=== PATIENT | male | born 1960 | race Asian ===

== ENCOUNTER 2024-08-23 10:53 | Outpatient (AMB) | payer OTHER, SELFPAY ==
--- NOTE | 2024-08-23 10:59 | A.OFFPC_ITS ---
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 Intake Note: establish care pt also needs a eye dr referral and another freestyle meter Allergies No Known Allergies Allergy (Verified 08/23/24 16:30) Medication List - Last Reconciled 08/23/24 by Jasmyn Chua CNP amoxicillin 500 mg PO TID blood-glucose meter (FreeStyle Lite Meter kit) As directed blood-glucose meter (FreeStyle System Kit) As directed diclofenac sodium 1% (Aleve (diclofenac)) 2 grams topical QID gabapentin 300 mg PO BEDTIME lancets (FreeStyle Lancets) As directed metformin 1,000 mg PO DAILY naproxen (EC-Naproxen) 500 mg PO BID tamsulosin 0.4 mg PO DAILY Tobacco use date assessed: 08/23/24 Fall risk assessment: 1 Fall in past year Last assessed Fall Risk: 08/23/24 Dental Screening Dental Screen Date: 08/23/24 Did you have a dental visit in the last 12 months?: Yes Did you have a dental problem in the last 6 months where you did not have access to dental care?: Yes Was dental information given to patient?: Patient has dentist HPI HPI Comments History of Present Illness Details The patient is a 64-year-old male presenting with his pjyeuefz-rv-lyu to establish care. His former PCP, Dr. Davis Roth, practice permanently closed about a month ago. He presents with dizziness and memory loss. The dizziness is described as occurring primarily in the mornings and evenings, causing fear of falling. This symptom has persisted for several months. The patient reports usage of meclizine to moderate effect. He also experiences memory issues, appearing forgetful, which he associates with his dizziness and fears. Regarding his chronic conditions, the patient has a history of diabetes mellitus type 2, managed with metformin, with A1c recently checked in March. Hypertension is noted but well-controlled, with blood pressure readings at 120/60 today. Hyperlipidemia which is not managed with medication. The patient has benign prostatic hyperplasia, causing nocturia 2-3 times nightly, managed with tamsulosin. He underwent a right knee replacement two years ago and continues to experience bilaterally arthritic changes, with persistent pain warranting the use of diclofenac cream and Naproxen. Additionally, he reports low back pain without prior imaging studies, which began post knee replacement. Constipation and GI issues are ongoing, prompting prior GI referrals for colonoscopy, which was deferred due to a move. Recent knee pains, and diffuse wrist pain, described as more prevalent in the left wrist, have been present for one year, with worsened activities like writing and lifting. The patient also reports a history of anxiety and mild depression accompanied by sleep disruptions, exacerbated by socioeconomic concerns. Social History - Recently moved to [place] from [facility], three months ago. - Lives with spouse and pnsiqtue-ke-dao in a joint family. - Fears falling due to dizziness, requir ing accompaniment. - He generally maintains a healthy diet. - Exercises occasionally, albeit limited by fear of falling and dizziness. Results - Labs: Hemoglobin A1c at 6.0%, blood pr essure 120/60. - Procedures: Past knee X-rays confirmin g arthritis. Health Maintenance - He has never had a colonoscopy. - He has never been vaccinated for pneum onia. Encouraged to get the vaccines from his local pharmacy. - He is up-to-date on the shingles vacci ne - His last tetanus vaccine was 2-3 years ago - His last extended physical exam with diane benavidez former PCP was in March 2024 -His former PCP referred him to a neurol ogist for dizziness and headaches, care rep for constipation, and ophthalmology for eye exam, but he relocated to [facility] before establishing care with them. He was also followed by urology for BPH, nocturia, and frequent urination before he moved. Family History - Father: Asthma, diabetes, hypertension . REPLACED BY [facility] Medical History (Updated 08/23/24 @ 14:00 by Jasmyn Chua CNP) Memory loss Generalized headaches Dizziness Frequency of urination Enlarged prostate Pain in lower back High cholesterol Surgical History (Updated 08/23/24 @ 11:09 by EDITH Hollins) Knee joint replacement status Family History (Updated 08/23/24 @ 12:59 by EDITH Hollins) Father Asthma High blood pressure Diabetes Social History Housing: House Patient Tobacco Use Status: Never used Tobacco e-Cigarette/Vaping Use: Never Used service: No Current occupational status: retired Current occupational exposures/hazards: No Cognitive needs: No Hearing needs: No Vision needs: Yes Questionnaire PHQ-9 Over the last 2 weeks, how often have you been bothered by any of the following problems? 1. Little interest or pleasure in doing things: not at all 2. Feeling down, depressed, or hopeless: several days 3. Trouble falling or staying asleep, or sleeping too much: more than half the days 4. Feeling tired or having little energy: several days 5. Poor appetite or overeating: not at all 6. Feeling bad about yourself - or that you are a failure or have let yourself or your family down: not at all 7. Trouble concentrating on things, such as reading the newspaper or watching television: more than half the days 8. Moving or speaking so slowly that other people could have noticed. Or the opposite - being so fidgety or restless that you have been moving around a lot more than usual: several days 9. Thoughts that you would be better off or of hurting yourself in some way: not at all Total score: 7 Depression Screening Interpretation: Positive Depression Screening Done: Yes 52175 - PHQ-9 Billing: Yes Source: Developed by Drs. Pedro Negrete, Kristen Ragland, Modesto Higgins and colleagues, with an educational angel from [employer]. Thrive Questionnaire Date Thrive assessed: 08/23/24 I am a: Patient What is your living situation today?: I have a steady place to live Within the past 12 months, did the food you bought not last and you didn't have the money to get more?: I choose not to answer this question Within the past 12 months, did you worry whether your food would run out before you got money to buy more?: Sometimes True Do you have trouble paying for medicines?: I choose not to answer this question Do you have trouble getting transportation to medical appointments?: Yes Do you have trouble paying your heating and electricity bill?: I choose not to answer this question Do you have trouble taking care of your child, family member or friend?: I choose not to answer this question Do you have trouble with day-to-day activities such as bathing, preparing meals, shopping, managing finances, etc.?: I choose not to answer this question Are you currently unemployed and looking for a job?: I choose not to answer this question Are you interested in more education?: No Please select the resources that you would like help with: Transportation, Util ities and Daily support Currently or been in a relationship where the following occur: I choose not to answer THRIVE Score: 2 AUDIT C Alcohol Use Questionnaire (AUDIT-C) 1. How often do you have a drink containing alcohol?: Never 2. How many drinks containing alcohol do you have on a typical day when you are drinking?: 1 or 2 3. How often do you have six or more drinks on one occasion?: Never Total Score: 0 JAIRO-7 AMB Questionnaire JAIRO-7 Date JAIRO - 7 assessed: 08/23/24 Feeling nervous, anxious, or on edge: 1 = Several days Not being able to stop or control worryin = Not at all Worrying too much about different things: 0 = Not at all Trouble relaxin = Several days Being so restless that it is hard to sit still: 0 = Not at all Becoming easily annoyed or irritable: 1 = Several days Feeling afraid as if something awful might happen: 1 = Several days Total JAIRO-7 score (0-4 normal; 5-9 mild; 10-14 moderate; 15-21 severe): 4 Source: Developed by Drs. Pedro Negrete, Kristen Ragland, Modesto Higgins and colleagues, with an educational angel from [employer]. JAIRO-7 Assessment Billing JAIRO-7 Assessment Tool: JAIRO-7 Assessment 28080 Review of Systems Const Details: Const Denies chills, Denies fatigue, Denies fever(s), Reports headache(s) and Denies weakness ENT Reports dizziness and Reports headache(s) Card Denies chest pain, Denies lightheadedness, Denies dyspnea and Denies other (Palpitations) Resp Denies cough, Denies dyspnea, Denies wheezing and Denies other (shortness of breath) GI Reports constipation, Denies abdominal pain, Denies melena, Denies hematochezia, Denies change in bowel habits, Denies dyspepsia and Denies nausea Reports nocturia and frequent urination, Denies hematuria and Denies dysuria Musc Reports as per HPI Skin/Breast Denies rash, Denies unusual bruising and Denies wounds Neuro Denies abnormal gait, Reports dizziness, Reports headache(s), Reports memory loss, Denies numbness, Denies Sensory deficit (Neuro), Denies tingling and Denies weakness Psych Reports anxiety, Reports depression, Reports memory loss, Reports sleep disturbances Endo Denies cold intolerance, Denies fatigue, Denies heat intolerance, Denies polydipsia and Denies polyuria Aller/Immun Denies wheezing Physical exam (Primary Care) Vital Signs: Last Vital Signs Temp 97.9 F 08/23/24 11:13 Pulse 62 08/23/24 11:13 Resp 14 08/23/24 11:13 BP 120/60 08/23/24 11:13 Pulse Ox 99 08/23/24 11:13 Oxygen Delivery Method Room Air 08/23/24 11:13 BMI result Body Mass Index 22.9 Tobacco/Smoking Status: Tobacco use Status Tobacco use date assessed 08/23/24 08/23/24 11:17 Patient Tobacco Use Status Never used Tobacco 08/23/24 11:17 e-Cigarette/Vaping Use Never Used 08/23/24 11:17 PHQ-9: PHQ-9 Score PHQ-9: Total score 7 08/23/24 12:50 Depression Screening Interpretation: Positive Thrive Assessment: Date of Thrive Assessment Date Thrive assessed 08/23/24 08/23/24 11:17 Currently or been in a relationship where the following occur: I choose not to answer Const Other: General: no acute distress and well developed Nutritional Appearance: well nourished Orientation/consciousness: patient oriented x3 HENMT Head: Yes normocephalic and Yes atraumatic Eyes General: appearance normal, both eyes and all related structures Pupils: Equal, round and reactive pupils present EOM: EOMs intact bilaterally Resp Effort & Inspection: normal respiratory effort Auscultation: clear to auscultation bilaterally Cardio Rate: regular rate Rhythm: regular rhythm Heart sounds: S1 normal heart sound present, S2 normal heart sound present, no gallops, no murmurs and no rubs GI Palpation (GI): No Abdominal aortic bruit present, Soft to palpation, nontender, No hepatosplenomegaly present and No Rebound tenderness present Auscultation: normal bowel sounds General: Yes no CVA tenderness Back/Spine/Pelvis Back: no CVA tenderness Cervical Spine: cervical ROM normal and No Cervical spine tenderness Thoracic/Lumbar Spine: thoraco-lumbar ROM normal, No pain with thoraco-lumbar ROM, No thoracic spinal tenderness and possitive lumbar spinal tenderness Extrem General: Yes normal to inspection, No edema and No calf tenderness Skin General: warm and dry. Normal skin color. Normal skin turgor Lesions: no lesions Rashes: no rashes Trauma: no lacerations or abrasions Wounds: no wounds Nails: normal Neuro General: patient oriented x3, gait normal and no focal neuro deficit Cranial nerves: Yes Equal, round and reactive pupils present Cognition (Neuro): normal cognition Gait exam (Neuro): Normal gait present Sensory Exam: No Sensory deficit (Neuro) Psych Appearance: grossly normal Affect: normal affect Attitude: cooperative Thought process: Normal thought process present Results AMB Hemoglobin A1c AMB Hemoglobin A1c 6.0 % Last Edit by EDITH Hollins on 08/23/24 12:48 AMB Hemoglobin A1c AMB Hemoglobin A1c 6.0 % Last Edit by EDITH Hollins on 08/23/24 12:49 Results Reviewed Results Reviewed: Laboratory Last Values Hgb A1c (Clinic) 6.0 % (4.0-6.0) 08/23/24 12:47 Coding Level of Care Code New Pt Level 4 (92240) New Pt Prev Care >65yr (94676) Diagnoses Type 2 diabetes mellitus E11.9 Essential hypertension I10 Laboratory tests ordered as part of a complete physical exam (CPE) Z00.00 High cholesterol E78.00 Enlarged prostate N40.0 Nocturia R35.1 Frequency of urination R35.0 Dizziness R42 Generalized headaches R51.9 Memory loss R41.3 Arthritis of both knees M17.0 Chronic low back pain M54.50; G89.29 Bilateral wrist pain M25.531; M25.532 Constipation K59.00 Colon cancer screening Z12.11 Anxiety and depression F41.9; F32.A Sleep disturbance G47.9 Additional Codes JAIRO-7 Assessment Billing - JAIRO-7 Assessment Tool: JAIRO-7 Assessment 42684 ([id number]) PHQ-9 - 03159 - PHQ-9 Billing: Yes ([id number]) Assessment & Plan Assessment & Plan (1) Type 2 diabetes mellitus: Code(s): E11.9 - Type 2 diabetes mellitus without complications Category: Medical Plan: Maintain current metformin regimen; close monitoring through routine blood glucose checks and A1c. 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 (3) Laboratory tests ordered as part of a complete physical exam (CPE): Code(s): Z00.00 - Encounter for general adult medical examination without abnormal findings Category: Medical Plan: Fasting labs ordered as part of a complete physical exam. Advised to fast for at least 10 hours before getting labs drawn. May drink water Verbalized understanding and agreed with treatment plan. (4) High cholesterol: Code(s): E78.00 - Pure hypercholesterolemia, unspecified Category: Medical Plan: Ensure lipid profile is stable at follow-up. (5) Enlarged prostate: Code(s): N40.0 - Benign prostatic hyperplasia without lower urinary tract symptoms Category: Medical Plan: Continue tamsulosin. Evaluate urinary symptoms as part of a urologist referral. (6) Nocturia: Code(s): R35.1 - Nocturia Category: Medical Plan: Plan as above (7) Frequency of urination: Code(s): R35.0 - Frequency of micturition Category: Medical Plan: Plan as above (8) Dizziness: Code(s): R42 - Dizziness and giddiness Category: Medical Plan: Neurology referral to investigate persistent headache, dizziness and memory complaints. Continued use of meclizine as symptomatically needed. (9) Generalized headaches: Code(s): R51.9 - Headache, unspecified Category: Medical Plan: Plan as above (10) Memory loss: Code(s): R41.3 - Other amnesia Category: Medical Plan: Plan as above (11) Arthritis of both knees: Code(s): M17.0 - Bilateral primary osteoarthritis of knee Category: Medical (12) Chronic low back pain: Code(s): M54.50 - Low back pain, unspecified; G89.29 - Other chronic pain Category: Medical Plan: Continue Naproxen and diclofenac cream application (13) Bilateral wrist pain: Code(s): M25.531 - Pain in right wrist; M25.532 - Pain in left wrist Category: Medical Plan: Continue Naproxen and diclofenac cream application; X-ray for bilateral wrist pain (14) Constipation: Code(s): K59.00 - Constipation, unspecified Category: Medical Plan: Referral for a colonoscopy via gastroenterology to rule out obstructive causes. (15) Colon cancer screening: Code(s): Z12.11 - Encounter for screening for malignant neoplasm of colon Category: Medical Plan: Referral for a colonoscopy via gastroenterology. (16) Anxiety and depression: Code(s): F41.9 - Anxiety disorder, unspecified; F32.A - Depression, unspecified Category: Medical Plan: Consider behavioral interventions for anxiety and depression; continue monitoring and adjustment as needed. (17) Sleep disturbance: Code(s): G47.9 - Sleep disorder, unspecified Category: Medical Plan: Plan as above Plan During the consultation, I addressed each of the patient's chronic conditions. I outlined the importance of coordinating care with specialists in neurology, gastroenterology, and urology to explore underlying causes for his dizziness, memory loss, constipation, BPH, nocturia, and urinary frequency. I stressed the role of lifestyle factors in managing his dizziness, emphasizing safety at home with supportive walking devices. We discussed the benefit of physical exercise tailored to his capabilities and the impact of mental health on his physical symptoms. I proposed a follow-up in two to three weeks by phone to review lab results, with further in-person evaluation based on those findings, ensuring clarity and proactive management across each condition. Orders: Orders XR wrist RT 2V Today M25.531 - Pain in right wrist, M25.532 - Pain in left wrist XR lumbar spine 2-3V Today G89.29 - Other chronic pain, M54.50 - Low back pain, unspecified AMB Hemoglobin A1c Today E11.9 - Type 2 diabetes mellitus without complications Complete Blood Count Auto Diff Today Z00.00 - Encounter for general adult medical examination without abnormal findings Comprehensive [place]. Panel Fast Today Z00.00 - Encounter for general adult medical examination without abnormal findings Lipid Panel Today Z00.00 - Encounter for general adult medical examination without abnormal findings TSH reflex Free T4 Today Z00.00 - Encounter for general adult medical examination without abnormal findings Microalbumin, Random (w Creat) Today Z00.00 - Encounter for general adult medical examination without abnormal findings UA CC w/rflx Micro + Cult Today Z00.00 - Encounter for general adult medical examination without abnormal findings PSA, Ultra Sensitive Today Z00.00 - Encounter for general adult medical examination without abnormal findings AMB Hemoglobin A1c Today Z13.9 - Encounter for screening, unspecified XR wrist LT 2V Today M25.531 - Pain in right wrist, M25.532 - Pain in left wrist Referrals Urology Referral N40.0 - Benign prostatic hyperplasia without lower urinary tract symptoms, R35.0 - Frequency of micturition, R35.1 - Nocturia Ophthalmology Referral E11.9 - Type 2 diabetes mellitus without complications Gastroenterology Referral K59.00 - Constipation, unspecified, Z12.11 - Encounter for screening for malignant neoplasm of colon Neurology Referral R41.3 - Other amnesia, R42 - Dizziness and giddiness, R51.9 - Headache, unspecified Medications: New blood-glucose meter (FreeStyle System Kit) As directed 1 ea 0RF E11.9 - Type 2 diabetes mellitus without complications Patient Instructions: - Continue medications as prescribed. - Use meclizine for dizziness as needed. - Schedule and attend neurology and gastroenterology appointments for dizziness and constipation assessment, and plan for necessary colonoscopy. - Follow urology for any changes in prostatic symptoms. - Engage in regular, light exercise to the extent tolerated, ensuring safety and support during activities. - Monitor and record blood pressure and blood glucose to manage hypertension and diabetes. - Schedule a telehealth visit for lab review in two to three weeks to discuss ongoing management. - Ensure a safe home environment to minimize fall risks. - Seek urgent medical attention if symptoms significantly worsen or new acute symptoms develop.
[2024-08-23 11:13] VITALS: BP 120/60; PULSE 62; RESP 14; TEMP 36.6; O2SAT 99; BMI 22.9
== END 2024-08-23 12:44 | disposition home or self-care (01) ==
PROVIDERS: Visit Provider Nurse Practitioner Family
DX: Z00.00 Encounter for general adult medical examination without abnormal findings (principal); E11.9 Type 2 diabetes mellitus without complications; I10 Essential (primary) hypertension; E78.00 Pure hypercholesterolemia, unspecified; N40.0 Benign prostatic hyperplasia without lower urinary tract symptoms; R35.1 Nocturia; M25.531 Pain in right wrist; M54.50 Low back pain, unspecified; R35.0 Frequency of micturition; M17.0 Bilateral primary osteoarthritis of knee; R42 Dizziness and giddiness; R51.9 Headache, unspecified

== ENCOUNTER → 2024-08-23 10:53 | Outpatient (BNVA) | payer OTHER, SELFPAY | PROVIDERS: Visit Provider Nurse Practitioner Family | DX: E11.9 Type 2 diabetes mellitus without complications (principal); I10 Essential (primary) hypertension; E78.00 Pure hypercholesterolemia, unspecified; N40.1 Benign prostatic hyperplasia with lower urinary tract symptoms; R35.1 Nocturia; R35.0 Frequency of micturition; R42 Dizziness and giddiness; R51.9 Headache, unspecified; R41.3 Other amnesia; M17.0 Bilateral primary osteoarthritis of knee; G89.29 Other chronic pain; M54.50 Low back pain, unspecified; M25.531 Pain in right wrist; M25.532 Pain in left wrist; K59.00 Constipation, unspecified; F41.9 Anxiety disorder, unspecified; F32.A Depression, unspecified; G47.9 Sleep disorder, unspecified; Z79.84 Long term (current) use of oral hypoglycemic drugs; Z79.899 Other long term (current) drug therapy | CPT/HCPCS: 83036; 96127 ==

== ENCOUNTER 2024-08-24 09:09 | Outpatient (REF) | payer OTHER, SELFPAY ==
[2024-08-24 10:57] LABS: Appearance Urine Clear; Color Urine Yellow; Glucose Urine UA Negative (Negative); Leukocyte Esterase Urine Negative (Negative); Nitrite Urine Negative (Negative); Specific Gravity - Urine <= 1.005 (1.005-1.025); Urine Blood Negative (Negative); Urine Ketones Negative (Negative); Urine Protein Negative (Neg-Trace)
[2024-08-24 11:19] LABS: MANUAL DIFF FLAG NO
[2024-08-24 11:22] LABS: Basophils Percent Auto 0.7 % (0-2); Eosinophils Absolute Auto 0.1 X10*3/uL (0.0-0.4); Eosinophils Percent Auto 1.7 % (0-4); Hematocrit 34.6 % (42.0-52.0); Hemoglobin 11.5 g/dl (14.0-18.0); Imm Gran Abs Auto 0.01 X10*3/uL (0.00-0.03); Imm Gran Pct Auto 0.2 % (0.0-0.4); Lymphocytes Absolute Auto 1.7 X10*3/uL (1.2-4.9); Lymphocytes Percent Auto 37.5 % (20-40); Mean Corpuscular HGB Conc 33.2 g/dl (31.0-36.0); Mean Corpuscular Hemoglobin 28.4 pg (27.0-33.0); Mean Corpuscular Volume 85.4 fL (80.0-98.0); Mean Platelet Volume 9.9 fL (9.4-12.4); Monocytes Absolute Auto 0.4 X10*3/uL (0.1-1.2); Monocytes Percent Auto 8.7 % (2-11); Neutrophils Absolute Auto 2.4 x10*3/uL (2.0-8.3); Neutrophils Percent Auto 51.2 % (45-73); Platelet Count 299 X10*3/uL (160-400); Red Blood Count 4.05 X10*6/uL (4.60-5.80); Red Cell Distribution Width 13.2 % (11.0-16.0); White Blood Count 4.6 X10*3/uL (4.8-10.8)
[2024-08-24 11:42] LABS: Alanine Aminotransferase 6 U/L (0-40); Albumin Level 4.1 g/dL (3.5-5.0); Anion Gap 10 (12-20); Aspartate Amino Transferase 25 U/L (5-37); Bilirubin Total 0.4 mg/dL (0.0-1.0); Blood Urea Nitrogen 11 mg/dL (9-16); Calcium 9.1 mg/dL (8.4-10.2); Carbon Dioxide 27 mmol/L (22-29); Chloride 103 mmol/L (96-108); Cholesterol 108 mg/dL (<200); Estimated Glomerular Filt Rate > 60; Glucose Fasting 104 mg/dL (60-99); HDL Cholesterol 44 mg/dL (>40); LDL Cholesterol Calculated 57 mg/dL (<100); Potassium 4.4 mmol/L (3.3-5.1); Sodium 136 mmol/L (135-145); Total Protein 6.9 g/dL (6.5-8.0); Triglycerides 39 mg/dL (<150)
[2024-08-24 11:44] LABS: Alkaline Phosphatase 52 U/L (39-117)
[2024-08-24 12:22] LABS: Creatinine Urine 14.83 mg/dL; Microalbumin Urine < 5.0 mg/L
[2024-08-29 19:58] LABS: PSA, Ultra Sensitive 7.29 ng/mL
== END 2024-08-24 09:10 | disposition home or self-care (01) ==
LOC: HO.WFDLDS 09:09
PROVIDERS: Visit Provider Nurse Practitioner Family
DX: Z00.00 Encounter for general adult medical examination without abnormal findings (principal); Z12.5 Encounter for screening for malignant neoplasm of prostate
CPT/HCPCS: 36415; 80053; 80061; 81003; 82043; 82570; 84153; 84443; 85025

== ENCOUNTER 2024-09-13 12:03 | Outpatient (AMB) | payer OTHER, SELFPAY ==
--- NOTE | 2024-09-13 11:29 | MHC.PC.OV ---
Intake Visit Reasons: FU Labs Piece Goods Clerk Required: No Allergies No Known Allergies Allergy (Verified 09/13/24 11:30) Tobacco use date assessed: 08/23/24 Fall risk assessment: 2 + Falls in past year Last assessed Fall Risk: 09/13/24 Dental Screening Dental Screen Date: 09/13/24 Did you have a dental visit in the last 12 months?: Yes Did you have a dental problem in the last 6 months where you did not have access to dental care?: No Was dental information given to patient?: Patient has dentist HPI HPI Comments History of Present Illness Details 64-year-old male presents for telehealth visit for review of recent lab results. He admits to taking his medications as prescribed without adverse reactions. He reports continued frequent urination. He stopped taking tamsulosin 10-15 days ago, thinking the medication may be contributing to his frequent urination. However, his symptoms have not stopped. He is willing to resume the medication. He has an appointment with [facility] [place] next month. He requests refills for tamsulosin and meclizine. He notes that he is also on atorvastatin 10 mg every night, lisinopril 10 mg twice daily, and metformin 1000 mg twice daily. [facility] Medical History (Updated 09/13/24 @ 12:15 by Jasmyn Chua CNP) Memory loss Generalized headaches Dizziness Frequency of urination Enlarged prostate Pain in lower back High cholesterol Surgical History (Updated 08/23/24 @ 11:09 by EDITH Hollins) Knee joint replacement status Family History (Updated 08/23/24 @ 12:59 by EDITH Hollins) Father Asthma High blood pressure Diabetes Social History Housing: House Patient Tobacco Use Status: Never used Tobacco e-Cigarette/Vaping Use: Never Used service: No Current occupational status: retired Current occupational exposures/hazards: No Cognitive needs: No Hearing needs: No Vision needs: Yes Questionnaire Thrive Questionnaire Date Thrive assessed: 08/16/24 I am a: Patient What is your living situation today?: I have a steady place to live Within the past 12 months, did the food you bought not last and you didn't have the money to get more?: I choose not to answer this question Within the past 12 months, did you worry whether your food would run out before you got money to buy more?: Sometimes True Do you have trouble paying for medicines?: I choose not to answer this question Do you have trouble getting transportation to medical appointments?: Yes Do you have trouble paying your heating and electricity bill?: I choose not to answer this question Do you have trouble taking care of your child, family member or friend?: I choose not to answer this question Do you have trouble with day-to-day activities such as bathing, preparing meals, shopping, managing finances, etc.?: I choose not to answer this question Are you currently unemployed and looking for a job?: I choose not to answer this question Are you interested in more education?: No Currently or been in a relationship where the following occur: I choose not to answer THRIVE Score: 2 JAIRO-7 AMB Questionnaire JAIRO-7 Date JAIRO - 7 assessed: 08/23/24 Source: Developed by Drs. Pedro Negrete, Kristen Ragland, Modesto Higgins and colleagues, with an educational angel from [employer]. Review of Systems Const Details: Const Denies chills, Denies fatigue, Denies fever(s), Denies headache(s) and Denies weakness ENT Denies dizziness and Denies headache(s) Card Denies chest pain, Denies lightheadedness, Denies dyspnea and Denies other (Palpitations) Resp Denies cough, Denies dyspnea, Denies wheezing and Denies other ( shortness of breath) GI Denies abdominal pain, Denies melena, Denies hematochezia, Denies change in bowel habits, Denies dyspepsia and Denies nausea Reports as per HPI Musc Denies abnormal gait, Denies myalgias, Denies arthralgias, Denies numbness and Denies tingling Skin/Breast Denies rash, Denies unusual bruising and Denies wounds Neuro Denies abnormal gait, Denies dizziness, Denies headache(s), Denies memory loss, Denies numbness, Denies Sensory deficit (Neuro), Denies tingling and Denies weakness Psych Denies anxiety, Denies depression, Denies memory loss Endo Denies cold intolerance, Denies fatigue, Denies heat intolerance, Denies polydipsia and Denies polyuria Aller/Immun Denies wheezing Physical exam (Primary Care) Tobacco/Smoking Status: Tobacco use Status Tobacco use date assessed 08/23/24 09/13/24 11:33 Patient Tobacco Use Status Never used Tobacco 09/13/24 11:33 e-Cigarette/Vaping Use Never Used 09/13/24 11:33 Thrive Assessment: Date of Thrive Assessment Date Thrive assessed 08/16/24 09/13/24 11:33 Currently or been in a relationship where the following occur: I choose not to answer Const Other: Telehealth visit. No physical exam Telehealth Telehealth Telehealth Platform: Telephone Location of provider rendering services: practice address Location of patient: address on file Patient Identification confirmed using: Name, : Yes Telehealth method: voice only Patient verbally consented to treatment: Yes Patient verbally consented to billing insurance company: Yes Patient informed of any privacy concerns related to visit: Yes Coding Level of Care Code Tele Est Pt Level 3 (02903) Diagnoses Mild anemia D64.9 Leukopenia D72.819 Type 2 diabetes mellitus E11.9 Elevated PSA R97.20 Time Spent (min) 15 Assessment & Plan Assessment & Plan (1) Mild anemia: Code(s): D64.9 - Anemia, unspecified Category: Medical Plan: Recent RBC and H&H are slightly low, 4.05 and 11.5/34.6 respectively. Likely due to anemia of chronic disease, including diabetes and hypertension. Will recheck CBC and check iron studies, vitamin B12, and folate levels. Will make changes as needed. Advised to get nonfasting blood work done before his next visit. Follow-up in 3 months for hypertension, diabetes, and labs review or sooner with symptoms or concerns. Verbalized understanding and agreed with the plan. (2) Leukopenia: Code(s): D72.819 - Decreased white blood cell count, unspecified Category: Medical Plan: Recent WBC is slightly low, 4.6; unequivocal. Will check vitamin B12 and folate levels and make changes as needed. (3) Type 2 diabetes mellitus: Code(s): E11.9 - Type 2 diabetes mellitus without complications Category: Medical Plan: Recent fasting glucose is elevated, 104. Recent H&H on 08/23/2024 was 6.0%, within goal of less than 7.0%. Continue current treatment regimen. ADA diet and routine exercise encouraged. Will recheck A1c in 3 months. Verbalized understanding and agreed with the treatment plan. (4) Elevated PSA: Code(s): R97.20 - Elevated prostate specific antigen [PSA] Category: Medical Plan: Recent PSA is slightly elevated, 7.29. He has history of enlarged prostate and frequent urination. He was recently referred to [facility] [place] and has an appointment next month. Orders: Orders Complete Blood Count no Diff 09/13/24 D64.9 - Anemia, unspecified, D72.819 - Decreased white blood cell count, unspecified IRON PROFILE 09/13/24 D64.9 - Anemia, unspecified Vitamin B12 and Folate 09/13/24 D64.9 - Anemia, unspecified, D72.819 - Decreased white blood cell count, unspecified Ferritin 09/13/24 D64.9 - Anemia, unspecified Medications: Changed From tamsulosin 0.4 mg PO DAILY To tamsulosin 0.4 mg PO DAILY 30 days 30 caps 1RF
== END 2024-09-13 12:27 | disposition home or self-care (01) ==
LOC: HO.HMCFM 12:03
PROVIDERS: PCP Nurse Practitioner Family; Visit Provider Nurse Practitioner Family
DX: D64.9 Anemia, unspecified (principal); D72.819 Decreased white blood cell count, unspecified; E11.9 Type 2 diabetes mellitus without complications; R97.20 Elevated prostate specific antigen [PSA]

== ENCOUNTER → 2024-09-13 12:03 | Outpatient (BNVA) | payer OTHER, SELFPAY | PROVIDERS: PCP Nurse Practitioner Family; Visit Provider Nurse Practitioner Family ==

== ENCOUNTER 2024-10-23 09:20 | Outpatient (AMB) | payer OTHER, SELFPAY ==
--- NOTE | 2024-10-23 09:51 | A.OFFVIS_ITS ---
Intake Visit Reasons: BPH/nocturia/Elevated PSA Intake Note: New Patient presents for initial visit for BPH, nocturia, and elevated psa Urology Medications: tamsulosin (stopped 3 days ago) Blood Thinner: none PVR: 15ml's Manager Staffing Required: No Accompanied by: Self / Same As Patient Allergies No Known Allergies Allergy (Verified 10/23/24 11:00) Medication List - Last Reviewed 10/23/24 by Aminah Ahumada alfuzosin ER 10 mg PO BEDTIME 30 days atorvastatin 10 mg PO DAILY blood sugar diagnostic (Spare Backupuch Verio test strips) As directed blood-glucose meter (EVERFANSTouch Verio Flex Meter) As directed diclofenac sodium 1% (Aleve (diclofenac)) 2 grams topical QID gabapentin 300 mg PO BEDTIME lancets (EVERFANSTouch Delica Plus Lancet) As directed lisinopril 10 mg PO BID 90 days meclizine 12.5 mg PO TID metformin ER 1,000 mg PO BID naproxen (EC-Naproxen) 500 mg PO BID naproxen 500 mg PO BID HPI Comments Details: Miya is a very pleasant 64-year-old male patient of Dr. Chua. He has a past medical history of memory loss, headaches, dizziness, hypercholesteremia, and elevated PSA. In discussion with the patient today he reports having followed up with a urologist in [place], [place] where he recently lived however has moved to [place] and is looking to establish urology care. He brings with him today his MRI report that notes a 1.0 X 1.1 cm focus of prominent T2 and ADC hypointensity at right posterior medical peripheral zone at mid gland, suspicious (DE-RADS 4). He discusses he was due to follow-up regarding results of MRI and further treatment options however he then moved to [place]. He reports noting over the last 6-9 months he has been having episodes of urinary frequency, urinary urgency, and nocturia. He reports being given Flomax with good effect in treating his lower urinary tract symptoms however at times experiences dizziness. He otherwise denies incontinence, hematuria, dysuria, foul smelling urine, changes to urinary stream, flank pain, fever, and or chills. PSAs are as follows: 08/26 7.3. AUBREY offered however deferred. He denies any known family history of prostate cancer. We discussed at length potential causes of elevated PSA as well as further workup to include targeted prostate biopsy. We discussed risks and benefits of this intervention. In office urinalysis results reviewed with the patient today. He discusses his ongoing medical issues and follow-up with neurology today for recurrent headaches he has been experiencing. He otherwise offers no other issues or concerns at this time. [facility] Medical History Memory loss Generalized headaches Dizziness Frequency of urination Enlarged prostate Pain in lower back High cholesterol Surgical History Knee joint replacement status Family History Father Asthma High blood pressure Diabetes Social History Housing: House Patient Tobacco Use Status: Never used Tobacco e-Cigarette/Vaping Use: Never Used service: No Current occupational status: retired Current occupational exposures/hazards: No Cognitive needs: No Hearing needs: No Vision needs: Yes Review of Systems Const All systems reviewed & are unremarkable except as noted in HPI and below Physical Exam Const General: cooperative, comfortable, no acute distress, well developed, alert and awake Orientation/consciousness: patient oriented x3 HEENT Head: Yes normal to inspection, Yes normocephalic and Yes atraumatic Ears: hearing grossly normal bilaterally Neck Neck: Yes normal visual inspection and Yes trachea midline Chest Chest palpation & inspection: normal inspection of the chest Resp Effort & Inspection: normal respiratory effort and able to speak in complete sentences Cardio Rate: regular rate GI Inspection: Yes normal to inspection General: Yes no CVA tenderness Back/Spine/Pelvis Back: no CVA tenderness Skin General skin exam: no rashes or lesions noted Neuro General: patient oriented x3 Extrem General: Yes normal to inspection Psych Appearance: grossly normal and well kempt Mental Status: mental status grossly normal Speech and movement: Normal speech and movement present and Clear speech present Affect: normal affect Attitude: cooperative Thought process: Normal thought process present Thought content: Normal thought content present Insight: Fair insight present (Psych) Judgement: Fair judgement present (Psych) Office Procedures Post Void Residual Post Residual Void Post Void Residual (PVR): 15 [id number] Void Residual by ultrasound Results AMB Urinalysis, Automated UA Leukoctes 0 David/uL Last Edit by [employer] on 10/23/24 11:02 UA Nitrite Last Edit by [employer] on 10/23/24 11:02 UA Urobilinogen 0.2 mg/dL Last Edit by [employer] on 10/23/24 11:02 UA Protein 15 mg/dL Last Edit by [employer] on 10/23/24 11:02 UA pH 6.0 Last Edit by [employer] on 10/23/24 11:02 UA Blood 0 Luis E/uL Last Edit by [employer] on 10/23/24 11:02 UA Specific Schriever 1.020 Last Edit by [employer] on 10/23/24 11:02 UA Ketone Last Edit by [employer] on 10/23/24 11:02 UA Bilirubin 0 mg/dL Last Edit by [employer] on 10/23/24 11:02 UA Glucose 0 mg/dL Last Edit by [employer] on 10/23/24 11:02 Results Reviewed Results Reviewed: Laboratory Last Values Urine pH (Auto) 6.0 10/23/24 11:01 Specific Schriever (Auto) 1.020 10/23/24 11:01 Urine Protein (Auto) 15 mg/dL 10/23/24 11:01 Glucose (UA)(Auto) 0 mg/dL 10/23/24 11:01 Urine Blood (Auto) 0 Luis E/uL 10/23/24 11:01 Urine Bilirubin (Auto) 0 mg/dL 10/23/24 11:01 Urine Urobilinogen (Auto) 0.2 mg/dL 10/23/24 11:01 Leukocyte Esterase (Auto) 0 David/uL 10/23/24 11:01 Assessment & Plan Assessment & Plan (1) Elevated PSA: Code(s): R97.20 - Elevated prostate specific antigen [PSA] Category: Medical (2) Frequency of urination: Code(s): R35.0 - Frequency of micturition Category: Medical (3) Nocturia: Code(s): R35.1 - Nocturia Category: Medical Plan: Risks, benefits and alternatives to therapy were discussed. These include but are not limited to infection, bleeding, damage to local organs and tissues, need for further interventions. ? Anesthetic risks regarding cardiac arrhythmia, blood clots, and potential mortality were discussed. The patient understands the typical recovery time and the outpatient nature of the procedure. After consideration of these risks the patient gives full informed consent and they wish to move ahead with the procedure. Plan In office urinalysis results reviewed with the patient today; as noted above. MRI report reviewed with the patient today; as noted above. We discussed at length potential causes of elevated PSA as well as further treatment options to include targeted biopsy; we discussed risks and benefits of this intervention. All questions were answered. Stop Flomax. Start alfuzosin 10 mg at bedtime as discussed and prescribed. AUBREY offered however deferred. Will attempt to obtain MRI disc for targeted biopsy Will schedule for targeted biopsy Follow-up per doctor's orders; or sooner with any issues, concerns, and or questions. Orders: Orders AMB Urinalysis Automated Today Z13.9 - Encounter for screening, unspecified AMB Post Void Residual by ultrasound Today R35.1 - Nocturia Medications: New alfuzosin ER Take before bedtime 10 mg PO BEDTIME 30 tabs 3RF 30 days N32.0 - Bladder- neck obstruction, N40.1 - Benign prostatic hyperplasia with lower urinary tract symptoms, R33.9 - Retention of urine, unspecified, R35.1 - Nocturia, R39.12 - Poor urinary stream Discontinued tamsulosin Discontinued Reason: Doctor's Order 0.4 mg PO DAILY 30 days 30 caps 1RF Patient Instructions: The patient had an opportunity to ask questions regarding the treatment plan. All questions were answered. Physical exam, labs, and imaging were discussed and reviewed in detail. As well as risks, benefits, and discussion of treatment choices. No major barriers to understanding were identified. The patient expressed understanding and agreement with the above treatment plan. The patient was made aware they should contact our office by phone for worsening of their current condition, the appearance of new symptoms, or with any questions or concerns. Compliance is encouraged with any medications and follow up testing that is ordered. It is a privilege to be allowed the opportunity to participate in? your urological care.? Again, if you have any questions or concerns If you have any questions or concerns please do not hesitate to contact me. The office is [phone]. This note is constructed using voice recognition software. While every effort has been made to ensure accuracy global compensation analyst errors may have been included. Yours sincerely, SEAN Santamaria-PRO Coding Level of Care Code New Pt Level 4 (54416) Diagnoses Elevated PSA R97.20 Frequency of urination R35.0 Nocturia R35.1 CPT Codes Post Residual Void - PVR CPT Code: 74429-Payu Void Residual by ultrasound ([id number])
== END 2024-10-23 11:29 | disposition home or self-care (01) ==
PROVIDERS: PCP Nurse Practitioner Family; Visit Provider Nurse Practitioner Family
DX: R97.20 Elevated prostate specific antigen [PSA] (principal); R35.0 Frequency of micturition; R35.1 Nocturia; Z13.9 Encounter for screening, unspecified
CPT/HCPCS: 99204

== ENCOUNTER → 2024-10-23 09:20 | Outpatient (BNVA) | payer OTHER, SELFPAY | PROVIDERS: PCP Nurse Practitioner Family; Visit Provider Nurse Practitioner Family | DX: R97.20 Elevated prostate specific antigen [PSA] (principal); N40.1 Benign prostatic hyperplasia with lower urinary tract symptoms; R35.0 Frequency of micturition; R35.1 Nocturia | CPT/HCPCS: 51798; 81003 ==

== ENCOUNTER 2024-12-20 10:33 | Outpatient (REF) | payer OTHER, SELFPAY ==
[2024-12-20 14:38] LABS: Hematocrit 35.9 % (42.0-52.0); Mean Corpuscular HGB Conc 33.4 g/dl (31.0-36.0); Mean Corpuscular Hemoglobin 27.8 pg (27.0-33.0); Mean Corpuscular Volume 83.3 fL (80.0-98.0); Mean Platelet Volume 10.2 fL (9.4-12.4); Platelet Count 334 X10*3/uL (160-400); Red Blood Count 4.31 X10*6/uL (4.60-5.80); Red Cell Distribution Width 13.3 % (11.0-16.0)
[2024-12-20 14:44] LABS: Iron 63 mcg/dL (45-160); Percent Iron Saturation 21 % (15-50); Total Iron Binding Capacity 307 mcg/dL (228-428); Unsaturated Iron Binding 244 ug/dL
[2024-12-20 15:40] LABS: Ferritin 14 ng/mL (20-250)
[2024-12-20 15:50] LABS: Folate 9.9 ng/mL (> or = 4.0); Vitamin B12 364 pg/mL (200-900)
== END 2024-12-20 10:34 | disposition home or self-care (01) ==
LOC: HO.WFDLDS 10:33
PROVIDERS: Visit Provider Nurse Practitioner Family
DX: D72.819 Decreased white blood cell count, unspecified (principal); D64.9 Anemia, unspecified
CPT/HCPCS: 36415; 82607; 82728; 82746; 83540; 85027

== ENCOUNTER 2024-12-24 11:36 | Outpatient (AMB) | payer OTHER, SELFPAY ==
--- NOTE | 2024-12-24 11:40 | A.OFFPC_ITS ---
Vital Signs 12/24/24 11:47 Height 5 ft 10 in Weight 157 lb BMI 22.5 BP 124/64 Blood Pressure Location Rt brachial Position Sitting Respiration 16 Pulse 64 Pulse Source Pulse Oximeter Temp 97.8 F Temp Source Oral Pulse Oximetry (%) 100 Oxygen Delivery Method Room Air Intake Visit Reasons: 3 month fu htn,dm,lab review Intake Note: patient here for 3 month follow up on HTN,DM and lab review. 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 Required: No Accompanied by: Spouse Allergies No Known Allergies Allergy (Verified 12/24/24 11:45) Tobacco use date assessed: 12/24/24 Fall risk assessment: No Falls in past year Last assessed Fall Risk: 12/24/24 Dental Screening Dental Screen Date: 12/24/24 Did you have a dental visit in the last 12 months?: Yes Did you have a dental problem in the last 6 months where you did not have access to dental care?: No Was dental information given to patient?: Patient has dentist HPI HPI Comments History of Present Illness Details 64-year-old male presents for hypertensi on, diabetes, and recent labs review follow-up. He admits to taking his medications as prescribed without adverse reactions. He notes chronic constipation. He usually has bowel movements every 3-4 days with straining and occasional GI discomfort. No nausea, vomiting, diarrhea. No bloody stools. No acute symptoms at this time. [facility] Medical History Memory loss Generalized headaches Dizziness Frequency of urination Enlarged prostate Pain in lower back High cholesterol Surgical History Knee joint replacement status Family History Father Asthma High blood pressure Diabetes Social History Housing: House Patient Tobacco Use Status: Never used Tobacco e-Cigarette/Vaping Use: Never Used service: No Current occupational status: retired Current occupational exposures/hazards: No Cognitive needs: No Hearing needs: No Vision needs: Yes Questionnaire PHQ-9 Over the last 2 weeks, how often have you been bothered by any of the following problems? 1. Little interest or pleasure in doing things: nearly every day 2. Feeling down, depressed, or hopeless: several days 3. Trouble falling or staying asleep, or sleeping too much: several days 4. Feeling tired or having little energy: several days 5. Poor appetite or overeating: several days 6. Feeling bad about yourself - or that you are a failure or have let yourself or your family down: several days 7. Trouble concentrating on things, such as reading the newspaper or watching television: several days 8. Moving or speaking so slowly that other people could have noticed. Or the opposite - being so fidgety or restless that you have been moving around a lot more than usual: several days 9. Thoughts that you would be better off or of hurting yourself in some way: not at all Total score: 10 Depression Screening Interpretation: Positive Depression Screening Done: Yes Source: Developed by Drs. Pedro Negrete, Kristen Ragland, Modesto Higgins and colleagues, with an educational angel from [employer]. Thrive Questionnaire Date Thrive assessed: 08/16/24 I am a: Parent/Caregiver What is your living situation today?: I have a steady place to live Within the past 12 months, did the food you bought not last and you didn't have the money to get more?: Sometimes True Within the past 12 months, did you worry whether your food would run out before you got money to buy more?: Often true Do you have trouble paying for medicines?: No Do you have trouble getting transportation to medical appointments?: No Do you have trouble paying your heating and electricity bill?: No Do you have trouble taking care of your child, family member or friend?: No Do you have trouble with day-to-day activities such as bathing, preparing meals, shopping, managing finances, etc.?: Yes Are you currently unemployed and looking for a job?: No Are you interested in more education?: No Please select the resources that you would like help with: None Currently or been in a relationship where the following occur: I choose not to answer THRIVE Score: 2 AUDIT C Alcohol Use Questionnaire (AUDIT-C) 1. How often do you have a drink containing alcohol?: Never Total Score: 0 JAIRO-7 AMB Questionnaire JAIRO-7 Date JAIRO - 7 assessed: 08/23/24 Feeling nervous, anxious, or on edge: 0 = Not at all Not being able to stop or control worryin = Several days Worrying too much about different things: 1 = Several days Trouble relaxin = Several days Being so restless that it is hard to sit still: 1 = Several days Becoming easily annoyed or irritable: 2 = More than half the days Feeling afraid as if something awful might happen: 1 = Several days Total JAIRO-7 score (0-4 normal; 5-9 mild; 10-14 moderate; 15-21 severe): 7 Source: Developed by Drs. Pedro Negrete, Kristen Ragland, Modesto Higgins and colleagues, with an educational angel from [employer]. Review of Systems Const Details: Const Denies chills, Denies fatigue, Denies fever(s), Denies headache(s) and Denies weakness ENT Denies dizziness and Denies headache(s) Card Denies chest pain, Denies lightheadedness, Denies dyspnea and Denies other (Palpitations) Resp Denies cough, Denies dyspnea, Denies wheezing and Denies other ( shortness of breath) GI Reports as per HPI Denies hematuria and Denies dysuria Musc Denies abnormal gait, Denies myalgias, Denies arthralgias, Denies numbness and Denies tingling Skin/Breast Denies rash, Denies unusual bruising and Denies wounds Neuro Denies abnormal gait, Denies dizziness, Denies headache(s), Denies memory loss, Denies numbness, Denies Sensory deficit (Neuro), Denies tingling and Denies weakness Psych Denies anxiety, Denies depression, Denies memory loss Endo Denies cold intolerance, Denies fatigue, Denies heat intolerance, Denies polydipsia and Denies polyuria Aller/Immun Denies wheezing Physical exam (Primary Care) Tobacco/Smoking Status: Tobacco use Status Tobacco use date assessed 08/23/24 12/24/24 11:42 Patient Tobacco Use Status Never used Tobacco 12/24/24 11:42 e-Cigarette/Vaping Use Never Used 12/24/24 11:42 PHQ-9: PHQ-9 Score PHQ-9: Total score 10 12/24/24 11:42 Depression Screening Interpretation: Positive Thrive Assessment: Date of Thrive Assessment Date Thrive assessed 08/16/24 12/24/24 11:42 Currently or been in a relationship where the following occur: I choose not to answer Const Other: General: no acute distress and well developed Nutritional Appearance: well nourished Orientation/consciousness: patient oriented x3 [facility] Head: Yes normocephalic and Yes atraumatic Eyes General: appearance normal, both eyes and all related structures Pupils: Equal, round and reactive pupils present EOM: EOMs intact bilaterally Resp Effort & Inspection: normal respiratory effort Auscultation: clear to auscultation bilaterally Cardio Rate: regular rate Rhythm: regular rhythm Heart sounds: S1 normal heart sound present, S2 normal heart sound present, no gallops, no murmurs and no rubs GI Palpation (GI): No Abdominal aortic bruit present, Soft to palpation, nontender, No hepatosplenomegaly present and No Rebound tenderness present Auscultation: normal bowel sounds General: Yes no CVA tenderness Back/Spine/Pelvis Back: no CVA tenderness Cervical Spine: cervical ROM normal and No Cervical spine tenderness Thoracic/Lumbar Spine: thoraco-lumbar ROM normal, No pain with thoraco-lumbar ROM, No thoracic spinal tenderness and No lumbar spinal tenderness Extrem General: Yes normal to inspection, No edema and No calf tenderness Skin General: warm and dry. Normal skin color. Normal skin turgor Neuro General: patient oriented x3, gait normal and no focal neuro deficit Cranial nerves: Yes Equal, round and reactive pupils present Cognition (Neuro): normal cognition Gait exam (Neuro): Normal gait present Sensory Exam: No Sensory deficit (Neuro) Psych Appearance: grossly normal Affect: normal affect Attitude: cooperative Thought process: Normal thought process present Results AMB Hemoglobin A1c AMB Hemoglobin A1c 5.8 % Last Edit by Azucena Canas MA on 12/24/24 12:01 Coding Level of Care Code Est Pt Level 4 (74600) Diagnoses Essential hypertension I10 Type 2 diabetes mellitus E11.9 Mild anemia D64.9 Leukopenia D72.819 Constipation K59.00 Assessment & Plan Assessment & Plan (1) Essential hypertension: Code(s): I10 - Essential (primary) hypertension Category: Medical Plan: Blood pressure today is 124/64, within goal of less than 130/80. Continue current treatment regimen. Follow-up in 3 months or sooner with symptoms or concerns. Verbalized understanding and agreed with treatment plan. (2) Type 2 diabetes mellitus: Code(s): E11.9 - Type 2 diabetes mellitus without complications Category: Medical Plan: A1c today is 5.8%, within goal of less than 7.0%. Previous A1c was 6.0%. Continue current treatment regimen. Follow-up in 3 months or sooner with symptoms or concerns. Verbalized understanding and agreed with treatment plan. (3) Mild anemia: Code(s): D64.9 - Anemia, unspecified Category: Medical Plan: Recent RBC and H&H levels are slightly elevated, 4.31 and 12.0/35.9 respectively. MCV is normal. Recent iron profile, vitamin B12, and folate level are normal. Ferritin level is slightly low, 14. Low ferritin level is likely due to early iron-deficiency, chronic blood loss, increase iron demand, or illness/stress. Anemia of chronic disease including hypertension, diabetes, and arthritis is also possible. He has never had a colonoscopy. However, he has an appointment with [facility] [place] [place] in January. Will recheck ferritin levels and make changes as needed. (4) Leukopenia: Code(s): D72.819 - Decreased white blood cell count, unspecified Category: Medical Plan: Recent WBC is normal. (5) Constipation: Code(s): K59.00 - Constipation, unspecified Category: Medical Plan: He has been experiencing chronic constipation. He usually has bowel movements every 3-4 days with straining and occasional GI discomfort. No nausea, vomiting, diarrhea. No bloody stools. Magnesium oxide 500 mg daily ordered; advised to take as prescribed. Instructed on the risks, benefits, and potential adverse reactions of the medication. Adequate hydration encouraged. Encouraged to have fruits and vegetables in his diet. Follow-up with [facility] as scheduled. Return with worsening or new symptoms. Verbalized understanding and agreed with treatment plan. Orders: Orders AMB Hemoglobin A1c Today Z13.9 - Encounter for screening, unspecified Ferritin Today D64.9 - Anemia, unspecified Medications: New magnesium oxide 500 mg PO DAILY 30 days 30 tabs 3RF
[2024-12-24 11:47] VITALS: BP 124/64; PULSE 64; RESP 16; TEMP 36.6; O2SAT 100; BMI 22.5
== END 2024-12-24 12:14 | disposition home or self-care (01) ==
LOC: HO.HMCFM 11:37
PROVIDERS: PCP Nurse Practitioner Family; Visit Provider Nurse Practitioner Family
DX: I10 Essential (primary) hypertension (principal); E11.9 Type 2 diabetes mellitus without complications; D64.9 Anemia, unspecified; D72.819 Decreased white blood cell count, unspecified; K59.00 Constipation, unspecified; Z13.9 Encounter for screening, unspecified

== ENCOUNTER → 2024-12-24 11:36 | Outpatient (BNVA) | payer OTHER, SELFPAY | PROVIDERS: PCP Nurse Practitioner Family; Visit Provider Nurse Practitioner Family | DX: I10 Essential (primary) hypertension (principal); E11.9 Type 2 diabetes mellitus without complications; D64.9 Anemia, unspecified; D72.819 Decreased white blood cell count, unspecified; K59.00 Constipation, unspecified | CPT/HCPCS: 83036; 96127 ==

== ENCOUNTER 2024-12-24 12:35 | Outpatient (REF) | payer OTHER, SELFPAY ==
[2024-12-24 14:57] LABS: Ferritin 16 ng/mL (20-250)
== END 2024-12-24 12:36 | disposition home or self-care (01) ==
LOC: HO.WFDLDS 12:35
PROVIDERS: Visit Provider Nurse Practitioner Family
DX: D64.9 Anemia, unspecified (principal)
CPT/HCPCS: 36415; 82728

== ENCOUNTER 2025-01-09 09:39 | Outpatient (AMB) | payer MEDICARE, SELFPAY ==
--- NOTE | 2025-01-09 09:50 | A.OFFVIS_ITS ---
Intake Visit Reasons: About biology on 01/1425 Intake Note: Pt presents to the office today for questions regarding biopsy procedure. Urology Medications: Alfuzosin Blood Thinner: none Operating Room Registered Nurse Required: Yes Operating Room Registered Nurse Services: Operating Room Registered Nurse Present Operating Room Registered Nurse Name: Ponce [id number] Accompanied by: Self / Same As Patient Allergies No Known Allergies Allergy (Verified 01/09/25 11:06) Medication List - Last Reconciled 01/09/25 by VENKAT Santamaria alfuzosin ER 10 mg PO BEDTIME 30 days atorvastatin 10 mg PO DAILY blood sugar diagnostic (OneTouch Verio test strips) As directed blood-glucose meter (OneTouch Verio Flex Meter) As directed diclofenac sodium 1% (Aleve (diclofenac)) 2 grams topical QID ferrous sulfate 325 mg PO DAILY 30 days lancets (NexgenceTouch Delica Plus Lancet) As directed lisinopril 10 mg PO BID 90 days magnesium oxide 500 mg PO DAILY 30 days meclizine 12.5 mg PO TID metformin ER 1,000 mg PO BID naproxen (EC-Naproxen) 500 mg PO BID naproxen 500 mg PO BID sumatriptan succinate 50 mg PO DAILY PRN HPI Comments Details: Miya is a very pleasant Gujarati speaking 64-year-old male patient of Dr. Chua. He has a past medical history of memory loss, headaches, dizziness, hypercholesteremia, and elevated PSA. He presents to the office today for follow-up of his elevated PSA. Of note, patient was seen approximately 3 months ago as a new patient to establish urology care at which time he brought with him his prostate MRI report from [facility] where he used to reside. MRI 03/26 report notes a 1.0 X 1.1 cm focus of prominent T2 and ADC hypointensity at right posterior medical peripheral zone at mid gland, suspicious (IN-RADS 4). During last office visit discussion regarding prostate fusion biopsy verses transrectal biopsy were discussed as well as risks and benefits of these procedures and decision for prostate fusion biopsy was made. He is currently scheduled for prostate fusion biopsy with Dr. Barrera on 01/14. During today's appointment all questions were answered to the best of my ability. Patient had previously been on Flomax for episodes of urinary frequency, urinary urgency, and nocturia he had been experiencing however felt Flomax caused him dizziness. He was switched to alfuzosin 10 mg at bedtime and feels this has been helpful in treatment of lower urinary tract symptoms. He otherwise denies incontinence, hematuria, dysuria, foul smelling urine, changes to urinary stream, flank pain, fever, and or chills. PSAs are as follows: 08/26 7.3. AUBREY offered however deferred. He denies any known family history of prostate cancer. We discussed at length potential causes of elevated PSA. In office urinalysis results reviewed with the patient today. He otherwise offers no other issues or concerns at this time. [facility] Medical History Memory loss Generalized headaches Dizziness Frequency of urination Enlarged prostate Pain in lower back High cholesterol Surgical History Knee joint replacement status Family History Father Asthma High blood pressure Diabetes Social History Housing: House Patient Tobacco Use Status: Never used Tobacco e-Cigarette/Vaping Use: Never Used service: No Current occupational status: retired Current occupational exposures/hazards: No Cognitive needs: No Hearing needs: No Vision needs: Yes Review of Systems Const All systems reviewed & are unremarkable except as noted in HPI and below Physical Exam Const General: cooperative, comfortable, no acute distress, well developed, alert and awake Orientation/consciousness: patient oriented x3 Limitations: language barrier HEENT Head: Yes normal to inspection, Yes normocephalic and Yes atraumatic Ears: hearing grossly normal bilaterally Neck Neck: Yes normal visual inspection and Yes trachea midline Chest Chest palpation & inspection: normal inspection of the chest Resp Effort & Inspection: normal respiratory effort and able to speak in complete sentences Cardio Rate: regular rate GI Inspection: Yes normal to inspection General: Yes no CVA tenderness Back/Spine/Pelvis Back: no CVA tenderness Skin General skin exam: no rashes or lesions noted Neuro General: patient oriented x3 Extrem General: Yes normal to inspection Psych Appearance: grossly normal and well kempt Mental Status: mental status grossly normal Speech and movement: Normal speech and movement present and Clear speech present Affect: normal affect Attitude: cooperative Thought process: Normal thought process present Thought content: Normal thought content present Insight: Fair insight present (Psych) Judgement: Fair judgement present (Psych) Results AMB Urinalysis, Automated UA Leukoctes 0 David/uL Last Edit by Maria Teresa Aguilera CMA on 01/09/25 09:57 UA Nitrite Negative Last Edit by Maria Teresa Aguilera CMA on 01/09/25 09:57 UA Urobilinogen 0.2 mg/dL Last Edit by Maria Teresa Aguilera CMA on 01/09/25 09:57 UA Protein 0 mg/dL Last Edit by Maria Teresa Aguilera CMA on 01/09/25 09:57 UA pH 6.0 Last Edit by Maria Teresa Aguilera CMA on 01/09/25 09:57 UA Blood 0 Luis E/uL Last Edit by Maria Teresa Aguilera CMA on 01/09/25 09:57 UA Specific [place] 1.010 Last Edit by Maria Teresa Aguilera CMA on 01/09/25 09:57 UA Ketone Negative Last Edit by Maria Teresa Aguilera CMA on 01/09/25 09:57 UA Bilirubin 0 mg/dL Last Edit by Maria Teresa Aguilera CMA on 01/09/25 09:57 UA Glucose 0 mg/dL Last Edit by Maria Teresa Aguilera CMA on 01/09/25 09:57 Results Reviewed Results Reviewed: Laboratory Last Values Urine pH (Auto) 6.0 01/09/25 09:52 Specific [place] (Auto) 1.010 01/09/25 09:52 Urine Protein (Auto) 0 mg/dL 01/09/25 09:52 Glucose (UA)(Auto) 0 mg/dL 01/09/25 09:52 Urine Ketones (Auto) Negative 01/09/25 09:52 Urine Blood (Auto) 0 Luis E/uL 01/09/25 09:52 Urine Nitrite (Auto) Negative 01/09/25 09:52 Urine Bilirubin (Auto) 0 mg/dL 01/09/25 09:52 Urine Urobilinogen (Auto) 0.2 mg/dL 01/09/25 09:52 Leukocyte Esterase (Auto) 0 David/uL 01/09/25 09:52 Assessment & Plan Assessment & Plan (1) Elevated PSA: Code(s): R97.20 - Elevated prostate specific antigen [PSA] Category: Medical (2) Frequency of urination: Code(s): R35.0 - Frequency of micturition Category: Medical (3) Nocturia: Code(s): R35.1 - Nocturia Category: Medical Plan: Risks, benefits and alternatives to therapy were discussed. These include but are not limited to infection, bleeding, damage to local organs and tissues, need for further interventions. ? Anesthetic risks regarding cardiac arrhythmia, blood clots, and potential mortality were discussed. The patient understands the typical recovery time and the outpatient nature of the procedure. After consideration of these risks the patient gives full informed consent and they wish to move ahead with the procedure. Plan In office urinalysis results reviewed with the patient today; as noted above. All questions were answered. Continue alfuzosin 10 mg at bedtime as discussed and prescribed. AUBREY offered however deferred. We discussed prostate fusion biopsy; risks and benefits. Keep scheduled surgical appointment as planned Follow-up per doctor's orders; or sooner with any issues, concerns, and or questions. Orders: Orders AMB Urinalysis Automated Today Z13.9 - Encounter for screening, unspecified Patient Instructions: The patient had an opportunity to ask questions regarding the treatment plan. All questions were answered. Physical exam, labs, and imaging were discussed and reviewed in detail. As well as risks, benefits, and discussion of treatment choices. No major barriers to understanding were identified. The patient expressed understanding and agreement with the above treatment plan. The patient was made aware they should contact our office by phone for worsening of their current condition, the appearance of new symptoms, or with any questions or concerns. Compliance is encouraged with any medications and follow up testing that is ordered. It is a privilege to be allowed the opportunity to participate in? your urological care.? Again, if you have any questions or concerns If you have any questions or concerns please do not hesitate to contact me. The office is [phone]. This note is constructed using voice recognition software. While every effort has been made to ensure accuracy stick welder errors may have been included. Yours sincerely, Jessica Aguirre, [employer]ENCE INSTRUCTOR[employer] Coding Level of Care Code Est Pt Level 4 (26224) Diagnoses Elevated PSA R97.20 Frequency of urination R35.0 Nocturia R35.1 Time Spent (min) 35
--- OUTSIDE RECORDS SUMMARY | 2025-01-09 10:30 | XMS_ITS ---
Author Organization [facility] [address] [place] [address] Location Address [address] [place] [id number] Care Team Providers Care Septic Tank Setter Name Role Phone Ira NEGRON, Davis Primary Care Provider Naga SALAS, Talita Orozco SOCIAL HISTORY Sex Assigned At : Social History Observation Description Sex Assigned At Male Encounters Encounter Location Date Provider Diagnosis [facility] [address] [place] [address] [place] [id number] 10/25/2023 Talita SALAS PLAN OF TREATMENT No Information Progress Notes * GEORGIE COREASAIDOB: [birth year] (64 yo M)Acc No.[id number]:10/25/2023 Patient:??FARHAD COREAS Provider:??SEAN Vazquez :1960?Age:63 Y?Sex:Ma le Date:10/25/2023 Address:[address] [place] [address] Pcp:Davis Roth MD Subjective: * Chief Complaints: * ? * Medical History:?? Objective: Assessment: Plan: * Treatment: * Billing Information: * Visit Code:?? * Procedure Codes:?? * Sign off status: Pending * Provider:??SEAN Vazquez Date:??
--- OUTSIDE RECORDS SUMMARY | 2025-01-09 10:31 | XMS_ITS | Data Portability ---
Author Organization DAYNE Negron MD , [facility] Address [address] [place] [address] Care Team Providers Care Decorator Hand Name Role Phone CHRISTA WILDER Primary Care Provider CHRISTA WILDER Referring Provider Assessment Encounter Date Assessment Date Assessment LastModified by Organization Details LastModified Time 07/27/2016 07/27/2016 IMPRESSION Mr. Dockery has right knee osteoarthritis. He consented to a repeat cortisone injection. PROCEDURE Under sterile technique and with use of ultrasound guidance, he received an injection of 80 mg Depo-Medrol and 3 mL of lidocaine into his right knee intra-articular space. He tolerated the procedure well, and there were no complications. PLAN We will have him return in 2 weeks for re-evaluation. At that time, I anticipate sending him to physical therapy to meet the insurance requirements for hyaluronic acid. This encounter was performed and dictated by Edson Chambers PA-C. This patient was also discussed with Dr. Negron, who formulated the plan of care. [id number] Not available 07/28/2016 08:35:34 08/10/2016 08/10/2016 Miya does have moderate right knee arthritis with again some improvement from a corticosteroid injection, but still some symptoms. We will send him to formal physical therapy and see him back in another couple of months. If he remains significantly symptomatic, hopefully we will be able to obtain approval for a series of hyaluronic acid injections. [id number] Not available 08/11/2016 07:59:45 10/12/2016 10/12/2016 Mr. Dockery does have significant right knee arthritis, but at this time he is satisfied with his overall progress. It has been less than three months since he had a corticosteroid injection, so at this point, he will continue with other simple conservative measures at home and recognizes that he can return in the coming months for repeat corticosteroid injection. Formal physical therapy remains an option for him as is Hyaluronic acid injections, but we are unable to receive approval for the injections. We submitted for them last time as therapy had not been completed. He does understand definitive management for his problem will at some point be a knee arthroplasty. [id number] Not available 10/13/2016 07:50:54 01/11/2017 01/11/2017 IMPRESSION Mr. Dockery has significant right knee osteoarthritis. He has been working with physical therapy and seen some benefit, however, he is having recurrence of symptoms. It has been nearly 6 months since his previous cortisone injection, so he consented today to repeat. PROCEDURE Under sterile technique and with the use of ultrasound guidance, he received an injection of 80 mg of Depo-Medrol with 3 mL of lidocaine into his right knee intra-articular space. He tolerated this injection well. There were no complications. PLAN He should continue with physical therapy and he was prescribed Naproxen, which is appropriate. He can return on an as-needed basis. This encounter was performed and dictated by Edson Chambers PA-C. This patient was also discussed with Dr. Negron who formulated the plan of care. [id number] Not available 01/12/2017 02:16:08 06/21/2017 06/21/2017 Miya does have moderate to severe arthritic changes about the right knee and unfortunately he has only had several months of relief from his last corticosteroid injection so at this point, we have agreed for him to pursue a series of hyaluronic acid injections. We will work to get insurance approval for this and see him back to begin the series once we obtain it. [id number] Not available 06/21/2017 09:22:07 Plan of Treatment Reminders Order Date Submit Date Provider Last Modified By Organization Details Last Modified Time Details Appointments None record ed. Lab None record ed. Referral None record ed. Procedures None record ed. Surgeries None record ed. Imaging None record ed. Medication Orders None record ed. Patient TargetsNo targets recorded. Patient InstructionsNo instructions recorded. Reason for Referral None Reported. 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 Medical Equipment None Reported. Allergies No known drug allergies Medications Name Sig Start Date Stop Date Status Note LastModified by Organization Details LastModified Time diclofenac 3 % topical gel APPLY 2 TO 4 GM TO THE AFFECTED AREA TID PRN active Not Available Not Available No t Available atorvastatin 10 mg tablet TK 1 T PO QD active Not Available Not Available No t Available lisinopril 20 mg tablet TK 1 T PO QD active Not Available Not Available No t Available metronidazole 500 mg tablet active Not Available Not Availabl e Not Available glyburide 2.5 mg-metformin 500 mg tablet TK TWO TS PO QAM AND ONE T PO QPM active Not Available Not Available No t Available ibuprofen 400 mg tablet TK 1 T PO TID WF PRF PAIN active Not Available Not Available No t Available naproxen 500 mg tablet TK 1 T PO Q 12 H PRN active Not Available Not Available No t Available FreeStyle Lite Strips CHECK BID active Not Available Not Available No t Available Q-PAP 325 mg tablet TK TWO TS PO Q 6 H PRN active Not Available Not Available No t Available Vitals None Recorded Social History None recorded. Functional Status None recorded. Mental Status None recorded. Family History Nothing Reported. Medical History Condition Response Diabetes Y Past Encounters Encounter ID Performer Location Encounter Start Date Encounter Closed Date Diagnosis/Indication Diagnosis SNOMED-CT Code Diagnosis ICD10 Code Diagnosis Note [id number] MD SAMMY Teague M.D. [address] [facility] [address] [place] [address] 02/17/2016 10:11:35 02/17/2016 10:53:17 Osteoarthritis of knee 999456115 M17.11 Chondromal acia of patella 94545520 M22.41 Knee joint effusion 2022 14089 M25.461 Knee pain 78141080 M25.5 61 [id number] MD SAMMY Teague M.D. 1 [facility] [address] [place] [address] 02/24/2016 09:07:43 02/24/2016 09:53:27 Osteoarthritis of knee 886419107 M17.11 [id number] Sammy NEGRON M.D. [address] [facility],[address] [address] 06/22/2016 08:30:41 06/22/2016 09:18:14 Knee joint effusion 646684213 M25.461 Osteoarthr itis of knee 554607834 M17.11 Knee pain 16119094 M25.5 61 Chondromal acia of patella 59278003 M22.41 [id number] Sammy NEGRON M.D. [address] [facility],[address] [address] 07/27/2016 08:18:56 07/27/2016 08:47:01 Osteoarthritis of knee 611791698 M17.11 Knee pain 84054850 M25.5 61 Chondromal acia of patella 23194764 M22.41 Knee joint effusion 2023 91956 M25.461 [id number] Sammy NEGRON M.D. [address] [facility],[address] [place] [address] 08/10/2016 08:28:48 08/10/2016 08:43:09 Osteoarthritis of knee 136697205 M17.11 Knee pain 32095807 M25.5 61 [id number] Sammy NEGRON M.D. [address] [facility],[address] [address] 10/12/2016 08:30:46 10/12/2016 09:06:58 Osteoarthritis of knee 997732752 M17.11 Knee joint effusion 3 76224 M25.461 Knee pain 18308378 M25.5 61 [id number] Sammy NEGRON M.D. 1 [facility],[address] [address] 01/11/2017 08:44:13 01/11/2017 09:10:26 Knee joint effusion 139874838 M25.461 Osteoarthr itis of knee 328843663 M17.11 Knee pain 79874750 M25.5 61 Chondromal acia of patella 33106558 M22.41 [id number] Sammy NEGRON M.D. 1 [facility],[address] [place] [address] 06/21/2017 08:01:28 06/21/2017 08:21:03 Osteoarthritis of knee 047323557 M17.11 Knee pain 28468583 M25.5 61 Health Concerns Section Related Observation LastModified by Organization Detai ls LastModified Time None Recorded Concern Status LastModified by Organization Details LastModified Time None Recorded Advance Directives Directive None Recorded Payers Encounter Date Sequence Insurance Name Policy Number Policy Echeverria Covered Member ID Echeverria Member ID Guarantor Name 07/27/2016 1 [facility] [employer] - TOGETHER (MEDICAID HMO) Baldevbhai Dokcery [id number] Baldevbhai Dockery 08/10/2016 1 [facility] [employer] - TOGETHER (MEDICAID HMO) Baldevbhai Dockery [id number] Baldevbhai Dockery 10/12/2016 1 [facility] [employer] - TOGETHER (MEDICAID HMO) Baldevbhai Dockery [id number] Baldevbhai Dockery 01/11/2017 1 [facility] [employer] - TOGETHER (MEDICAID HMO) Baldevbhai Dockery [id number] Baldevbhai Dockery 06/21/2017 1 [facility] [employer] - TOGETHER (MEDICAID HMO) Baldevbhai Dockery [id number] Baldevbhai Dockery Notes Date Note Type Note Provider Name and Address Organization Details Recorded Time 07/27/2016 text/html Mr. Dockery is following up today for his right knee osteoarthritis. Unfortunately, his insurance denied hyaluronic acid injections because he had seen three months relief from a cortisone injection. He has not done physical therapy or tried NSAIDs. Since it has been five months since his previous cortisone injection, he would like to repeat one today, which is reasonable. He denies any new symptoms, but continues to have difficulty with standing and ambulation. Sammy pickering MA - Sammy GRANADOS 07/29/2016 10:26:07 08/10/2016 text/html Baldevbhai retur ns couple of weeks since his last visit for reassessment of his right knee arthritis. At the time of his last visit, he underwent a corticosteroid injection and has had some improvement from this injection, but still has pain with ambulation. DAYNE Orellana MD 08/19/2016 15:16:39 10/12/2016 text/html Miya glover a couple of months since his last visit for reassessment of his right knee. He was suggested to pursue formal physical therapy as he was experiencing arthritic symptoms in the right knee, but he did not pursue the therapy due to logistics. He reports he has been modifying his activities and the knee has actually been feeling better. He is not free of pain, but he is free of any catching, locking, or giving way. DAYNE Orellana MD 10/14/2016 11:58:11 01/11/2017 text/html Mr. Dockery is presenting today for followup three months since his previous appointment for his right knee osteoarthritis. He has been doing physical therapy at [facility] in [place] and reports he has seen some benefits. He has been able to work without significant discomfort. He has noticed over the past few weeks returning discomfort in the medial and patellofemoral aspect of his knee, especially with bending, weightbearing and squatting. He denies new injuries. DAYNE Orellana MD 01/13/2017 11:50:50 06/21/2017 text/html Russelvbhmaria elena glover five months since his last visit for reassessment of his right knee pain where he does have significant known arthritis. In early to mid January, he underwent a corticosteroid injection and reports over the last two months he has had significant pain limiting his ability to stand for prolonged periods and even walk for any significant distance. We have discussed hyaluronic acid injections and knee replacement. He is still quite hesitant to consider knee replacement. DAYNE Orellana MD 06/23/2017 08:50:54
--- OUTSIDE RECORDS SUMMARY | 2025-01-09 10:31 | XMS_ITS | Data Portability ---
Author Organization [facility] Damien Ahn [facility] _[facility] Address [address] 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 Name Role Phone SUMIT ALANIZ Zinc Etcher Unavailable Assessment Encounter Date Assessment Date Assessment LastModified by Organization Details LastModified Time 02/02/2023 02/02/2023 This is a 62-year-old male with a history of osteoarthritis , knee replacement, migraines, type 2 diabetes, hypertension, and high cholesterol; referred for anemia [email or web address] Not available 02/02/2023 09:20:38 06/27/2023 06/27/2023 urinary symptoms I suspect prostatitis versus a UTI he has an enlarged prostate on exam Not available 06/27/2023 15:04:12 Plan of Treatment Reminders Order Date Submit Date Provider Last Modified By Organization Details Last Modified Time Details Appointments None recorded. Lab HbA1c (hemoglobin A1c), blood 2023 024 In-House Order For [place] Provider, For Internal Use Only, [id number] 4 13:06:54 vitamin D, 25-hydroxy, total, serum 2022 023 [email or web address] [facility], [address] [facility] [address], [place], [address], 4 06:22:40 fecal occult blood, stool 2022 023 JASWINDER [facility], [address] [facility], [facility] [address], [place], [address], 3 16:18:40 urinalysis, complete 2022 023 [facility], [address] [facility], [address], [place], [address], 3 20:45:42 culture, urine 2022 023 [facility], [address] [facility], [address], [place], [address], 3 06:46:39 PSA, serum or plasma 2022 023 [facility], [address] [facility], [address], [place], [address], 3 22:59:25 HbA1c (hemoglobin A1c), blood 2022 023 [facility], [address] [facility], [facility] [address], [place], [address], 3 22:59:23 microalbumi n/creatinin e, mass ratio, urine 2022 023 [facility], [address] [facility], [facility] [address], [place], [address], 3 20:45:41 hepatic function panel, serum 2022 023 [facility], [address] [facility], [facility] [address], [place], [address], 3 22:59:24 BMP, serum or plasma 2022 023 [facility], [address] [facility], [address], [place], [address], 3 22:59:22 lipid panel, serum 2022 023 [facility], [address] [facility], [address], [place], [address], 3 22:59:21 vitamin D, 25-hydroxy, total, serum 2022 023 [facility], [address] [facility], [facility] [address], [place], [address], 3 04:12:34 BMP, serum or plasma 2022 023 JASWINDER [facility], [address] [facility], [facility] [address], [place], [address], 3 05:42:11 CBC 2022 023 TALL TIMBERS [facility], [address] [facility], [facility] [address], [place], [address], 3 05:42:12 HbA1c (hemoglobin A1c), blood 2022 023 In-House Order For [place] Provider, For Internal Use Only, [id number] 3 05:07:19 lipid panel, serum 2022 023 JASWINDERCatch [employer] [facility], [address] [facility] [address], [place], [address], 3 23:10:49 microalbumi n/creatinin e, mass ratio, urine 2022 023 [employer] [employer] [facility], [address] [facility] [address], [place], [address], 3 17:53:07 TSH, serum or plasma 2022 023 [facility] [employer] [facility], [address] [facility] [address], [place], [address], 3 04:12:37 vitamin B12, serum 2022 023 JASWINDERImaxio [facility], [address] [place] [address], [place], [address], 3 04:12:39 Referral neurologist referral - Please contact pt to schedule appt. Thank you! 2022 024 [email or web address] [facility], [address] [place], [address], 4 07:41:10 gastroenter ologist referral - Please book appt with patient thank you! 2022 023 [email or web address] Not available 4 10:11:00 neurologist referral - please scheduline appt for pt. thank you 2022 023 [email or web address] [id number] Jhonatan Matrinez MD, [address] [place], [address], 3 06:42:25 physical therapist referral - PATIENT WILL BE CALLING TO BOOK [address] [facility], [address] [place], [address], 3 06:41:25 otolaryngol ogist referral - Please book appt with patient, thank you! vertigo chronic 2022 023 [email or web address] [id number] [facility], [address] [place], [address], 3 06:10:38 Procedures upper endoscopy procedure (EGD) (PROC) [address] Day [facility], [address] [place] [address], [address], 4 10:31:40 colonoscopy procedure (PROC) - 2 day prep [address] [facility], [address] [place] [address], [address], 4 10:32:36 Surgeries None recorded. Imaging CT, chest + abdomen + pelvis, w/ contrast [address] (Scheduling), [address] [place], [address], 4 19:58:16 US, pelvis - pre and post void bladder ,prostate size please , [email or web address] ([facility]), [address] [place] [address], [address], 4 07:28:23 Medication Orders lisinopril 10 mg tablet 2023 024 [facility]acy #1877, [address] [place] [address], [address], 4 13:06:54 FreeStyle Lite Strips [email or web address]/Pharmacy #1877, [address] [place] [address], [address], 4 18:13:50 Metamucil Sugar-Free (aspartame) 3.4 gram/5.8 gram oral powder 2022 023 [facility], [address] [place] [address], [address], 3 08:40:37 meclizine 12.5 mg tablet 2022 023 [facility]armacy #1877, [address] [place] [address], [address], 3 08:34:14 Cipro 250 mg tablet 2022 024 [facility]armacy #1877, [address] [place] [address], [address], 4 09:19:54 Miralax 17 gram/dose oral powder 2022 023 [email or web address] [facility]acy #1877, [address] [place] [address], [address], 3 09:20:20 Patient TargetsNo targets recorded. Patient Instructions Encounter Date Encounter Id Patient Instructions Last Modified By Organization Details Last Modified Time 01/06/2023 [id number] headache: care instructions Not available 01/06/2023 10:51:42 high blood pressure: care instructions Not available 01/06/2023 10:51:42 02/02/2023 [id number] constipation: ca re instructions [email or web address] Not available 02/02/2023 09:20:20 anemia: care instructions Not available 02/02/2023 09:20:20 06/27/2023 [id number] Urinary Tract Infections (UTI) in Men: Care Instructions Not available 06/27/2023 11:29:06 high blood pressure: care instructions Not available 06/27/2023 11:18:41 09/13/2023 [id number] dizziness: care instructions Not available 09/13/2023 08:34:10 preventing falls : care instructions Not available 09/13/2023 08:34:10 using your medicines: care instructions Not available 09/13/2023 08:34:10 Personalized [facility] Plan and Screening Recommendations Vision Screening: Hearing screening: Negative Weight: Appropriate Nutrition: Good Physical activity: Appropriate physical activity Safety at home: The patient should go through their home and look for situations that could cause a fall. The patient should look for carpet/rug areas that are not secured to the floor, doorways with ledges, furniture in the walking pathway and even animals that are under foot. The patient will do their best to remove those trip hazards to make their home safer, especially when they get up in the middle of the night and it is darker. Consider using night lights for the darkest areas where they would be walking. Vaccines: Up to date ECG: Your next ECG check is: Ordered Abdominal Aortic Ultrasound: Ordered PSA: Your next PSA in: Ordered Cholesterol screening: Your next Cholesterol check is due in: Ordered Diabetes screening: Screenings are due in: Ordered Advance Directives - Do you have one? Yes I recommend consulting with an Barrel Cooper, family member, or friend to assist you. Advance Directives - Do we have your advance directive on file in your health record? Yes No, please bring in a copy at your earliest convenience Discussed preventative recommendations with patient. Reviewed any concerns. Patient verbalizes understanding and agrees with the plan. Patient was given the opportunity to ask questions which were answered to the patient's satisfaction. Not available 09/13/2023 08:27:38 I reviewed and updated the patient's relevant wellness information. We discussed personalized health advice and appropriate referrals aimed at reducing this patient's individual risk factors and improving self-management and wellness heidi Not available 09/13/2023 07:38:47 03/13/2024 [id number] prostate biopsy: about this test Not available 03/13/2024 10:10:18 high blood pressure: care instructions Not available 03/13/2024 13:06:54 Reason for Referral Manager Of Merchandising Referral fo r Vertigo Please book appt with patient, thank you! vertigo chronic Referring Physician: [facility], Encounter Date: 01/06/2023 Physical Therapist Referral for Chronic neck pain for greater than 3 months PATIENT WILL BE CALLING TO BOOK Referring Physician: [facility]ha [facility], Encounter Date: 01/06/2023 Neurologist Referral for Adriano garcia please scheduline appt for pt. thank you Referring Physician: Radha [facility], Encounter Date: 06/27/2023 Zinc Etcher Referral for Screening for malignant neoplasm of colon Please book appt with patient thank you! Referring Physician: Radha [facility], Encounter Date: 09/13/2023 Neurologist Referral for Occ ipital headache Please contact pt to schedule appt. Thank you! Referring Physician: Radha [facility], Encounter Date: 09/13/2023 Results Created Date Observation Date Name Description Value Unit Range Abnormal Flag Note LastModifiedBy Organization Detail LastModifiedTime 01/07/20 23 01/07/2023 VIT D,25- OH,TO VERO,I A vitamin D,25-oh,tota l,ia 26 NG/mL 30-100 low Vitam in D Statu s 25-OH Vitam in D: Defic iency : <20 ng/mL Insuf ficie ncy: 20 - 29 ng/mL Optim al: > or = 30 ng/mL For 25-OH Vitam in D testi ng on patie nts on D2-chapman pplem entat ion and patie nts for whom quant itati on of D2 and D3 fract ions is requi red, the [facility] Ass[facility] eD(TM ) 25-OH VIT D, (D2,D 3), LC/MS /MS is recom mercy d: order code 75049 (bello ents >2yrs ). See Note 1 Note 1 For addit ional infor richa ortega e refer to http: //[facility] Muse[employer] gnost ics.c om/fa q/FAQ 199 (This link is being provi ded for infor moise hammer/ educa jd l purpo ses only. ) Not Available [facility] [place] [facility] [address], [address], 01/07/2023 04:12:34 01/07/20 23 01/07/2023 TSH W/REF L FT4 TSH w/reflex to FT4 1.93 mIU/L 0.40-4 .50 normal Not Available [facility] [address], [place], [address], 01/07/2023 04:12:36 01/07/20 23 01/07/2023 VITAM IN B12 vitamin B12 1340 pg/mL 200-11 00 high Not Available [facility] [address], [address], 01/07/2023 04:12:39 01/07/20 23 01/07/2023 BASIC MET PNL glucose 73 mg/dL 65-99 normal Fasti ng refer ence inter jackelyn Not Available [facility] [place] [address], [address], 01/07/2023 05:42:10 01/07/20 23 01/07/2023 BASIC MET PNL urea nitrogen (BUN) 15 mg/dL 7-25 normal Not Available [facility] [address], [address], 01/07/2023 05:42:10 01/07/20 23 01/07/2023 BASIC MET PNL creatinine 0.75 mg/dL 0.70-1 .35 normal Not Available [facility] [address] [place], [place], [address], 01/07/2023 05:42:10 01/07/20 23 01/07/2023 BASIC MET PNL eGFR 101 mL/mi n/1.7 3m2 > or = 60 normal The eGFR is based on the CKD-E PI 2020 equat ion. To calcu late the new eGFR from a previ ous Creat inine or Cysta tin C resul t, go to https ://marcus w.sharmaine helms.o randy/lonnie finch s/ kdoqi /gfr% 5Fcal culat or Not Available [facility] [place] [facility] [address], [place], [address], 01/07/2023 05:42:10 01/07/20 23 01/07/2023 BASIC MET PNL BUN/creatini ne ratio NOT APPLIC ABLE (calc ) 6-22 normal Not Available [facility] [place] [facility] [address], [place], [address], 01/07/2023 05:42:10 01/07/20 23 01/07/2023 BASIC MET PNL sodium 140 mmol/ L 135-14 6 normal Not Available [facility] [place] [address], [place], [address], 01/07/2023 05:42:10 01/07/20 23 01/07/2023 BASIC MET PNL potassium 4.5 mmol/ L 3.5-5. 3 normal Not Available [facility] [address], [place], [address], 01/07/2023 05:42:10 0401/07/2023 BASIC MET PNL chloride 105 mmol/ L 98-110 normal Not Available [facility] [place] [address], [place], [address], 01/07/2023 05:42:10 01/07/2001/07/2023 BASIC MET PNL carbon dioxide 27 mmol/ L 20-32 normal Not Available [facility] [place] [facility] [address], [place], [address], 01/07/2023 05:42:10 01/07/2001/07/2023 BASIC MET PNL calcium 9.6 mg/dL 8.6-10 .3 normal Not Available [facility] [place] [facility] [address], [place], [address], 01/07/2023 05:42:10 01/07/2001/07/2023 CBC(H /H,RB C,WBC ,PLT) white blood cell count 6.5 thous and/u L 3.8-10 .8 normal Not Available [facility] [place] [facility] [address], [place], [address], 01/07/2023 05:42:11 01/07/20 23 01/07/2023 CBC(H /H,RB C,WBC ,PLT) red blood cell count 4.42 basilio on/uL 4.20-5 .80 normal Not Available [facility] [place] [facility] [address], [place], [address], 01/07/2023 05:42:11 01/07/2001/07/2023 CBC(H /H,RB C,WBC ,PLT) hemoglobin 12.0 g/dL 13.2-1 7.1 low Not Available [facility] [place] [facility] [address], [place], [address], 01/07/2023 05:42:11 01/07/20 23 01/07/2023 CBC(H /H,RB C,WBC ,PLT) hematocrit 36.6 % 38.5-5 0.0 low Not Available [facility] [address], [place], [address], 01/07/2023 05:42:11 01/07/20 23 01/07/2023 CBC(H /H,RB C,WBC ,PLT) MCV 82.8 fL 80.0-1 00.0 normal Not Available [facility] [address], [place], [address], 01/07/2023 05:42:11 01/07/20 23 01/07/2023 CBC(H /H,RB C,WBC ,PLT) MCH 27.1 pg 27.0-3 3.0 normal Not Available [facility] [address], [place], [address], 01/07/2023 05:42:11 01/07/20 23 01/07/2023 CBC(H /H,RB C,WBC ,PLT) MCHC 32.8 g/dL 32.0-3 6.0 normal Not Available [facility] [address], [place], [address], 01/07/2023 05:42:11 01/07/20 23 01/07/2023 CBC(H /H,RB C,WBC ,PLT) RDW 13.0 % 11.0-1 5.0 normal Not Available [facility] [address], [place], [address], 01/07/2023 05:42:11 01/07/2001/07/2023 CBC(H /H,RB C,WBC ,PLT) platelet count 347 thous and/u L 140-40 0 normal Not Available [facility] [address], [place], [address], 01/07/2023 05:42:11 01/07/20 23 01/07/2023 CBC(H /H,RB C,WBC ,PLT) MPV 10.5 fL 7.5-12 .5 normal Not Available [facility] [address], [place], [address], 01/07/2023 05:42:11 01/07/20 23 01/07/2023 ALB, RAND UR W/CR creatinine, random urine 192 mg/dL 20-320 normal Not Available [facility] [address], [place], [address], 01/07/2023 17:53:07 01/07/20 23 01/07/2023 ALB, RAND UR W/CR albumin, urine 0.6 mg/dL normal Refer ence Range Not estab lishe d Not Available [facility] [address], [place], [address], 01/07/2023 17:53:07 01/07/2001/07/2023 ALB, RAND UR W/CR albumin/crea tinine ratio, random urine 3 mcg/m g_cre at <30 normal The ADA defin es abnor malit ies in album in excre tion as follo ws: Album inuri a Categ ory Resul t (mcg/ mg creat inine ) Hyun l to Mildl y incre ased <30 Moder ately incre ased 30-29 9 Sever sohail incre ased > OR = 300 The ADA recom mends that at least two of three speci mens colle cted withi n a 3-6 month perio d be abnor mal befor e consi marcel g a patie nt to be withi n a diagn ostic categ ory. Not Available [facility] [address], [place], [address], 01/07/2023 17:53:07 01/07/20 23 01/06/2023 HbA1c (hemo globi n A1c), blood HbA1c 6.2 Not Available In-House Order For [place] Provider For Internal Use Only, [id number] 01/06/2023 10:03:21 01/12/20 23 01/11/2023 LIPID PNL W/RFL DLDL cholesterol, total 114 mg/dL <200 normal Not Available [facility] [place] [facility] [address], [address], 01/11/2023 23:10:49 01/12/20 23 01/11/2023 LIPID PNL W/RFL DLDL HDL cholesterol 44 mg/dL > or = 40 normal Not Available [facility] [address], [place], [address], 01/11/2023 23:10:49 01/12/20 23 01/11/2023 LIPID PNL W/RFL DLDL triglyceride s 64 mg/dL <150 normal Not Available [facility] [address], [place], [address], 01/11/2023 23:10:49 01/12/20 23 01/11/2023 LIPID PNL W/RFL DLDL LDL-choleste rol 56 mg/dL _(blaise c) normal Refer ence range : <100 Rigo able range <100 mg/dL for prima ry preve ntion ; <70 mg/dL for patie nts with CHD or diabe tic patie nts with > or = 2 CHD risk facto rs. LDL-C is now calcu lated using the Jovita n-Hop kins calcu pam n, which is a valid ated novel zabrina rodríguez acy than the Fried richar equat ion in the estim ation of LDL-C . Jovita azul SS et al. HOANG. 2013; 310(1 9): 2061- 2068 (http ://ed ucati on.Qu Patricia salinasKailos Geneticss. com/f aq/FA Q164) Not Available [facility] [address], [place], [address], 01/11/2023 23:10:49 01/12/20 23 01/11/2023 LIPID PNL W/RFL DLDL chol/HDLC ratio 2.6 (calc ) <5.0 normal Not Available [facility] [place] [facility] [address], [place], [address], 01/11/2023 23:10:49 01/12/20 23 01/11/2023 LIPID PNL W/RFL DLDL non HDL cholesterol 70 mg/dL _(blaise c) <130 normal For patie nts with diabe ok plus 1 major ASCVD risk facto r, treat ing to a non-H DL-C goal of <100 mg/dL (LDL- C of <70 mg/dL ) is consi dered a thera peuti c optio n. Not Available [facility] [place] [facility] [address], [place], [address], 01/11/2023 23:10:49 01/12/20 23 01/11/2023 BASIC MET PNL glucose 115 mg/dL 65-99 high Fasti ng refer ence inter jackelyn For someo ne witho ut known diabe ok, a gluco se value betwe en 100 and 125 mg/dL is consi stent with predi abete s and shoul d be confi rmed with a follo w-up test. Not Available [facility] [place] [facility] [address], [place], [address], 01/11/2023 23:10:50 01/12/20 23 01/11/2023 BASIC MET PNL urea nitrogen (BUN) 12 mg/dL 7-25 normal Not Available [facility] [place] [facility] [address], [place], [address], 01/11/2023 23:10:50 01/12/20 23 01/11/2023 BASIC MET PNL creatinine 0.69 mg/dL 0.70-1 .35 low Not Available [facility] [place] [facility] [address], [address], 01/11/2023 23:10:50 01/12/20 23 01/11/2023 BASIC MET PNL eGFR 103 mL/mi n/1.7 3m2 > or = 60 normal The eGFR is based on the CKD-E PI 2020 equat ion. To calcu late the new eGFR from a previ ous Creat inine or Cysta tin C resul t, go to https ://ww w.kid scooter.o randy/lonnie finch s/ kdoqi /gfr% 5Fcal culat or Not Available [facility] [place] [facility] [address], [place], [address], 01/11/2023 23:10:50 01/12/20 23 01/11/2023 BASIC MET PNL BUN/creatini ne ratio 17 (calc ) 6-22 normal Not Available [facility] [address], [place], [address], 01/11/2023 23:10:50 01/12/20 23 01/11/2023 BASIC MET PNL sodium 139 mmol/ L 135-14 6 normal Not Available [facility] [address], [address], 01/11/2023 23:10:50 01/12/20 23 01/11/2023 BASIC MET PNL potassium 5.1 mmol/ L 3.5-5. 3 normal Not Available [facility] [address], [address], 01/11/2023 23:10:50 01/12/20 23 01/11/2023 BASIC MET PNL chloride 104 mmol/ L 98-110 normal Not Available [facility] [address] [place], [address], 01/11/2023 23:10:50 01/12/20 23 01/11/2023 BASIC MET PNL carbon dioxide 28 mmol/ L 20-32 normal Not Available [facility] [address], [place], [address], 01/11/2023 23:10:50 01/12/20 23 01/11/2023 BASIC MET PNL calcium 9.6 mg/dL 8.6-10 .3 normal Not Available [facility] [address], [place], [address], 01/11/2023 23:10:50 01/12/20 23 01/11/2023 VIT D,25- OH,TO VERO,I A vitamin D,25-oh,tota l,ia 27 NG/mL 30-100 low Vitam in D Statu s 25-OH Vitam in D: Defic iency : <20 ng/mL Insuf ficie ncy: 20 - 29 ng/mL Optim al: > or = 30 ng/mL For 25-OH Vitam in D testi ng on patie nts on D2-chapman pplem entat ion and patie nts for whom quant itati on of D2 and D3 fract ions is requi red, the [facility] Assur eD(TM ) 25-OH VIT D, (D2,D 3), LC/MS /MS is recom mercy d: order code [id number] (bello ents >2yrs ). See Note 1 Note 1 For addit ional infor richa ortega refer to http: //shekhar Sanchez gnost ics.c om/fa q/FAQ 199 (This link is being provi ded for infor moise hammer/ mikhail matamoros purpo ses only. ) Not Available [facility] [address], [place], [address], 01/11/2023 23:10:51 01/12/20 23 01/11/2023 TSH W/REF L FT4 TSH w/reflex to FT4 3.10 mIU/L 0.40-4 .50 normal Not Available [facility] [place] [facility] [address], [place], [address], 01/11/2023 23:10:51 01/12/20 23 01/11/2023 VITAM IN B12 vitamin B12 1651 pg/mL 200-11 00 high Not Available [facility] [address], [place], [address], 01/11/2023 23:10:52 01/12/20 23 01/12/2023 CBC(H /H,RB C,WBC ,PLT) white blood cell count 4.4 thous and/u L 3.8-10 .8 normal Not Available [facility] [facility] [address], [place], [address], 01/12/2023 01:17:58 01/12/20 23 01/12/2023 CBC(H /H,RB C,WBC ,PLT) red blood cell count 4.37 basilio on/uL 4.20-5 .80 normal Not Available [facility] [address], [place], [address], 01/12/2023 01:17:58 01/12/20 23 01/12/2023 CBC(H /H,RB C,WBC ,PLT) hemoglobin 11.7 g/dL 13.2-1 7.1 low Not Available [facility] [address], [place], [address], 01/12/2023 01:17:58 01/12/20 23 01/12/2023 CBC(H /H,RB C,WBC ,PLT) hematocrit 36.1 % 38.5-5 0.0 low Not Available [facility] [address], [place], [address], 01/12/2023 01:17:58 01/12/20 23 01/12/2023 CBC(H /H,RB C,WBC ,PLT) MCV 82.6 fL 80.0-1 00.0 normal Not Available [facility] [address] [place] Rdz, [place], [address], 01/12/2023 01:17:58 01/12/20 23 01/12/2023 CBC(H /H,RB C,WBC ,PLT) MCH 26.8 pg 27.0-3 3.0 low Not Available [facility] [place] [facility] [address] [place], [place], [address], 01/12/2023 01:17:58 01/12/20 23 01/12/2023 CBC(H /H,RB C,WBC ,PLT) MCHC 32.4 g/dL 32.0-3 6.0 normal Not Available [facility] [place] Lab [address] Abiel K[place], [place], [address], 01/12/2023 01:17:58 01/12/20 23 01/12/2023 CBC(H /H,RB C,WBC ,PLT) RDW 13.1 % 11.0-1 5.0 normal Not Available [facility] [place] [facility] [address] Abiel Kajal, [place], [address], 01/12/2023 01:17:58 01/12/20 23 01/12/2023 CBC(H /H,RB C,WBC ,PLT) platelet count 315 thous and/u L 140-40 0 normal Not Available [facility] [address] Abiel B, [place], [address], 01/12/2023 01:17:58 01/12/20 23 01/12/2023 CBC(H /H,RB C,WBC ,PLT) MPV 10.5 fL 7.5-12 .5 normal Not Available [facility] Lab [address], [place], [address], 01/12/2023 01:17:58 01/12/20 23 01/12/2023 ALB, RAND UR W/CR creatinine, random urine 105 mg/dL 20-320 normal Not Available [facility] Lab [address], [place], [address], 01/12/2023 16:49:00 01/12/20 23 01/12/2023 ALB, RAND UR W/CR albumin, urine 0.4 mg/dL normal Refer ence Range Not estab lishe d Not Available [facility] Lab [address], [place], [address], 01/12/2023 16:49:00 01/12/20 23 01/12/2023 ALB, RAND UR W/CR albumin/crea tinine ratio, random urine 4 mcg/m g_cre at <30 normal The ADA defin es abnor malit ies in album in excre tion as follo ws: Album inuri a Categ ory Resul t (mcg/ mg creat inine ) Hyun l to Mildl y incre ased <30 Moder ately incre ased 30-29 9 Sever sohail incre ased > OR = 300 The ADA recom mends that at least two of three speci mens colle cted withi n a 3-6 month perio d be abnor mal befor e consi marcel g a patie nt to be withi n a diagn ostic categ ory. Not Available [facility] Lab [address], [place], [address], 01/12/2023 16:49:00 07/04/20 23 07/04/2023 ALB, RAND UR W/CR creatinine, random urine 123 mg/dL 20-320 normal Not Available [facility] Lab [address], [place], [address], 07/04/2023 20:45:40 07/04/20 23 07/04/2023 ALB, RAND UR W/CR albumin, urine 0.4 mg/dL normal Refer ence Range Not estab lishe d Not Available [facility] [place] [facility] [address] [place], [place], [address], 07/04/2023 20:45:40 07/04/20 23 07/04/2023 ALB, RAND UR W/CR albumin/crea tinine ratio, random urine 3 mcg/m g_cre at <30 normal The ADA defin es abnor malit ies in album in excre tion as follo ws: Album inuri a Categ ory Resul t (mcg/ mg creat inine ) Hyun l to Mildl y incre ased <30 Moder ately incre ased 30-29 9 Sever sohail incre ased > OR = 300 The ADA recom mends that at least two of three speci mens colle cted withi n a 3-6 month perio d be abnor mal befor e consi marcel g a patie nt to be withi n a diagn ostic categ ory. Not Available [facility] [place] [facility] [address], [place], [address], 07/04/2023 20:45:40 07/04/20 23 07/04/2023 URINA LYSIS , COMPL ETE color YELLOW yellow normal Not Available [facility] [place] [facility] [address], [place], [address], 07/04/2023 20:45:41 07/04/20 23 07/04/2023 URINA LYSIS , COMPL ETE appearance CLEAR clear normal Not Available [facility] [place] [facility] [address], [place], [address], 07/04/2023 20:45:41 07/04/20 23 07/04/2023 URINA LYSIS , COMPL ETE specific gravity 1.014 1.001- 1.035 normal Not Available [facility] [place] [facility] [address], [place], [address], 07/04/2023 20:45:41 07/04/2007/04/2023 URINA LYSIS , COMPL ETE pH 6.0 5.0-8. 0 normal Not Available [facility] [place] [facility] [address], [place], [address], 07/04/2023 20:45:41 07/04/20 23 07/04/2023 URINA LYSIS , COMPL ETE glucose NEGATI VE negati ve normal Not Available [facility] [place] [facility] [address], [place], [address], 07/04/2023 20:45:41 07/04/20 23 07/04/2023 URINA LYSIS , COMPL ETE bilirubin NEGATI VE negati ve normal Not Available [facility] [place] [facility] [address], [place], [address], 07/04/2023 20:45:41 07/04/2007/04/2023 URINA LYSIS , COMPL ETE ketones NEGATI VE negati ve normal Not Available [facility] [place] [facility] [address], [place], [address], 07/04/2023 20:45:41 07/04/2007/04/2023 URINA LYSIS , COMPL ETE occult blood NEGATI VE negati ve normal Not Available [facility] [place] [facility] [address], [place], [address], 07/04/2023 20:45:41 07/04/2007/04/2023 URINA LYSIS , COMPL ETE protein NEGATI VE negati ve normal Not Available [facility] [place] [facility] [address], [place], [address], 07/04/2023 20:45:41 07/04/20 23 07/04/2023 URINA LYSIS , COMPL ETE nitrite NEGATI VE negati ve normal Not Available [facility] [place] [facility] [address], [place], [address], 07/04/2023 20:45:41 07/04/20 23 07/04/2023 URINA LYSIS , COMPL ETE leukocyte esterase NEGATI VE negati ve normal Not Available [facility] [place] [facility] [address], [place], [address], 07/04/2023 20:45:41 07/04/2007/04/2023 URINA LYSIS , COMPL ETE WBC NONE SEEN /hpf 0-5 normal Not Available [facility] [address], [place], [address], 07/04/2023 20:45:41 07/04/20 23 07/04/2023 URINA LYSIS , COMPL ETE RBC NONE SEEN /hpf 0-2 normal Not Available [facility] [address], [place], [address], 07/04/2023 20:45:41 07/04/20 23 07/04/2023 URINA LYSIS , COMPL ETE squamous epithelial cells NONE SEEN /hpf < or = 5 normal Not Available [facility] [place] [facility] [address], [place], [address], 07/04/2023 20:45:41 07/04/20 23 07/04/2023 URINA LYSIS , COMPL ETE bacteria NONE SEEN /hpf none seen normal Not Available [facility] [address], [place], [address], 07/04/2023 20:45:41 07/04/20 23 07/04/2023 URINA LYSIS , COMPL ETE hyaline cast NONE SEEN /lpf none seen normal Not Available [facility] [place] [facility] [address], [place], [address], 07/04/2023 20:45:41 07/04/2007/04/2023 URINA LYSIS , COMPL ETE note This urine was stephanie zed for the prese nce of WBC, RBC, bacte anna, casts , and other forme d eleme nts. Only those eleme nts seen were repor bernice. Not Available [facility] [place] [facility] [address], [place], [address], 07/04/2023 20:45:41 07/04/2007/04/2023 LIPID PNL W/RFL DLDL cholesterol, total 92 mg/dL <200 normal Not Available [facility] [place] [facility] [address], [place], [address], 07/04/2023 22:59:21 07/04/20 23 07/04/2023 LIPID PNL W/RFL DLDL HDL cholesterol 40 mg/dL > or = 40 normal Not Available [facility] [place] [facility] [address], [place], [address], 07/04/2023 22:59:21 07/04/20 23 07/04/2023 LIPID PNL W/RFL DLDL triglyceride s 52 mg/dL <150 normal Not Available [facility] [address], [place], [address], 07/04/2023 22:59:21 07/04/2007/04/2023 LIPID PNL W/RFL DLDL LDL-choleste rol 39 mg/dL _(blaise c) normal Refer ence range : <100 Rigo able range <100 mg/dL for prima ry preve ntion ; <70 mg/dL for patie nts with CHD or diabe tic patie nts with > or = 2 CHD risk facto rs. LDL-C is now calcu lated using the Jovita n-Hop kins augusta azul, which is a valid ated novel metho d chiquisi wild arias r accur acy than the Fried richar equat ion in the estim ation of LDL-C . Jovita azul SS et al. HOANG. 2013; 310(1 9): 2061- 2068 (http ://ed ucati on.FirmPlay arslanXenSource. com/f aq/FA Q164) Not Available [facility] [place] [facility] [address], [place], [address], 07/04/2023 22:59:21 07/04/2007/04/2023 LIPID PNL W/RFL DLDL chol/HDLC ratio 2.3 (calc ) <5.0 normal Not Available [facility] [place] [facility] [address], [place], [address], 07/04/2023 22:59:21 07/04/20 23 07/04/2023 LIPID PNL W/RFL DLDL non HDL cholesterol 52 mg/dL _(blaise c) <130 normal For patie nts with diabe ok plus 1 major ASCVD risk facto r, treat ing to a non-H DL-C goal of <100 mg/dL (LDL- C of <70 mg/dL ) is consi dered a thera peuti c optio n. Not Available [facility] [place] [facility] [address], [place], [address], 07/04/2023 22:59:21 07/04/20 23 07/04/2023 BASIC MET PNL glucose 111 mg/dL 65-99 high Fasti ng refer ence inter jackelyn For someo ne witho ut known diabe ok, a gluco se value betwe en 100 and 125 mg/dL is consi stent with predi abete s and shoul d be confi rmed with a follo w-up test. Not Available [facility] [place] [facility] [address], [place], [address], 07/04/2023 22:59:22 07/04/20 23 07/04/2023 BASIC MET PNL urea nitrogen (BUN) 7 mg/dL 7-25 normal Not Available [facility] [place] [facility] [address], [place], [address], 07/04/2023 22:59:22 07/04/20 23 07/04/2023 BASIC MET PNL creatinine 0.66 mg/dL 0.70-1 .35 low Not Available [facility] [place] [facility] [address], [place], [address], 07/04/2023 22:59:22 07/04/20 23 07/04/2023 BASIC MET PNL eGFR 104 mL/mi n/1.7 3m2 > or = 60 normal Not Available [facility] [place] [facility] [address], [place], [address], 07/04/2023 22:59:22 07/04/20 23 07/04/2023 BASIC MET PNL BUN/creatini ne ratio 11 (calc ) 6-22 normal Not Available [facility] [place] [facility] [address], [place], [address], 07/04/2023 22:59:22 07/04/20 23 07/04/2023 BASIC MET PNL sodium 135 mmol/ L 135-14 6 normal Not Available [facility] [address], [place], [address], 07/04/2023 22:59:22 07/04/20 23 07/04/2023 BASIC MET PNL potassium 4.2 mmol/ L 3.5-5. 3 normal Not Available [facility] [address], [place], [address], 07/04/2023 22:59:22 07/04/20 23 07/04/2023 BASIC MET PNL chloride 101 mmol/ L 98-110 normal Not Available [facility] [place] [facility] [address], [place], [address], 07/04/2023 22:59:22 07/04/20 23 07/04/2023 BASIC MET PNL carbon dioxide 27 mmol/ L 20-32 normal Not Available [facility] [place] [facility] [address], [place], [address], 07/04/2023 22:59:22 07/04/20 23 07/04/2023 BASIC MET PNL calcium 9.5 mg/dL 8.6-10 .3 normal Not Available [facility] [place] [facility] [address], [place], [address], 07/04/2023 22:59:22 07/04/20 23 07/04/2023 HEMOG LOBIN A1C hemoglobin A1C 5.9 %_of_ total _HGB <5.7 high For someo ne witho ut known diabe ok, a hemog lobin A1c value betwe en 5.7% and 6.4% is consi stent with predi abete s and shoul d be confi rmed with a follo w-up test. For someo ne with known diabe ok, a value <7% indic ates that their diabe ok is well contr olled . A1c targe ts shoul d be indiv idual ized based on durat ion of diabe ok, age, comor bid condi tions , and other consi derat ions. This assay resul t is consi stent with an incre ased risk of diabe ok. Curre ntly, no conse nsus exist s regar ding use of hemog lobin A1c for diagn osis of diabe ok for child melissa. Not Available [facility] [place] [facility] [address], [place], [address], 07/04/2023 22:59:23 07/04/20 23 07/04/2023 HEPAT IC FUNCT ION PNL protein, total 6.7 g/dL 6.1-8. 1 normal Not Available [facility] [address], [place], [address], 07/04/2023 22:59:24 07/04/20 23 07/04/2023 HEPAT IC FUNCT ION PNL albumin 4.2 g/dL 3.6-5. 1 normal Not Available [facility] [address], [place], [address], 07/04/2023 22:59:24 07/04/20 23 07/04/2023 HEPAT IC FUNCT ION PNL globulin 2.5 g/dL_ (calc ) 1.9-3. 7 normal Not Available [facility] [address], [place], [address], 07/04/2023 22:59:24 07/04/20 23 07/04/2023 HEPAT IC FUNCT ION PNL albumin/glob ulin ratio 1.7 (calc ) 1.0-2. 5 normal Not Available [facility] [address], [place], [address], 07/04/2023 22:59:24 07/04/20 23 07/04/2023 HEPAT IC FUNCT ION PNL bilirubin, total 0.5 mg/dL 0.2-1. 2 normal Not Available [facility] [address], [place], [address], 07/04/2023 22:59:24 07/04/20 23 07/04/2023 HEPAT IC FUNCT ION PNL bilirubin, direct 0.1 mg/dL 0.0-0. 2 normal Not Available [facility] [address], [place], [address], 07/04/2023 22:59:24 07/04/20 23 07/04/2023 [place]PAT IC FUNCT ION PNL bilirubin, indirect 0.4 mg/dL _(blaise c) 0.2-1. 2 normal Not Available [facility] [address], [place], [address], 07/04/2023 22:59:24 07/04/20 23 07/04/2023 HEPAT IC FUNCT ION PNL alkaline phosphatase 44 U/L 35-144 normal Not Available [facility] [address], [place], [address], 07/04/2023 22:59:24 07/04/20 23 07/04/2023 HEPAT IC FUNCT ION PNL AST 13 U/L 10-35 normal Not Available [facility] [address], [place], [address], 07/04/2023 22:59:24 07/04/20 23 07/04/2023 HEPAT IC FUNCT ION PNL ALT 8 U/L 9-46 low Not Available [facility] [address], [place], [address], 07/04/2023 22:59:24 07/04/20 23 07/04/2023 PSA, TOTAL PSA, total 4.99 NG/mL < or = 4.00 high The total PSA value from this assay syste m is stand ardiz ed again st the [facility] stand lise. The test resul t will be appro ximat sohail 20% lower when rafia red to the equim olar- stand ardiz ed total PSA (Hay man Coult er). Rafia rison of seria l PSA resul ts shoul d be inter prete d with this fact in mind. This test was perfo rmed using the Sieme ns chemi lumin escen t metho d. Value s obtai audra from diffe rent assay metho ds canno t be used inter marinelli eably . PSA level s, regar dless of value , shoul d not be inter prete d as absol michelle evide nce of the prese nce or absen ce of disea se. Not Available [facility] [place] [facility] [address] Abiel Rdz, [place], [address], 07/04/2023 22:59:25 07/04/2007/06/2023 CULTU RE, UR ROUTI NE source: URINE, CLEAN CATCH Not Available [facility] [place] [facility] [address] [place], [place], [address], 07/06/2023 06:46:39 07/04/2007/06/2023 CULTU RE, UR ROUTI NE status: FINAL Not Available [facility] [place] [facility] [address] [place], [place], [address], 07/06/2023 06:46:39 07/04/2007/06/2023 CULTU RE, UR ROUTI NE result: MIXED GENITA L MARIUSZ ISOLAT ED. THESE SUPERF ICIAL BACTER IA ARE NOT INDICA TIVE OF A URINAR Y TRACT INFECT ION. NO FURTHE R ORGANI SM IDENTI FICATI ON IS CONCHITA PADILLA ON THIS SPECIM EN. IF CLINIC ALLY INDICA BERNICE, RECOLL ECT CLEAN- CATCH, MID-ST REAM URINE AND TRANSF ER IMMEDI ATELY TO URINE CULTUR E TRANSP ORT TUBE. Not Available [facility] [place] [facility] [address] [place], [place], [address], 07/06/2023 06:46:39 08/09/20 23 08/10/2023 PSA FREE \T\ TOTAL PSA, total 6.3 NG/mL < or = 4.0 high Not Available [facility] [place] [facility] [address] [place], [place], [address], 08/10/2023 14:35:53 08/09/20 23 08/10/2023 PSA FREE \T\ TOTAL PSA, free 0.6 NG/mL normal Not Available [facility] [address] [place] Rdz, [place], [address], 08/10/2023 14:35:53 08/09/20 23 08/10/2023 PSA FREE \T\ TOTAL PSA, % free 10 %_(ca lc) >25 low PSA(n g/mL) Free PSA(% ) Estim ated( x) Proba bilit y of Cance r(as% ) 0-2.5 (*) Appro x. 1 2.6-4 .0(1) 0-27( 2) 24(3) 4.1-1 0(4) 0-10 56 11-15 28 16-20 20 21-25 16 >or =26 8 >10(+ ) N/A >50 Refer ences :(1)Juliano salamanca et al.:U rolog y 60: 469-4 74 (2001 ) (2)Page aburto et al.:J .Urol 168: 922-9 25 (2001 ) Free PSA(% ) Sensi tivit y(%) Speci ficit y(%) < or = 25 85 19 < or = 30 93 9 (3)Page aburto et al.:J AMA 277: 1452- 1455 (1996 ) (4)Page aburto et al.:J AMA 279: 1542- 1547 (1997 ) (x)Th sharlene estim ates vary with age, ethni city, famil y histo ry and AUBREY resul ts. (*)Th e diagn ostic usefu lness of % Free PSA has not been estab lishe d in patie nts with total PSA below 2.6 ng/mL (+)In men with PSA above 10 ng/mL , prost ate cance r risk is deter mined by total PSA alone . The Total PSA value from this assay syste m is stand ardiz ed again st the equim olar PSA stand lise. The test resul t will be appro ximat sohail 20% highe r when rafia red to the WHO-s tanda rdize d Total PSA (Siem ens assay ). Rafia rison of seria l PSA resul ts shoul d be inter prete d with this fact in mind. PSA was perfo rmed using the Beckm an Coult er Immun oassa y metho d. Value s obtai audra from diffe rent assay metho ds canno t be used inter marinelli eably . PSA level s, regar dless of value , shoul d not be inter prete d as absol michelle evide nce of the prese nce or absen ce of disea se. Not Available [facility] [place] [facility] [address], [place], [address], 08/10/2023 14:35:53 09/15/2009/22/2023 FECAL IMMUN OCHEM fecal globin result: Not Detect ed Not Available [facility] [place] [facility] [address], [place], [address], 09/22/2023 16:08:28 09/20/20 23 09/20/2023 COMP META PNL glucose 182 mg/dL 65-99 high Fasti ng refer ence inter jackelyn For someo ne witho ut known diabe ko, a gluco se value >125 mg/dL indic ates that they may have diabe ok and this shoul d be confi rmed with a follo w-up test. Not Available [facility] [place] [facility] [address], [place], [address], 09/20/2023 20:01:30 09/20/20 23 09/20/2023 COMP META PNL urea nitrogen (BUN) 13 mg/dL 7-25 normal Not Available [facility] [place] [facility] [address], [place], [address], 09/20/2023 20:01:30 09/20/20 23 09/20/2023 COMP META PNL creatinine 0.65 mg/dL 0.70-1 .35 low Not Available [facility] [place] [facility] [address], [place], [address], 09/20/2023 20:01:30 09/20/20 23 09/20/2023 COMP META PNL eGFR 105 mL/mi n/1.7 3m2 > or = 60 normal Not Available [facility] [address], [place], [address], 09/20/2023 20:01:30 09/20/20 23 09/20/2023 COMP META PNL BUN/creatini ne ratio 20 (calc ) 6-22 normal Not Available [facility] [address], [place], [address], 09/20/2023 20:01:30 09/20/20 23 09/20/2023 COMP META PNL sodium 137 mmol/ L 135-14 6 normal Not Available [facility] [address], [place], [address], 09/20/2023 20:01:30 09/20/20 23 09/20/2023 COMP META PNL potassium 4.4 mmol/ L 3.5-5. 3 normal Not Available [facility] [address], [place], [address], 09/20/2023 20:01:30 09/20/20 23 09/20/2023 COMP META PNL chloride 103 mmol/ L 98-110 normal Not Available [facility] [address], [place], [address], 09/20/2023 20:01:30 09/20/20 23 09/20/2023 COMP META PNL carbon dioxide 28 mmol/ L 20-32 normal Not Available [facility] [address], [place], [address], 09/20/2023 20:01:30 09/20/20 23 09/20/2023 COMP META PNL calcium 9.0 mg/dL 8.6-10 .3 normal Not Available [facility] [address], [place], [address], 09/20/2023 20:01:30 09/20/20 23 09/20/2023 COMP META PNL protein, total 7.1 g/dL 6.1-8. 1 normal Not Available [facility] [address], [place], [address], 09/20/2023 20:01:30 09/20/20 23 09/20/2023 COMP META PNL albumin 4.2 g/dL 3.6-5. 1 normal Not Available [facility] [address], [place], [address], 09/20/2023 20:01:30 09/20/20 23 09/20/2023 COMP META PNL globulin 2.9 g/dL_ (calc ) 1.9-3. 7 normal Not Available [facility] [address], [place], [address], 09/20/2023 20:01:30 09/20/20 23 09/20/2023 COMP META PNL albumin/glob ulin ratio 1.4 (calc ) 1.0-2. 5 normal Not Available [facility] [address], [place], [address], 09/20/2023 20:01:30 09/20/20 23 09/20/2023 COMP META PNL bilirubin, total 0.5 mg/dL 0.2-1. 2 normal Not Available [facility] [address], [place], [address], 09/20/2023 20:01:30 09/20/20 23 09/20/2023 COMP META PNL alkaline phosphatase 52 U/L 35-144 normal Not Available [facility] [place] [facility] [address], [place], [address], 09/20/2023 20:01:30 09/20/20 23 09/20/2023 COMP META PNL AST 13 U/L 10-35 normal Not Available [facility] [address], [place], [address], 09/20/2023 20:01:30 09/20/20 23 09/20/2023 COMP META PNL ALT 6 U/L 9-46 low Not Available [facility] [address], [place], [address], 09/20/2023 20:01:30 03/13/20 24 03/13/2024 HbA1c (hemo globi n A1c), blood HbA1c 5.9 Not Available In-House Order For [place] Provider For Internal Use Only, [id number] 03/13/2024 09:16:36 08/24/20 23 08/24/2023 , beth majano [facility] al Stewmi d [address] [address] [phone] Patien t Name: Mike Dockery [facility] l Record #: [id number] Addres s: [address] [facility] Accoun t#: [id number] City/[place] ip: [place] [address]: Radha Sherwood MD Phone: Insura nce: [employer] re /Ag e/Sex: 1959/6 5/M Self Pay Admit/ Reg Date: Orderi janna Dr: Radha Sherwood MD Locati on: DI.USM H/ PCP: Radha Sherwood MD Date of Servic e: Order (s): US retrop eriton eal comp CPT Code: 10939 Report Number : [id number] Reason for Exam: BPH RENAL ULTRAS OUND: Indica tion: BPH. Diffic ulty voidin g. The kidney s are normal in echote xture and size withou t eviden ce of hydron ephros is, mass or calcul us. The right kidney measur es 9.1 and left 9.[address] [facility] dim[facility] ion. Cursor y examin ation of the urinar y bladde r does not reveal any bladde r wall abnorm alitie s. Both ureter al jets are visibl e. There is no postvo id residu al. The prosta te is enlarg ed measur ing approx imatel y 3.8 x 5 x 6.7 cm.. IMPRES CARLY: Normal renal ultras ound. Dictat ed By: Boyd Mullins MD 1409 Signed By: Mirian Mullins MD 1415 TD/TT: 1409 Tech: [id number] cc: GERMÁN* Radha Sherwood MD [email or web address] [facility] ? Rad [address] [facility] [address], [place], [address] 10/23/2023 07:28:22 03/15/20 24 03/15/2024 MRI, pitui tary, w/wo contr ast [facility] [address] [place] [address] [phone] Patien t Name: Mike Dockery [facility] Record #: [id number] Addres s: [address] [facility] Accoun t#: [id number] City/[place]/Z ip: [place] [address]: Adri Kaplan er PAC Phone: Insura nce: [employer] /Ag e/Sex: 1959/ 5/M Self Pay Admit/ Reg Date: Carlos saldivar Dr: Adri Kaplan er, PAC Locati on: DI.MRI MH/ PCP: Radha Sherwood MD Date of Servic e: Order (s): MR kenyon te wo/w contra st CPT Code: 48989 Report Number : [id number] Reason for Exam: RAISED PSA Patien t name: Mike Dockery Exam: MR prosta te wo/w contra st Techni que: Multip lanar multis equenc e MRI of the Pelvis was obtain ed withou t and with IV contra st. MRI Scanne r: 1.5 T Proced ure Date and Time: 03/11/20 24 2:12 PM Indica tion: RAISED PSA Compar paul: None Intrav enous Contra st: Gadavi st 10 ml. Findin gs: PELVIC ORGANS : Prosta te measur es 4.7 cm transv erse, 3.1 c maP, and 3.5 cm CC. There is a 1.0 x 1.1 cm focus of promin ent T2 and ADC hypoin tensit y at right obstetrics specialist ior medial periph eral zone at mid gland (20:A3 ). BLADDE R: No signif icant bladde r abnorm ality is eviden t. There is no abnorm al enhanc ement demons trated . PERITO NEUM: There is no abnorm al fluid or perito nic mass lesion . There is no abnorm al enhanc ement demons trated . SOFT TISSUE S: There is no signif icant signal abnorm ality of the visual ized extra- perito nic soft tissue s. There is no abnorm al enhanc ement demons trated . IMPRES CARLY: a 1.0 x 1.1 cm focus of promin ent T2 and ADC hypoin tensit y at right obstetrics specialist ior medial periph eral zone at mid gland, suspic ious (PI RADS 4). Dictat ed By: Carine Angel MD [id number] Signed By: Roya Angel i, MD [id number] TD/TT: 2321 Tech: [facility] 04 cc: GERMÁN; [id number] * Adri Kaplan er, PAC; Radha Sherwood MD [email or web address] [facility] ? Rad [address] [facility] [address], [place], [address] 03/19/2024 09:25:20 Result Notes None recorded. Problems Name Problem SNOMED Code Status Onset Date Resolution Date Notes Provider Name and Address Organization Details Recorded Time Osteoarthri tis of right knee joint 2040697394069 00 [facility] [place] [facility] 08:[facility] History of total knee arthroplast y 4460920785016 Active [place] ladan, [facility] 2 08:45:07 Essential hypertensio n 02461446 Active 2021 RADHA SHERWOOD MD [address] [place], [address], [facility] 2 18:24:38 Migraine 12336997 Active 2021 RADHA SHERWOOD MD [address] [place], [address], [facility] 2 18:24:41 Type 2 diabetes mellitus without complicatio n 150371865 Active 2021 RADHA SHERWOOD MD [address] [place], [address], [facility] 2 18:24:42 Problem Notes None recorded. Procedures Surgical History Date Name Laterality Status Provider Name and Address Organization Details Recorded Time 3 Medicare Wellness CPT Code, subsequent completed [place] [facility] 09/13/2023 07:38:48 no previous surgery completed Fatimah Goodwin [facility] 07/03/2018 09:50:58 Imaging Results Imaging Date Name Status LastModified by Organiz ation Details LastModified Time 08/24/2023 US, pelvis completed [email or web address] ? Rad [address], [place], [address] 10/23/2023 07:28:22 03/15/2024 MRI, pituitary, w/wo contrast completed [facility] ? Rad [address], [place], [address] 03/19/2024 09:25:20 Procedure Notes None recorded. Medical Equipment None Reported. Allergies No known drug allergies Medications Name Sig Start Date Stop Date Status Note LastModified by Organization Details LastModified Time Miralax 17 gram/dose oral powder Take 17 g every day by oral route for 30 days. 2022 active Not Available Not Available Not Avai lable acetamino phen 325 mg tablet 650 mg by oral route. 2020 active Not Available Not Available Not Avai lable polyethyl ayana glycol 3350 17 gram oral powder packet TAKE 1 PACKET (17GMS) BY MOUTH DISSOLVE D ON Mondays AND Fridays active Not Available Not Available Not Avai lable atorvasta tin 10 mg tablet TAKE 1 TABLET BY MOUTH EVERY DAY 2023 active Not Available Not Available Not Avai lable glyburide 5 mg tablet TAKE 1 TABLET WITH BREAKFAS T OR THE FIRST MAIN MEAL OF THE DAY IN THE AM,& TAKE 1/2 TAB WITH DINNER 02/10 completed Not Available Not Available Not Available FreeStyle Lancets 28 gauge USE TO TEST ONCE DAILY 2023 active Not Available Not Available Not Avai lable lisinopri l 20 mg tablet TAKE 1 TABLET BY MOUTH TWICE A DAY 02/10 completed Not Available Not Available Not Available meclizine 12.5 mg tablet TAKE 1 TABLET 3 TIMES A DAY BY ORAL ROUTE NEEDED. active Not Available Not Available No t Available tramadol 50 mg tablet Take 1 tablet every day by oral route. active Not Available Not Available No t Available glyburide 2.5 mg-metfor min 500 mg tablet 02/10 completed Not Available Not Available Not Available meclizine 25 mg tablet Take 25 mg 3 times a day by oral route. 2020 active Not Available Not Available Not Avai lable metformin 1,000 mg tablet Take 1000 mg by oral route. 03/18 completed Not Available Not Available Not Available lisinopri l 10 mg tablet TAKE 1 TABLET BY MOUTH EVERY DAY 2023 active Not Available Not Available Not Avai lable docusate sodium 100 mg capsule Take 100 mg by oral route. 06/27 completed dc Not Available Not Available Not Available gabapenti n 300 mg capsule Take 1 capsule every day by oral route. active Not Available Not Available No t Available bisacodyl 5 mg tablet,de layed release 5 mg by oral route. 2020 active Not Available Not Available Not Avai lable metformin ER 500 mg tablet,ex tended release 24 hr TAKE 2 TABLETS TWICE A DAY BY ORAL ROUTE WITH MEALS. 2024 active Not Available Not Available Not Avai lable naproxen 500 mg tablet TAKE 1 TABLET BY MOUTH TWICE A DAY NEEDED 2023 active Not Available Not Available Not Avai lable Daily-Vit e tablet TAKE 1 CAPSULE EVERY DAY active Not Available Not Available No t Available metformin ER 500 mg 24 hr tablet,ex tended release (gastric retention ) TAKE 2 TABLETS TWICE A DAY BY ORAL ROUTE WITH MEALS. 2023 active Not Available Not Available Not Avai lable calcium 600 mg (as carbonate )-vitamin D3 10 mcg (400 unit) tablet TAKE 1 TABLET BY MOUTH EVERY DAY AFTER MEALS 2022 active Not Available Not Available Not Avai lable FreeStyle Lite Strips USE DIRECTED 2 TIMES A DAY NEEDED X58 DAYS 2023 active Not Available Not Available Not Avai lable diclofena c 1 % topical gel APPLY 1 GRAM 2 TIMES A DAY DIRECTED 2023 active Not Available Not Available Not Avai lable Senexon-S 8.6 mg-50 mg tablet TAKE 2 TABLETS BY MOUTH EVERY DAY FOR 90 DAYS active needs followup Not Available Not Available Not Available Metamucil Sugar-Hadley e (aspartam e) 3.4 gram/5.8 gram oral powder 4.4 grams one sachet daily 2022 active Not Available Not Available Not Avai lable Vitals Date Recorded Body height Body mass index (BMI) Body weight Heart rate Oxygen saturation Oxygen saturation in Arterial blood by Pulse oximetry Systolic blood pressure Diastolic blood pressure Provider Name and Address Organization Details Last Updated DateTime 3 177.8 cm 23.8 kg/m2 51693.3 3 g 82 /min 98 % 98 % 126 mm[Hg] 70 mm[Hg] Adelina Siegel MA [facility] 3 10:03:03 Date Recorded Body height Body mass index (BMI) Body weight Body temperature Heart rate Oxygen saturation Oxygen saturation in Arterial blood by Pulse oximetry Systolic blood pressure Diastolic blood pressure Provider Name and Address Organization Details Last Updated DateTime 3 177.8 cm 23.4 kg/m2 30205.9 9 g 98.3 [degF] 79 /min 97 % 97 % 148 mm[Hg] 68 mm[Hg] Fatimah Yuan [facility] 3 08:11:01 Date Recorded Body height Body mass index (BMI) Body weight Heart rate Oxygen saturation Oxygen saturation in Arterial blood by Pulse oximetry Systolic blood pressure Diastolic blood pressure Provider Name and Address Organization Details Last Updated DateTime 3 177.8 cm 21.8 kg/m2 47255.0 4 g 82 /min 97 % 97 % 128 mm[Hg] 74 mm[Hg] Adelina Siegel MA [facility] 3 10:48:10 Date Recorded Body height Body mass index (BMI) Body weight Heart rate Oxygen saturation Oxygen saturation in Arterial blood by Pulse oximetry Systolic blood pressure Diastolic blood pressure Provider Name and Address Organization Details Last Updated DateTime 3 177.8 cm 21.4 kg/m2 01961.2 6 g 72 /min 98 % 98 % 124 mm[Hg] 78 mm[Hg] [place] MA [facility] 3 07:46:34 Date Recorded Body height Body mass index (BMI) Body weight Heart rate Oxygen saturation Oxygen saturation in Arterial blood by Pulse oximetry Systolic blood pressure Diastolic blood pressure Provider Name and Address Organization Details Last Updated DateTime 4 177.8 cm 22.1 kg/m2 78429.2 2 g 78 /min 97 % 97 % 128 mm[Hg] 86 mm[Hg] Adelina Siegel MA [facility] 4 09:22:33 Social History Question Answer Notes LastModified by Organizat ion Details LastModified Time Tobacco Smoking Status Never Smoker Fatimah Christa pickering [facility] 07/03/2018 09:48:48 What Is Your Level Of Alcohol Consumption? None Information not available 07/03/2018 Auto Related Injury? No Information not available 07/03/2018 What Is Your Level Of Caffeine Consumption? None Information not available 07/03/2018 Are You Currently Employed? 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 Bilateral Information not available 07/03/2018 Live Alone Or With Others? With Others Information not available 07/03/2018 Marital Status Informatio n not available 07/03/2018 What Was The Date Of Your Most Recent Tobacco Screening? 09/13/2023 [email or web address] Information not available 09/13/2023 What Types Of Sporting Activities Do You Participate In? [place] Information not available 07/03/2018 Has Tobacco Cessation Counseling Been Provided? No [email or web address] Information not available 06/08/2022 Work Related Injury? No Information not available 07/03/2018 Sex: Unknown Functional Status None recorded. Mental Status None recorded. Family History Relationship Description Onset Age of this Age Resolved Age Notes LastModified by Organization Details LastModified Time Father Heart disease [email or web address] Not available 2017 09:48:39 Brother Diabetes mellitus all three brothe rs Not available 02/10/2022 09:04:11 Medical History Condition Response arthritis N gout N tuberculosis N asthma N ulcers N kidney disease N blood clots N bleeding disorder N atrial fibrillation N liver disease N GERD/reflux N diabetes Y seizure disorder N heart condition N peripheral vascular disease N heart murmur N hypertension N hepatitis N anxiety disorder N hypercholesterolemia Y pulmonary embolism N has pacemaker N stroke N Immunizations Vaccine Type Date Status Note Provider Nam e and Address Organization Details Recorded Time Pneumococcal conjugate PCV20, polysaccharide [id number] conjugate, adjuvant, PF 2 completed RADHA SHERWOOD MD [address] [place] [address], [address], [facility] 06/09/2022 08:22:17 COVID-19, mRNA, LNP-S, PF, 100 mcg/0.5mL dose or 50 mcg/0.25mL dose 1 completed Sejal [place] null, [facility] 02/17/2022 09:49:45 COVID-19, mRNA, LNP-S, PF, 100 mcg/0.5mL dose or 50 mcg/0.25mL dose 2 completed Sejal [place] null, [facility] 02/17/2022 09:49:44 zoster recombinant 0 completed Sejal Lan null, [facility] 02/17/2022 09:49:45 Influenza, split virus, quadrivalent, PF 0 completed Sejal Lan null, [facility] 02/17/2022 09:49:45 zoster recombinant 0 completed Sejal [place] null, [facility] 02/17/2022 09:49:45 Influenza, split virus, quadrivalent, PF 1 completed Sejal [place] null, [facility] 02/17/2022 09:49:45 Tdap 0 completed Sejal Lan null, [facility] 02/17/2022 09:49:45 COVID-19, mRNA, LNP-S, PF, 100 mcg/0.5mL dose or 50 mcg/0.25mL dose 1 completed Sejal Lan [facility], [facility] 02/17/2022 09:49:45 Influenza, MDCK, quadrivalent, PF 2 completed DAYNE Robledo, [facility] 09/13/2023 07:38:53 COVID-19, mRNA, LNP-S, bivalent, PF, 50 mcg/0.5 mL or 25mcg/0.25 mL dose 2 [facility]13[facility] 07:38:53 Influenza, adjuvanted, quadrivalent, PF 3 completed DAYNE Pulido, [facility] 03/13/2024 09:16:47 [facility]dap 3 [facility]13[facility]24 09:16:47 Past Encounters Encounter ID Performer Location Encounter Start Date Encounter Closed Date Diagnosis/Indication Diagnosis SNOMED-CT Code Diagnosis ICD10 Code Diagnosis Note [id number] [place] BEEBE MD [facility] [address] ORTHOPEDI CS [address] [facility] [place] [address] 07/03/2018 09:38:46 07/03/2018 10:44:08 Osteoarthritis of knee 235996552 M17.11 [id number] DAVID SNEED [facility] [address] [address] 12/17/2020 10:27:30 12/17/2020 11:40:48 Osteoarthritis of knee 210451293 M17.9 [id number] NIKKIE SUMNER MD [facility] [address] [place] [address] 02/18/2021 09:24:49 02/18/2021 10:17:37 Osteoarthritis of right knee joint 2347077866 85809 M17.11 [id number] DAVID WEN [facility] [address] [place] [address] 04/15/2021 09:35:31 04/15/2021 10:19:59 Postoperative care 331562779 Z48.89 [id number] NIKKIE SUMNER MD [facility] [address] [address] 06/24/2021 08:38:00 06/24/2021 09:03:11 Knee joint prosthesis present 9313742810 02 Z96.659 [id number] NIKKIE SUMNER MD [facility] [address] [address] 08/24/2021 12:18:31 08/24/2021 13:15:37 History of right total knee replacement 6624303180 914745 Z96.651 [id number] RADHA SHERWOOD MD [facility] AT [address], [address] [place] [address] 02/10/2022 08:35:41 02/10/2022 10:01:40 Esotropia of left eye 4942703354 8285416 H50.00 has an eye exam coming up Type 2 emerson betes mellitus without complication 466013096 E11.9 Constipation 55029813 K5 9.00 Essential hypertension 56038726 I10 Increased frequency of urination 148492304 R35.0 Migraine with aura 74125 06 G43.109 Vertigo 110709732 R42 meclizine prn s/p PT Pain of bi lateral knee regions 1527573247 31164 M25.562 [id number] RADHA SHERWOOD MD [facility] AT [address] [address] 03/18/2022 12:49:45 03/18/2022 13:58:44 Osteoporosis 35879962 M81.0 see plan below Ophthalmic examination and evaluation 42511628 Z01.00 need records from [facility] Migraine 13600617 G43.90 9 MRI was reviewed and was negative -now needs neurology follow up for presumed migraine phenomena Type 2 emerson betes mellitus without complication 383237149 E11.9 A1c depicts decent control -continue with current medication s Essential hypertension 81709460 I10 BP is well controlled on current medication s Anemia 438735497 D64.9 proceed with colonoscop y-a referral was made to a gastroente rologist [id number] RADHA SHERWOOD MD [facility] AT [address] [address] 04/23/2022 13:47:21 04/23/2022 14:31:40 Essential hypertension 90389765 I10 BP medication s are to be adjusted to achieve control on current medication s Migraine 51195410 G43.90 9 MRI was reviewed and was negative -now needs neurology follow up for presumed migraine phenomena- this aspect of his care has been postponed because of scheduling problems at the specialist s office Type 2 emerson betes mellitus without complication 887610695 E11.9 A1c depicts decent control -continue with current medication s not due for A1c till next month [id number] RADHA SHERWOOD MD [facility] AT [address], [address] [address] 06/08/2022 12:50:01 06/08/2022 14:10:35 Migraine 84139327 G43.909 MRI was reviewed and was negative -now needs neurology follow up for presumed migraine phenomena- this aspect of his care has been postponed again because of scheduling problems at the specialist s office .If his current visit is postponed again I shall direct him elsewhere Type 2 emerson betes mellitus without complication 105604453 E11.9 A1c depicts decent control -continue with current medication s not due for A1c till next month Essential hypertension 11238965 I10 BP medication s are controllin g his blood pressure well Mixed hyperlipidemia 267 017532 E78.2 stable on the statin Administra tion of pneumococcal vaccine 88793265 Z23 [id number] NIKKIE SUMNER MD [facility] 3 [facility] [address] [place] [address] 07/08/2022 11:07:20 07/08/2022 12:27:04 Medial epicondylitis of left elbow joint 6797866935 49322 M77.02 Tendinitis of left wrist region 4524052860 5588076 M67.834 [id number] RADHA SHERWOOD MD [facility] AT [address] [place] [address] 01/06/2023 09:51:07 01/06/2023 10:38:08 Type 2 diabetes mellitus without complication 829879153 E11.9 A1c depicts decent control -continue with current medication s not due for A1c till next month Headache 08199470 R51.9 currently on tramadol and gabapentin for the headache prescribed by the neurologis t in [place] and over here as well Vertigo 691256953 R42 meclizine prn ? therapy Cobalamin deficiency 190 749113 E53.8 reportedly low Chronic ne ck pain for greater than 3 months 0719938209 88427 M54.2 Essential hypertension 89518698 I10 BP medication s are controllin g his blood pressure well Vitamin D deficiency 347 05338 E55.9 [id number] SUMIT ALANIZ NP [facility] [address], [address] [place] [address] 02/02/2023 07:54:39 02/02/2023 08:35:41 Anemia 422772567 D64.9 No gross or obvious GI blood loss. We will schedule EGD and colonoscop y Constipation 19256474 K5 9.00 Chronic constipati on despite stool softener and Metamucil. . Daily dose of MiraLax and increase fluids encouraged [id number] RADHA SHERWOOD MD [facility] AT [address], [address] [place] [address] 06/27/2023 10:13:44 06/27/2023 12:03:10 Essential hypertension 47849181 I10 BP medication s are controllin g his blood pressure well Migraine 33996611 G43.90 9 MRI was reviewed and was negative -Has seen neurology states he would like to have a second opinion Benign pro static hyperplasia with outflow obstruction 123568112 N13.8 enlarged prostate on exam Lower urin elton tract obstructive syndrome 83798890 N13.9 Type 2 emerson betes mellitus without complication 168840437 E11.9 A1c depicts decent control -continue with current medication s not due for A1c till next month Urinary tr act infectious disease 51018267 N39.0 Acute prostatitis 853569 02 N41.0 presumptiv e treatement for this and a possible UTI [id number] RADHA SHERWOOD MD _[facility] [address] [facility] [address] [place] [address] 09/13/2023 07:36:00 09/13/2023 08:53:48 Adult health examination 830614724 Z00.00 I reviewed and updated the patient's relevant wellness informatio n. We discussed personaliz ed health advice and appropriat e referrals aimed at reducing this patient's individual risk factors and improving self-manag ement and wellness, including {{weight loss physi blaise activity s moking cessation fall prevention nutrition weight loss, physical activity, smoking cessation, fall prevention and nutrition weight loss, physical activity, fall prevention and nutrition# }}{{weight loss physi blaise activity s moking cessation fall prevention nutrition weight loss, physical activity, smoking cessation, fall prevention and nutrition} } {{weight loss physi blaise activity s moking cessation fall prevention nutrition weight loss, physical activity, smoking cessation, fall prevention and nutrition} } {{weight loss physi blaise activity s moking cessation fall prevention nutrition weight loss, physical activity, smoking cessation, fall prevention and nutrition} } {{weight loss physi blaise activity s moking cessation fall prevention nutrition weight loss, physical activity, smoking cessation, fall prevention and nutrition} }. Unintentio nal weight loss 970544793 R63.4 more than 30 pound weight loss Occipital headache 63450 7 R51.9 stable has been prescribed gabapentin -but he doesn't want it any more Dizziness 691011783 R42 chronic has been prescribed meclizine Screening for malignant neoplasm of colon 166258142 Z12.11 Vitamin D deficiency 347 42941 E55.9 Chronic constipation 236 701529 K59.09 [id number] RADHA SHERWOOD MD _[facility] AT [address], [address] [place] [address] 03/13/2024 09:08:03 03/13/2024 10:30:02 Type 2 diabetes mellitus without complication 021856887 E11.9 A1c depicts decent control -continue with current medication s Essential hypertension 38637328 I10 BP medication s are controllin g his blood pressure well Prostate s pecific antigen above reference range 073118494 R97.20 has had an MRI -he awaits urology evaluation Mixed hyperlipidemia 267 865275 E78.2 stable on the statin Health Concerns Section Related Observation LastModified by Organization Detai ls LastModified Time None Recorded Concern Status LastModified by Organization Details LastModified Time None Recorded Advance Directives Directive None Recorded Payers Encounter Date Sequence Insurance Name Policy Number Policy Echeverrai Covered Member ID Echeverria Member ID Guarantor Name 01/06/2023 2 [place] Baldevbhai S Dockery [id number] Baldevbhai Dockery 02/02/2023 2 [place] Baldevbhai S Dockery [id number] Baldevbhai Dockery 06/27/2023 1 [facility] (MEDICARE REPLACEMENT/ ADVANTAGE - HMO) Baldevbhai S Dockery [id number] Baldevbhai Dockery 09/13/2023 1 [facility] (MEDICARE REPLACEMENT/ ADVANTAGE - HMO) Baldevbhai S Dockery [id number] Baldevbhai Dockery 03/13/2024 1 [facility] [place] [facility] [place] [employer] [place] Baldevbhai S Dockery [id number] Baldevbhai Dockery Notes Date Note Type Note Provider Name and Address Organization Details Recorded Time 01/07/20 23 text/htm l Diabetes F/UReported bypatient.Review finger sticks:does check sugars regularly Context:normal range of home blood sugars (in the low 100s); seeing eye doctor regularly; checking feet regularly; not missing doses of medications; no side effects from medications Associated Symptoms:no increased thirst; no increased appetite; no increased urinationNotes:Has a new glucometer his sugars have been reasonably controlled at goalHeadacheReported bypatient.Notes:he has finally seen the neurologist -He brings an MRI done in [place] for reviewHyperlipidemiaReported bypatient.Notes:taking medications ,no side effectsHypertension F/UReported bypatient.Associated Symptoms:no dizziness; no lightheadedness; no chest pain; no shortness of breath; no palpitations; no edema; no calf pain with exertion; thinks his Bp has been borderline high at home he comes with his BP diary Lifestyle:regular exercise; limiting/avoiding salt Medications:taking medications as directed; no side effects from medication RADHA SHERWOOD MD [address] [place] [address], [address], [facility] 01/06/2023 10:52:51 02/03/20 23 text/htm l This is a 62-year-old male with a history of osteoarthritis, knee replacement, migraines, type 2 diabetes, hypertension, and high cholesterol; referred for anemia He reports problems with chronic constipation for 10 years. He takes stool softener and Metamucil every night which produces bowel movement on most days but still has problems with gas.He avoids drinking water because of urinary frequency. He denies heartburn or acid indigestion. He never sees black or bloody stool. Labs*January 2023: H and H 11.7/36.1. MCV normal. MCH is low. Platelets are normal. Vitamin B12 high. TSH 3.10. Creatinine 0.69. GFR normal. Procedures:* never FH: No colon cancerSH: Never smoked. NO alcohol. chews tobacco. Aminah ALANIZ NP [address] [place], [address], [facility] 02/02/2023 09:21:11 06/27/20 23 text/htm l Diabetes F/UReported bypatient.Review finger sticks:does not check sugars regularly Context:normal range of home blood sugars (in the low 100s); seeing eye doctor regularly; checking feet regularly; not missing doses of medications; no side effects from medications Associated Symptoms:no increased thirst; no increased appetite; no increased urinationHypertension F/UReported bypatient.Associated Symptoms:no dizziness; no lightheadedness; no chest pain; no shortness of breath; no palpitations; no edema; no calf pain with exertion Lifestyle:regular exercise Medications:taking medications as directed; no side effects from medicationUrinary FrequencyReported bypatient.Notes:urinary symptoms -he notes frequency and incomplete emptying c/o headaches /migraines are not getting better he wants to change his neurologist RADHA SHERWOOD MD [address] [place] [address], [phone], [facility] 06/27/2023 18:57:42 09/13/20 23 text/htm l [id number] bypatient.In general, would you say your health is?Good In general, how satisfied are you with your life?Satisfied How confident are you that you can control and manage most of your health problems?Not Very Confident Do you have trouble taking medicines the way you have been told to take them?I always take them as prescribed Do you consider your diet to be healthy?Yes Usually eats diet with at least 4 servings of fruit/veg and avoids large amounts of high fat foods?Yes Do you take vitamin supplements/calcium/vitamin D?Yes Do you exercise for about 20 minutes for 3 or more days a week?No Do you have any problems staying or falling asleep?Yes Are you having difficulties driving your car?No Do you always use a seatbelt while in a car?Yes Do you know where to locate and properly use a first aid kit and fire extinguisher?Yes Does your home have the following:Rugs in the hallways; Grab bars in the bathrooms; Handrails on the stairs; Good lighting in all areas; Smoke detectors Do you experience urinary incontinence?Yes, sometimes Do you or any of your family members have concerns about your memory?Yes Do you have any difficulty when speaking with other people?No Do you have any problems with your hearing?No How would you describe the condition of your mouth and teeth?Good How would you describe the status of your vision?Worse than last year Can you bathe or dress with limited or no assistance?Yes Are you able to use the toilet with limited or no assistance?Yes Are you able to feed yourself with limited or no assistance?Yes Are you able to get out of a chair or bed with limited or no assistance?Yes Are you able to do housework with limited or no assistance?Yes Are you able to grocery shop with limited or no assistance?Yes Are you able to manage money with limited or no assistance?No, I need help doing this Are you able to prepare meals with limited or no assistance?Yes Are you able to use the phone with limited or no assistance?Yes See Health Risk Assessment Form RADHA SHERWOOD MD [address] [place] [address], [phone], [facility] 09/13/2023 08:43:27 03/13/20 24 text/htm l Diabetes F/UReported bypatient.Review finger sticks:does not check sugars regularly Context:normal range of home blood sugars (in the low 100s); seeing eye doctor regularly; checking feet regularly; not missing doses of medications; no side effects from medications Associated Symptoms:no increased thirst; no increased appetite; no increased urinationNotes:has run out of his stripsHyperlipidemiaReported bypatient.Notes:taking medications ,no side effectsHypertension F/UReported bypatient.Associated Symptoms:no dizziness; no lightheadedness; no chest pain; no shortness of breath; no palpitations; no edema; no calf pain with exertion Lifestyle:regular exercise Medications:taking medications as directed; no side effects from medicationNotes:has increased his lisinopril to twice dailyUrinary FrequencyReported bypatient.Notes:f/u abnormal PSA s/p MRI RADHA SHERWOOD MD [address] [place] [address], [phone], [facility] 03/14/2024 03:17:41
--- OUTSIDE RECORDS SUMMARY | 2025-01-09 10:31 | XMS_ITS | Patient Health Record ---
Author Organization [facility] [address] [place] [address] [address] Address [address] [place] [id number] Care Team Providers Care Head Rose Grower Name Role Phone Ira NEGRON, Davis Primary Care Provider Unavailabl e ALLERGIES No Known Allergies REASON FOR REFERRAL No Information MEDICATIONS Medication SIG (Take, Route, Frequency, Duration) Notes Start Date End Date Status Pregabalin Active traMADol HCl 50 MG 1/2 tab Orally twice a day prn headache for 30 days 12/27/2022 Active Diclofenac Sodium 1 % APPLY EXTERNALLY T O THE AFFECTED AREA UP TO 3 TIMES DAILY EXTERNALLY 30 DAYS External for 30 Active Lisinopril 10 MG TAKE 1 TABLET BY RIYA TH TWICE A DAY DIRECTED Oral for 90 Active metFORMIN HCl 500 MG TAKE 1 TABLET BY MO UTH ONCE DAILY IN THE MORNING WITH MEAL Oral for 90 Active metFORMIN HCl ER 500 MG TAKE 2 TABLETS B Y MOUTH TWICE A DAY WITH MEALS Oral for 90 Active Gabapentin 300 MG TAKE 1 CAPSULE BY MO UTH EVERYDAY AT BEDTIME for 30 Active Calcium + Vitamin D3 600-10 MG-MCG TAKE 1 TABLET BY MOUTH DAILY AFTER MEALS Oral for 90 Active Meclizine HCl 12.5 MG TAKE 1 TABLET 3 TI MES A DAY BY ORAL ROUTE NEEDED. Oral for 10 Active Naproxen 500 MG TAKE 1 TABLET TWICE A DAY BY ORAL ROUTE NEEDED. 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 [address] [place] [phone] [id number] FARHAD COREAS Self - patient is the insured clipsync [address] [place] [address] [id number] FARHAD COREAS Self - patient is the insured MEDICAL (GENERAL) HISTORY Medical History History ICD Code migraines arthritis R knee DM type 2 osteoporosis HTN anemia Surgical History Surgery Date(Month/Year) knee
== END 2025-01-09 10:35 | disposition home or self-care (01) ==
PROVIDERS: PCP Nurse Practitioner Family; Visit Provider Nurse Practitioner Family
DX: R97.20 Elevated prostate specific antigen [PSA] (principal); R35.0 Frequency of micturition; R35.1 Nocturia; Z13.9 Encounter for screening, unspecified
CPT/HCPCS: 99214

== ENCOUNTER → 2025-01-09 09:39 | Outpatient (BNVA) | payer OTHER, SELFPAY | PROVIDERS: PCP Nurse Practitioner Family; Visit Provider Nurse Practitioner Family | DX: R97.20 Elevated prostate specific antigen [PSA] (principal); R35.0 Frequency of micturition; R35.1 Nocturia | CPT/HCPCS: 81003; 99212 ==

== ENCOUNTER 2025-01-14 08:24 | Day surgery (SDC) | payer OTHER, SELFPAY ==
[2025-01-10 11:33] VITALS: BMI 22.5
[2025-01-14] VITALS (9 sets, daily range): BP systolic 94–125; BP diastolic 49–70; PULSE 62–72; RESP 16–18; TEMP 36–36.4; O2SAT 100; BMI 22.3
[2025-01-14 09:07] LABS: Glucose, Whole Blood 104 mg/dL (60-115)
[2025-01-14] MEDS: Lactated Ringers 1,000 ML 50 ML IVCONT (09:11)
[2025-01-14] MEDS: levoFLOXacin 500 MG TABLET PO (09:11)
--- NOTE | 2025-01-14 09:26 | HO.ANESPROP2 ---
HPI - Anesthesia Eval Consult details Narrative: for prostate biopsy PMFSH Active Problems Active Problems: All Active Problems Iron deficiency anemia (Acute) Leukopenia (Acute) Mild anemia (Acute) Elevated PSA (Acute) Sleep disturbance (Acute) Anxiety and depression (Acute) Colon cancer screening (Acute) Constipation (Acute) Nocturia (Acute) Bilateral wrist pain (Acute) Chronic low back pain (Acute) Arthritis of both knees (Acute) Laboratory tests ordered as part of a complete physical exam (CPE) (Acute) Essential hypertension (Acute) Type 2 diabetes mellitus (Acute) Memory loss (Acute) Frequency of urination (Acute) Generalized headaches (Acute) Dizziness (Acute) Enlarged prostate (Acute) High cholesterol (Acute) Past Medical History Medical History (Updated 01/11/25 @ 09:43 by Gabriela Marinelli RN) HTN (hypertension) Arthritis Anemia Diabetes Memory loss Generalized headaches Dizziness Frequency of urination Enlarged prostate Pain in lower back High cholesterol Family History Family History Father Asthma High blood pressure Diabetes Family history of problems with anesthesia: No Surgical History Surgical History (Updated 01/14/25 @ 08:51 by Ruby Newell RN) Knee joint replacement status History of Problems with Anesthesia: No Social History Social History Housing: House Are you a primary caregiver assisted living to a significant other at home: No Do you presently have visiting nurse or other home services: No Comment: walker for occasional dizziness, no falls. Patient Tobacco Use Status: Former Tobacco user Tobacco use type: Cigarette Years Smoked: 5 Smoked in Last 30 Days: No e-Cigarette/Vaping Use: Never Used Use of substances other than those prescribed or required for medical reasons: No Have you been hit, kicked, punched, or otherwise hurt by someone within the past year? If so, by whom?: No Are you DNR?: No Advance Directives: No Advance Directives Information Provided: No Advance Directives on File: No Poor oral hygiene: Yes (upper right loose bridge) service: No Current occupational status: retired Current occupational exposures/hazards: No Cognitive needs: No Hearing needs: No Vision needs: Yes Meds Allergies Allergy/AdvReac Type Severity Reaction Status Date / Time No Known Allergies Allergy Verified 01/14/25 08:51 Active Medications: Current Medications Lactated Ringer's (Lr) 1,000 mls @ 50 mls/hr IVCONT .Q20H FABIANO Last Admin: 01/14/25 09:11 Dose: 50 mls/hr Home Medications ?Medication ?Instructions ?Recorded ?Confirmed ?Last Taken ?Type diclofenac sodium 1 % topical gel 2 g topical QID 08/23/24 01/14/25 Unknown History (Aleve (diclofenac)) naproxen 500 mg tablet,delayed 500 mg PO BID 08/23/24 01/14/25 01/07/25 History release (EC-Naproxen) atorvastatin 10 mg tablet 10 mg PO DAILY 09/13/24 01/14/25 Unknown History metformin 500 mg tablet,extended 1,000 mg PO BID 09/13/24 01/14/25 01/14/25 History release 24 hr Exam Height,Weight and Vital Signs: Height 5 ft 10 in Weight 70.6 kg Last Vital Signs Temp 97.6 F 01/14/25 08:55 Pulse 62 01/14/25 08:55 Resp 16 01/14/25 08:55 BP 125/70 01/14/25 08:55 Pulse Ox 100 01/14/25 08:55 O2 Del Method Room Air 01/14/25 08:55 Pertinent Lab Results Pertinent Lab Results: Laboratory Tests 01/14/25 09:03 POC Glucose 104 Airway Mallampati Class: II TM Dist: <=3cm Neck ROM: Full Loose/Missing/Broken Teeth: Yes (upper bridge that doesn't come out, but is loose) Heart: ok Lungs: ok Assessment and Plan Assessment Anesthesia Assessment: Anesthesia Plan Discussed and Chart Reviewed Final Anesthetic Review Family History of Problems with Anesthesia: No History of Problems with Anesthesia: No NPO: Yes ASA Class: III Final Preanesthetic Review: No Changes in Pt Med Stat, Meds/Allgs Chart Reviewed, Consent Obtained/Reviewed and Anes Risks/Benef Reviewed Patient Risk: Intermediate Procedure Risk: Low Anesthetic Plan Anesthetic Plan: GA and Agree w/ Assess. and Plan Disposition: Standard PACU
--- NOTE | 2025-01-14 09:28 | MHC.SHP ---
Pre-Procedural Eval Section A - 24 Hr Update-Section A only Date of Service: 01/14/25 The patient is an INPATIENT: No Changes since office visit: No Cold of Flu in the past 2 weeks The patient has been examined within 24 hours of the surgical procedure. The History & Physical has been completed within 30 days and I have reviewed it.: Yes Section B - Complete if H&P > 30 days Chief Complaint: Elevated prostate specific antigen [PSA] Details of Present Illness: 1.1 cm focus of prominent T2 and ADC hypointensity at right posterior medical peripheral zone at mid gland, suspicious (AZ-RADS 4) Allergies: Allergies Allergy/AdvReac Type Severity Reaction Status Date / Time No Known Allergies Allergy Verified 01/14/25 08:51 Review of Systems Sugical H&P ROS: Negative: Constitution, Cardiovascular, Respiratory, Neurological, Psychiatric, Hem-Onc, Allergic/Immunologic, Gastrointestinal, Genitourinary, Musculoskeletal, Integumentary, Endocrine and Eyes/Ears/Nose/Throat Exam Surgical H&P Exam: Normal: HEENT, Normal: Heart, Normal: Lungs, Normal: Extremities, Normal: Abdomen, Normal: Skin and Normal: Neurological Plan Diagnosis/Plan: Unchanged (Right posterolateral 1 cm lesion) I have reviewed the history and physical and performed a pertinent physical examination on my patient. No changes have occurred unless specified. Time Spent With Patient Time: Total time managing care of this patient today ____ minutes.
--- NOTE | 2025-01-14 10:11 | W.PM.OPN ---
Operative Note Operative Note Date of Service: 01/14/25 Narrative: Preoperative diagnosis: Elevated PSA Postoperative diagnosis: Elevated PSA Procedure: 1. transrectal ultrasound-guided pudendal nerve block 2. MRI-US fusion image registration performed 3. transperineal ultrasound-guided prostate biopsy 14 core including targets Surgeon: Dr. Ulices Barrera Anesthetic: Sedation plus local Indications for procedure: Elevated PSA - 1.1 cm right posterolateral lesion on MRI with elevated PSA Procedure: After informed consent was verified, the patient was brought into the procedure area. Patient identity confirmed. Perioperative antibiotics confirmed. Safety pause time out performed. Anesthesia performed per protocol. Scrotum taped out of operative area. Iodine prep used. Perineal injection of local anesthetic. Digital guided prostate pudendal nerve block performed with 10 cc of 1% lidocaine. 5cc each side. Combination 10cc iodine with 50cc gel was mixed and placed in the rectum. Ultrasound probe was placed per rectum. Ultrasound probe stabilized on a prostate stepper with attached grid. [employer] software and hardware platform used for US image acquisition, US 3D model creation and MRI-US fusion image overlay. Ultrasound placement was made with external grid calibration for height and prostate diameter in both the transverse and longitudinal planes. Grid A-C covering right prostate and c-F covering left prostate. Numbers 1.0-2.5 covering posterior prostate and 2.5-4.0 covering anterior prostate. Once grid calibration was confirmed prostate ultrasound data acquisition was performed in the transverse fashion. The US images were registered to create model boundaries. A three dimensional ultrasound model was created using [employer] software. The model was reviewed against acquired US images. The planned needle targeting, based on prior acquisition of MRI imaging, was overlaid on the ultrasound images and targets confirmed through ultrasound review. Adjustments were then made between real time and projected model targeting locations. Based on pre-planning evaluation 14 targets had been identified. These included 3 targets of the PI-RADS 3 right posterolateral lobe identified lesion/s. He tolerated the procedure well. Was transferred to stable condition in the PACU. Printed instructions regarding antibiotic use and common side effects such as low-grade temperature, potential infection and bleeding were given Pathology: 14 core prostate biopsy CPT 71826 Modifier 22 for complexity of procedure execution (Perineal prostate biopsy) CPT code 41341: Transrectal ultrasound; this is a diagnostic test for evaluation of the prostate and surrounding structures, looking for abnormalities or suspicious areas worrisome for cancer CPT code 19156: Ultrasonic guidance for needle placement (eg, biopsy, aspiration, injection, localization device), imaging supervision and interpretation CPT 12085: 3D rendering with interpretation and reporting of computed tomography (CT), MRI, ultrasound, or other tomographic modality with image postprocessing under concurrent supervision; not requiring image postprocessing on an independent workstation
[2025-01-14] MEDS: Acetaminophen 325 MG TABLET 650 MG PO (10:30)
[2025-01-14] MEDS: fentaNYL citrate/PF 100 MCG/2 ML VIAL 50 MCG IVPUSH (10:35)
== END 2025-01-14 11:58 | disposition home or self-care (01) ==
PROVIDERS: PCP Nurse Practitioner Family; Visit Provider Urology
PROC: (CPT 55700; principal; 2025-01-14 10:10)
DX: C61 Malignant neoplasm of prostate (principal); R97.20 Elevated prostate specific antigen [PSA]; R35.0 Frequency of micturition; R35.1 Nocturia; N42.32 Atypical small acinar proliferation of prostate; M54.50 Low back pain, unspecified; E11.9 Type 2 diabetes mellitus without complications; E78.00 Pure hypercholesterolemia, unspecified; R51.9 Headache, unspecified; R41.3 Other amnesia; R42 Dizziness and giddiness; Z79.1 Long term (current) use of non-steroidal anti-inflammatories (NSAID); Z79.899 Other long term (current) drug therapy; Z79.84 Long term (current) use of oral hypoglycemic drugs; Z87.891 Personal history of nicotine dependence
CPT/HCPCS: 55706; 82947; 88305; 88344; J2003; J2704; J3010

== ENCOUNTER → 2025-01-14 08:24 | Outpatient (BNV) | payer OTHER, SELFPAY | PROVIDERS: PCP Nurse Practitioner Family; Visit Provider Urology | DX: R97.20 Elevated prostate specific antigen [PSA] (principal) | CPT/HCPCS: 55706; 76872; 76942 ==

== ENCOUNTER 2025-01-22 09:47 | Outpatient (AMB) | payer OTHER, SELFPAY ==
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
[2025-01-22 09:55] VITALS: BP 115/59; PULSE 67; RESP 16; TEMP 36.4; O2SAT 99; BMI 22.8
--- OUTSIDE RECORDS SUMMARY | 2025-01-22 10:55 | XMS_ITS ---
Author Organization [facility] [address] [facility] Location Address [address] [place] [phone] Care Team Providers Care District Engineer Name Role Phone Ira NEGRON, Davis Primary Care Provider Naga SALAS, Talita Orozco [phone] SOCIAL HISTORY Sex Assigned At : Social History Observation Description Sex Assigned At Male Encounters Encounter Location Date Provider Diagnosis [facility] [address] [place] [address] [place] [phone] 10/25/2023 Talita SALAS PLAN OF TREATMENT No Information Progress Notes * GEORGIE COREASAIDOB: [birth year] (64 yo M)Acc No.[id number]:10/25/2023 Patient:??FARHAD COREAS Provider:??SEAN Vazquez :1960?Age:63 Y?Sex:Ma le Date:10/25/2023 Address:[address] [place] [address] Pcp:Davis Roth MD Subjective: * Chief Complaints: * ? * Medical History:?? Objective: Assessment: Plan: * Treatment: * Billing Information: * Visit Code:?? * Procedure Codes:?? * Sign off status: Pending * Provider:??SEAN Vazquez Date:??
--- OUTSIDE RECORDS SUMMARY | 2025-01-22 10:55 | XMS_ITS | Data Portability ---
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 Name Role Phone SUMIT ALANIZ Dormitory Counselor Unavailable Assessment Encounter Date Assessment Date Assessment LastModified by Organization Details LastModified Time 02/02/2023 02/02/2023 This is a 62-year-old male with a history of osteoarthritis , knee replacement, migraines, type 2 diabetes, hypertension, and high cholesterol; referred for anemia [email or web address] Not available 02/02/2023 09:20:38 06/27/2023 06/27/2023 urinary symptoms I suspect prostatitis versus a UTI he has an enlarged prostate on exam Not available 06/27/2023 15:04:12 Plan of Treatment Reminders Order Date Submit Date Provider Last Modified By Organization Details Last Modified Time Details Appointments None recorded. Lab HbA1c (hemoglobin A1c), blood 2023 024 In-House Order For [place] Provider, For Internal Use Only, [id number] 4 13:06:54 vitamin D, 25-hydroxy, total, serum 2022 023 [email or web address] [facility], [address] [facility] [address], [place], [address], 4 06:22:40 fecal occult blood, stool 2022 023 JASWINDER [facility], [address] [facility], [facility] [address], [place], [address], 3 16:18:40 urinalysis, complete 2022 023 [facility], [address] [facility], [address], [place], [address], 3 20:45:42 culture, urine 2022 023 [facility], [address] [facility], [address], [place], [address], 3 06:46:39 PSA, serum or plasma 2022 023 [facility], [address] [facility], [address], [place], [address], 3 22:59:25 HbA1c (hemoglobin A1c), blood 2022 023 [facility], [address] [facility], [facility] [address], [place], [address], 3 22:59:23 microalbumi n/creatinin e, mass ratio, urine 2022 023 [facility], [address] [facility], [facility] [address], [place], [address], 3 20:45:41 hepatic function panel, serum 2022 023 [facility], [address] [facility], [facility] [address], [place], [address], 3 22:59:24 BMP, serum or plasma 2022 023 [facility], [address] [facility], [address], [place], [address], 3 22:59:22 lipid panel, serum 2022 023 [facility], [address] [facility], [address], [place], [address], 3 22:59:21 vitamin D, 25-hydroxy, total, serum 2022 023 [facility], [address] [facility], [facility] [address], [place], [address], 3 04:12:34 BMP, serum or plasma 2022 023 JASWINDER [facility] [facility], [address] [facility], [facility] [address], [place], [address], 3 05:42:11 CBC 2022 023 [place] [facility], [address] [facility], [facility] [address], [place], [address], 3 05:42:12 HbA1c (hemoglobin A1c), blood 2022 023 In-House Order For [place]eto Provider, For Internal Use Only, [id number] 3 05:07:19 lipid panel, serum 2022 023 [employer] [facility], [address] [facility] [address], [place], [address], 3 23:10:49 microalbumi n/creatinin e, mass ratio, urine 2022 023 [employer] [facility], [address] [facility] [address], [place], [address], 3 17:53:07 TSH, serum or plasma 2022 023 [facility] [facility], [address] [facility] [address], [place], [address], 3 04:12:37 vitamin B12, serum 2022 023 JASWINDERBOS [employer] [facility], [address] [place] [address], [place], [address], 3 04:12:39 Referral neurologist referral - Please contact pt to schedule appt. Thank you! 2022 024 [email or web address] [facility], [address] [place], [address], 4 07:41:10 gastroenter ologist referral - Please book appt with patient thank you! 2022 023 [email or web address] Not available 4 10:11:00 neurologist referral - please scheduline appt for pt. thank you 2022 023 [email or web address] [id number] Jhonatan Martinez MD, [address] [place], [address], 3 06:42:25 physical therapist referral - PATIENT WILL BE CALLING TO BOOK [address] [facility], [address] - [address] [place], [address], 3 06:41:25 otolaryngol ogist referral - Please book appt with patient, thank you! vertigo chronic 2022 023 [place] [address] [facility], [address] [place], [address], 3 06:10:38 Procedures upper endoscopy procedure (EGD) (PROC) [address] [facility], [address] [place] [address], [address], 4 10:31:40 colonoscopy procedure (PROC) - 2 day prep [address] [facility], [address] [place] [address], [address], 4 10:32:36 Surgeries None recorded. Imaging CT, chest + abdomen + pelvis, w/ contrast [address] (Scheduling), [address] [place], [address], 4 19:58:16 US, pelvis - pre and post void bladder ,prostate size please , [email or web address] ([facility]), [address] [place] [address], [address], 4 07:28:23 Medication Orders lisinopril [address] [facility]acy #1877, [address] [place] [address], [address], 4 13:06:54 FreeStyle Lite Strips [email or web address]/Pharmacy #1877, [address] [place] [address], [address], 4 18:13:50 Metamucil Sugar-Free (aspartame) 3.4 gram/5.8 gram oral powder 2022 023 [facility] [address] [place] [address], [address], 3 08:40:37 meclizine 12.5 mg tablet 2022 023 [facility]/Pharmacy #1877, [address] [place] [address], [address], 3 08:34:14 Cipro 250 mg tablet 2022 024 [facility]/Pharmacy #1877, [address] [place] [address], [address], 4 09:19:54 Miralax 17 gram/dose oral powder [email or web address] [facility] #1877, [address] [place] [address], [address], 3 09:20:20 Patient TargetsNo targets recorded. Patient Instructions Encounter Date Encounter Id Patient Instructions Last Modified By Organization Details Last Modified Time 01/06/2023 [id number] headache: care instructions Not available 01/06/2023 10:51:42 high blood pressure: care instructions Not available 01/06/2023 10:51:42 02/02/2023 [id number] constipation: ca re instructions [email or web address] Not available 02/02/2023 09:20:20 anemia: care instructions [email or web address] Not available 02/02/2023 09:20:20 06/27/2023 [id number] Urinary Tract Infections (UTI) in Men: Care Instructions Not available 06/27/2023 11:29:06 high blood pressure: care instructions Not available 06/27/2023 11:18:41 09/13/2023 [id number] dizziness: care instructions Not available 09/13/2023 08:34:10 preventing falls : care instructions Not available 09/13/2023 08:34:10 using your medicines: care instructions Not available 09/13/2023 08:34:10 Personalized [facility] Plan and Screening Recommendations Vision Screening: Hearing [...] one? Yes I recommend consulting with an Account Strategist, family member, or friend to assist you. [...] wellness heidi Not available 09/13/2023 07:38:47 03/13/2024 [id number] prostate biopsy: about this test Not available 03/13/2024 10:10:18 high blood pressure: care instructions Not available 03/13/2024 13:06:54 Reason for Referral Applications Instructor Referral fo r Vertigo Please book appt [...] [facility], Encounter Date: 06/27/2023 Dormitory Counselor Referral for Screening for malignant neoplasm of [...] /MS is recom mercy d: order code 01267 (bello ents >2yrs ). See Note 1 Note 1 For addit ional infor richa ortega e refer to http: //[facility] [employer] gnost ics.c om/fa q/FAQ 199 (This link is being provi ded for infor moise hammer/ educa dj l purpo ses only. ) Not Available [facility] [place] [facility] [address], [address], 01/07/2023 04:12:34 01/07/20 23 01/07/2023 TSH W/REF L FT4 TSH w/reflex to FT4 1.93 mIU/L 0.40-4 .50 normal Not Available [facility] [place] [facility] [address], [place], [address], 01/07/2023 04:12:36 01/07/20 23 01/07/2023 VITAM IN B12 vitamin B12 1340 pg/mL 200-11 00 high Not Available [facility] [address], [address], 01/07/2023 04:12:39 01/07/20 23 01/07/2023 BASIC MET PNL glucose 73 mg/dL 65-99 normal Fasti ng refer ence inter jackelyn Not Available [facility] [place] [facility] [address], [address], 01/07/2023 05:42:10 01/07/20 23 01/07/2023 BASIC MET PNL urea nitrogen (BUN) 15 mg/dL 7-25 normal Not Available [facility] [address], [address], 01/07/2023 05:42:10 01/07/20 23 01/07/2023 BASIC MET PNL creatinine 0.75 mg/dL 0.70-1 .35 normal Not Available [facility] [place] [facility] [address] [place], [place], [address], 01/07/2023 05:42:10 01/07/20 23 01/07/2023 BASIC MET PNL eGFR 101 mL/mi n/1.7 3m2 > or = 60 normal The eGFR is based on the CKD-E PI 2020 equat ion. To calcu late the new eGFR from a previ ous Creat inine or Cysta tin C resul t, go to https ://marcus w.sharmaine helms.o randy/lonnie finch s/ kdoqi /gfr% 5Fcal culat or Not Available [facility] [place] [facility] [address], [place], [address], 01/07/2023 05:42:10 01/07/20 23 01/07/2023 BASIC MET PNL BUN/creatini ne ratio NOT APPLIC ABLE (calc ) 6-22 normal Not Available [facility] [place] [facility] [address], [place], [address], 01/07/2023 05:42:10 01/07/20 23 01/07/2023 BASIC MET PNL sodium 140 mmol/ L 135-14 6 normal Not Available [facility] [place] [facility] [address], [place], [address], 01/07/2023 05:42:10 01/07/20 23 01/07/2023 BASIC MET PNL potassium 4.5 mmol/ L 3.5-5. 3 normal Not Available [facility] [address], [place], [address], 01/07/2023 05:42:10 0401/07/2023 BASIC MET PNL chloride 105 mmol/ L 98-110 normal Not Available [facility] [place] [facility] [address], [place], [address], 01/07/2023 05:42:10 01/07/2001/07/2023 BASIC MET PNL carbon dioxide 27 mmol/ L 20-32 normal Not Available [facility] [place] [facility] [address], [place], [address], 01/07/2023 05:42:10 01/07/2001/07/2023 BASIC MET PNL calcium 9.6 mg/dL 8.6-10 .3 normal Not Available [facility] [place] [facility] [address], [place], [address], 01/07/2023 05:42:10 01/07/2001/07/2023 CBC(H /H,RB C,WBC ,PLT) white blood cell count 6.5 thous and/u L 3.8-10 .8 normal Not Available [facility] [place] [facility] [address], [place], [address], 01/07/2023 05:42:11 01/07/20 23 01/07/2023 CBC(H /H,RB C,WBC ,PLT) red blood cell count 4.42 basilio on/uL 4.20-5 .80 normal Not Available [facility] [place] [facility] [address], [place], [address], 01/07/2023 05:42:11 01/07/2001/07/2023 CBC(H /H,RB C,WBC ,PLT) hemoglobin 12.0 g/dL 13.2-1 7.1 low Not Available [facility] [place] [facility] [address], [place], [address], 01/07/2023 05:42:11 01/07/20 23 01/07/2023 CBC(H /H,RB C,WBC ,PLT) hematocrit 36.6 % 38.5-5 0.0 low Not Available [facility] [address], [place], [address], 01/07/2023 05:42:11 01/07/20 23 01/07/2023 CBC(H /H,RB C,WBC ,PLT) MCV 82.8 fL 80.0-1 00.0 normal Not Available [facility] [address], [place], [address], 01/07/2023 05:42:11 01/07/20 23 01/07/2023 CBC(H /H,RB C,WBC ,PLT) MCH 27.1 pg 27.0-3 3.0 normal Not Available [facility] [address], [place], [address], 01/07/2023 05:42:11 01/07/20 23 01/07/2023 CBC(H /H,RB C,WBC ,PLT) MCHC 32.8 g/dL 32.0-3 6.0 normal Not Available [facility] [address], [place], [address], 01/07/2023 05:42:11 01/07/20 23 01/07/2023 CBC(H /H,RB C,WBC ,PLT) RDW 13.0 % 11.0-1 5.0 normal Not Available [facility] [address], [place], [address], 01/07/2023 05:42:11 01/07/2001/07/2023 CBC(H /H,RB C,WBC ,PLT) platelet count 347 thous and/u L 140-40 0 normal Not Available [facility] [address], [place], [address], 01/07/2023 05:42:11 01/07/20 23 01/07/2023 CBC(H /H,RB C,WBC ,PLT) MPV 10.5 fL 7.5-12 .5 normal Not Available [facility] [address], [place], [address], 01/07/2023 05:42:11 01/07/20 23 01/07/2023 ALB, RAND UR W/CR creatinine, random urine 192 mg/dL 20-320 normal Not Available [facility] [address], [place], [address], 01/07/2023 17:53:07 01/07/20 23 01/07/2023 ALB, RAND UR W/CR albumin, urine 0.6 mg/dL normal Refer ence Range Not estab lishe d Not Available [facility] [address], [place], [address], 01/07/2023 17:53:07 01/07/2001/07/2023 ALB, RAND UR W/CR [...] a diagn ostic categ ory. Not Available [facility] [address], [place], [address], 01/07/2023 17:53:07 01/07/20 23 01/06/2023 HbA1c (hemo globi n A1c), blood HbA1c 6.2 Not Available In-House Order For [place] Provider For Internal Use Only, [id number] 01/06/2023 10:03:21 01/12/20 23 01/11/2023 LIPID PNL W/RFL DLDL cholesterol, total 114 mg/dL <200 normal Not Available [facility] [place] [facility] [address], [address], 01/11/2023 23:10:49 01/12/20 23 01/11/2023 LIPID PNL W/RFL DLDL HDL cholesterol 44 mg/dL > or = 40 normal Not Available [facility] [address], [place], [address], 01/11/2023 23:10:49 01/12/20 23 01/11/2023 LIPID PNL W/RFL DLDL triglyceride s 64 mg/dL <150 normal Not Available [facility] [address], [place], [address], 01/11/2023 23:10:49 01/12/20 23 01/11/2023 LIPID PNL [...] 2061- 2068 (http ://ed ucati on.Qu Patricia salinasBridge U.S.s. com/f aq/FA Q164) Not Available [facility] [address], [place], [address], 01/11/2023 23:10:49 01/12/20 23 01/11/2023 LIPID PNL W/RFL DLDL chol/HDLC ratio 2.6 (calc ) <5.0 normal Not Available [facility] [place] [facility] [address], [place], [address], 01/11/2023 23:10:49 01/12/20 23 01/11/2023 LIPID PNL W/RFL DLDL non HDL cholesterol 70 mg/dL _(blaise c) <130 normal For patie nts with diabe ok plus 1 major ASCVD risk facto r, treat ing to a non-H DL-C goal of <100 mg/dL (LDL- C of <70 mg/dL ) is consi dered a thera peuti c optio n. Not Available [facility] [place] [facility] [address], [place], [address], 01/11/2023 23:10:49 01/12/20 23 01/11/2023 BASIC MET PNL glucose 115 mg/dL 65-99 high Fasti ng refer ence inter jackelyn For someo ne witho ut known diabe ok, a gluco se value betwe en 100 and 125 mg/dL is consi stent with predi abete s and shoul d be confi rmed with a follo w-up test. Not Available [facility] [place] [facility] [address], [place], [address], 01/11/2023 23:10:50 01/12/20 23 01/11/2023 BASIC MET PNL urea nitrogen (BUN) 12 mg/dL 7-25 normal Not Available [facility] [place] [facility] [address], [place], [address], 01/11/2023 23:10:50 01/12/20 23 01/11/2023 BASIC MET PNL creatinine 0.69 mg/dL 0.70-1 .35 low Not Available [facility] [place] [facility] [address], [address], 01/11/2023 23:10:50 01/12/20 23 01/11/2023 BASIC MET PNL eGFR 103 mL/mi n/1.7 3m2 > or = 60 normal The eGFR is based on the CKD-E PI 2020 equat ion. To calcu late the new eGFR from a previ ous Creat inine or Cysta tin C resul t, go to https ://ww w.kid scooter.o randy/lonnie finch s/ kdoqi /gfr% 5Fcal culat or Not Available [facility] [place] [facility] [address], [place], [address], 01/11/2023 23:10:50 01/12/20 23 01/11/2023 BASIC MET PNL BUN/creatini ne ratio 17 (calc ) 6-22 normal Not Available [facility] [address], [place], [address], 01/11/2023 23:10:50 01/12/20 23 01/11/2023 BASIC MET PNL sodium 139 mmol/ L 135-14 6 normal Not Available [facility] [address], [address], 01/11/2023 23:10:50 01/12/20 23 01/11/2023 BASIC MET PNL potassium 5.1 mmol/ L 3.5-5. 3 normal Not Available [facility] [address], [address], 01/11/2023 23:10:50 01/12/20 23 01/11/2023 BASIC MET PNL chloride 104 mmol/ L 98-110 normal Not Available [facility] [address] [place], [address], 01/11/2023 23:10:50 01/12/20 23 01/11/2023 BASIC MET PNL carbon dioxide 28 mmol/ L 20-32 normal Not Available [facility] [address], [place], [address], 01/11/2023 23:10:50 01/12/20 23 01/11/2023 BASIC MET PNL calcium 9.6 mg/dL 8.6-10 .3 normal Not Available [facility] [address], [place], [address], 01/11/2023 23:10:50 01/12/20 23 01/11/2023 VIT D,25- [...] /MS is recom mercy d: order code 27225 (bello ents >2yrs ). See Note 1 Note 1 For addit ional infor richa ortega refer to http: //shekhar Sanchez gnost ics.c om/fa q/FAQ 199 (This link is being provi ded for infor moise hammer/ mikhail matamoros purpo ses only. ) Not Available [facility] [address], [place], [address], 01/11/2023 23:10:51 01/12/20 23 01/11/2023 TSH W/REF L FT4 TSH w/reflex to FT4 3.10 mIU/L 0.40-4 .50 normal Not Available [facility] [place] [facility] [address], [place], [address], 01/11/2023 23:10:51 01/12/20 23 01/11/2023 VITAM IN B12 vitamin B12 1651 pg/mL 200-11 00 high Not Available [facility] [address], [place], [address], 01/11/2023 23:10:52 01/12/20 23 01/12/2023 CBC(H /H,RB C,WBC ,PLT) white blood cell count 4.4 thous and/u L 3.8-10 .8 normal Not Available [facility] [place] [facility] [address], [place], [address], 01/12/2023 01:17:58 01/12/20 23 01/12/2023 CBC(H /H,RB C,WBC ,PLT) red blood cell count 4.37 basilio on/uL 4.20-5 .80 normal Not Available [facility] [address], [place], [address], 01/12/2023 01:17:58 01/12/20 23 01/12/2023 CBC(H /H,RB C,WBC ,PLT) hemoglobin 11.7 g/dL 13.2-1 7.1 low Not Available [facility] [address], [place], [address], 01/12/2023 01:17:58 01/12/20 23 01/12/2023 CBC(H /H,RB C,WBC ,PLT) hematocrit 36.1 % 38.5-5 0.0 low Not Available [facility] [address], [place], [address], 01/12/2023 01:17:58 01/12/20 23 01/12/2023 CBC(H /H,RB C,WBC ,PLT) MCV 82.6 fL 80.0-1 00.0 normal Not Available [facility] [place] [facility] [address] [place], [place], [address], 01/12/2023 01:17:58 01/12/20 23 01/12/2023 CBC(H /H,RB C,WBC ,PLT) MCH 26.8 pg 27.0-3 3.0 low Not Available [facility] [place] [facility] [address] [place], [place], [address], 01/12/2023 01:17:58 01/12/20 23 01/12/2023 CBC(H /H,RB C,WBC ,PLT) MCHC 32.4 g/dL 32.0-3 6.0 normal Not Available [facility] [place] [facility] [address] [place], [place], [address], 01/12/2023 01:17:58 01/12/20 23 01/12/2023 CBC(H /H,RB C,WBC ,PLT) RDW 13.1 % 11.0-1 5.0 normal Not Available [facility] [place] [facility] [address] [place], [place], [address], 01/12/2023 01:17:58 01/12/20 23 01/12/2023 CBC(H /H,RB C,WBC ,PLT) platelet count 315 thous and/u L 140-40 0 normal Not Available [facility] [address] [place], [place], [address], 01/12/2023 01:17:58 01/12/20 23 01/12/2023 CBC(H /H,RB C,WBC ,PLT) MPV 10.5 fL 7.5-12 .5 normal Not Available [facility] [address], [place], [address], 01/12/2023 01:17:58 01/12/20 23 01/12/2023 ALB, RAND UR W/CR creatinine, random urine 105 mg/dL 20-320 normal Not Available [facility] [address], [place], [address], 01/12/2023 16:49:00 01/12/20 23 01/12/2023 ALB, RAND UR W/CR albumin, urine 0.4 mg/dL normal Refer ence Range Not estab lishe d Not Available [facility] [address], [place], [address], 01/12/2023 16:49:00 01/12/20 23 01/12/2023 ALB, RAND [...] a diagn ostic categ ory. Not Available [facility] [address], [place], [address], 01/12/2023 16:49:00 07/04/20 23 07/04/2023 ALB, RAND UR W/CR creatinine, random urine 123 mg/dL 20-320 normal Not Available [facility] [address], [place], [address], 07/04/2023 20:45:40 07/04/20 23 07/04/2023 ALB, RAND UR W/CR albumin, urine 0.4 mg/dL normal Refer ence Range Not estab lishe d Not Available [facility] [place] [facility] [address] [place], [place], [address], 07/04/2023 20:45:40 07/04/20 23 07/04/2023 ALB, RAND [...] ostic categ ory. Not Available [facility] [place] [facility] [address], [place], [address], 07/04/2023 20:45:40 07/04/20 23 07/04/2023 URINA LYSIS , COMPL ETE color YELLOW yellow normal Not Available [facility] [place] [facility] [address], [place], [address], 07/04/2023 20:45:41 07/04/20 23 07/04/2023 URINA LYSIS , COMPL ETE appearance CLEAR clear normal Not Available [facility] [place] [facility] [address], [place], [address], 07/04/2023 20:45:41 07/04/20 23 07/04/2023 URINA LYSIS , COMPL ETE specific gravity 1.014 1.001- 1.035 normal Not Available [facility] [place] [facility] [address], [place], [address], 07/04/2023 20:45:41 07/04/2007/04/2023 URINA LYSIS , COMPL ETE pH 6.0 5.0-8. 0 normal Not Available [facility] [place] [facility] [address], [place], [address], 07/04/2023 20:45:41 07/04/20 23 07/04/2023 URINA LYSIS , COMPL ETE glucose NEGATI VE negati ve normal Not Available [facility] [place] [facility] [address], [place], [address], 07/04/2023 20:45:41 07/04/20 23 07/04/2023 URINA LYSIS , COMPL ETE bilirubin NEGATI VE negati ve normal Not Available [facility] [place] [facility] [address], [place], [address], 07/04/2023 20:45:41 07/04/2007/04/2023 URINA LYSIS , COMPL ETE ketones NEGATI VE negati ve normal Not Available [facility] [place] [facility] [address], [place], [address], 07/04/2023 20:45:41 07/04/2007/04/2023 URINA LYSIS , COMPL ETE occult blood NEGATI VE negati ve normal Not Available [facility] [place] [facility] [address], [place], [address], 07/04/2023 20:45:41 07/04/2007/04/2023 URINA LYSIS , COMPL ETE protein NEGATI VE negati ve normal Not Available [facility] [place] [facility] [address], [place], [address], 07/04/2023 20:45:41 07/04/20 23 07/04/2023 URINA LYSIS , COMPL ETE nitrite NEGATI VE negati ve normal Not Available [facility] [place] [facility] [address], [place], [address], 07/04/2023 20:45:41 07/04/20 23 07/04/2023 URINA LYSIS , COMPL ETE leukocyte esterase NEGATI VE negati ve normal Not Available [facility] [place] [facility] [address], [place], [address], 07/04/2023 20:45:41 07/04/2007/04/2023 URINA LYSIS , COMPL ETE WBC NONE SEEN /hpf 0-5 normal Not Available [facility] [address], [place], [address], 07/04/2023 20:45:41 07/04/20 23 07/04/2023 URINA LYSIS , COMPL ETE RBC NONE SEEN /hpf 0-2 normal Not Available [facility] [address], [place], [address], 07/04/2023 20:45:41 07/04/20 23 07/04/2023 URINA LYSIS , COMPL ETE squamous epithelial cells NONE SEEN /hpf < or = 5 normal Not Available [facility] [place] [facility] [address], [place], [address], 07/04/2023 20:45:41 07/04/20 23 07/04/2023 URINA LYSIS , COMPL ETE bacteria NONE SEEN /hpf none seen normal Not Available [facility] [address], [place], [address], 07/04/2023 20:45:41 07/04/20 23 07/04/2023 URINA LYSIS , COMPL ETE hyaline cast NONE SEEN /lpf none seen normal Not Available [facility] [place] [facility] [address], [place], [address], 07/04/2023 20:45:41 07/04/2007/04/2023 URINA LYSIS , COMPL ETE note This urine was stephanie zed for the prese nce of WBC, RBC, bacte anna, casts , and other forme d eleme nts. Only those eleme nts seen were repor bernice. Not Available [facility] [place] [facility] [address], [place], [address], 07/04/2023 20:45:41 07/04/2007/04/2023 LIPID PNL W/RFL DLDL cholesterol, total 92 mg/dL <200 normal Not Available [facility] [place] [facility] [address], [place], [address], 07/04/2023 22:59:21 07/04/20 23 07/04/2023 LIPID PNL W/RFL DLDL HDL cholesterol 40 mg/dL > or = 40 normal Not Available [facility] [place] [facility] [address], [place], [address], 07/04/2023 22:59:21 07/04/20 23 07/04/2023 LIPID PNL W/RFL DLDL triglyceride s 52 mg/dL <150 normal Not Available [facility] [address], [place], [address], 07/04/2023 22:59:21 07/04/2007/04/2023 LIPID PNL W/RFL DLDL [...] 310(1 9): 2061- 2068 (http ://ed ucati on.[employer]sl[employer]. com/f aq/FA Q164) Not Available [facility] [place] [facility] [address], [place], [address], 07/04/2023 22:59:21 07/04/2007/04/2023 LIPID PNL W/RFL DLDL chol/HDLC ratio 2.3 (calc ) <5.0 normal Not Available [facility] [place] [facility] [address], [place], [address], 07/04/2023 22:59:21 07/04/20 23 07/04/2023 LIPID PNL W/RFL DLDL non HDL cholesterol 52 mg/dL _(blaise c) <130 normal For patie nts with diabe ok plus 1 major ASCVD risk facto r, treat ing to a non-H DL-C goal of <100 mg/dL (LDL- C of <70 mg/dL ) is consi dered a thera peuti c optio n. Not Available [facility] [place] [facility] [address], [place], [address], 07/04/2023 22:59:21 07/04/20 23 07/04/2023 BASIC MET PNL glucose 111 mg/dL 65-99 high Fasti ng refer ence inter jackelyn For someo ne witho ut known diabe ok, a gluco se value betwe en 100 and 125 mg/dL is consi stent with predi abete s and shoul d be confi rmed with a follo w-up test. Not Available [facility] [place] [facility] [address], [place], [address], 07/04/2023 22:59:22 07/04/20 23 07/04/2023 BASIC MET PNL urea nitrogen (BUN) 7 mg/dL 7-25 normal Not Available [facility] [place] [facility] [address], [place], [address], 07/04/2023 22:59:22 07/04/20 23 07/04/2023 BASIC MET PNL creatinine 0.66 mg/dL 0.70-1 .35 low Not Available [facility] [place] [facility] [address], [place], [address], 07/04/2023 22:59:22 07/04/20 23 07/04/2023 BASIC MET PNL eGFR 104 mL/mi n/1.7 3m2 > or = 60 normal Not Available [facility] [place] [facility] [address], [place], [address], 07/04/2023 22:59:22 07/04/20 23 07/04/2023 BASIC MET PNL BUN/creatini ne ratio 11 (calc ) 6-22 normal Not Available [facility] [place] [facility] [address], [place], [address], 07/04/2023 22:59:22 07/04/20 23 07/04/2023 BASIC MET PNL sodium 135 mmol/ L 135-14 6 normal Not Available [facility] [address], [place], [address], 07/04/2023 22:59:22 07/04/20 23 07/04/2023 BASIC MET PNL potassium 4.2 mmol/ L 3.5-5. 3 normal Not Available [facility] [address], [place], [address], 07/04/2023 22:59:22 07/04/20 23 07/04/2023 BASIC MET PNL chloride 101 mmol/ L 98-110 normal Not Available [facility] [place] [facility] [address], [place], [address], 07/04/2023 22:59:22 07/04/20 23 07/04/2023 BASIC MET PNL carbon dioxide 27 mmol/ L 20-32 normal Not Available [facility] [place] [facility] [address], [place], [address], 07/04/2023 22:59:22 07/04/20 23 07/04/2023 BASIC MET PNL calcium 9.5 mg/dL 8.6-10 .3 normal Not Available [facility] [place] [facility] [address], [place], [address], 07/04/2023 22:59:22 07/04/20 23 07/04/2023 HEMOG LOBIN [...] for child melissa. Not Available [facility] [place] [facility] [address], [place], [address], 07/04/2023 22:59:23 07/04/20 23 07/04/2023 HEPAT IC FUNCT ION PNL protein, total 6.7 g/dL 6.1-8. 1 normal Not Available [facility] [address], [place], [address], 07/04/2023 22:59:24 07/04/20 23 07/04/2023 HEPAT IC FUNCT ION PNL albumin 4.2 g/dL 3.6-5. 1 normal Not Available [facility] [address], [place], [address], 07/04/2023 22:59:24 07/04/20 23 07/04/2023 HEPAT IC FUNCT ION PNL globulin 2.5 g/dL_ (calc ) 1.9-3. 7 normal Not Available [facility] [address], [place], [address], 07/04/2023 22:59:24 07/04/20 23 07/04/2023 HEPAT IC FUNCT ION PNL albumin/glob ulin ratio 1.7 (calc ) 1.0-2. 5 normal Not Available [facility] [address], [place], [address], 07/04/2023 22:59:24 07/04/20 23 07/04/2023 HEPAT IC FUNCT ION PNL bilirubin, total 0.5 mg/dL 0.2-1. 2 normal Not Available [facility] [address], [place], [address], 07/04/2023 22:59:24 07/04/20 23 07/04/2023 HEPAT IC FUNCT ION PNL bilirubin, direct 0.1 mg/dL 0.0-0. 2 normal Not Available [facility] [address], [place], [address], 07/04/2023 22:59:24 07/04/20 23 07/04/2023 HEPAT IC FUNCT ION PNL bilirubin, indirect 0.4 mg/dL _(blaise c) 0.2-1. 2 normal Not Available [facility] [address], [place], [address], 07/04/2023 22:59:24 07/04/20 23 07/04/2023 HEPAT IC FUNCT ION PNL alkaline phosphatase 44 U/L 35-144 normal Not Available [facility] [address], [place], [address], 07/04/2023 22:59:24 07/04/20 23 07/04/2023 HEPAT IC FUNCT ION PNL AST 13 U/L 10-35 normal Not Available [facility] [address], [place], [address], 07/04/2023 22:59:24 07/04/20 23 07/04/2023 HEPAT IC FUNCT ION PNL ALT 8 U/L 9-46 low Not Available [facility] [address], [place], [address], 07/04/2023 22:59:24 07/04/20 23 07/04/2023 PSA, TOTAL PSA, total 4.99 NG/mL < or = 4.00 high The total PSA value from this assay syste m is stand ardiz ed again st the [facility] stand lise. The test resul t [...] not be inter prete d as absol kan[place]ak evide nce of the prese nce or absen ce of disea se. Not Available [facility] [place] [facility] [address] [place], [place], [address], 07/04/2023 22:59:25 07/04/2007/06/2023 CULTU RE, UR ROUTI NE source: URINE, CLEAN CATCH Not Available [facility] [place] [facility] [address] [place], [place], [address], 07/06/2023 06:46:39 07/04/2007/06/2023 CULTU RE, UR ROUTI NE status: FINAL Not Available [facility] [place] [facility] [address] [place], [place], [address], 07/06/2023 06:46:39 07/04/2007/06/2023 CULTU RE, UR ROUTI [...] CULTUR E TRANSP ORT TUBE. Not Available [facility] [place] [facility] [address] [place], [place], [address], 07/06/2023 06:46:39 08/09/20 23 08/10/2023 PSA FREE \T\ TOTAL PSA, total 6.3 NG/mL < or = 4.0 high Not Available [facility] [place] [facility] [address] [place], [place], [address], 08/10/2023 14:35:53 08/09/20 23 08/10/2023 PSA FREE \T\ TOTAL PSA, free 0.6 NG/mL normal Not Available [facility] [address] [place], [place], [address], 08/10/2023 14:35:53 08/09/20 23 08/10/2023 PSA FREE [...] not be inter prete d as absol kanatak evide nce of the prese nce or absen ce of disea se. Not Available [facility] [place] [facility] [address], [place], [address], 08/10/2023 14:35:53 09/15/2009/22/2023 FECAL IMMUN OCHEM fecal globin result: Not Detect ed Not Available [facility] [place] [facility] [address], [place], [address], 09/22/2023 16:08:28 09/20/20 23 09/20/2023 COMP META PNL glucose 182 mg/dL 65-99 high Fasti ng refer ence inter jackelyn For someo ne witho ut known diabe ok, a gluco se value >125 mg/dL indic ates that they may have diabe ok and this shoul d be confi rmed with a follo w-up test. Not Available [facility] [place] [facility] [address], [place], [address], 09/20/2023 20:01:30 09/20/20 23 09/20/2023 COMP META PNL urea nitrogen (BUN) 13 mg/dL 7-25 normal Not Available [facility] [place] [facility] [address], [place], [address], 09/20/2023 20:01:30 09/20/20 23 09/20/2023 COMP META PNL creatinine 0.65 mg/dL 0.70-1 .35 low Not Available [facility] [place] [facility] [address], [place], [address], 09/20/2023 20:01:30 09/20/20 23 09/20/2023 COMP META PNL eGFR 105 mL/mi n/1.7 3m2 > or = 60 normal Not Available [facility] [address], [place], [address], 09/20/2023 20:01:30 09/20/20 23 09/20/2023 COMP META PNL BUN/creatini ne ratio 20 (calc ) 6-22 normal Not Available [facility] [address], [place], [address], 09/20/2023 20:01:30 09/20/20 23 09/20/2023 COMP META PNL sodium 137 mmol/ L 135-14 6 normal Not Available [facility] [address], [place], [address], 09/20/2023 20:01:30 09/20/20 23 09/20/2023 COMP META PNL potassium 4.4 mmol/ L 3.5-5. 3 normal Not Available [facility] [address], [place], [address], 09/20/2023 20:01:30 09/20/20 23 09/20/2023 COMP META PNL chloride 103 mmol/ L 98-110 normal Not Available [facility] [address], [place], [address], 09/20/2023 20:01:30 09/20/20 23 09/20/2023 COMP META PNL carbon dioxide 28 mmol/ L 20-32 normal Not Available [facility] [address], [place], [address], 09/20/2023 20:01:30 09/20/20 23 09/20/2023 COMP META PNL calcium 9.0 mg/dL 8.6-10 .3 normal Not Available [facility] [address], [place], [address], 09/20/2023 20:01:30 09/20/20 23 09/20/2023 COMP META PNL protein, total 7.1 g/dL 6.1-8. 1 normal Not Available [facility] [address], [place], [address], 09/20/2023 20:01:30 09/20/20 23 09/20/2023 COMP META PNL albumin 4.2 g/dL 3.6-5. 1 normal Not Available [facility] [address], [place], [address], 09/20/2023 20:01:30 09/20/20 23 09/20/2023 COMP META PNL globulin 2.9 g/dL_ (calc ) 1.9-3. 7 normal Not Available [facility] [address], [place], [address], 09/20/2023 20:01:30 09/20/20 23 09/20/2023 COMP META PNL albumin/glob ulin ratio 1.4 (calc ) 1.0-2. 5 normal Not Available [facility] [address], [place], [address], 09/20/2023 20:01:30 09/20/20 23 09/20/2023 COMP META PNL bilirubin, total 0.5 mg/dL 0.2-1. 2 normal Not Available [facility] [address], [place], [address], 09/20/2023 20:01:30 09/20/20 23 09/20/2023 COMP META PNL alkaline phosphatase 52 U/L 35-144 normal Not Available [facility] [employer] [place] [facility] [address], [place], [address], 09/20/2023 20:01:30 09/20/20 23 09/20/2023 COMP META PNL AST 13 U/L 10-35 normal Not Available [facility] [address], [place], [address], 09/20/2023 20:01:30 09/20/20 23 09/20/2023 COMP META PNL ALT 6 U/L 9-46 low Not Available [facility] [address], [place], [address], 09/20/2023 20:01:30 03/13/20 24 03/13/2024 HbA1c (hemo globi n A1c), blood HbA1c 5.9 Not Available In-House Order For [place] Provider For Internal Use Only, [id number] 03/13/2024 09:16:36 08/24/20 23 08/24/2023 , beth majano [facility] Stewks d [address] [address] Patien t Name: Mike Dockery [facility] Medica l Record #: [id number] Addres s: [address] [facility] Accoun t#: [id number] [place] ip: [place] [address]: Radha Sherwood MD Phone: Insura nce: [employer] re /Ag e/Sex: 1959/6 5/M Self Pay Admit/ Reg Date: Orderi janna Dr: Radha Sherwood MD Locati on: DI.USM H/ PCP: Radha Sherwood MD Date of Servic e: Order (s): US retrop eriton eal comp CPT Code: 82941 Report Number : [id number] Reason for Exam: BPH RENAL ULTRAS OUND: Indica tion: BPH. Diffic ulty voidin g. The kidney s are normal in echote xture and size withou t eviden ce of hydron ephros is, mass or calcul us. The right kidney measur es 9.1 and left 9.[address] [facility] dimens ion. Cursor y examin ation [...] PM158 cc: GERMÁN* Radha Sherwood MD [email or web address] [facility] ? Rad [address] [facility] [address], [place], [address] 10/23/2023 07:28:22 03/15/20 24 03/15/2024 MRI, pitui tary, w/wo contr ast [facility] [address] [place] [address] [phone] Patien t Name: Mike Dockery 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 Dictat ed By: Carine Angel MD [id number] Signed By: Roya Angel i, MD 2339 TD/TT: 2321 Tech: [facility] 04 cc: GERMÁN; LEECH4 * Adri Kaplan er, PAC; Radha Sherwood MD [email or web address] [facility] ? Rad [address] [facility] [address], [place], [address] 03/19/2024 09:25:20 Result Notes None recorded. Problems Name Problem SNOMED Code Status Onset Date Resolution Date Notes Provider Name and Address Organization Details Recorded Time Osteoarthri tis of right knee joint 7785113803244 00 Active [place] [facility] 2 08:45:07 History of total knee arthroplast y 3099530900784 Active [place] ladan, [employer] 2 08:45:07 Essential hypertensio n 13086980 Active 2021 RADHA SHERWOOD MD [address] [place], [address], [facility] 2 18:24:38 Migraine 21842473 Active 2021 RADHA SHERWOOD MD [address] [place], [address], [facility] 2 18:24:41 Type 2 diabetes mellitus without complicatio n 897231775 Active 2021 RADHA SHERWOOD MD [address] [place], [address], [facility] 2 18:24:42 Problem Notes None recorded. Procedures Surgical History Date Name Laterality Status Provider Name and Address Organization Details Recorded Time 3 Medicare Wellness CPT Code, subsequent completed [place] [employer] [facility] 09/13/2023 07:38:48 no previous surgery completed Fatimah Goodwin [employer] 07/03/2018 09:50:58 Imaging Results Imaging Date Name Status LastModified by Organiz ation Details LastModified Time 08/24/2023 US, pelvis completed [email or web address] ? Rad [address], [place], [address] 10/23/2023 07:28:22 03/15/2024 MRI, pituitary, w/wo contrast completed [employer] [facility] ? Rad [address], [place], [address] 03/19/2024 09:25:20 Procedure Notes None recorded. Medical [...] Updated DateTime 3 177.8 cm 23.8 kg/m2 20900.3 3 g 82 /min 98 % 98 % 126 mm[Hg] 70 mm[Hg] Adelina Siegel [place] [employer] [facility] [employer] 3 10:03:03 Date Recorded Body height Body mass index (BMI) Body weight Body temperature Heart rate Oxygen saturation Oxygen saturation in Arterial blood by Pulse oximetry Systolic blood pressure Diastolic blood pressure Provider Name and Address Organization Details Last Updated DateTime 3 177.8 cm 23.4 kg/m2 99068.9 9 g 98.3 [degF] 79 /min 97 % 97 % 148 mm[Hg] 68 mm[Hg] Fatimah Yuan [employer] [facility] [employer] 3 08:11:01 Date Recorded Body height Body mass index (BMI) Body weight Heart rate Oxygen saturation Oxygen saturation in Arterial blood by Pulse oximetry Systolic blood pressure Diastolic blood pressure Provider Name and Address Organization Details Last Updated DateTime 3 177.8 cm 21.8 kg/m2 74346.0 4 g 82 /min 97 % 97 % 128 mm[Hg] 74 mm[Hg] Adelina Siegel [place] [employer] [facility] [employer] 3 10:48:10 Date Recorded Body height Body mass index (BMI) Body weight Heart rate Oxygen saturation Oxygen saturation in Arterial blood by Pulse oximetry Systolic blood pressure Diastolic blood pressure Provider Name and Address Organization Details Last Updated DateTime 3 177.8 cm 21.4 kg/m2 69580.2 6 g 72 /min 98 % 98 % 124 mm[Hg] 78 mm[Hg] [place] [employer] 3 07:46:34 Date Recorded Body height Body mass index (BMI) Body weight Heart rate Oxygen saturation Oxygen saturation in Arterial blood by Pulse oximetry Systolic blood pressure Diastolic blood pressure Provider Name and Address Organization Details Last Updated DateTime 4 177.8 cm 22.1 kg/m2 39841.2 2 g 78 /min 97 % 97 % 128 mm[Hg] 86 mm[Hg] Adelina Siegel [place] [employer] [facility] [employer] 4 09:22:33 Social History Question Answer Notes LastModified by Organizat ion Details LastModified Time Tobacco Smoking Status Never Smoker Fatimah Christa pickering [employer] 07/03/2018 09:48:48 What Is Your Level Of Alcohol Consumption? None Information not available 07/03/2018 Auto Related Injury? No Information not available 07/03/2018 What Is Your Level Of Caffeine Consumption? None Information not available 07/03/2018 Are You Currently Employed? 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 Bilateral Information not available 07/03/2018 Live Alone Or With Others? With Others Information not available 07/03/2018 Marital Status Informatio n not available 07/03/2018 What Was The Date Of Your Most Recent Tobacco Screening? 09/13/2023 [email or web address] Information not available 09/13/2023 What Types Of Sporting Activities Do You Participate In? [employer] Information not available 07/03/2018 Has Tobacco Cessation Counseling Been Provided? No [email or web address] Information not available 06/08/2022 Work Related Injury? [...] Details Recorded Time Pneumococcal conjugate PCV20, polysaccharide [id number] conjugate, adjuvant, PF 2 completed RADHA SHERWOOD MD [address] [place] [address], [address], [facility] 06/09/2022 08:22:17 COVID-19, mRNA, LNP-S, PF, 100 mcg/0.5mL dose or 50 mcg/0.25mL dose 1 completed Sejal Lan null, [employer] 02/17/2022 09:49:45 COVID-19, mRNA, LNP-S, PF, 100 mcg/0.5mL dose or 50 mcg/0.25mL dose 2 completed Sejal Lan null, [employer] [facility] [employer] 02/17/2022 09:49:44 zoster recombinant 0 completed Sejal Lan null, [employer] [facility] [employer] 02/17/2022 09:49:45 Influenza, split virus, quadrivalent, PF 0 completed Sejal Hale null, [employer] [facility] [employer] 02/17/2022 09:49:45 zoster recombinant 0 completed Sejal Hale null, [employer] [facility] [employer] 02/17/2022 09:49:45 Influenza, split virus, quadrivalent, PF 1 completed Sejal Hale null, [employer] [facility] 02/17/2022 09:49:45 Tdap 0 completed Sejal Lan null, [employer] [facility] [employer] 02/17/2022 09:49:45 COVID-19, mRNA, LNP-S, PF, 100 mcg/0.5mL dose or 50 mcg/0.25mL dose [address] [facility], [employer] 02/17/2022 09:49:45 Influenza, MDCK, quadrivalent, PF 2 completed [place], [employer] 09/13/2023 07:38:53 COVID-19, mRNA, LNP-S, bivalent, PF, 50 mcg/0.5 mL or 25mcg/0.25 mL dose 2 [facility] 09/13/2023 07:38:53 Influenza, adjuvanted, quadrivalent, PF 3 completed [place], [employer] 03/13/2024 09:16:47 Tdap 3 completed [facility] 03/13/2024 09:16:47 Past Encounters Encounter ID Performer Location Encounter Start Date Encounter Closed Date Diagnosis/Indication Diagnosis SNOMED-CT Code Diagnosis ICD10 Code Diagnosis Note [id number] Cleveland BEEBE MD [facility] R[address] 1 ORTHOPEDI CS [address] [facility] [place] [address] 07/03/2018 09:38:46 07/03/2018 10:44:08 Osteoarthritis of knee 727245852 M17.11 [id number] DAVID SNEED [facility] [address] [address] 12/17/2020 10:27:30 12/17/2020 11:40:48 Osteoarthritis of knee 468668889 M17.9 [id number] NIKKIE SUMNER MD [facility] [address] [place] [id number] 02/18/2021 09:24:49 02/18/2021 10:17:37 Osteoarthritis of right knee joint 4550272564 19823 M17.11 [id number] DAVID WEN [facility] [address] [place] [id number] 04/15/2021 09:35:31 04/15/2021 10:19:59 Postoperative care 887242500 Z48.89 [id number] NIKKIE SUMNER MD [facility] [address] [address] 06/24/2021 08:38:00 06/24/2021 09:03:11 Knee joint prosthesis present 3126649006 02 Z96.659 [id number] NIKKIE SUMNER MD [facility] [address] [address] 08/24/2021 12:18:31 08/24/2021 13:15:37 History of right total knee replacement 2445579200 477886 Z96.651 [id number] RADHA SHERWOOD MD [facility] [address], [address] [place] [address] 02/10/2022 08:35:41 02/10/2022 10:01:40 Esotropia of left eye 5678239554 2706157 H50.00 has an eye exam coming up Type 2 emerson betes mellitus without complication 885432755 E11.9 Constipation 22132854 K5 9.00 Essential hypertension 68692380 I10 Increased frequency of urination 189441183 R35.0 Migraine with aura 93066 06 G43.109 Vertigo 348324305 R42 meclizine prn s/p PT Pain of bi lateral knee regions 4380368720 01485 M25.562 [id number] RADHA SHERWOOD MD [facility] AT [address] [address] 03/18/2022 12:49:45 03/18/2022 13:58:44 Osteoporosis 41675533 M81.0 see plan below Ophthalmic examination and evaluation 80968845 Z01.00 need records from [facility] Migraine 02895972 G43.90 9 MRI was reviewed and was negative -now needs neurology follow up for presumed migraine phenomena Type 2 emerson betes mellitus without complication 175975115 E11.9 A1c depicts decent control -continue with current medication s Essential hypertension 13246866 I10 BP is well controlled on current medication s Anemia 866314823 D64.9 proceed with colonoscop y-a referral was made to a gastroente rologist [id number] RADHA SHERWOOD MD [facility] AT [address] [address] 04/23/2022 13:47:21 04/23/2022 14:31:40 Essential hypertension 99331536 I10 BP medication s are to be adjusted to achieve control on current medication s Migraine 38657432 G43.90 9 MRI was reviewed and was negative -now needs neurology follow up for presumed migraine phenomena- this aspect of his care has been postponed because of scheduling problems at the specialist s office Type 2 emerson betes mellitus without complication 699324578 E11.9 A1c depicts decent control -continue with current medication s not due for A1c till next month [id number] RADHA SHERWOOD MD [facility] AT [address], [address] [address] 06/08/2022 12:50:01 06/08/2022 14:10:35 Migraine 86629348 G43.909 MRI was reviewed and was negative -now needs neurology follow up for presumed migraine phenomena- this aspect of his care has been postponed again because of scheduling problems at the specialist s office .If his current visit is postponed again I shall direct him elsewhere Type 2 emerson betes mellitus without complication 229768084 E11.9 A1c depicts decent control -continue with current medication s not due for A1c till next month Essential hypertension 52400649 I10 BP medication s are controllin g his blood pressure well Mixed hyperlipidemia 267 190477 E78.2 stable on the statin Administra tion of pneumococcal vaccine 56100310 Z23 [id number] NIKKIE SUMNER MD [facility] 3 [facility] [address] [place] [address] 07/08/2022 11:07:20 07/08/2022 12:27:04 Medial epicondylitis of left elbow joint 9965241477 90425 M77.02 Tendinitis of left wrist region 0077995174 9584244 M67.834 [id number] RADHA SHERWOOD MD [facility] AT [address] [place] [address] 01/06/2023 09:51:07 01/06/2023 10:38:08 Type 2 diabetes mellitus without complication 164605319 E11.9 A1c depicts decent control -continue with current medication s not due for A1c till next month Headache 15237035 R51.9 currently on tramadol and gabapentin for the headache prescribed by the neurologis t in [place] and over here as well Vertigo 724209925 R42 meclizine prn ? therapy Cobalamin deficiency 190 072308 E53.8 reportedly low Chronic ne ck pain for greater than 3 months 2092955437 28108 M54.2 Essential hypertension 79208424 I10 BP medication s are controllin g his blood pressure well Vitamin D deficiency 347 18627 E55.9 [id number] SUMIT ALANIZ NP [facility] [address], [address] [place] [address] 02/02/2023 07:54:39 02/02/2023 08:35:41 Anemia 623760200 D64.9 No gross or obvious GI blood loss. We will schedule EGD and colonoscop y Constipation 65402251 K5 9.00 Chronic constipati on despite stool softener and Metamucil. . Daily dose of MiraLax and increase fluids encouraged [id number] RADHA SHERWOOD MD [facility] AT [address], [address] [place] [address] 06/27/2023 10:13:44 06/27/2023 12:03:10 Essential hypertension 17276354 I10 BP medication s are controllin g his blood pressure well Migraine 79948292 G43.90 9 MRI was reviewed and was negative -Has seen neurology states he would like to have a second opinion Benign pro static hyperplasia with outflow obstruction 738985896 N13.8 enlarged prostate on exam Lower urin elton tract obstructive syndrome 34548519 N13.9 Type 2 emerson betes mellitus without complication 517071278 E11.9 A1c depicts decent control -continue with current medication s not due for A1c till next month Urinary tr act infectious disease 19501915 N39.0 Acute prostatitis 459808 02 N41.0 presumptiv e treatement for this and a possible UTI [id number] RADHA SHERWOOD MD _[facility] [address] [facility] [address] [place] [address] 09/13/2023 07:36:00 09/13/2023 08:53:48 Adult health examination 243807919 Z00.00 I reviewed and updated the patient's [...] and nutrition} }. Unintentio nal weight loss 706764990 R63.4 more than 30 pound weight loss Occipital headache 85543 7 R51.9 stable has been prescribed gabapentin -but he doesn't want it any more Dizziness 157302801 R42 chronic has been prescribed meclizine Screening for malignant neoplasm of colon 454861533 Z12.11 Vitamin D deficiency 347 92009 E55.9 Chronic constipation 236 602474 K59.09 [id number] RADHA SHERWOOD MD _[facility] AT [address] [place] [address] 03/13/2024 09:08:03 03/13/2024 10:30:02 Type 2 diabetes mellitus without complication 393971358 E11.9 A1c depicts decent control -continue with current medication s Essential hypertension 50543969 I10 BP medication s are controllin g his blood pressure well Prostate s pecific antigen above reference range 423129444 R97.20 has had an MRI -he awaits urology evaluation Mixed hyperlipidemia 267 654738 E78.2 stable on the statin Health Concerns Section Related Observation LastModified by Organization Detai ls LastModified Time None Recorded Concern Status LastModified by Organization Details LastModified Time None Recorded Advance Directives Directive None Recorded Payers Encounter Date Sequence Insurance Name Policy Number Policy Echeverria Covered Member ID Echeverria Member ID Guarantor Name 01/06/2023 2 [place] Baldevbhai S Dockery [id number] Baldevbhai Dockery 02/02/2023 2 [place] Baldevbhai S Dockery [id number] Baldevbhai Dockery 06/27/2023 1 [facility] (MEDICARE REPLACEMENT/ ADVANTAGE - HMO) Baldevbhai S Dockery [id number] Baldevbhai Dockery 09/13/2023 1 [facility] (MEDICARE REPLACEMENT/ ADVANTAGE - HMO) Baldevbhai S Dockery [id number] Baldevbhai Dockery 03/13/2024 1 [facility] [employer] [place] Baldevbhai S Dockery [id number] Baldevbhai Dockery Notes Date Note Type Note [...] side effects from medication RADHA SHERWOOD MD [address] [place] [address], [phone], [facility] 01/06/2023 10:52:51 02/03/20 23 text/htm l This [...] alcohol. chews tobacco. Aminah ALANIZ NP [address] [place], [address], [facility] 02/02/2023 09:21:11 06/27/20 23 text/htm l Diabetes [...] to change his neurologist RADHA SHERWOOD MD [address] [place] [address], [phone], [facility] 06/27/2023 18:57:42 09/13/20 23 text/htm l [id number] bypatient.In general, would you say your health [...] Health Risk Assessment Form RADHA SHERWOOD MD [address] [place] [address], [phone], [facility] 09/13/2023 08:43:27 03/13/20 24 text/htm l Diabetes [...] abnormal PSA s/p MRI RADHA SHERWOOD MD [address] [place] [address], [phone], [facility] 03/14/2024 03:17:41
--- OUTSIDE RECORDS SUMMARY | 2025-01-22 10:55 | XMS_ITS | Data Portability ---
Author Organization DAYNE Negron MD , [facility] Address [address] [place] [address] Care Team Providers Care Tennis Camp Instructor Name Role Phone CHRISTA WILDER Primary Care Provider [phone] CHRISTA WILDER Referring Provider [phone] Assessment Encounter Date Assessment Date Assessment LastModified [...] Negron, who formulated the plan of care. [id number] Not available 07/28/2016 08:35:34 08/10/2016 08/10/2016 Miya does have moderate right knee arthritis with again some improvement from a corticosteroid injection, but still some symptoms. We will send him to formal physical therapy and see him back in another couple of months. If he remains significantly symptomatic, hopefully we will be able to obtain approval for a series of hyaluronic acid injections. [id number] 3 Not available 08/11/2016 07:59:45 10/12/2016 10/12/2016 [...] at some point be a knee arthroplasty. [id number] Not available 10/13/2016 07:50:54 01/11/2017 01/11/2017 [...] Negron who formulated the plan of care. 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 1 [facility] [address] [place] [address] 02/17/2016 10:11:35 02/17/2016 10:53:17 Osteoarthritis of knee 566576269 M17.11 Chondromal acia of patella 09206776 M22.41 Knee joint effusion 2022 99819 M25.461 Knee pain 14252284 M25.5 61 [id number] MD SAMMY Teague M.D. [address] [facility] [address] [place] [address] 02/24/2016 09:07:43 02/24/2016 09:53:27 Osteoarthritis of knee 402117317 M17.11 [id number] Sammy NEGRON M.D. [address] [facility],[address] [address] 06/22/2016 08:30:41 06/22/2016 09:18:14 Knee joint effusion 396544266 M25.461 Osteoarthr itis of knee 560161816 M17.11 Knee pain 62630188 M25.5 61 Chondromal acia of patella 13212549 M22.41 [id number] Sammy NEGRON M.D. [address] [facility],[address] [address] 07/27/2016 08:18:56 07/27/2016 08:47:01 Osteoarthritis of knee 811365092 M17.11 Knee pain 21494643 M25.5 61 Chondromal acia of patella 13781068 M22.41 Knee joint effusion 2023 85307 M25.461 [id number] Sammy NEGRON M.D. [address] [facility],[address] [place] [address] 08/10/2016 08:28:48 08/10/2016 08:43:09 Osteoarthritis of knee 912853774 M17.11 Knee pain 50007116 M25.5 61 [id number] Sammy NEGRON M.D. [address] [facility],[address] [address] 10/12/2016 08:30:46 10/12/2016 09:06:58 Osteoarthritis of knee 672969496 M17.11 Knee joint effusion 3 89457 M25.461 Knee pain 04032712 M25.5 61 [id number] Sammy NEGRON M.D. [address] [facility],[address] [address] 01/11/2017 08:44:13 01/11/2017 09:10:26 Knee joint effusion 272515170 M25.461 Osteoarthr itis of knee 774579329 M17.11 Knee pain 45276116 M25.5 61 Chondromal acia of patella 70741923 M22.41 [id number] Sammy NEGRON M.D. 1 [facility],[address] [place] [address] 06/21/2017 08:01:28 06/21/2017 08:21:03 Osteoarthritis of knee 957540462 M17.11 Knee pain 57934853 M25.5 61 Health Concerns Section Related Observation LastModified by Organization Detai ls LastModified Time None Recorded Concern Status LastModified by Organization Details LastModified Time None Recorded Advance Directives Directive None Recorded Payers Encounter Date Sequence Insurance Name Policy Number Policy Echeverria Covered Member ID Echeverria Member ID Guarantor Name 07/27/2016 1 [facility] [employer] - TOGETHER (MEDICAID HMO) Baldevbhai Dockery [id number] 1 Baldevbhai Dockery 08/10/2016 1 [facility] [employer] - TOGETHER (MEDICAID HMO) Baldevbhai Dockery [id number] Baldevbhai Dockery 10/12/2016 1 [facility] [employer] - TOGETHER (MEDICAID HMO) Baldevbhai Dockery [id number] 1 Baldevbhai Dockery 01/11/2017 1 [facility] [employer] - TOGETHER (MEDICAID HMO) Baldevbhai Dockery [id number] Baldevbhai Dockery 06/21/2017 1 [facility] [employer] - TOGETHER (MEDICAID HMO) Baldevbhai Dockery [id number] Baldevbhai Dockery Notes Date Note Type [...] He has been doing physical therapy at [facility] in [place] and reports he has seen some benefits. [...]
--- OUTSIDE RECORDS SUMMARY | 2025-01-22 10:55 | XMS_ITS | Patient Health Record ---
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 tobacco- chews etoh- no PROBLEMS Problem Type ICD Code Onset Dates Problem Status W/U Status Risk SNOMED Code Notes Problem Chronic migraine w/o aura w/o status migrainosus, not intractable (G43.709) Active confirmed 549322166 PLAN OF TREATMENT No Information Insurance Providers Payer Name Payer Address Payer Phone Subscriber Number Group Number Insured Name Patient Relationship to Insured Coverage Start Date Coverage End Date [facility] [address] [place] [address] [id number] FARHAD COREAS Self - patient is the insured [employer] [address] [place] [address] [id number] FARHAD COREAS Self - patient is the insured MEDICAL (GENERAL) HISTORY Medical History History ICD Code migraines arthritis R knee DM type 2 osteoporosis HTN anemia Surgical History Surgery Date(Month/Year) knee
== END 2025-01-22 10:25 | disposition home or self-care (01) ==
LOC: HO.HMCFM 09:47
PROVIDERS: PCP Nurse Practitioner Family; Visit Provider Nurse Practitioner Family
DX: I10 Essential (primary) hypertension (principal); K59.00 Constipation, unspecified

== ENCOUNTER → 2025-01-22 09:47 | Outpatient (BNVA) | payer OTHER, SELFPAY | PROVIDERS: PCP Nurse Practitioner Family; Visit Provider Nurse Practitioner Family | DX: I10 Essential (primary) hypertension (principal); K59.00 Constipation, unspecified | CPT/HCPCS: 99212 ==

== ENCOUNTER 2025-02-01 15:31 | Outpatient (AMB) | payer OTHER, SELFPAY ==
--- NOTE | 2025-02-01 15:32 | A.OFFVIS_ITS ---
Intake Visit Reasons: Prostate targeted biopsy results Intake Note: Patient is present for PROSTATE TARGETED BIOPSY RESULTS Urology Medication:ALFUZOSIN Antibiotic Allergy:NONE Blood Thinner:NONE Client Service Coordinator Required: No Allergies No Known Allergies Allergy (Verified 02/01/25 15:33) HPI Comments Details: Miya is a pleasant good Gujarati speaking male. He is a patient of Dr. Chua. He is seen for the following urologic conditions - prostate cancer Telemedicine Evaluation 15 min Consultation [employer] Juan [place] Video Follow-up from prostate biopsy Discussed results Will perform genetics to assess for active surveillance candidate Prostate cancer grade group 2 PSA 08/26 7.3 35 g prostate PT1c [place] 3 + 4 Histologic type: Prostatic adenocarcinoma, acinar type Histologic grade: [place] score: 7 (3+4) (c2.0) 6 (3+3) (E2.0 and C2.0) % of pattern 4: 12% % of pattern 5: 0 Grade group: 2 and 1 Tumor quantitation: Number cores positive: 4 Total number of cores: 22 % of tissue involved: 10% Periprostatic fat inv.: Not identified Seminal vesicle inv.: Not identified Perineural inv.: Not identified Lymphatic and/or vascular invasion: Not identif ied MRI 03/26 report notes a 1.0 X 1.1 cm focus of prominent T2 and ADC hypointensity at right posterior medical peripheral zone at mid gland, suspicious (SD-RADS 4) [facility] Medical History (Updated 02/01/25 @ 15:56 by Ulices Barrera MD) HTN (hypertension) Arthritis Anemia Diabetes Memory loss Generalized headaches Dizziness Frequency of urination Enlarged prostate Pain in lower back High cholesterol Surgical History (Updated 01/14/25 @ 08:51 by Ruby Newell RN) Knee joint replacement status Family History Father Asthma High blood pressure Diabetes Social History Housing: House Are you a primary day care assistant to a significant other at home: No Do you presently have visiting nurse or other home services: No Comment: walker for occasional dizziness, no falls. Patient Tobacco Use Status: Former Tobacco user Tobacco use type: Cigarette Years Smoked: 5 e-Cigarette/Vaping Use: Never Used service: No Current occupational status: retired Current occupational exposures/hazards: No Cognitive needs: No Hearing needs: No Vision needs: Yes Review of Systems Const All systems reviewed & are unremarkable except as noted in HPI and below Reports no additional complaints Resp Reports no additional complaints GI Reports no additional complaints Reports as per HPI Musc Reports no additional complaints Physical Exam Telemedicine evaluation Appropriate responses Regular breathing rate and rhythm HEENT Head: Yes normal to inspection Ears: hearing grossly normal bilaterally Eyes General: appearance normal, both eyes and all related structures Neck Neck: Yes normal visual inspection Chest Chest palpation & inspection: normal inspection of the chest Resp Effort & Inspection: normal respiratory effort and able to speak in complete sentences Telehealth Telehealth Location of provider rendering services: practice address Location of patient: address on file Patient Identification confirmed using: Name, : Yes Telehealth method: voice only Patient verbally consented to treatment: Yes Patient verbally consented to billing insurance company: Yes Patient informed of any privacy concerns related to visit: Yes Assessment & Plan Assessment & Plan (1) Prostate cancer: Code(s): C61 - Malignant neoplasm of prostate Category: Medical Plan [facility] 4-6 week follow-up office Patient Instructions: This note is constructed using voice recognition software. While every effort has been made to ensure accuracy pole climber errors may have been included. Imaging studies, laboratory and physical exam results were discussed and reviewed in detail. No major barriers to patient understanding were identified. An opportunity to ask questions regarding the treatment plan was provided. All questions were answered. The patient expressed understanding and agreement with the above treatment plan. The patient is aware they should contact our office by phone for worsening of their current condition or the appearance of new urologic symptoms. Compliance is encouraged with any medications and followup testing that is ordered. It is a privilege to participate in the urologic care of your patient. If you have any questions or concerns regarding treatment for the above conditions, or other urologic issues, please do not hesitate to contact me. The office telephone contact is [phone]. Sincerely, Dr Ulices Barrera MD, [facility] - Urology Compassionate Specialist Care for the Genitourinary System Coding Level of Care Code Tele Est Pt Level 4 (93399) Complex EM visit Add On G2211 Diagnoses Prostate cancer C61
--- OUTSIDE RECORDS SUMMARY | 2025-02-01 15:34 | XMS_ITS | Patient Health Record ---
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 tobacco- chews etoh- no cashier and salesperson tobacco- chews etoh- no PROBLEMS Problem Type ICD Code Onset Dates Problem Status W/U Status Risk SNOMED Code Notes Problem Chronic migraine w/o aura w/o status migrainosus, not intractable (G43.709) Active confirmed 850993302 PLAN OF TREATMENT No Information Insurance Providers Payer Name Payer Address Payer Phone Subscriber Number Group Number Insured Name Patient Relationship to Insured Coverage Start Date Coverage End Date [facility] [address] [place] [address] [id number] FARHAD COREAS Self - patient is the insured [employer] [address] [place] [address] [id number] FARHAD COREAS Self - patient is the insured MEDICAL (GENERAL) HISTORY Medical History History ICD Code migraines arthritis R knee DM type 2 osteoporosis HTN anemia Surgical History Surgery Date(Month/Year) knee
--- OUTSIDE RECORDS SUMMARY | 2025-02-01 15:34 | XMS_ITS | Data Portability ---
Author Organization DAYNE Jolley MD , [facility] Address [address] [place] [address] Care Team Providers Care Mercerizing Range Controller Name Role Phone CHRISTA WILDER Primary Care [...] This patient was also discussed with Dr. Jolley, who formulated the plan of care. [id number] Not available 07/28/2016 08:35:34 08/10/2016 08/10/2016 Miya does have moderate right knee arthritis with again some improvement from a corticosteroid injection, but still some symptoms. We will send him to formal physical therapy and see him back in another couple of months. If he remains significantly symptomatic, hopefully we will be able to obtain approval for a series of hyaluronic acid injections. [id number] 3 Not available 08/11/2016 07:59:45 10/12/2016 10/12/2016 [...] at some point be a knee arthroplasty. [id number] Not available 10/13/2016 07:50:54 01/11/2017 01/11/2017 [...] This patient was also discussed with Dr. Jolley who formulated the plan of care. [id number] 1 Not available 01/12/2017 02:16:08 06/21/2017 06/21/2017 [...] Organization Details Recorded Time Osteoarthritis of knee 641956656 Active Liss pickering MA - Sammy Jolley MD 6 10:29:08 Chondromalacia of patella 66281951 Active DAYNE Jackson MD 6 10:54:49 Knee joint effusion 034517352 Active DAYNE Jackson MD 6 10:54:49 Knee [...] SNOMED-CT Code Diagnosis ICD10 Code Diagnosis Note [id number] MD SAMMY Teague M.D. [address] [employer],[facility] [address] [place] [address] 02/17/2016 10:11:35 02/17/2016 10:53:17 Osteoarthritis of knee 623552349 M17.11 Chondromal acia of patella 17833751 M22.41 Knee joint effusion 2022 57850 M25.461 Knee pain 13166202 M25.5 61 [id number] MD SAMMY Teague M.D. 1 [employer],[facility] [address] [place] [address] 02/24/2016 09:07:43 02/24/2016 09:53:27 Osteoarthritis of knee 364023442 M17.11 [id number] MD SAMMY Teague M.D. 1 [employer],[address] [address] 06/22/2016 08:30:41 06/22/2016 09:18:14 Knee joint effusion 473201365 M25.461 Osteoarthr itis of knee 330513976 M17.11 Knee pain 89699123 M25.5 61 Chondromal acia of patella 59186924 M22.41 [id number] MD SAMMY Teague M.D. 1 [employer],[address] [address] 07/27/2016 08:18:56 07/27/2016 08:47:01 Osteoarthritis of knee 194490391 M17.11 Knee pain 65105286 M25.5 61 Chondromal acia of patella 24210247 M22.41 Knee joint effusion 2023 22416 M25.461 [id number] MD SAMMY Teague M.D. 1 [employer],[address] [address] 08/10/2016 08:28:48 08/10/2016 08:43:09 Osteoarthritis of knee 843885802 M17.11 Knee pain 52893622 M25.5 61 [id number] MD SAMMY Teague M.D. 1 [employer],[address] [address] 10/12/2016 08:30:46 10/12/2016 09:06:58 Osteoarthritis of knee 696270221 M17.11 Knee joint effusion 3 87187 M25.461 Knee pain 56721143 M25.5 61 [id number] MD SAMMY Teague M.D. 1 [employer],[address] [address] 01/11/2017 08:44:13 01/11/2017 09:10:26 Knee joint effusion 494487372 M25.461 Osteoarthr itis of knee 460037730 M17.11 Knee pain 68921890 M25.5 61 Chondromal acia of patella 77436554 M22.41 [id number] MD SAMMY Teague M.D. 1 [facility],[address] [place] [address] 06/21/2017 08:01:28 06/21/2017 08:21:03 Osteoarthritis of knee 962697208 M17.11 Knee pain 57081205 M25.5 61 Health Concerns Section Related Observation LastModified by Organization Detai ls LastModified Time None Recorded Concern Status LastModified by Organization Details LastModified Time None Recorded Advance Directives Directive None Recorded Payers Encounter Date Sequence Insurance Name Policy Number Policy Echeverria Covered Member ID Echeverria Member ID Guarantor Name 07/27/2016 1 [facility] [employer] - TOGETHER (MEDICAID HMO) Baldevbhai Dockery [id number] 1 Baldevbhai Dockery 08/10/2016 1 [facility] [employer] - TOGETHER (MEDICAID HMO) Baldevbhai Dockery [id number] 1 Baldevbhai Dockery 10/12/2016 1 [facility] [employer] - TOGETHER (MEDICAID HMO) Baldevbhai Dockery [id number] 1 Baldevbhai Dockery 01/11/2017 1 [facility] [employer] - TOGETHER (MEDICAID HMO) Baldevbhai Dockery [id number] 1 Baldevbhai Dockery 06/21/2017 1 [facility] [employer] - TOGETHER (MEDICAID HMO) Baldevbhai Dockery [id number] 1 Baldevbhai Dockery Notes Date Note Type [...] and ambulation. Sammy pickering MA - Sammy Jolley MD 07/29/2016 10:26:07 08/10/2016 text/html Baldevbhai retur ns couple of weeks since his last visit for reassessment of his right knee arthritis. At the time of his last visit, he underwent a corticosteroid injection and has had some improvement from this injection, but still has pain with ambulation. DAYNE Orellana MD 08/19/2016 15:16:39 10/12/2016 text/html Gavindevbhmaria elena glover a couple of months since his [...] He has been doing physical therapy at [facility] in [place] and reports he has seen some benefits. He has been able to work without significant discomfort. He has noticed over the past few weeks returning discomfort in the medial and patellofemoral aspect of his knee, especially with bending, weightbearing and squatting. He denies new injuries. DAYNE Orellana MD 01/13/2017 11:50:50 06/21/2017 text/html Gavindevbhai christa glover five months since his last visit [...]
--- OUTSIDE RECORDS SUMMARY | 2025-02-01 15:34 | XMS_ITS ---
Author Organization [facility] [address] [place] [address] [address] Address [address] [place] [address] Care Team Providers Care Director Franchise Sales Name Role Phone Ira NEGRON, Davis Primary Care Provider Naga SALAS, Talita Orozco SOCIAL HISTORY Sex Assigned At : Social History Observation Description Sex Assigned At Male Encounters Encounter Location Date Provider Diagnosis [facility] [address] [place] [address] [place] [phone] 10/25/2023 Talita SALAS PLAN OF TREATMENT No Information Progress Notes * GEORGIE COREASAIDOB: [birth year] (64 yo M)Acc No.[id number]:10/25/2023 Patient:??FARHAD COREAS Provider:??SEAN Vazquez :1960?Age:63 Y?Sex:Ma le Date:10/25/2023 Address:[address] [place] [address] Pcp:Davis Roth MD Subjective: * Chief Complaints: * ? * Medical History:?? Objective: Assessment: Plan: * Treatment: * Billing Information: * Visit Code:?? * Procedure Codes:?? * Sign off status: Pending * Provider:??SEAN Vazquez Date:??
--- OUTSIDE RECORDS SUMMARY | 2025-02-01 15:34 | XMS_ITS | Data Portability ---
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 Unavailable Assessment Encounter Date Assessment Date Assessment LastModified by Organization Details LastModified Time 02/02/2023 02/02/2023 This is a 62-year-old male with a history of osteoarthritis , knee replacement, migraines, type 2 diabetes, hypertension, and high cholesterol; referred for anemia Not available 02/02/2023 09:20:38 06/27/2023 06/27/2023 urinary symptoms I suspect prostatitis versus a UTI he has an enlarged prostate on exam Not available 06/27/2023 15:04:12 Plan of Treatment Reminders Order Date Submit Date Provider Last Modified By Organization Details Last Modified Time Details Appointments None recorded. Lab HbA1c (hemoglobin A1c), blood 2023 024 In-House Order For Bebeto Provider, For Internal Use Only, [id number] 4 13:06:54 vitamin D, 25-hydroxy, total, serum 2022 023 [email or web address] [facility], [address] [facility] [address], [place], [address], 4 06:22:40 fecal occult blood, stool 2022 023 JASWINDER [facility], [address] [facility], [facility] [address], [place], [address], 3 16:18:40 urinalysis, complete 2022 023 [facility], [address] [facility], [address], [place], [address], 3 20:45:42 culture, urine 2022 023 [facility], [address] [facility], [address], [place], [address], 3 06:46:39 PSA, serum or plasma 2022 023 [facility], [address] [facility], [address], [place], [address], 3 22:59:25 HbA1c (hemoglobin A1c), blood 2022 023 [facility], [address] [facility], [facility] [address], [place], [address], 3 22:59:23 microalbumi n/creatinin e, mass ratio, urine 2022 023 [facility], [address] [facility], [facility] [address], [place], [address], 3 20:45:41 hepatic function panel, serum 2022 023 [facility], [address] [facility], [facility] [address], [place], [address], 3 22:59:24 BMP, serum or plasma 2022 023 [facility], [address] [facility], [address], [place], [address], 3 22:59:22 lipid panel, serum 2022 023 [facility], [address] [facility], [address], [place], [address], 3 22:59:21 vitamin D, 25-hydroxy, total, serum 2022 023 [facility], [address] [facility], [facility] [address], [place], [address], 3 04:12:34 BMP, serum or plasma 2022 023 JASWINDER [facility], [address] [facility], [facility] [address], [place], [address], 3 05:42:11 CBC 2022 023 CASPER [facility], [address] [facility], [facility] [address], [place], [address], 3 05:42:12 HbA1c (hemoglobin A1c), blood 2022 023 In-House Order For Bebeto Provider, For Internal Use Only, [id number] 3 05:07:19 lipid panel, serum 2022 023 JASWINDERImagiin. [facility], [address] [facility] [address], [place], [address], 3 23:10:49 microalbumi n/creatinin e, mass ratio, urine 2022 023 JASWINDERImagiin. [facility], [address] [facility] [address], [place], [address], 3 17:53:07 TSH, serum or plasma 2022 023 JASWINDERImagiin. [facility], [address] [facility] [address], [place], [address], 3 04:12:37 vitamin B12, serum 2022 023 [employer] [facility], [address] [place] [address], [place], [address], 3 04:12:39 Referral neurologist referral - Please contact pt to schedule appt. Thank you! 2022 024 [email or web address] [facility], [address] [place], [address], 4 07:41:10 gastroenter ologist referral - Please book appt with patient thank you! 2022 023 [email or web address] Not available 4 10:11:00 neurologist referral - please scheduline appt for pt. thank you 2022 023 [place] [address] Jhonatan Martinez MD, [address] [place], [address], 3 06:42:25 physical therapist referral - PATIENT WILL BE CALLING TO BOOK [address] [facility], [address] [place], [address], 3 06:41:25 otolaryngol ogist referral - Please book appt with patient, thank you! vertigo chronic 2022 023 [place] [address] [facility], [address] [place], [address], 3 06:10:38 Procedures upper endoscopy procedure (EGD) (PROC) [address] [facility], [address] [place] [address], [address], 4 10:31:40 colonoscopy procedure (PROC) - 2 day prep [address] [facility], [address] [place] [address], [address], 4 10:32:36 Surgeries None recorded. Imaging CT, chest + abdomen + pelvis, w/ contrast [address] (Scheduling), [address] [place], [address], 4 19:58:16 US, pelvis - pre and post void bladder ,prostate size please , [email or web address] ([facility]), [address] [place] [address], [address], 4 07:28:23 Medication Orders lisinopril 10 mg tablet 2023 024 [facility] #1877, [address] [place] [address], [address], 4 13:06:54 FreeStyle Lite Strips [email or web address]/Pharmacy #1877, [address] [place] [address], [address], 4 18:13:50 Metamucil Sugar-Free (aspartame) 3.4 gram/5.8 gram oral powder 2022 023 [facility] [address] [place] [address], [address], 3 08:40:37 meclizine 12.5 mg tablet 2022 023 [facility]1877, [address] [place] [address], [address], 3 08:34:14 Cipro 250 mg tablet 2022 024 [facility], [address] [place] [address], [address], 4 09:19:54 Miralax 17 gram/dose oral powder 2022 023 [email or web address] [facility] #1877, [address] [place] [address], [address], 3 09:20:20 Patient TargetsNo targets recorded. Patient Instructions Encounter Date Encounter Id Patient Instructions Last Modified By Organization Details Last Modified Time 01/06/2023 [id number] headache: care instructions Not available 01/06/2023 10:51:42 high blood pressure: care instructions Not available 01/06/2023 10:51:42 02/02/2023 [id number] constipation: ca re instructions [email or web address] Not available 02/02/2023 09:20:20 anemia: care instructions [email or web address] Not available 02/02/2023 09:20:20 06/27/2023 [id number] Urinary Tract Infections (UTI) in Men: Care Instructions Not available 06/27/2023 11:29:06 high blood pressure: care instructions Not available 06/27/2023 11:18:41 09/13/2023 [id number] dizziness: care instructions Not available 09/13/2023 08:34:10 preventing falls : care instructions Not available 09/13/2023 08:34:10 using your medicines: care instructions Not available 09/13/2023 08:34:10 Personalized [facility] Plan and Screening Recommendations Vision Screening: Hearing [...] one? Yes I recommend consulting with an Hand Binder Stripper, family member, or friend to assist you. 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 See Note 1 Note 1 For addit ional infor richa ortega e refer to http: //[facility] [employer] gnost ics.c om/fa q/FAQ 199 (This link is being provi ded for infor moise hammer/ educa jd l purpo ses only. ) Not Available [facility] [place] [facility] [address], [address], 01/07/2023 04:12:34 01/07/20 23 01/07/2023 TSH W/REF L FT4 TSH w/reflex to FT4 1.93 mIU/L 0.40-4 .50 normal Not Available [facility] [place] [facility] [address], [place], [address], 01/07/2023 04:12:36 01/07/20 23 01/07/2023 VITAM IN B12 vitamin B12 1340 pg/mL 200-11 00 high Not Available [facility] [address], [address], 01/07/2023 04:12:39 01/07/20 23 01/07/2023 BASIC MET PNL glucose 73 mg/dL 65-99 normal Fasti ng refer ence inter jackelyn Not Available [facility] [place] [facility] [address], [address], 01/07/2023 05:42:10 01/07/20 23 01/07/2023 BASIC MET PNL urea nitrogen (BUN) 15 mg/dL 7-25 normal Not Available [facility] [address], [address], 01/07/2023 05:42:10 01/07/20 23 01/07/2023 BASIC MET PNL creatinine 0.75 mg/dL 0.70-1 .35 normal Not Available [facility] [place] [facility] [address] [place], [place], [address], 01/07/2023 05:42:10 01/07/20 23 01/07/2023 BASIC MET PNL eGFR 101 mL/mi n/1.7 3m2 > or = 60 normal The eGFR is based on the CKD-E PI 2020 equat ion. To calcu late the new eGFR from a previ ous Creat inine or Cysta tin C resul t, go to https ://marcus w.sharmaine helms.o randy/lonnie finch s/ kdoqi /gfr% 5Fcal culat or Not Available [facility] [place] [facility] [address], [place], [address], 01/07/2023 05:42:10 01/07/20 23 01/07/2023 BASIC MET PNL BUN/creatini ne ratio NOT APPLIC ABLE (calc ) 6-22 normal Not Available [facility] [place] [facility] [address], [place], [address], 01/07/2023 05:42:10 01/07/20 23 01/07/2023 BASIC MET PNL sodium 140 mmol/ L 135-14 6 normal Not Available [facility] [place] [facility] [address], [place], [address], 01/07/2023 05:42:10 01/07/20 23 01/07/2023 BASIC MET PNL potassium 4.5 mmol/ L 3.5-5. 3 normal Not Available [facility] [address], [place], [address], 01/07/2023 05:42:10 0401/07/2023 BASIC MET PNL chloride 105 mmol/ L 98-110 normal Not Available [facility] [place] [facility] [address], [place], [address], 01/07/2023 05:42:10 01/07/2001/07/2023 BASIC MET PNL carbon dioxide 27 mmol/ L 20-32 normal Not Available [facility] [place] [facility] [address], [place], [address], 01/07/2023 05:42:10 01/07/2001/07/2023 BASIC MET PNL calcium 9.6 mg/dL 8.6-10 .3 normal Not Available [facility] [place] [facility] [address], [place], [address], 01/07/2023 05:42:10 01/07/2001/07/2023 CBC(H /H,RB C,WBC ,PLT) white blood cell count 6.5 thous and/u L 3.8-10 .8 normal Not Available [facility] [place] [facility] [address], [place], [address], 01/07/2023 05:42:11 01/07/20 23 01/07/2023 CBC(H /H,RB C,WBC ,PLT) red blood cell count 4.42 basilio on/uL 4.20-5 .80 normal Not Available [facility] [place] [facility] [address], [place], [address], 01/07/2023 05:42:11 01/07/2001/07/2023 CBC(H /H,RB C,WBC ,PLT) hemoglobin 12.0 g/dL 13.2-1 7.1 low Not Available [facility] [place] [facility] [address], [place], [address], 01/07/2023 05:42:11 01/07/20 23 01/07/2023 CBC(H /H,RB C,WBC ,PLT) hematocrit 36.6 % 38.5-5 0.0 low Not Available [facility] [address], [place], [address], 01/07/2023 05:42:11 01/07/20 23 01/07/2023 CBC(H /H,RB C,WBC ,PLT) MCV 82.8 fL 80.0-1 00.0 normal Not Available [facility] [address], [place], [address], 01/07/2023 05:42:11 01/07/20 23 01/07/2023 CBC(H /H,RB C,WBC ,PLT) MCH 27.1 pg 27.0-3 3.0 normal Not Available [facility] [address], [place], [address], 01/07/2023 05:42:11 01/07/20 23 01/07/2023 CBC(H /H,RB C,WBC ,PLT) MCHC 32.8 g/dL 32.0-3 6.0 normal Not Available [facility] [address], [place], [address], 01/07/2023 05:42:11 01/07/20 23 01/07/2023 CBC(H /H,RB C,WBC ,PLT) RDW 13.0 % 11.0-1 5.0 normal Not Available [facility] [address], [place], [address], 01/07/2023 05:42:11 01/07/2001/07/2023 CBC(H /H,RB C,WBC ,PLT) platelet count 347 thous and/u L 140-40 0 normal Not Available [facility] [address], [place], [address], 01/07/2023 05:42:11 01/07/20 23 01/07/2023 CBC(H /H,RB C,WBC ,PLT) MPV 10.5 fL 7.5-12 .5 normal Not Available [facility] [address], [place], [address], 01/07/2023 05:42:11 01/07/20 23 01/07/2023 ALB, RAND UR W/CR creatinine, random urine 192 mg/dL 20-320 normal Not Available [facility] [address], [place], [address], 01/07/2023 17:53:07 01/07/20 23 01/07/2023 ALB, RAND UR W/CR albumin, urine 0.6 mg/dL normal Refer ence Range Not estab lishe d Not Available [facility] [address], [place], [address], 01/07/2023 17:53:07 01/07/2001/07/2023 ALB, RAND UR W/CR [...] a diagn ostic categ ory. Not Available [facility] [address], [place], [address], 01/07/2023 17:53:07 01/07/20 23 01/06/2023 HbA1c (hemo globi n A1c), blood HbA1c 6.2 Not Available In-House Order For Nunn Provider For Internal Use Only, [id number] 01/06/2023 10:03:21 01/12/20 23 01/11/2023 LIPID PNL W/RFL DLDL cholesterol, total 114 mg/dL <200 normal Not Available [facility] [place] [facility] [address], [address], 01/11/2023 23:10:49 01/12/20 23 01/11/2023 LIPID PNL W/RFL DLDL HDL cholesterol 44 mg/dL > or = 40 normal Not Available [facility] [address], [place], [address], 01/11/2023 23:10:49 01/12/20 23 01/11/2023 LIPID PNL W/RFL DLDL triglyceride s 64 mg/dL <150 normal Not Available [facility] [address], [place], [address], 01/11/2023 23:10:49 01/12/20 23 01/11/2023 LIPID PNL [...] 2061- 2068 (http ://ed ucati on.Qu Patricia salinasRate Solutionss. com/f aq/FA Q164) Not Available [facility] [address], [place], [address], 01/11/2023 23:10:49 01/12/20 23 01/11/2023 LIPID PNL W/RFL DLDL chol/HDLC ratio 2.6 (calc ) <5.0 normal Not Available [facility] [place] [facility] [address], [place], [address], 01/11/2023 23:10:49 01/12/20 23 01/11/2023 LIPID PNL W/RFL DLDL non HDL cholesterol 70 mg/dL _(blaise c) <130 normal For patie nts with diabe ok plus 1 major ASCVD risk facto r, treat ing to a non-H DL-C goal of <100 mg/dL (LDL- C of <70 mg/dL ) is consi dered a thera peuti c optio n. Not Available [facility] [place] [facility] [address], [place], [address], 01/11/2023 23:10:49 01/12/20 23 01/11/2023 BASIC MET PNL glucose 115 mg/dL 65-99 high Fasti ng refer ence inter jackelyn For someo ne witho ut known diabe ok, a gluco se value betwe en 100 and 125 mg/dL is consi stent with predi abete s and shoul d be confi rmed with a follo w-up test. Not Available [facility] [place] [facility] [address], [place], [address], 01/11/2023 23:10:50 01/12/20 23 01/11/2023 BASIC MET PNL urea nitrogen (BUN) 12 mg/dL 7-25 normal Not Available [facility] [place] [facility] [address], [place], [address], 01/11/2023 23:10:50 01/12/20 23 01/11/2023 BASIC MET PNL creatinine 0.69 mg/dL 0.70-1 .35 low Not Available [facility] [place] [facility] [address], [address], 01/11/2023 23:10:50 01/12/20 23 01/11/2023 BASIC MET PNL eGFR 103 mL/mi n/1.7 3m2 > or = 60 normal The eGFR is based on the CKD-E PI 2020 equat ion. To calcu late the new eGFR from a previ ous Creat inine or Cysta tin C resul t, go to https ://ww w.kid scooter.o randy/lonnie finch s/ kdoqi /gfr% 5Fcal culat or Not Available [facility] [place] [facility] [address], [place], [address], 01/11/2023 23:10:50 01/12/20 23 01/11/2023 BASIC MET PNL BUN/creatini ne ratio 17 (calc ) 6-22 normal Not Available [facility] [address], [place], [address], 01/11/2023 23:10:50 01/12/20 23 01/11/2023 BASIC MET PNL sodium 139 mmol/ L 135-14 6 normal Not Available [facility] [address], [address], 01/11/2023 23:10:50 01/12/20 23 01/11/2023 BASIC MET PNL potassium 5.1 mmol/ L 3.5-5. 3 normal Not Available [facility] [address], [address], 01/11/2023 23:10:50 01/12/20 23 01/11/2023 BASIC MET PNL chloride 104 mmol/ L 98-110 normal Not Available [facility] [address] [place], [address], 01/11/2023 23:10:50 01/12/20 23 01/11/2023 BASIC MET PNL carbon dioxide 28 mmol/ L 20-32 normal Not Available [facility] [address], [place], [address], 01/11/2023 23:10:50 01/12/20 23 01/11/2023 BASIC MET PNL calcium 9.6 mg/dL 8.6-10 .3 normal Not Available [facility] [address], [place], [address], 01/11/2023 23:10:50 01/12/20 23 01/11/2023 VIT D,25- [...] /MS is recom mercy d: order code [id number] (bello ents >2yrs ). See Note 1 Note 1 For addit ional infor richa ortega refer to http: //shekhar Sanchez gnost ics.c om/fa q/FAQ 199 (This link is being provi ded for infor moise hammer/ mikhail matamoros purpo ses only. ) Not Available [facility] [address], [place], [address], 01/11/2023 23:10:51 01/12/20 23 01/11/2023 TSH W/REF L FT4 TSH w/reflex to FT4 3.10 mIU/L 0.40-4 .50 normal Not Available [facility] [place] [facility] [address], [place], [address], 01/11/2023 23:10:51 01/12/20 23 01/11/2023 VITAM IN B12 vitamin B12 1651 pg/mL 200-11 00 high Not Available [facility] [address], [place], [address], 01/11/2023 23:10:52 01/12/20 23 01/12/2023 CBC(H /H,RB C,WBC ,PLT) white blood cell count 4.4 thous and/u L 3.8-10 .8 normal Not Available [facility] [place] [facility] [address], [place], [address], 01/12/2023 01:17:58 01/12/20 23 01/12/2023 CBC(H /H,RB C,WBC ,PLT) red blood cell count 4.37 basilio on/uL 4.20-5 .80 normal Not Available [facility] [address], [place], [address], 01/12/2023 01:17:58 01/12/20 23 01/12/2023 CBC(H /H,RB C,WBC ,PLT) hemoglobin 11.7 g/dL 13.2-1 7.1 low Not Available [facility] [address], [place], [address], 01/12/2023 01:17:58 01/12/20 23 01/12/2023 CBC(H /H,RB C,WBC ,PLT) hematocrit 36.1 % 38.5-5 0.0 low Not Available [facility] [address], [place], [address], 01/12/2023 01:17:58 01/12/20 23 01/12/2023 CBC(H /H,RB C,WBC ,PLT) MCV 82.6 fL 80.0-1 00.0 normal Not Available [facility] [place] [facility] [address] [place], [place], [address], 01/12/2023 01:17:58 01/12/20 23 01/12/2023 CBC(H /H,RB C,WBC ,PLT) MCH 26.8 pg 27.0-3 3.0 low Not Available [facility] [place] [facility] [address] [place], [place], [address], 01/12/2023 01:17:58 01/12/20 23 01/12/2023 CBC(H /H,RB C,WBC ,PLT) MCHC 32.4 g/dL 32.0-3 6.0 normal Not Available [facility] [place] [facility] [address] [place], [place], [address], 01/12/2023 01:17:58 01/12/20 23 01/12/2023 CBC(H /H,RB C,WBC ,PLT) RDW 13.1 % 11.0-1 5.0 normal Not Available [facility] [place] [facility] [address] [place], [place], [address], 01/12/2023 01:17:58 01/12/20 23 01/12/2023 CBC(H /H,RB C,WBC ,PLT) platelet count 315 thous and/u L 140-40 0 normal Not Available [facility] [address] [place], [place], [address], 01/12/2023 01:17:58 01/12/20 23 01/12/2023 CBC(H /H,RB C,WBC ,PLT) MPV 10.5 fL 7.5-12 .5 normal Not Available [facility] [address], [place], [address], 01/12/2023 01:17:58 01/12/20 23 01/12/2023 ALB, RAND UR W/CR creatinine, random urine 105 mg/dL 20-320 normal Not Available [facility] [address], [place], [address], 01/12/2023 16:49:00 01/12/20 23 01/12/2023 ALB, RAND UR W/CR albumin, urine 0.4 mg/dL normal Refer ence Range Not estab lishe d Not Available [facility] [address], [place], [address], 01/12/2023 16:49:00 01/12/20 23 01/12/2023 ALB, RAND [...] a diagn ostic categ ory. Not Available [facility] [address], [place], [address], 01/12/2023 16:49:00 07/04/20 23 07/04/2023 ALB, RAND UR W/CR creatinine, random urine 123 mg/dL 20-320 normal Not Available [facility] [address], [place], [address], 07/04/2023 20:45:40 07/04/20 23 07/04/2023 ALB, RAND UR W/CR albumin, urine 0.4 mg/dL normal Refer ence Range Not estab lishe d Not Available [facility] [place] [facility] [address] [place], [place], [address], 07/04/2023 20:45:40 07/04/20 23 07/04/2023 ALB, RAND [...] ostic categ ory. Not Available [facility] [place] [facility] [address], [place], [address], 07/04/2023 20:45:40 07/04/20 23 07/04/2023 URINA LYSIS , COMPL ETE color YELLOW yellow normal Not Available [facility] [place] [facility] [address], [place], [address], 07/04/2023 20:45:41 07/04/20 23 07/04/2023 URINA LYSIS , COMPL ETE appearance CLEAR clear normal Not Available [facility] [place] [facility] [address], [place], [address], 07/04/2023 20:45:41 07/04/20 23 07/04/2023 URINA LYSIS , COMPL ETE specific gravity 1.014 1.001- 1.035 normal Not Available [facility] [place] [facility] [address], [place], [address], 07/04/2023 20:45:41 07/04/2007/04/2023 URINA LYSIS , COMPL ETE pH 6.0 5.0-8. 0 normal Not Available [facility] [place] [facility] [address], [place], [address], 07/04/2023 20:45:41 07/04/20 23 07/04/2023 URINA LYSIS , COMPL ETE glucose NEGATI VE negati ve normal Not Available [facility] [place] [facility] [address], [place], [address], 07/04/2023 20:45:41 07/04/20 23 07/04/2023 URINA LYSIS , COMPL ETE bilirubin NEGATI VE negati ve normal Not Available [facility] [place] [facility] [address], [place], [address], 07/04/2023 20:45:41 07/04/2007/04/2023 URINA LYSIS , COMPL ETE ketones NEGATI VE negati ve normal Not Available [facility] [place] [facility] [address], [place], [address], 07/04/2023 20:45:41 07/04/2007/04/2023 URINA LYSIS , COMPL ETE occult blood NEGATI VE negati ve normal Not Available [facility] [place] [facility] [address], [place], [address], 07/04/2023 20:45:41 07/04/2007/04/2023 URINA LYSIS , COMPL ETE protein NEGATI VE negati ve normal Not Available [facility] [place] [facility] [address], [place], [address], 07/04/2023 20:45:41 07/04/20 23 07/04/2023 URINA LYSIS , COMPL ETE nitrite NEGATI VE negati ve normal Not Available [facility] [place] [facility] 200 [address], [place], [address], 07/04/2023 20:45:41 07/04/20 23 07/04/2023 URINA LYSIS , COMPL ETE leukocyte esterase NEGATI VE negati ve normal Not Available [facility] [place] [facility] [address], [place], [address], 07/04/2023 20:45:41 07/04/2007/04/2023 URINA LYSIS , COMPL ETE WBC NONE SEEN /hpf 0-5 normal Not Available [facility] [address], [place], [address], 07/04/2023 20:45:41 07/04/20 23 07/04/2023 URINA LYSIS , COMPL ETE RBC NONE SEEN /hpf 0-2 normal Not Available [facility] [address], [place], [address], 07/04/2023 20:45:41 07/04/20 23 07/04/2023 URINA LYSIS , COMPL ETE squamous epithelial cells NONE SEEN /hpf < or = 5 normal Not Available [facility] [place] [facility] [address], [place], [address], 07/04/2023 20:45:41 07/04/20 23 07/04/2023 URINA LYSIS , COMPL ETE bacteria NONE SEEN /hpf none seen normal Not Available [facility] [address], [place], [address], 07/04/2023 20:45:41 07/04/20 23 07/04/2023 URINA LYSIS , COMPL ETE hyaline cast NONE SEEN /lpf none seen normal Not Available [facility] [place] [facility] [address], [place], [address], 07/04/2023 20:45:41 07/04/2007/04/2023 URINA LYSIS , COMPL ETE note This urine was stephanie zed for the prese nce of WBC, RBC, bacte anna, casts , and other forme d eleme nts. Only those eleme nts seen were repor bernice. Not Available [facility] [place] [facility] [address], [place], [address], 07/04/2023 20:45:41 07/04/2007/04/2023 LIPID PNL W/RFL DLDL cholesterol, total 92 mg/dL <200 normal Not Available [facility] [place] [facility] [address], [place], [address], 07/04/2023 22:59:21 07/04/20 23 07/04/2023 LIPID PNL W/RFL DLDL HDL cholesterol 40 mg/dL > or = 40 normal Not Available [facility] [place] [facility] [address], [place], [address], 07/04/2023 22:59:21 07/04/20 23 07/04/2023 LIPID PNL W/RFL DLDL triglyceride s 52 mg/dL <150 normal Not Available [facility] [address], [place], [address], 07/04/2023 22:59:21 07/04/2007/04/2023 LIPID PNL W/RFL DLDL [...] 310(1 9): 2061- 2068 (http ://ed ucati on.[employer] arslanImaginova. com/f aq/FA Q164) Not Available [facility] [place] [facility] [address], [place], [address], 07/04/2023 22:59:21 07/04/2007/04/2023 LIPID PNL W/RFL DLDL chol/HDLC ratio 2.3 (calc ) <5.0 normal Not Available [facility] [place] [facility] [address], [place], [address], 07/04/2023 22:59:21 07/04/20 23 07/04/2023 LIPID PNL W/RFL DLDL non HDL cholesterol 52 mg/dL _(blaise c) <130 normal For patie nts with diabe ok plus 1 major ASCVD risk facto r, treat ing to a non-H DL-C goal of <100 mg/dL (LDL- C of <70 mg/dL ) is consi dered a thera peuti c optio n. Not Available [facility] [place] [facility] [address], [place], [address], 07/04/2023 22:59:21 07/04/20 23 07/04/2023 BASIC MET PNL glucose 111 mg/dL 65-99 high Fasti ng refer ence inter jackelyn For someo ne witho ut known diabe ok, a gluco se value betwe en 100 and 125 mg/dL is consi stent with predi abete s and shoul d be confi rmed with a follo w-up test. Not Available [facility] [place] [facility] [address], [place], [address], 07/04/2023 22:59:22 07/04/20 23 07/04/2023 BASIC MET PNL urea nitrogen (BUN) 7 mg/dL 7-25 normal Not Available [facility] [place] [facility] [address], [place], [address], 07/04/2023 22:59:22 07/04/20 23 07/04/2023 BASIC MET PNL creatinine 0.66 mg/dL 0.70-1 .35 low Not Available [facility] [place] [facility] [address], [place], [address], 07/04/2023 22:59:22 07/04/20 23 07/04/2023 BASIC MET PNL eGFR 104 mL/mi n/1.7 3m2 > or = 60 normal Not Available [facility] [place] [facility] [address], [place], [address], 07/04/2023 22:59:22 07/04/20 23 07/04/2023 BASIC MET PNL BUN/creatini ne ratio 11 (calc ) 6-22 normal Not Available [facility] [place] [facility] [address], [place], [address], 07/04/2023 22:59:22 07/04/20 23 07/04/2023 BASIC MET PNL sodium 135 mmol/ L 135-14 6 normal Not Available [facility] [address], [place], [address], 07/04/2023 22:59:22 07/04/20 23 07/04/2023 BASIC MET PNL potassium 4.2 mmol/ L 3.5-5. 3 normal Not Available [facility] [address], [place], [address], 07/04/2023 22:59:22 07/04/20 23 07/04/2023 BASIC MET PNL chloride 101 mmol/ L 98-110 normal Not Available [facility] [place] [facility] [address], [place], [address], 07/04/2023 22:59:22 07/04/20 23 07/04/2023 BASIC MET PNL carbon dioxide 27 mmol/ L 20-32 normal Not Available [facility] [place] [facility] [address], [place], [address], 07/04/2023 22:59:22 07/04/20 23 07/04/2023 BASIC MET PNL calcium 9.5 mg/dL 8.6-10 .3 normal Not Available [facility] [place] [facility] [address], [place], [address], 07/04/2023 22:59:22 07/04/20 23 07/04/2023 HEMOG LOBIN [...] for child melissa. Not Available [facility] [place] [facility] [address], [place], [address], 07/04/2023 22:59:23 07/04/20 23 07/04/2023 HEPAT IC FUNCT ION PNL protein, total 6.7 g/dL 6.1-8. 1 normal Not Available [facility] [address], [place], [address], 07/04/2023 22:59:24 07/04/20 23 07/04/2023 HEPAT IC FUNCT ION PNL albumin 4.2 g/dL 3.6-5. 1 normal Not Available [facility] [address], [place], [address], 07/04/2023 22:59:24 07/04/20 23 07/04/2023 HEPAT IC FUNCT ION PNL globulin 2.5 g/dL_ (calc ) 1.9-3. 7 normal Not Available [facility] [address], [place], [address], 07/04/2023 22:59:24 07/04/20 23 07/04/2023 HEPAT IC FUNCT ION PNL albumin/glob ulin ratio 1.7 (calc ) 1.0-2. 5 normal Not Available [facility] [address], [place], [address], 07/04/2023 22:59:24 07/04/20 23 07/04/2023 HEPAT IC FUNCT ION PNL bilirubin, total 0.5 mg/dL 0.2-1. 2 normal Not Available [facility] [address], [place], [address], 07/04/2023 22:59:24 07/04/20 23 07/04/2023 HEPAT IC FUNCT ION PNL bilirubin, direct 0.1 mg/dL 0.0-0. 2 normal Not Available [facility] [address], [place], [address], 07/04/2023 22:59:24 07/04/20 23 07/04/2023 HEPAT IC FUNCT ION PNL bilirubin, indirect 0.4 mg/dL _(blaise c) 0.2-1. 2 normal Not Available [facility] [address], [place], [address], 07/04/2023 22:59:24 07/04/20 23 07/04/2023 HEPAT IC FUNCT ION PNL alkaline phosphatase 44 U/L 35-144 normal Not Available [facility] [address], [place], [address], 07/04/2023 22:59:24 07/04/20 23 07/04/2023 HEPAT IC FUNCT ION PNL AST 13 U/L 10-35 normal Not Available [facility] [address], [place], [address], 07/04/2023 22:59:24 07/04/20 23 07/04/2023 HEPAT IC FUNCT ION PNL ALT 8 U/L 9-46 low Not Available [facility] [address], [place], [address], 07/04/2023 22:59:24 07/04/20 23 07/04/2023 PSA, TOTAL PSA, total 4.99 NG/mL < or = 4.00 high The total PSA value from this assay syste m is stand ardiz ed again st the [facility] stand lise. The test resul t will [...] not be inter prete d as absol [place] evide nce of the prese nce or absen ce of disea se. Not Available [facility] [place] [facility] [address] [place], [place], [address], 07/04/2023 22:59:25 07/04/2007/06/2023 CULTU RE, UR ROUTI NE source: URINE, CLEAN CATCH Not Available [facility] [place] [facility] [address] [place], [place], [address], 07/06/2023 06:46:39 07/04/2007/06/2023 CULTU RE, UR ROUTI NE status: FINAL Not Available [facility] [place] [facility] [address] [place], [place], [address], 07/06/2023 06:46:39 07/04/2007/06/2023 CULTU RE, UR ROUTI [...] CULTUR E TRANSP ORT TUBE. Not Available [facility] [place] [facility] [address] [place], [place], [address], 07/06/2023 06:46:39 08/09/20 23 08/10/2023 PSA FREE \T\ TOTAL PSA, total 6.3 NG/mL < or = 4.0 high Not Available [facility] [place] [facility] [address] [place], [place], [address], 08/10/2023 14:35:53 08/09/20 23 08/10/2023 PSA FREE \T\ TOTAL PSA, free 0.6 NG/mL normal Not Available [facility] [address] [place], [place], [address], 08/10/2023 14:35:53 08/09/20 23 08/10/2023 PSA FREE [...] not be inter prete d as absol [place] evide nce of the prese nce or absen ce of disea se. Not Available [facility] [place] [facility] [address], [place], [address], 08/10/2023 14:35:53 09/15/2009/22/2023 FECAL IMMUN OCHEM fecal globin result: Not Detect ed Not Available [facility] [place] [facility] [address], [place], [address], 09/22/2023 16:08:28 09/20/20 23 09/20/2023 COMP META PNL glucose 182 mg/dL 65-99 high Fasti ng refer ence inter jackelyn For someo ne witho ut known diabe ok, a gluco se value >125 mg/dL indic ates that they may have diabe ok and this shoul d be confi rmed with a follo w-up test. Not Available [facility] [place] [facility] [address], [place], [address], 09/20/2023 20:01:30 09/20/20 23 09/20/2023 COMP META PNL urea nitrogen (BUN) 13 mg/dL 7-25 normal Not Available [facility] [place] [facility] [address], [place], [address], 09/20/2023 20:01:30 09/20/20 23 09/20/2023 COMP META PNL creatinine 0.65 mg/dL 0.70-1 .35 low Not Available [facility] [place] [facility] [address], [place], [address], 09/20/2023 20:01:30 09/20/20 23 09/20/2023 COMP META PNL eGFR 105 mL/mi n/1.7 3m2 > or = 60 normal Not Available [facility] [address], [place], [address], 09/20/2023 20:01:30 09/20/20 23 09/20/2023 COMP META PNL BUN/creatini ne ratio 20 (calc ) 6-22 normal Not Available [facility] [address], [place], [address], 09/20/2023 20:01:30 09/20/20 23 09/20/2023 COMP META PNL sodium 137 mmol/ L 135-14 6 normal Not Available [facility] [address], [place], [address], 09/20/2023 20:01:30 09/20/20 23 09/20/2023 COMP META PNL potassium 4.4 mmol/ L 3.5-5. 3 normal Not Available [facility] [address], [place], [address], 09/20/2023 20:01:30 09/20/20 23 09/20/2023 COMP META PNL chloride 103 mmol/ L 98-110 normal Not Available [facility] [address], [place], [address], 09/20/2023 20:01:30 09/20/20 23 09/20/2023 COMP META PNL carbon dioxide 28 mmol/ L 20-32 normal Not Available [facility] [address], [place], [address], 09/20/2023 20:01:30 09/20/20 23 09/20/2023 COMP META PNL calcium 9.0 mg/dL 8.6-10 .3 normal Not Available [facility] [address], [place], [address], 09/20/2023 20:01:30 09/20/20 23 09/20/2023 COMP META PNL protein, total 7.1 g/dL 6.1-8. 1 normal Not Available [facility] [address], [place], [address], 09/20/2023 20:01:30 09/20/20 23 09/20/2023 COMP META PNL albumin 4.2 g/dL 3.6-5. 1 normal Not Available [facility] [address], [place], [address], 09/20/2023 20:01:30 09/20/20 23 09/20/2023 COMP META PNL globulin 2.9 g/dL_ (calc ) 1.9-3. 7 normal Not Available [facility] [address], [place], [address], 09/20/2023 20:01:30 09/20/20 23 09/20/2023 COMP META PNL albumin/glob ulin ratio 1.4 (calc ) 1.0-2. 5 normal Not Available [facility] [address], [place], [address], 09/20/2023 20:01:30 09/20/20 23 09/20/2023 COMP META PNL bilirubin, total 0.5 mg/dL 0.2-1. 2 normal Not Available [facility] [address], [place], [address], 09/20/2023 20:01:30 09/20/20 23 09/20/2023 COMP META PNL alkaline phosphatase 52 U/L 35-144 normal Not Available [facility] [employer] [facility] [place] [facility] [address], [place], [address], 09/20/2023 20:01:30 09/20/20 23 09/20/2023 COMP META PNL AST 13 U/L 10-35 normal Not Available [facility] [address], [place], [address], 09/20/2023 20:01:30 09/20/20 23 09/20/2023 COMP META PNL ALT 6 U/L 9-46 low Not Available [facility] [address], [place], [address], 09/20/2023 20:01:30 03/13/20 24 03/13/2024 HbA1c (hemo globi n A1c), blood HbA1c 5.9 Not Available In-House Order For Bebeto Provider For Internal Use Only, [id number] 03/13/2024 09:16:36 08/24/20 23 08/24/2023 , beth majano [facility] al Stewca d [address] [address] Patien t Name: Mike Dockery [facility] Medica l Record #: [id number] Addres s: [address] Accoun t#: [id number] [place] ip: [place] [address]: Radha Sherwood MD Phone: Insura nce: [employer] re /Ag e/Sex: 1959/6 5/M Self Pay Admit/ Reg Date: Orderi janna Dr: Radha Sherwood MD Locati on: DI.USM H/ PCP: Radha Sherwood MD Date of Servic e: Order (s): US retrop eriton eal comp CPT Code: 64177 Report Number : [id number] Reason for Exam: BPH RENAL ULTRAS OUND: Indica tion: BPH. Diffic ulty voidin g. The kidney s are normal in echote xture and size withou t eviden ce of hydron ephros is, mass or calcul us. The right kidney measur es 9.1 and left 9.[address] [facility] dim[facility] ion. Cursor y [...] PM158 cc: GERMÁN* Radha Sherwood MD [email or web address] [facility] ? Rad [address], [place], [address] 10/23/2023 07:28:22 03/15/20 24 03/15/2024 MRI, pitui tary, w/wo contr ast [facility] [address] [place] [address] [phone] Patien t Name: Mike Dockery [facility] Record #: [id number] Addres s: [address] Accoun t#: [id number] City/[place]/Z ip: [place] [address]: Adri Kaplan er PAC Phone: Insura nce: [employer] re /Ag e/Sex: 1959/ 5/M Self Pay Admit/ Reg Date: Carlos saldivar Dr: Adri Kaplan er, PAC Locati on: DI.MRI MH/ PCP: Radha Sherwood MD Date of Servic e: Order (s): MR kenyon te wo/w contra st CPT Code: 77557 Report Number : [id number] Reason for Exam: RAISED PSA [...] and ADC hypoin tensit y at right multi township assessor ior medial periph eral zone at mid [...] and ADC hypoin tensit y at right multi township assessor ior medial periph eral zone at mid gland, suspic ious (PI RADS 4). Dictat ed By: Carine Angel MD 2321 Signed By: Roya Angel i, MD 2339 TD/TT: 2321 Tech: [facility] 04 cc: GERMÁN; [email or web address] * Adri Kaplan er, PAC; Radha Sherwood MD [email or web address] [facility] ? Rad [address], [place], [address] 03/19/2024 09:25:20 Result Notes None recorded. Problems Name Problem SNOMED Code Status Onset Date Resolution Date Notes Provider Name and Address Organization Details Recorded Time Osteoarthri tis of right knee joint 0937415782906 00 [facility] [place] [facility] 08:[facility]07 History of total knee arthroplast y 4459172350497 Active [place] ladan, [facility] 2 08:45:07 Essential hypertensio n 11904314 Active 2021 RADHA SHERWOOD MD [address] [place], [address], [facility] 2 18:24:38 Migraine 72425835 Active 2021 RADHA SHERWOOD MD [address] [place], [address], [facility] 2 18:24:41 Type 2 diabetes mellitus without complicatio n 098448405 Active 2021 RADHA SHERWOOD MD [address] [place], [address], [facility] 2 18:24:42 Problem Notes None recorded. Procedures Surgical History Date Name Laterality Status Provider Name and Address Organization Details Recorded Time 3 Medicare Wellness CPT Code, subsequent completed [place] [facility] 09/13/2023 07:38:48 no previous surgery completed Fatimah Goodwin [facility] 07/03/2018 09:50:58 Imaging Results Imaging Date Name Status LastModified by Organiz ation Details LastModified Time 08/24/2023 US, pelvis completed [email or web address] ? Rad [address], [place], [address] 10/23/2023 07:28:22 03/15/2024 MRI, pituitary, w/wo contrast completed [employer] [facility] ? Rad [address], [place], [address] 03/19/2024 09:25:20 Procedure Notes None recorded. Medical [...] Updated DateTime 3 177.8 cm 23.8 kg/m2 44861.3 3 g 82 /min 98 % 98 % 126 mm[Hg] 70 mm[Hg] Adelina Siegel MA [facility] 3 10:03:03 Date Recorded Body height Body mass index (BMI) Body weight Body temperature Heart rate Oxygen saturation Oxygen saturation in Arterial blood by Pulse oximetry Systolic blood pressure Diastolic blood pressure Provider Name and Address Organization Details Last Updated DateTime 3 177.8 cm 23.4 kg/m2 68594.9 9 g 98.3 [degF] 79 /min 97 % 97 % 148 mm[Hg] 68 mm[Hg] Fatimah Yuan [facility] 3 08:11:01 Date Recorded Body height Body mass index (BMI) Body weight Heart rate Oxygen saturation Oxygen saturation in Arterial blood by Pulse oximetry Systolic blood pressure Diastolic blood pressure Provider Name and Address Organization Details Last Updated DateTime 3 177.8 cm 21.8 kg/m2 69680.0 4 g 82 /min 97 % 97 % 128 mm[Hg] 74 mm[Hg] Adelina Siegel MA [facility] 3 10:48:10 Date Recorded Body height Body mass index (BMI) Body weight Heart rate Oxygen saturation Oxygen saturation in Arterial blood by Pulse oximetry Systolic blood pressure Diastolic blood pressure Provider Name and Address Organization Details Last Updated DateTime 3 177.8 cm 21.4 kg/m2 36279.2 6 g 72 /min 98 % 98 % 124 mm[Hg] 78 mm[Hg] [place] [facility] 3 07:46:34 Date Recorded Body height Body mass index (BMI) Body weight Heart rate Oxygen saturation Oxygen saturation in Arterial blood by Pulse oximetry Systolic blood pressure Diastolic blood pressure Provider Name and Address Organization Details Last Updated DateTime 4 177.8 cm 22.1 kg/m2 07298.2 2 g 78 /min 97 % 97 % 128 mm[Hg] 86 mm[Hg] Adelina Siegel MA [facility] 4 09:22:33 Social History Question Answer Notes LastModified by Organizat ion Details LastModified Time Tobacco Smoking Status Never Smoker Fatimah Christa pickering [facility] 07/03/2018 09:48:48 What Is Your Level Of Alcohol Consumption? None Information not available 07/03/2018 Auto Related Injury? No Information not available 07/03/2018 What Is Your Level Of Caffeine Consumption? None Information not available 07/03/2018 Are You Currently Employed? Yes Information not available 07/03/2018 What Is Your Occupation? [employer] Insurance Information not available 07/03/2018 Which Of Your Hands Is Dominant? Bilateral Information not available 07/03/2018 Live Alone Or With Others? With Others Information not available 07/03/2018 Marital Status Informatio n not available 07/03/2018 What Was The Date Of Your Most Recent Tobacco Screening? 09/13/2023 [email or web address] Information not available 09/13/2023 What Types Of Sporting Activities Do You Participate In? [place] Information not available 07/03/2018 Has Tobacco Cessation Counseling Been Provided? No [email or web address] Information not available 06/08/2022 Work Related Injury? [...] Details Recorded Time Pneumococcal conjugate PCV20, polysaccharide [id number] conjugate, adjuvant, PF 2 completed RADHA SHERWOOD MD [address] [place] [address], [phone], [facility] 06/09/2022 08:22:17 COVID-19, mRNA, LNP-S, PF, 100 mcg/0.5mL dose or 50 mcg/0.25mL dose 1 completed Sejal [place] null, [facility] 02/17/2022 09:49:45 COVID-19, mRNA, LNP-S, PF, 100 mcg/0.5mL dose or 50 mcg/0.25mL dose 2 completed Sejal [place] null, [facility] 02/17/2022 09:49:44 zoster recombinant 0 completed Sejal [place] null, [facility] 02/17/2022 09:49:45 Influenza, split virus, quadrivalent, PF 0 completed Sejal [place] null, [facility] 02/17/2022 09:49:45 zoster recombinant 0 completed Sejal [place] null, [facility] 02/17/2022 09:49:45 Influenza, split virus, quadrivalent, PF 1 completed Sejal [place] null, [facility] 02/17/2022 09:49:45 Tdap 0 completed Sejal [place] null, [facility] 02/17/2022 09:49:45 COVID-19, mRNA, LNP-S, PF, 100 mcg/0.5mL dose or 50 mcg/0.25mL dose 1 completed Sejal Lan [facility], [facility] 02/17/2022 09:49:45 Influenza, MDCK, quadrivalent, PF 2 completed [place], [facility] 09/13/2023 07:38:53 COVID-19, mRNA, LNP-S, bivalent, PF, 50 mcg/0.5 mL or 25mcg/0.25 mL dose 2 [facility] 09/13/2023 07:38:53 Influenza, adjuvanted, quadrivalent, PF 3 completed [place], [facility] 03/13/2024 09:16:47 [facility]ap 3 [facility] 03/13/[facility]24 09:16:47 Past Encounters Encounter ID Performer Location Encounter Start Date Encounter Closed Date Diagnosis/Indication Diagnosis SNOMED-CT Code Diagnosis ICD10 Code Diagnosis Note [id number] [place] BEEBE MD [facility] [address] ORTHOPEDI CS [address] [place] [address] 07/03/2018 09:38:46 07/03/2018 10:44:08 Osteoarthritis of knee 242739596 M17.11 [id number] NIKKIE SUMNER MD [facility] [address] [place] [address] 12/17/2020 10:27:30 12/17/2020 11:40:48 Osteoarthritis of knee 489848062 M17.9 [id number] NIKKIE SUMNER MD [facility] [address] [place] [address] 02/18/2021 09:24:49 02/18/2021 10:17:37 Osteoarthritis of right knee joint 0748419321 54608 M17.11 [id number] NIKKIE SUMNER MD [facility] [address] [address] 04/15/2021 09:35:31 04/15/2021 10:19:59 Postoperative care 728571739 Z48.89 [id number] NIKKIE SUMNER MD [facility] [address] [address] 06/24/2021 08:38:00 06/24/2021 09:03:11 Knee joint prosthesis present 6998749395 02 Z96.659 [id number] NIKKIE SUMNER MD [facility] [address] [address] 08/24/2021 12:18:31 08/24/2021 13:15:37 History of right total knee replacement 1084804479 971589 Z96.651 [id number] RADHA SHERWOOD MD [facility] AT [address], [address] [place] [address] 02/10/2022 08:35:41 02/10/2022 10:01:40 Esotropia of left eye 4397017745 8939395 H50.00 has an eye exam coming up Type 2 emerson betes mellitus without complication 534898260 E11.9 Constipation 45017935 K5 9.00 Essential hypertension 72234661 I10 Increased frequency of urination 802213847 R35.0 Migraine with aura 52845 06 G43.109 Vertigo 921795106 R42 meclizine prn s/p PT Pain of bi lateral knee regions 9810277715 12995 M25.562 [id number] RADHA SHERWOOD MD [facility] AT [address] [address] 03/18/2022 12:49:45 03/18/2022 13:58:44 Osteoporosis 26049825 M81.0 see plan below Ophthalmic examination and evaluation 65318284 Z01.00 need records from [facility] Migraine 30470505 G43.90 9 MRI was reviewed and was negative -now needs neurology follow up for presumed migraine phenomena Type 2 emerson betes mellitus without complication 292474708 E11.9 A1c depicts decent control -continue with current medication s Essential hypertension 88602211 I10 BP is well controlled on current medication s Anemia 003059210 D64.9 proceed with colonoscop y-a referral was made to a gastroente rologist [id number] RADHA SHERWOOD MD [facility] AT [address] [address] 04/23/2022 13:47:21 04/23/2022 14:31:40 Essential hypertension 59940563 I10 BP medication s are to be adjusted to achieve control on current medication s Migraine 66115175 G43.90 9 MRI was reviewed and was negative -now needs neurology follow up for presumed migraine phenomena- this aspect of his care has been postponed because of scheduling problems at the specialist s office Type 2 emerson betes mellitus without complication 043611084 E11.9 A1c depicts decent control -continue with current medication s not due for A1c till next month [id number] RADHA SHERWOOD MD [facility] AT [address], [address] [address] 06/08/2022 12:50:01 06/08/2022 14:10:35 Migraine 27805236 G43.909 MRI was reviewed and was negative -now needs neurology follow up for presumed migraine phenomena- this aspect of his care has been postponed again because of scheduling problems at the specialist s office .If his current visit is postponed again I shall direct him elsewhere Type 2 emerson betes mellitus without complication 274597167 E11.9 A1c depicts decent control -continue with current medication s not due for A1c till next month Essential hypertension 69549723 I10 BP medication s are controllin g his blood pressure well Mixed hyperlipidemia 267 750520 E78.2 stable on the statin Administra tion of pneumococcal vaccine 84145578 Z23 [id number] NIKKIE SUMNER MD [facility] 3 [facility] [address] [place] [address] 07/08/2022 11:07:20 07/08/2022 12:27:04 Medial epicondylitis of left elbow joint 7115234570 68300 M77.02 Tendinitis of left wrist region 5387980199 3488954 M67.834 [id number] RADHA SHERWOOD MD [facility] AT [address] [place] [address] 01/06/2023 09:51:07 01/06/2023 10:38:08 Type 2 diabetes mellitus without complication 908840297 E11.9 A1c depicts decent control -continue with current medication s not due for A1c till next month Headache 95995423 R51.9 currently on tramadol and gabapentin for the headache prescribed by the neurologis t in [place] and over here as well Vertigo 508597024 R42 meclizine prn ? therapy Cobalamin deficiency 190 092727 E53.8 reportedly low Chronic ne ck pain for greater than 3 months 0742396201 84915 M54.2 Essential hypertension 35158260 I10 BP medication s are controllin g his blood pressure well Vitamin D deficiency 347 82530 E55.9 [id number] ARLET HI MD [facility] [address], [address] [place] [address] 02/02/2023 07:54:39 02/02/2023 08:35:41 Anemia 845281614 D64.9 No gross or obvious GI blood loss. We will schedule EGD and colonoscop y Constipation 10467188 K5 9.00 Chronic constipati on despite stool softener and Metamucil. . Daily dose of MiraLax and increase fluids encouraged [id number] RADHA SHERWOOD MD [facility] AT [address] [place] [address] 06/27/2023 10:13:44 06/27/2023 12:03:10 Essential hypertension 11051371 I10 BP medication s are controllin g his blood pressure well Migraine 71288232 G43.90 9 MRI was reviewed and was negative -Has seen neurology states he would like to have a second opinion Benign pro static hyperplasia with outflow obstruction 446844093 N13.8 enlarged prostate on exam Lower urin elton tract obstructive syndrome 05785226 N13.9 Type 2 emerson betes mellitus without complication 476848193 E11.9 A1c depicts decent control -continue with current medication s not due for A1c till next month Urinary tr act infectious disease 32258630 N39.0 Acute prostatitis 466466 02 N41.0 presumptiv e treatement for this and a possible UTI [id number] RADHA SHERWOOD MD [facility] AT [address], [address] [address] 09/13/2023 07:36:00 09/13/2023 08:53:48 Adult health examination 306318395 Z00.00 I reviewed and updated the patient's [...] and nutrition} }. Unintentio nal weight loss 085915155 R63.4 more than 30 pound weight loss Occipital headache 09132 7 R51.9 stable has been prescribed gabapentin -but he doesn't want it any more Dizziness 701248504 R42 chronic has been prescribed meclizine Screening for malignant neoplasm of colon 250668455 Z12.11 Vitamin D deficiency 347 41998 E55.9 Chronic constipation 236 742859 K59.09 [id number] RADHA SHERWOOD MD [facility] AT [address], [address] [place] [address] 03/13/2024 09:08:03 03/13/2024 10:30:02 Type 2 diabetes mellitus without complication 604922071 E11.9 A1c depicts decent control -continue with current medication s Essential hypertension 29747573 I10 BP medication s are controllin g his blood pressure well Prostate s pecific antigen above reference range 299928925 R97.20 has had an MRI -he awaits urology evaluation Mixed hyperlipidemia 267 392778 E78.2 stable on the statin Health Concerns Section Related Observation LastModified by Organization Detai ls LastModified Time None Recorded Concern Status LastModified by Organization Details LastModified Time None Recorded Advance Directives Directive None Recorded Payers Encounter Date Sequence Insurance Name Policy Number Policy Echeverria Covered Member ID Echeverria Member ID Guarantor Name 01/06/2023 2 [place] Baldevbhai S Dockery [id number] Baldevbhai Dockery 02/02/2023 2 [place] [facility] (MEDICAID) Baldevbhai S Dockery [id number] Baldevbhai Dockery 06/27/[address] [facility] (MEDICARE REPLACEMENT/ ADVANTAGE - HMO) Baldevbhai S Dockery [id number] Baldevbhai Dockery 09/13/[address] [facility] (MEDICARE REPLACEMENT/ ADVANTAGE - HMO) Baldevbhai S Dockery [id number] Baldevbhai Dockery 03/13/[address] [facility] [place] ([place] H[place]) Baldevbhai S Dockery [id number] Baldevbhai Dockery Notes Date Note Type Note [...] side effects from medication RADHA SHERWOOD MD [address] [place] [address], [phone], [facility] 01/06/2023 10:52:51 02/03/20 23 text/htm l This [...] cancerSH: Never smoked. NO alcohol. chews tobacco. Jordanen SUMIT ALANIZ NP [address] [place], [address], [facility] 02/02/2023 09:21:11 06/27/20 23 text/htm l Diabetes [...] to change his neurologist RADHA SHERWOOD MD [address] [place] [address], [phone], [facility] - [facility] - [facility] 06/27/2023 18:57:42 09/13/20 23 text/htm l [id number] bypatient.In general, would you say your health [...] Health Risk Assessment Form RADHA SHERWOOD MD [address] [place] [address], [phone], [facility] 09/13/2023 08:43:27 03/13/20 24 text/htm l Diabetes [...] abnormal PSA s/p MRI RADHA SHERWOOD MD [address] [place] [address], [phone], [facility] 03/14/2024 03:17:41
== END 2025-02-01 16:11 | disposition home or self-care (01) ==
LOC: HO.HUSH 15:31
PROVIDERS: PCP Nurse Practitioner Family; Visit Provider Urology
DX: C61 Malignant neoplasm of prostate (principal)
CPT/HCPCS: 99214; G2211

== ENCOUNTER 2025-02-27 13:48 | Outpatient (AMB) | payer OTHER, SELFPAY ==
--- NOTE | 2025-02-27 13:50 | MHC.OFFVIS ---
Vital Signs 02/27/25 14:00 Height 5 ft 10 in Weight 156 lb BMI 22.4 BP 138/90 H Blood Pressure Location Lt brachial Position Sitting Pulse 72 Pulse Source Pulse Oximeter Pulse Oximetry (%) 97 Oxygen Delivery Method Room Air Intake Visit Reasons: constipation/colo screening Intake Note: NEW PATIENT for initial colo screening + constipation eval. CC; C.O. constipation intermittently w/o evidence of hemorrhoid. Pt denies any additional sx at this time. Medical Doctor Md/Medical Director Required: No Accompanied by: Spouse Allergies No Known Allergies Allergy (Verified 02/27/25 13:50) HPI HPI constipation/colo screening: Details: 64 year old? male with past medical history of iron deficiency anemia, leukopenia, constipation, anxiety, nocturia, arthritis, hypertension, diabetes is here today for pre colonoscopy screening.? Patient was sent to us by his PCP.? This is his first colonoscopy screening.? Patient denies any gastrointestinal symptoms in the past or at present.? Denies any personal or family history of gastrointestinal disease, colon polyps, or CRC.? Denies history of difficulty with sedation or anesthesia in the past.? Negative for history of sleep apnea.? Denies any history of cardiac, renal, pulmonary, or hepatic disease.?? No history of infectious? diseases like hepatitis A, B, C, HIV or tuberculosis.? Patient is not on any anticoagulation COUNT INCLUDES [facility] Medical History HTN (hypertension) Arthritis Anemia Diabetes Memory loss Generalized headaches Dizziness Frequency of urination Enlarged prostate Pain in lower back High cholesterol Surgical History Knee joint replacement status Family History Father Asthma High blood pressure Diabetes Social History Housing: House Are you a primary behavioral health care manager to a significant other at home: No Do you presently have visiting nurse or other home services: No Comment: walker for occasional dizziness, no falls. Patient Tobacco Use Status: Former Tobacco user Tobacco use type: Cigarette Years Smoked: 5 e-Cigarette/Vaping Use: Never Used service: No Current occupational status: retired Current occupational exposures/hazards: No Cognitive needs: No Hearing needs: No Vision needs: Yes Review of Systems Const Denies weight gain and Denies weight loss ENT Reports no additional complaints, Denies dysphagia and Denies odynophagia Card Reports no additional complaints Resp Reports no additional complaints GI Denies abdominal pain, Denies belching, Denies melena, Denies bloating, Denies change in bowel habits, Reports constipation, Denies dysphagia, Denies excessive flatus, Denies dyspepsia, Denies heartburn, Denies diarrhea, Denies loose stools, Denies nausea, Denies odynophagia and Denies vomiting Reports no additional complaints Musc Reports no additional complaints Neuro Reports no additional complaints Psych Reports no additional complaints Endo Reports no additional complaints Physical Exam Vital Signs: Last Vital Signs Pulse 72 02/27/25 14:00 BP 138/90 H 02/27/25 14:00 Pulse Ox 97 02/27/25 14:00 Oxygen Delivery Method Room Air 02/27/25 14:00 BMI result Body Mass Index 22.4 Const General: healthy appearing, no acute distress and well developed Nutritional Appearance: well nourished Orientation/consciousness: patient oriented x3 Resp Effort & Inspection: normal respiratory effort, able to speak in complete sentences, no tracheal deviation and symmetric chest movement Auscultation: clear to auscultation bilaterally Cardio Rate: regular rate GI Inspection: Yes normal to inspection and No distended Palpation (GI): Soft to palpation, not firm, nontender and No hepatosplenomegaly present Auscultation: normal bowel sounds General: Yes no CVA tenderness Back/Spine/Pelvis Back: no CVA tenderness Skin General skin exam: elasticity normal, turgor normal and dry skin Neuro General: patient oriented x3 Psych Appearance: grossly normal Mental Status: mental status grossly normal Assessment & Plan Assessment & Plan (1) Colon cancer screening: Code(s): Z12.11 - Encounter for screening for malignant neoplasm of colon Category: Medical Plan Patient denies any GI, cardiac or respiratory symptoms.? However patient does report to be constipated. He will start taking Dulcolax daily. Increase fluid intake and activity to promote better bowel motility. Denies any issues with anesthesia in the past.? Denies any history of sleep apnea.? No history infectious diseases in the past or present.? Not on any anticoagulation therapy.? No family or personal history of colon cancer or polyps.? Patient denies melena, hematochezia, unintentional weight loss or ribbon like stools.? Discussed at length the pre-procedure,? prep, diet & medications as well as what to expect prior, during and after the procedure.?? Stressed the importance of good bowel prep.? Recommended the use of Vaseline or Calmoseptine OTC & baby wipes with bowel movements to promote comfort.? ?Patient verbalizes understanding and agrees to plan of care.? He was given the opportunity to ask questions and all questions answered.? We will see him after the procedure.? Medications: New bisacodyl 10 mg (2 x 5 mg) PO BEDTIME 60 tabs 3RF polyethylene glycol 3350 (Miralax) As directed by gastro[facility]ology department at [facility] 238 grams PO ONCE 238 grams 0RF Z12.11 - Encounter for screening for malignant neoplasm of colon Coding Level of Care Code New Pt Level 3 (04597) Diagnoses Colon cancer screening Z12.11 Time Spent (min) 40 Comment 30 minutes spent with patient and additional 10 minutes spent reviewing his records
[2025-02-27 14:00] VITALS: BP 138/90; PULSE 72; O2SAT 97; BMI 22.4
--- OUTSIDE RECORDS SUMMARY | 2025-02-27 14:46 | XMS_ITS ---
Author Organization [facility] [address] [place] [address] Location Address [address] [place] [address] Care Team Providers Care Transmission Rebuilder Name Role Phone Ira NEGRON, Davis Primary Care Provider Naga SALAS, Talita Orozco SOCIAL HISTORY Sex Assigned At : Social History Observation Description Sex Assigned At Male Encounters Encounter Location Date Provider Diagnosis [facility] [address] [place] [address] [place] [phone] 10/25/2023 Talita SALAS PLAN OF TREATMENT No Information Progress Notes * GEORGIE COREASAIDOB: [birth year] (64 yo M)Acc No.[id number]:10/25/2023 Patient:??FARHAD COREAS Provider:??SEAN Vazquez :1960?Age:63 Y?Sex:Ma le Date:10/25/2023 Address:[address] [place] [address] Pcp:Davis Roth MD Subjective: * Chief Complaints: * ? * Medical History:?? Objective: Assessment: Plan: * Treatment: * Billing Information: * Visit Code:?? * Procedure Codes:?? * Sign off status: Pending * Provider:??SEAN Vazquez Date:??
== END 2025-02-27 14:23 | disposition home or self-care (01) ==
LOC: HO.HGI 13:49
PROVIDERS: PCP Nurse Practitioner Family; Visit Provider Nurse Practitioner Family
DX: Z01.818 Encounter for other preprocedural examination (principal); Z12.11 Encounter for screening for malignant neoplasm of colon
CPT/HCPCS: 99024

== ENCOUNTER → 2025-02-27 13:48 | Outpatient (BNVA) | payer OTHER, SELFPAY | PROVIDERS: PCP Nurse Practitioner Family; Visit Provider Nurse Practitioner Family | DX: Z01.818 Encounter for other preprocedural examination (principal); K59.00 Constipation, unspecified | CPT/HCPCS: 99212 ==

== ENCOUNTER 2025-03-06 10:00 | Outpatient (AMB) | payer OTHER, SELFPAY ==
--- NOTE | 2025-03-06 10:06 | MHC.OFFVIS ---
Intake Visit Reasons: 4M Follow up Intake Note: Patient is present for 4M F/U Urology Medication:ALFUZOSIN,TAMSULOSIN Antibiotic Allergy:NONE Blood Thinner:NONE Cake Froster Required: No Allergies No Known Allergies Allergy (Verified 03/06/25 10:07) HPI Comments Details: Miya is a pleasant good Gujarati speaking male. He is a patient of Dr. Chua. He is seen for the following urologic conditions - prostate cancer Here for follow-up Printed information provided with copy of biopsy and [facility] genetics Initiate active surveillance 4 month follow-up PSA Prostate cancer grade group 2 - 01/25 PSA 08/26 7.3 35 g prostate PT1c Vivian 3 + 4 Genetics - [facility] active surveillance Histologic type: Prostatic adenocarcinoma, acinar type Histologic grade: Vivian score: 7 (3+4) (c2.0) 6 (3+3) (E2.0 and C2.0) % of pattern 4: 12% % of pattern 5: 0 Grade group: 2 and 1 Tumor quantitation: Number cores positive: 4 Total number of cores: 22 % of tissue involved: 10% Periprostatic fat inv.: Not identified Seminal vesicle inv.: Not identified Perineural inv.: Not identified Lymphatic and/or vascular invasion: Not identified MRI 03/26 report notes a 1.0 X 1.1 cm focus of prominent T2 and ADC hypointensity at right posterior medical peripheral zone at mid gland, suspicious (MS-RADS 4) [facility] Medical History HTN (hypertension) Arthritis Anemia Diabetes Memory loss Generalized headaches Dizziness Frequency of urination Enlarged prostate Pain in lower back High cholesterol Surgical History Knee joint replacement status Family History Father Asthma High blood pressure Diabetes Social History Housing: House Are you a primary child care center assistant director to a significant other at home: No Do you presently have visiting nurse or other home services: No Comment: walker for occasional dizziness, no falls. Patient Tobacco Use Status: Former Tobacco user Tobacco use type: Cigarette Years Smoked: 5 e-Cigarette/Vaping Use: Never Used service: No Current occupational status: retired Current occupational exposures/hazards: No Cognitive needs: No Hearing needs: No Vision needs: Yes Review of Systems Const Denies chills and Denies fever(s) Card Reports no additional complaints and Denies syncope Resp Denies cough GI Denies abdominal pain and Denies heartburn Reports as per HPI and Denies change in libido Neuro Denies syncope Psych Denies change in libido Endo Denies change in libido Physical Exam Const General: cooperative, healthy appearing, comfortable and no acute distress Orientation/consciousness: patient oriented x3 HEENT Face and sinus: Yes normal facial exam Mouth: moist mucous membranes Neck Neck: Yes normal visual inspection, Yes full ROM and Yes trachea midline Chest Chest palpation & inspection: normal inspection of the chest Resp Effort & Inspection: normal respiratory effort, able to speak in complete sentences and no respiratory distress GI Inspection: Yes normal to inspection Back/Spine/Pelvis Cervical Spine: normal cervical lordosis Thoracic/Lumbar Spine: thoracic and lumbar spine normal to inspection Skin General skin exam: no rashes or lesions noted Neuro General: patient oriented x3, gait normal, tone normal and moves all extremities Extrem General: Yes normal to inspection and Yes capillary refill normal Assessment & Plan Assessment & Plan (1) Enlarged prostate: Code(s): N40.0 - Benign prostatic hyperplasia without lower urinary tract symptoms Category: Medical (2) Prostate cancer: Code(s): C61 - Malignant neoplasm of prostate Category: Medical Plan 4 month follow-up PSA office Orders: Orders Prostate Specific Antigen 4 Months C61 - Malignant neoplasm of prostate Medications: New dutasteride Take Tuesday, Tuesday, Tuesday 0.5 mg PO DAILY 90 days 90 caps 1RF C61 - Malignant neoplasm of prostate Patient Instructions: This note is constructed using voice recognition software. While every effort has been made to ensure accuracy deputy sheriff bailiff errors may have been included. Imaging studies, laboratory and physical exam results were discussed and reviewed in detail. No major barriers to patient understanding were identified. An opportunity to ask questions regarding the treatment plan was provided. All questions were answered. The patient expressed understanding and agreement with the above treatment plan. The patient is aware they should contact our office by phone for worsening of their current condition or the appearance of new urologic symptoms. Compliance is encouraged with any medications and followup testing that is ordered. It is a privilege to participate in the urologic care of your patient. If you have any questions or concerns regarding treatment for the above conditions, or other urologic issues, please do not hesitate to contact me. The office telephone contact is [phone]. Sincerely, Dr Ulices Barrera MD, [facility] - Urology Compassionate Specialist Care for the Genitourinary System Coding Level of Care Code Est Pt Level 3 (55884) Complex EM visit Add On G2211 Diagnoses Enlarged prostate N40.0 Prostate cancer C61
--- OUTSIDE RECORDS SUMMARY | 2025-03-06 10:36 | XMS_ITS ---
Author Organization [facility] [address] [place] [address] Location Address [address] [place] [phone] Care Team Providers Care Pharmacist In Charge Owner Name Role Phone Ira NEGRON, Davis Primary Care Provider Naga TALBOTP-C, Talita Orozco Social History Sex Assigned At : Social History Observation Description Sex Assigned At Male Encounters Encounter Location Date Provider Diagnosis [facility] [address] [place] [address] [place] [phone] 10/25/2023 Talita TALBOTP-C Plan Of Treatment No Information Progress Notes * GEORGIE COREASAIDOB: [birth year] (64 yo M)Acc No.[id number]:10/25/2023 Patient:FARHAD ROMAN Provider:?SEAN Vazquez :1960???Age:63 Y???Sex:Male Lucho e:10/25/2023 Address:[address] [place], [place] [id number] Pcp:Davis Roth MD Subjective: * Chief Complaints: * ??? * Medical History:? Objective: * Vitals:? Assessment: Plan: * Treatment: * Billing Information: * Visit Code:? * Procedure Codes:? * Electronic signature of Mayra ESTRADA-C ANTIONEP-C on 03/06/2025 at 10:36 AM EDT Sign off status: Pending * Provider:?SEAN Vazquez Date:?01/2 12/2023 Generated for Christina saldivar/Deedee/Morenita on:?03/06/2025 10:36 AM EDT
== END 2025-03-06 10:37 | disposition home or self-care (01) ==
LOC: HO.HUSH 10:01
PROVIDERS: PCP Nurse Practitioner Family; Visit Provider Urology
DX: N40.0 Benign prostatic hyperplasia without lower urinary tract symptoms (principal); C61 Malignant neoplasm of prostate
CPT/HCPCS: 99213; G2211

== ENCOUNTER → 2025-03-06 10:00 | Outpatient (BNVA) | payer OTHER, SELFPAY | PROVIDERS: PCP Nurse Practitioner Family; Visit Provider Urology | DX: N40.0 Benign prostatic hyperplasia without lower urinary tract symptoms (principal); C61 Malignant neoplasm of prostate | CPT/HCPCS: 99212 ==

== ENCOUNTER 2025-04-08 10:23 | Outpatient (REF) | payer OTHER, SELFPAY ==
--- OUTSIDE RECORDS SUMMARY | 2025-04-08 11:12 | XMS_ITS | Data Portability ---
Author Organization DAYNE Jolley MD , [facility] ER Address [address] [place] [address] Care Team Providers Care Director Of Income Tax Name Role Phone CHRISTA WILDER Primary Care Provider CHRISTA WILDER Referring Provider [phone] Assessment Encounter Date Assessment Date Assessment LastModified [...] Jolley, who formulated the plan of care. [id number] Not available 07/28/2016 08:35:34 08/10/2016 08/10/2016 Miya does have moderate right knee arthritis with again some improvement from a corticosteroid injection, but still some symptoms. We will send him to formal physical therapy and see him back in another couple of months. If he remains significantly symptomatic, hopefully we will be able to obtain approval for a series of hyaluronic acid injections. [id number] Not available 08/11/2016 07:59:45 10/12/2016 10/12/2016 [...] at some point be a knee arthroplasty. [id number] Not available 10/13/2016 07:50:54 01/11/2017 01/11/2017 [...] encounter was performed and dictated by Edson Chamebrs PA-C. This patient was also discussed with Dr. Jolley who formulated the plan of care. 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 [address] [place] [address] 02/17/2016 10:11:35 02/17/2016 10:53:17 Osteoarthritis of knee 122944844 M17.11 Chondromal acia of patella 32861232 M22.41 Knee joint effusion 2022 47819 M25.461 Knee pain 90002756 M25.5 61 [id number] MD SAMMY Teague M.D. [address] [address] 02/24/2016 09:07:43 02/24/2016 09:53:27 Osteoarthritis of knee 083065617 M17.11 [id number] MD SAMMY Teague M.D. 1 [facility] [employer],[address] [address] 06/22/2016 08:30:41 06/22/2016 09:18:14 Knee joint effusion 320367224 M25.461 Osteoarthr itis of knee 508349572 M17.11 Knee pain 06858759 M25.5 61 Chondromal acia of patella 05274054 M22.41 [id number] MD SAMMY Teague M.D. 1 [facility] [employer],[address] [address] 07/27/2016 08:18:56 07/27/2016 08:47:01 Osteoarthritis of knee 010319070 M17.11 Knee pain 61857335 M25.5 61 Chondromal acia of patella 43859024 M22.41 Knee joint effusion 2023 01232 M25.461 [id number] MD SAMMY Teague M.D. [address] [address] 08/10/2016 08:28:48 08/10/2016 08:43:09 Osteoarthritis of knee 444925722 M17.11 Knee pain 92268716 M25.5 61 [id number] MD SAMMY Teague M.D. [address] [address] 10/12/2016 08:30:46 10/12/2016 09:06:58 Osteoarthritis of knee 292509732 M17.11 Knee joint effusion 3 36612 M25.461 Knee pain 30704653 M25.5 61 [id number] MD SAMMY Teague M.D. 1 [facility] [employer],[address] [address] 01/11/2017 08:44:13 01/11/2017 09:10:26 Knee joint effusion 159810449 M25.461 Osteoarthr itis of knee 973469806 M17.11 Knee pain 33667253 M25.5 61 Chondromal acia of patella 58851907 M22.41 [id number] MD SAMMY Teague M.D. 1 [facility],[address] [place] [address] 06/21/2017 08:01:28 06/21/2017 08:21:03 Osteoarthritis of knee 695745759 M17.11 Knee pain 04079169 M25.5 61 Health Concerns Section Related Observation LastModified by Organization Detai ls LastModified Time None Recorded Concern Status LastModified by Organization Details LastModified Time None Recorded Advance Directives Directive None Recorded Payers Insurance Date Sequence Insurance Name Policy Number Policy Echeverria Covered Member ID Echeverria Member ID Guarantor Name 06/21/2017 1 [facility] [employer] - TOGETHER (MEDICAID HMO) Miya Dockery [id number] 1 Miya Dockery 06/21/2017 1 [facility] [employer] - TOGETHER (MEDICAID HMO) Miya Dockery [id number] 1 Miya Dockery Notes Date Note Type Note Provider [...] to have difficulty with standing and ambulation. DAYNE Orellana MD 07/29/2016 10:26:07 08/10/2016 text/html Miya retur ns couple of weeks since his last visit for reassessment of his right knee arthritis. At the time of his last visit, he underwent a corticosteroid injection and has had some improvement from this injection, but still has pain with ambulation. DAYNE Orellana MD 08/19/2016 15:16:39 10/12/2016 text/html Miya goodwin ns a couple of months since his last [...] He has been doing physical therapy at [facility] in [place] and reports he has seen some benefits. He has been able to work without significant discomfort. He has noticed over the past few weeks returning discomfort in the medial and patellofemoral aspect of his knee, especially with bending, weightbearing and squatting. He denies new injuries. DAYNE Orellana MD 01/13/2017 11:50:50 06/21/2017 text/html Miya glover five months since his last visit [...]
[2025-04-08 11:35] LABS: Hematocrit 36.2 % (42.0-52.0); Hemoglobin 12.4 g/dl (14.0-18.0); Mean Corpuscular HGB Conc 34.3 g/dl (31.0-36.0); Mean Corpuscular Hemoglobin 29.0 pg (27.0-33.0); Mean Corpuscular Volume 84.6 fL (80.0-98.0); NRBC Abs Auto 0.000 X10*3/uL (0.0-0.012); NRBC Pct Auto 0.0 /100WBC (0.0-0.2); Platelet Count 332 X10*3/uL (160-400); Red Blood Count 4.28 X10*6/uL (4.60-5.80); White Blood Count 6.3 X10*3/uL (4.8-10.8)
[2025-04-08 13:23] LABS: Ferritin 33 ng/mL (20-250)
[2025-04-08 13:56] LABS: Iron 108 mcg/dL (45-160); Percent Iron Saturation 38 % (15-50); Total Iron Binding Capacity 288 mcg/dL (228-428); Unsaturated Iron Binding 180 ug/dL
== END 2025-04-08 10:24 | disposition home or self-care (01) ==
LOC: HO.WFDLDS 10:23
PROVIDERS: Visit Provider Nurse Practitioner Family
DX: D50.9 Iron deficiency anemia, unspecified (principal)
CPT/HCPCS: 36415; 82728; 83540; 85027

== ENCOUNTER 2025-04-15 08:47 | Outpatient (AMB) | payer OTHER, SELFPAY ==
--- OUTSIDE RECORDS SUMMARY | 2023-10-25 05:40 | XMS_ITS ---
Author Organization [facility] [address] [place] [address] [address] Address [address] [place] [phone] Care Team Providers Care Truss Maker Name Role Phone Ira NEGRON, Davis Primary Care Provider Naga ESTRADA-C, Talita Orozco [phone] Social History Sex Assigned At : Social History Observation Description Sex Assigned At Male Encounters Encounter Location Date Provider Diagnosis [facility] [address] [place] [address] [place] [id number] 10/25/2023 Talita ESTRADA-C Plan Of Treatment No Information Progress Notes * GEORGIE COREASAIDOB: [birth year] (64 yo M)Acc No.[id number]:10/25/2023 Patient: FARHAD FORBES Provider: SEAN Asencio :1960 A ge:63 Y S ex:Male Date:10/25/2023 Address:[address] [place], [place] [id number] Pcp:Davis Roth MD Subjective: * Chief Complaints: * * Medical History: Objective: * Vitals: Assessment: Plan: * Treatment: * Billing Information: * Visit Code: * Procedure Codes: * Electronic signature of ANTIONE Gallegos saP-C on 04/15/2025 at 08:55 AM EDT Sign off status: Pending * Provider: SEAN Asencio Date: 0 10/25/2023 Generated for Christina saldivar/Deedee/eTransmitting on: 0 04/15/2025 08:55 AM EDT
--- NOTE | 2025-04-15 08:54 | MHC.PC.OV ---
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 Allergies No Known Allergies Allergy (Verified 04/15/25 09:15) Medication List - Last Reconciled 04/15/25 by Jasmyn Chua CNP alfuzosin ER 10 mg PO BEDTIME 30 days atorvastatin 10 mg PO DAILY bisacodyl 10 mg (2 x 5 mg) PO BEDTIME blood sugar diagnostic ([employer] Verio test strips) As directed blood-glucose meter ([employer] Verio Flex Meter) As directed diclofenac sodium 1% 1 g topical BID dutasteride 0.5 mg PO DAILY 90 days ferrous sulfate 325 mg PO DAILY 90 days lancets ([employer] Delica Plus Lancet) As directed lisinopril 10 mg PO BID 90 days magnesium oxide 500 mg PO DAILY meclizine 25 mg PO DAILY PRN metformin ER 1,000 mg PO BID naproxen 500 mg PO BID PRN 30 days polyethylene glycol 3350 (Miralax) 238 grams PO ONCE sumatriptan succinate 50 mg PO Tobacco use date assessed: 04/15/25 Fall risk assessment: 1 Fall in past year Last assessed Fall Risk: 04/15/25 Dental Screening Dental Screen Date: 04/15/25 Did you have a dental visit in the last 12 months?: No Did you have a dental problem in the last 6 months where you did not have access to dental care?: No Was dental information given to patient?: Patient has dentist HPI HPI Comments History of Present Illness Details 64-year-old male presents hypertension, diabetes, and iron-deficiency anemia follow-up. He admits to taking his medications as prescribed without adverse reactions. He offers no complaints and denies acute symptoms at this time. [facility] Medical History HTN (hypertension) Arthritis Anemia Diabetes Memory loss Generalized headaches Dizziness Frequency of urination Enlarged prostate Pain in lower back High cholesterol Surgical History Knee joint replacement status Family History Father Asthma High blood pressure Diabetes Social History Housing: House Are you a primary certified social workers in health care to a significant other at home: No Do you presently have visiting nurse or other home services: No Comment: walker for occasional dizziness, no falls. Patient Tobacco Use Status: Former Tobacco user Tobacco use type: Cigarette Years Smoked: 5 e-Cigarette/Vaping Use: Never Used Second Hand Smoke Exposure: No service: No Current occupational status: retired Current occupational exposures/hazards: No Cognitive needs: No Hearing needs: No Vision needs: Yes Questionnaire Thrive Questionnaire Date Thrive assessed: 12/24/24 I am a: Parent/Caregiver What is your living situation today?: I have a steady place to live Within the past 12 months, did the food you bought not last and you didn't have the money to get more?: Sometimes True Within the past 12 months, did you worry whether your food would run out before you got money to buy more?: Often true Do you have trouble paying for medicines?: No Do you have trouble getting transportation to medical appointments?: No Do you have trouble paying your heating and electricity bill?: No Do you have trouble taking care of your child, family member or friend?: No Do you have trouble with day-to-day activities such as bathing, preparing meals, shopping, managing finances, etc.?: Yes Are you currently unemployed and looking for a job?: No Are you interested in more education?: No Please select the resources that you would like help with: None Currently or been in a relationship where the following occur: I choose not to answer THRIVE Score: 2 JAIRO-7 AMB Questionnaire JAIRO-7 Date JAIRO - 7 assessed: 08/23/24 Source: Developed by Drs. Pedro Negrete, Kristen Ragland, Modesto Higgins and colleagues, with an educational angel from [employer]. Review of Systems Const Details: Const Denies chills, Denies fatigue, Denies fever(s), Denies headache(s) and Denies weakness ENT Denies dizziness and Denies headache(s) Card Denies chest pain, Denies lightheadedness, Denies dyspnea and Denies other (Palpitations) Resp Denies cough, Denies dyspnea, Denies wheezing and Denies other ( shortness of breath) GI Denies abdominal pain, Denies melena, Denies hematochezia, Denies change in bowel habits, Denies dyspepsia and Denies nausea Denies hematuria and Denies dysuria Musc Denies abnormal gait, Denies myalgias, Denies arthralgias, Denies numbness and Denies tingling Skin/Breast Denies rash, Denies unusual bruising and Denies wounds Neuro Denies abnormal gait, Denies dizziness, Denies headache(s), Denies memory loss, Denies numbness, Denies Sensory deficit (Neuro), Denies tingling and Denies weakness Psych Denies anxiety, Denies depression, Denies memory loss Endo Denies cold intolerance, Denies fatigue, Denies heat intolerance, Denies polydipsia and Denies polyuria Aller/Immun Denies wheezing Physical exam (Primary Care) Vital Signs: Last Vital Signs Temp 97.7 F 04/15/25 09:03 Pulse 69 04/15/25 09:03 Resp 16 04/15/25 09:03 BP 110/60 04/15/25 09:22 Pulse Ox 97 04/15/25 09:03 Oxygen Delivery Method Room Air 04/15/25 09:03 BMI result Body Mass Index 22.4 Tobacco/Smoking Status: Tobacco use Status Tobacco use date assessed 04/15/25 04/15/25 09:07 Patient Tobacco Use Status Former Tobacco user 04/15/25 08:57 Tobacco use type Cigarette 04/15/25 08:57 e-Cigarette/Vaping Use Never Used 04/15/25 08:57 Thrive Assessment: Date of Thrive Assessment Date Thrive assessed 12/24/24 04/15/25 08:57 Currently or been in a relationship where the following occur: I choose not to answer Const Other: General: no acute distress and well developed Nutritional Appearance: well nourished Orientation/consciousness: patient oriented x3 HENMT Head: Yes normocephalic and Yes atraumatic Eyes General: appearance normal, both eyes and all related structures Pupils: Equal, round and reactive pupils present EOM: EOMs intact bilaterally Resp Effort & Inspection: normal respiratory effort Auscultation: clear to auscultation bilaterally Cardio Rate: regular rate Rhythm: regular rhythm Heart sounds: S1 normal heart sound present, S2 normal heart sound present, no gallops, no murmurs and no rubs GI Palpation (GI): No Abdominal aortic bruit present, Soft to palpation, nontender, No hepatosplenomegaly present and No Rebound tenderness present Auscultation: normal bowel sounds General: Yes no CVA tenderness Back/Spine/Pelvis Back: no CVA tenderness Cervical Spine: cervical ROM normal and No Cervical spine tenderness Thoracic/Lumbar Spine: thoraco-lumbar ROM normal, No pain with thoraco-lumbar ROM, No thoracic spinal tenderness and No lumbar spinal tenderness Extrem General: Yes normal to inspection, No edema and No calf tenderness Skin General: warm and dry. Normal skin color. Normal skin turgor Neuro General: patient oriented x3, gait normal and no focal neuro deficit Cranial nerves: Yes Equal, round and reactive pupils present Cognition (Neuro): normal cognition Gait exam (Neuro): Normal gait present Sensory Exam: No Sensory deficit (Neuro) Psych Appearance: grossly normal Affect: normal affect Attitude: cooperative Thought process: Normal thought process present Results AMB Hemoglobin A1c AMB Hemoglobin A1c 6.2 % Last Edit by Azucena Canas MA on 04/15/25 09:22 Results Reviewed Results Reviewed: Laboratory Last Values Hgb A1c (Clinic) 6.2 % (4.0-6.0) H 04/15/25 08:56 Coding Level of Care Code Est Pt Level 3 (78103) Diagnoses Essential hypertension I10 Type 2 diabetes mellitus E11.9 Iron deficiency anemia D50.9 Assessment & Plan Assessment & Plan (1) Essential hypertension: Code(s): I10 - Essential (primary) hypertension Category: Medical Plan: Resting blood pressure is 110/60, within goal of less than 130/80. Continue current treatment regimen. Low-sodium diet encouraged. Follow-up in 3 months or sooner with symptoms or concerns. Verbalized understanding and agreed with the plan. (2) Type 2 diabetes mellitus: Code(s): E11.9 - Type 2 diabetes mellitus without complications Category: Medical Plan: A1c today 6.2%, within goal of less than 7.0%. Previous A1c was 5.8%. Continue current treatment regimen. ADA diet and routine exercise encouraged. Follow-up in 3 months. Verbalized understanding and agreed with treatment plan. (3) Iron deficiency anemia: Code(s): D50.9 - Iron deficiency anemia, unspecified Category: Medical Plan: Recent RBC and H&H is slightly low, 4.28 and 12.4/36.2 respectively; iron profile and ferritin levels are normal. Continue to take ferrous sulfate daily. Will recheck CBC in 3 months. Verbalized understanding and agreed with the plan. Orders: Orders AMB Hemoglobin A1c Today Z13.9 - Encounter for screening, unspecified Complete Blood Count no Diff Today D50.9 - Iron deficiency anemia, unspecified Medications: New meclizine 25 mg PO DAILY PRN 14 tabs 0RF dizziness
--- OUTSIDE RECORDS SUMMARY | 2025-04-15 08:55 | XMS_ITS | Data Portability ---
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 [id number] Not available 07/28/2016 08:35:34 08/10/2016 08/10/2016 Miya does have moderate right knee arthritis with again some improvement from a corticosteroid injection, but still some symptoms. We will send him to formal physical therapy and see him back in another couple of months. If he remains significantly symptomatic, hopefully we will be able to obtain approval for a series of hyaluronic acid injections. [id number] Not available 08/11/2016 07:59:45 10/12/2016 10/12/2016 [...] at some point be a knee arthroplasty. [id number] Not available 10/13/2016 07:50:54 01/11/2017 01/11/2017 [...] Jolley who formulated the plan of care. 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 [address] [place] [address] 02/17/2016 10:11:35 02/17/2016 10:53:17 Osteoarthritis of knee 136520391 M17.11 Chondromal acia of patella 62763546 M22.41 Knee joint effusion 2022 39079 M25.461 Knee pain 91910408 M25.5 61 [id number] MD SAMMY Teague M.D. [address] [address] 02/24/2016 09:07:43 02/24/2016 09:53:27 Osteoarthritis of knee 886690539 M17.11 [id number] MD SAMMY Teague M.D. 1 [facility] [employer],[address] [address] 06/22/2016 08:30:41 06/22/2016 09:18:14 Knee joint effusion 487895056 M25.461 Osteoarthr itis of knee 919993219 M17.11 Knee pain 38436894 M25.5 61 Chondromal acia of patella 17811525 M22.41 [id number] MD SAMMY Teague M.D. 1 [facility] [employer],[address] [address] 07/27/2016 08:18:56 07/27/2016 08:47:01 Osteoarthritis of knee 755139082 M17.11 Knee pain 55692510 M25.5 61 Chondromal acia of patella 02219059 M22.41 Knee joint effusion 2023 57723 M25.461 [id number] MD SAMMY Teague M.D. [address] [address] 08/10/2016 08:28:48 08/10/2016 08:43:09 Osteoarthritis of knee 145979551 M17.11 Knee pain 37244897 M25.5 61 [id number] MD SAMMY Teague M.D. [address] [address] 10/12/2016 08:30:46 10/12/2016 09:06:58 Osteoarthritis of knee 775331961 M17.11 Knee joint effusion 3 67945 M25.461 Knee pain 07104899 M25.5 61 [id number] MD SAMMY Teague M.D. 1 [facility] [employer],[address] [address] 01/11/2017 08:44:13 01/11/2017 09:10:26 Knee joint effusion 051984677 M25.461 Osteoarthr itis of knee 256908321 M17.11 Knee pain 48405949 M25.5 61 Chondromal acia of patella 99693943 M22.41 [id number] MD SAMMY Teague M.D. 1 [facility],[address] [place] [address] 06/21/2017 08:01:28 06/21/2017 08:21:03 Osteoarthritis of knee 413772437 M17.11 Knee pain 22377865 M25.5 61 Health Concerns Section Related Observation LastModified by Organization Detai ls LastModified Time None Recorded Concern Status LastModified by Organization Details LastModified Time None Recorded Advance Directives Directive None Recorded Payers Insurance Date Sequence Insurance Name Policy Number Policy Echeverria Covered Member ID Echeverria Member ID Guarantor Name 06/21/2017 1 [facility] [employer] - TOGETHER (MEDICAID HMO) Miya Dockery [id number] 1 Miya Dockery 06/21/2017 1 [facility] [employer] - TOGETHER (MEDICAID HMO) Miya Dockery [id number] 1 Miya Dockery Notes Date Note Type [...] He has been doing physical therapy at [facility] in [place] and reports he has seen some benefits. [...]
[2025-04-15 09:03] VITALS: BP 111/58; PULSE 69; RESP 16; TEMP 36.5; O2SAT 97; BMI 22.4
[2025-04-15 09:22] VITALS: BP 110/60
== END 2025-04-15 09:29 | disposition home or self-care (01) ==
LOC: HO.HMCFM 08:48
PROVIDERS: PCP Nurse Practitioner Family; Visit Provider Nurse Practitioner Family
DX: I10 Essential (primary) hypertension (principal); E11.9 Type 2 diabetes mellitus without complications; D50.9 Iron deficiency anemia, unspecified; Z13.9 Encounter for screening, unspecified

== ENCOUNTER → 2025-04-15 08:47 | Outpatient (BNVA) | payer OTHER, SELFPAY | PROVIDERS: PCP Nurse Practitioner Family; Visit Provider Nurse Practitioner Family | DX: I10 Essential (primary) hypertension (principal); E11.9 Type 2 diabetes mellitus without complications; D50.9 Iron deficiency anemia, unspecified; Z79.899 Other long term (current) drug therapy | CPT/HCPCS: 83036; 99212 ==

== ENCOUNTER 2025-06-17 10:36 | Day surgery (SDC) | payer OTHER, SELFPAY ==
--- OUTSIDE RECORDS SUMMARY | 2025-03-11 14:50 | XMS_ITS ---
Author Organization [facility] [address] [place] [address] Location Address [address] [place] [phone] Care Team Providers Care Suction Dredge Dumping Supervisor Name Role Phone Ira NEGRON, Davis Primary Care Provider Soumya Norris RINKMAN-C, Talita Orozco Social History Sex Assigned At : Social History Observation Description Sex Assigned At Male Encounters Encounter Location Date Provider Diagnosis [facility] [address] [place] [address] [place] [phone] 10/25/2023 Talita TALBOTP-C Plan Of Treatment No Information Progress Notes * GEORGIE COREASAIDOB: [birth year] (64 yo M)Acc No.[id number]:10/25/2023 Patient:FARHAD ROMAN Provider:?SEAN Vazquez :1960???Age:63 Y???Sex:Male Lucho e:10/25/2023 Address:[address] [place], [place] [phone] Pcp:Davis Roth MD Subjective: * Chief Complaints: * ??? * Medical History:? Objective: * Vitals:? Assessment: Plan: * Treatment: * Billing Information: * Visit Code:? * Procedure Codes:? * Electronic signature of Mayra ESTRADA-C ANTIONEP-C on 03/11/2025 at 02:50 PM EDT Sign off status: Pending * Provider:?SEAN Vazquez Date:?01/2 12/2023 Generated for Christina saldivar/Deedee/Morenita on:?03/11/2025 02:50 PM EDT
--- NOTE | 2025-06-14 10:10 | HO.ANESPROP2 ---
Documented by User: Cathy Tom NP 06/14/25 10:10 HPI - Anesthesia Eval Consult details Narrative: 65yo M for Colonoscopy s/p prostate bx 01/2025 with GA-LMA 4 PMFSH Active Problems Active Problems: All Active Problems Prostate cancer (Acute) Iron deficiency anemia (Acute) Leukopenia (Acute) Mild anemia (Acute) Elevated PSA (Acute) Sleep disturbance (Acute) Anxiety and depression (Acute) Colon cancer screening (Acute) Constipation (Acute) Nocturia (Acute) Bilateral wrist pain (Acute) Chronic low back pain (Acute) Arthritis of both knees (Acute) Laboratory tests ordered as part of a complete physical exam (CPE) (Acute) Essential hypertension (Acute) Type 2 diabetes mellitus (Acute) Memory loss (Acute) Frequency of urination (Acute) Generalized headaches (Acute) Dizziness (Acute) Enlarged prostate (Acute) High cholesterol (Acute) Past Medical History Medical History HTN (hypertension) Arthritis Anemia Diabetes Memory loss Generalized headaches Dizziness Frequency of urination Enlarged prostate Pain in lower back High cholesterol Family History Family History Father Asthma High blood pressure Diabetes Family history of problems with anesthesia: No Surgical History Surgical History (Updated 06/17/25 @ 11:34 by Gabriela Marinelli RN) Hx of prostate biopsy Knee joint replacement status History of Problems with Anesthesia: No Social History Social History Housing: House Are you a primary care transitions nurse to a significant other at home: No Do you presently have visiting nurse or other home services: No Comment: walker for occasional dizziness, no falls. Patient Tobacco Use Status: Former Tobacco user Tobacco use type: Cigarette Years Smoked: 5 e-Cigarette/Vaping Use: Never Used Second Hand Smoke Exposure: No Use of substances other than those prescribed or required for medical reasons: No Are you DNR?: No Advance Directives: No Advance Directives Information Provided: Yes service: No Current occupational status: retired Current occupational exposures/hazards: No Cognitive needs: No Hearing needs: No Vision needs: Yes Meds Allergies Allergy/AdvReac Type Severity Reaction Status Date / Time No Known Allergies Allergy Verified 06/17/25 11:07 Home Medications ?Medication ?Instructions ?Recorded ?Confirmed ?Last Taken ?Type atorvastatin 10 mg tablet 10 mg PO DAILY 09/13/24 06/17/25 Unknown History metformin 500 mg tablet,extended 1,000 mg PO BID 09/13/24 06/17/25 01/14/25 History release 24 hr sumatriptan succinate 50 mg tablet 50 mg PO DAILY PRN Headache 02/27/25 06/17/25 Unknown History Assessment and Plan Assessment Anesthesia Assessment: Chart Reviewed Final Anesthetic Review Family History of Problems with Anesthesia: No History of Problems with Anesthesia: No Documented by User: Harry Disla MD 06/17/25 11:53 PMFSH Past Medical History Medical History HTN (hypertension) Arthritis Anemia Diabetes Memory loss Generalized headaches Dizziness Frequency of urination Enlarged prostate Pain in lower back High cholesterol Family History Family History Father Asthma High blood pressure Diabetes Surgical History Surgical History (Updated 06/17/25 @ 11:34 by Gabriela Marinelli RN) Hx of prostate biopsy Knee joint replacement status Social History Social History Housing: House Are you a primary care transitions nurse to a significant other at home: No Do you presently have visiting nurse or other home services: No Comment: walker for occasional dizziness, no falls. Patient Tobacco Use Status: Former Tobacco user Tobacco use type: Cigarette Years Smoked: 5 e-Cigarette/Vaping Use: Never Used Second Hand Smoke Exposure: No Use of substances other than those prescribed or required for medical reasons: No Are you DNR?: No Advance Directives: No Advance Directives Information Provided: Yes service: No Current occupational status: retired Current occupational exposures/hazards: No Cognitive needs: No Hearing needs: No Vision needs: Yes Meds Allergies Allergy/AdvReac Type Severity Reaction Status Date / Time No Known Allergies Allergy Verified 06/17/25 11:07 Home Medications ?Medication ?Instructions ?Recorded ?Confirmed ?Last Taken ?Type atorvastatin 10 mg tablet 10 mg PO DAILY 09/13/24 06/17/25 Unknown History metformin 500 mg tablet,extended 1,000 mg PO BID 09/13/24 06/17/25 01/14/25 History release 24 hr sumatriptan succinate 50 mg tablet 50 mg PO DAILY PRN Headache 02/27/25 06/17/25 Unknown History Exam Airway Mallampati Class: III TM Dist: >3cm Neck ROM: Full Loose/Missing/Broken Teeth: No Heart: RRR Lungs: CTA Assessment and Plan Assessment Anesthesia Assessment: Anesthesia Plan Discussed, Smoking Cess. Discussed and Chart Reviewed Final Anesthetic Review NPO: Yes ASA Class: II Final Preanesthetic Review: No Changes in Pt Med Stat, Meds/Allgs Chart Reviewed and Consent Obtained/Reviewed Patient Risk: Low Procedure Risk: Low Anesthetic Plan Anesthetic Plan: MAC: Disposition: Standard PACU
--- NOTE | 2025-06-17 11:05 | MHC.SHP ---
Pre-Procedural Eval Section A - 24 Hr Update-Section A only Date of Service: 06/17/25 The patient is an INPATIENT: No The patient has been examined within 24 hours of the surgical procedure. The History & Physical has been completed within 30 days and I have reviewed it.: No Section B - Complete if H&P > 30 days Chief Complaint: screening Relevant Family History (Specify if Yes): No Relevant Social History: Tobacco Use (Former smoker) Present Medications: see Short Stay Collaborative assessment Medical History: Significant History (HTN (hypertension) Arthritis Anemia Diabetes Memory loss Generalized headaches Dizziness Frequency of urination Enlarged prostate) History of Previous Operations: Relevant previous surgery/procedure and date(s) (Right knee replacement) Allergies: Allergies Allergy/AdvReac Type Severity Reaction Status Date / Time No Known Allergies Allergy Verified 04/15/25 09:15 Review of Systems Sugical H&P ROS: Negative: Constitution, Cardiovascular, Respiratory and Gastrointestinal Exam Surgical H&P Exam: Normal: Heart, Normal: Lungs, Normal: Extremities and Normal: Abdomen Plan Diagnosis/Plan: Unchanged I have reviewed the history and physical and performed a pertinent physical examination on my patient. No changes have occurred unless specified. Time Spent With Patient Time: Total time managing care of this patient today ____ minutes.
[2025-06-17 11:12] VITALS: BMI 22.4
[2025-06-17 11:15] VITALS: BP 130/68; PULSE 64; RESP 15; TEMP 36.4; O2SAT 99
[2025-06-17] MEDS: Lactated Ringers 1,000 ML 100 ML IVCONT (11:27)
[2025-06-17 11:34] LABS: Glucose, Whole Blood 124 mg/dL (60-115)
--- NOTE | 2025-06-17 12:58 | P.OPN-COLO_ITS ---
Colonoscopy Operative Note Operative Note Date of Service: 06/17/25 Narrative: COLONOSCOPY TILL CECUM WITH BIOPSIES, SNARE POLYPECTOMY, SUBMUCOSAL INJECTION AND HEMOCLIP PLACEMENT Pre-op diagnosis: Colon cancer screening (first colonoscopy). Post-op diagnosis:? Colon polyps, rectal nodule, Diverticulosis, hemorrhoids Endoscopist:? Christine Gray MD Anesthesia:?MAC Consent: Indications for the procedure and potential complications of bleeding, perforation, reaction to medications and missed diagnosis were discussed with the patient and informed consent was obtained. Instrument: Olympus CF H 190 L variable stiffness adult colonoscope Monitoring: Vital signs and clinical assessment, intermittent blood pressure monitoring, continuous EKG monitoring, Pulse oximetry and Carbon Dioxide monitoring were done throughout the procedure. Please see anesthesia flowsheet. Colon withdrawl time was 28 minutes. Procedure: The patient was placed in the left lateral decubitis position and pre-procedure medications were administered. After a digital rectal examination of the ano-rectum, the video colonoscope was inserted into the rectum and advanced through the colon to the cecum. The colonoscope was slowly withdrawn in a retrograde panoramic fashion and the colon mucosa was carefully examined including a retroflexed view of the rectum. Findings and interventions are described below. Procedure Difficulty: Colon was long and tortuous and there was some loop formation Findings: Terminal Ileum: Not evaluated Cecum: A 2-3 mm polyp versus fold at the appendicular orifice - removed with a cold biopsy Ascending Colon: Moderate diverticulosis scattered throughout the entire colon Transverse Colon: Moderate diverticulosis scattered throughout the entire colon Descending Colon: Moderate diverticulosis scattered throughout the entire colon Sigmoid Colon: A 5-6 mm sessile polyp - removed with a cold snare. Moderate diverticulosis Rectum: A 6-7 mm sessile polyp - removed with a hot snare and polyp was not retrieved. A 2 cms yellowish appearing nodule in the distal rectum (2 cms from the anal verge) Polyp was removed with a hot snare. Polypectomy site was closed with 1 hemoclip and marked with Kelsi ink. Ano-rectum: Moderate internal hemorrhoids Colon preparation: Excellent after copious irrigation. [place] Bowel Preparation Scale Right colon; 3 Transverse colon: 3 Left colon; 3 (0 = Unprepared colon segment with mucosa not seen due to solid stool that cannot be cleared. 1 = Portion of mucosa of the colon segment seen, but other areas of the colon segment not well seen due to staining, residual stool and/or opaque liquid. 2 = Minor amount of residual staining, small fragments of stool and/or opaque liquid, but mucosa of colon segment seen well. 3 = Entire mucosa of colon segment seen well with no residual staining, small fragments of stool or opaque liquid) Impression and Post Procedure Diagnosis: Colonoscopy Findings: Three small polyps were removed A 2 cms yellowish appearing nodule in the distal rectum (2 cms from the anal verge) Polyp was removed with a hot snare. Polypectomy site was closed with 1 hemoclip and marked with Kelsi ink. Moderate diverticulosis seen in the entire colon Moderate hemorrhoids on retroflexed exam. Plan: I will send a letter with biopsy results. Repeat Colonoscopy in 3-5 years if polyps are adenomatous and 10 year if polyps are hyperplastic. Above findings were reviewed with the patient and relevant handouts were given and the discharge area. BIOPSIES SHOWED: A. Colon, cecal polyp: Tubular adenoma; negative for high-grade dysplasia and carcinoma. B. Colon, sigmoid, polyp: Tubular adenoma; negative for high-grade dysplasia and carcinoma. C. Colon, rectal nodule, biopsy: Well-differentiated neuroendocrine tumor, G1, present at the deep margin. Patient called and biopsy results were reviewed with him. He was advised to schedule an abdominal CT scan for staging. Urgent referral sent to Oncology. Decision regarding surgery (trans-anal resection versus APR) depending on CT results Patient was placed on the colonoscopy recall list for repeat colonoscopy in 1 year for follow-up of adenomatous colon polyps.
[2025-06-17 13:01] VITALS: BP 110/57; PULSE 59; RESP 20; TEMP 36.3; O2SAT 99
[2025-06-17 13:16] VITALS: BP 108/70; PULSE 57; RESP 16; TEMP 36.5; O2SAT 100
== END 2025-06-17 13:48 | disposition home or self-care (01) ==
PROVIDERS: PCP Nurse Practitioner Family; Visit Provider Internal Medicine Gastroenterology
PROC: 0DJD8ZZ Inspection of Lower Intestinal Tract, Via Natural or Artificial Opening Endoscopic (ICD-10-PCS; CPT 45378; principal; 2025-06-17 12:50)
DX: Z12.11 Encounter for screening for malignant neoplasm of colon (principal); C7A.026 Malignant carcinoid tumor of the rectum; D12.0 Benign neoplasm of cecum; D12.5 Benign neoplasm of sigmoid colon; K56.2 Volvulus; K57.30 Diverticulosis of large intestine without perforation or abscess without bleeding; K64.8 Other hemorrhoids; I10 Essential (primary) hypertension; E11.9 Type 2 diabetes mellitus without complications; E78.00 Pure hypercholesterolemia, unspecified; D50.9 Iron deficiency anemia, unspecified; C61 Malignant neoplasm of prostate; Z87.891 Personal history of nicotine dependence; Z79.84 Long term (current) use of oral hypoglycemic drugs; Z79.02 Long term (current) use of antithrombotics/antiplatelets; Z79.899 Other long term (current) drug therapy
CPT/HCPCS: 45385; 45380; 45381; 82947; 88305; 88341; 88342; 88360; J2003; J2704

== ENCOUNTER → 2025-06-17 10:36 | Outpatient (BNV) | payer OTHER, SELFPAY | PROVIDERS: PCP Nurse Practitioner Family; Visit Provider Internal Medicine Gastroenterology | DX: Z12.11 Encounter for screening for malignant neoplasm of colon (principal); K63.5 Polyp of colon; K57.90 Diverticulosis of intestine, part unspecified, without perforation or abscess without bleeding; K64.8 Other hemorrhoids | CPT/HCPCS: 45380; 45381; 45385 ==

== ENCOUNTER 2025-06-25 08:59 | Outpatient (REF) | payer OTHER, SELFPAY ==
--- OUTSIDE RECORDS SUMMARY | 2025-06-25 10:18 | XMS_ITS | Patient Health Record ---
Author Organization [facility] [address] [place] [address] [address] Address [address] [place] [id number] Care Team Providers Care Set Up Operator Name Role Phone Ira NEGRON, Davis Primary Care Provider Unavailabl e Allergies No Known Allergies Reason For Referral No Information Medications Medication SIG (Take, Route, Frequency, Duration) Notes Start Date End Date Status Pregabalin Active traMADol HCl 50 MG 1/2 tab Orally twice a day prn headache; Duration: 30 days 12/27/2022 Active Diclofenac Sodium 1 % APPLY EXTERNALLY T O THE AFFECTED AREA UP TO 3 TIMES DAILY EXTERNALLY 30 DAYS External; Duration: 30 Active Lisinopril 10 MG TAKE 1 TABLET BY RIYA TH TWICE A DAY DIRECTED Oral; Duration: 90 Active metFORMIN HCl 500 MG TAKE 1 TABLET BY MO UTH ONCE DAILY IN THE MORNING WITH MEAL Oral; Duration: 90 Active metFORMIN HCl ER 500 MG TAKE 2 TABLETS B Y MOUTH TWICE A DAY WITH MEALS Oral; Duration: 90 Active Gabapentin 300 MG TAKE 1 CAPSULE BY MO UTH EVERYDAY AT BEDTIME; Duration: 30 Active Calcium + Vitamin D3 600-10 MG-MCG TAKE 1 TABLET BY MOUTH DAILY AFTER MEALS Oral; Duration: 90 Active Meclizine HCl 12.5 MG TAKE 1 TABLET 3 TI MES A DAY BY ORAL ROUTE NEEDED. Oral; Duration: 10 Active Naproxen 500 MG TAKE 1 TABLET TWICE A DAY BY ORAL ROUTE NEEDED. 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 service cashier tobacco- chews etoh- no customer service cashier tobacco- chews etoh- no Problems Problem Type SNOMED Code ICD Code Onset Dates Problem Status W/U Status Risk Notes Problem Chronic migraine without aura, non-intractab le (344226571342 100) Chronic migraine w/o aura w/o status migrainosus, not intractable (G43.709) Active confirmed Plan Of Treatment No Information Insurance Providers Payer Name Payer Address Payer Phone Subscriber Number Group Number Insured Name Patient Relationship to Insured Coverage Start Date Coverage End Date [facility] [address] [place] [address] [id number] FARHAD COREAS Self - patient is the insured [employer] [address] [place] [address] [id number] FARHAD COREAS Self - patient is the insured Medical (General) History Medical History History ICD Code migraines arthritis R knee DM type 2 osteoporosis HTN anemia Surgical History Surgery Date(Month/Year) knee
[2025-06-25 11:41] LABS: Hematocrit 36.4 % (42.0-52.0); Hemoglobin 12.0 g/dl (14.0-18.0); Mean Corpuscular HGB Conc 33.0 g/dl (31.0-36.0); Mean Corpuscular Hemoglobin 29.1 pg (27.0-33.0); Mean Corpuscular Volume 88.3 fL (80.0-98.0); NRBC Abs Auto 0.000 X10*3/uL (0.0-0.012); NRBC Pct Auto 0.0 /100WBC (0.0-0.2); Platelet Count 327 X10*3/uL (160-400); Red Blood Count 4.12 X10*6/uL (4.60-5.80); White Blood Count 5.8 X10*3/uL (4.8-10.8)
[2025-06-25 12:45] LABS: Prostate Specific Antigen 4.25 ng/mL (<0.05-4.0)
== END 2025-06-25 09:00 | disposition home or self-care (01) ==
LOC: HO.WFDLDS 08:59
PROVIDERS: Referring Provider Urology; Visit Provider Nurse Practitioner Family
DX: C61 Malignant neoplasm of prostate (principal); D50.9 Iron deficiency anemia, unspecified; Z12.5 Encounter for screening for malignant neoplasm of prostate
CPT/HCPCS: 36415; 84153; 85027

== ENCOUNTER → 2025-07-08 15:20 | Outpatient (BNV) | payer OTHER, SELFPAY | PROVIDERS: Visit Provider Internal Medicine | DX: C7A.026 Malignant carcinoid tumor of the rectum (principal); D50.9 Iron deficiency anemia, unspecified | CPT/HCPCS: 99204; G2211 ==

== ENCOUNTER 2025-07-09 09:21 | Outpatient (AMB) | payer OTHER, SELFPAY ==
--- NOTE | 2025-07-09 09:33 | MHC.OFFVIS ---
Intake Visit Reasons: 4m/PSA Intake Note: Patient is present for 4M F/U ( patient is no longer taking Alfuzosin ) Urology Medication:,DUTASTERIDE Antibiotic Allergy:NONE Blood Thinner:NONE Labs done : 06/25/25 PSA 4.25 PVR:0 mls Manager Statistics Required: No Accompanied by: Self / Same As Patient Allergies No Known Allergies Allergy (Verified 07/09/25 09:33) HPI Comments Details: Miya is a pleasant good Gujarati speaking male. He is a patient of Dr. Chua. He is seen for the following urologic conditions - prostate cancer Active surveillance Six-month follow up PSA Continue dutasteride Prostate cancer grade group 2 - 01/25 - initial management active surveillance PSA 08/26 7.3, 06/27 4.25 35 g prostate PT1c Woodruff 3 + 4 Genetics - Prolaris active surveillance Histologic type: Prostatic adenocarcinoma, acinar type Histologic grade: Woodruff score: 7 (3+4) (c2.0) 6 (3+3) (E2.0 and C2.0) % of pattern 4: 12% % of pattern 5: 0 Grade group: 2 and 1 Tumor quantitation: Number cores positive: 4 Total number of cores: 22 % of tissue involved: 10% Periprostatic fat inv.: Not identified Seminal vesicle inv.: Not identified Perineural inv.: Not identified Lymphatic and/or vascular invasion: Not identified MRI 03/26 report notes a 1.0 X 1.1 cm focus of prominent T2 and ADC hypointensity at right posterior medical peripheral zone at mid gland, suspicious (RI-RADS 4) [facility] Medical History (Updated 07/08/25 @ 16:07 by Amanda Ross MD) HTN (hypertension) Arthritis Anemia Diabetes Memory loss Generalized headaches Dizziness Frequency of urination Enlarged prostate Pain in lower back High cholesterol Surgical History (Updated 07/08/25 @ 16:07 by Amanda Ross MD) Hx of prostate biopsy Knee joint replacement status Family History Father Asthma High blood pressure Diabetes Social History (Updated 07/08/25 @ 15:41 by Fernando Stewart) Household Members: Spouse Housing: House Are you a primary housekeeper child care to a significant other at home: No Do you presently have visiting nurse or other home services: No Comment: walker for occasional dizziness, no falls. Patient Tobacco Use Status: Never used Tobacco Tobacco use type: Cigarette and Smokeless Tobacco Years Smoked: 5 e-Cigarette/Vaping Use: Never Used Second Hand Smoke Exposure: No service: No Current occupational status: retired Current occupational exposures/hazards: No Cognitive needs: No Hearing needs: No Vision needs: Yes Review of Systems Const Denies chills and Denies fever(s) Card Reports no additional complaints and Denies syncope Resp Denies cough GI Denies abdominal pain and Denies heartburn Reports as per HPI and Denies change in libido Neuro Denies syncope Psych Denies change in libido Endo Denies change in libido Physical Exam Const General: cooperative, healthy appearing, comfortable and no acute distress Orientation/consciousness: patient oriented x3 HEENT Face and sinus: Yes normal facial exam Mouth: moist mucous membranes Neck Neck: Yes normal visual inspection, Yes full ROM and Yes trachea midline Chest Chest palpation & inspection: normal inspection of the chest Resp Effort & Inspection: normal respiratory effort, able to speak in complete sentences and no respiratory distress GI Inspection: Yes normal to inspection Back/Spine/Pelvis Cervical Spine: normal cervical lordosis Thoracic/Lumbar Spine: thoracic and lumbar spine normal to inspection Skin General skin exam: no rashes or lesions noted Neuro General: patient oriented x3, gait normal, tone normal and moves all extremities Extrem General: Yes normal to inspection and Yes capillary refill normal Assessment & Plan Assessment & Plan (1) Prostate cancer: Code(s): C61 - Malignant neoplasm of prostate Category: Medical Plan Six-month follow-up PSA Orders: Orders Prostate Specific Antigen 6 Months C61 - Malignant neoplasm of prostate Medications: Refilled dutasteride Take Tuesday, Tuesday, Tuesday 0.5 mg PO DAILY 90 caps 1RF 90 days C61 - Malignant neoplasm of prostate Patient Instructions: This note is constructed using voice recognition software. While every effort has been made to ensure accuracy associate research scientist errors may have been included. Imaging studies, laboratory and physical exam results were discussed and reviewed in detail. No major barriers to patient understanding were identified. An opportunity to ask questions regarding the treatment plan was provided. All questions were answered. The patient expressed understanding and agreement with the above treatment plan. The patient is aware they should contact our office by phone for worsening of their current condition or the appearance of new urologic symptoms. Compliance is encouraged with any medications and followup testing that is ordered. It is a privilege to participate in the urologic care of your patient. If you have any questions or concerns regarding treatment for the above conditions, or other urologic issues, please do not hesitate to contact me. The office telephone contact is [phone]. Sincerely, Dr Ulices Barrera MD, [facility] - Urology Compassionate Specialist Care for the Genitourinary System Coding Level of Care Code Est Pt Level 3 (51720) Complex EM visit Add On G2211 Diagnoses Prostate cancer C61
--- OUTSIDE RECORDS SUMMARY | 2025-07-09 10:30 | XMS_ITS | Patient Health Record ---
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 tobacco- chews etoh- no service counter cashier tobacco- chews etoh- no Problems Problem Type SNOMED Code ICD Code Onset Dates Problem Status W/U Status Risk Notes Problem Chronic migraine without aura, non-intractab le (469900148740 100) Chronic migraine w/o aura w/o status migrainosus, not intractable (G43.709) Active confirmed Plan Of Treatment No Information Insurance Providers Payer Name Payer Address Payer Phone Subscriber Number Group Number Insured Name Patient Relationship to Insured Coverage Start Date Coverage End Date [facility] [address] [place] [address] [id number] FARHAD COREAS Self - patient is the insured [employer] [address] [place] [address] [id number] FARHAD COREAS Self - patient is the insured Medical (General) History Medical History History ICD Code migraines arthritis R knee DM type 2 osteoporosis HTN anemia Surgical History Surgery Date(Month/Year) knee
--- OUTSIDE RECORDS SUMMARY | 2025-07-09 10:30 | XMS_ITS | Clinical Summary ---
Author Organization [facility] Address [address] [address] Phone Care Team Providers Care Mrb Engineer Name Role Phone Angelique Kline MD Primary Care Provider Allergies No known active allergies Medications atorvastatin (LIPITOR) 10 MG tablet 1 Active FREESTYLE LITE Strp strips 1 Active calcium carbonate-marilyn min D3 1500 mg (600 mg elemental)-400 units per tablet 1 Active diclofenac sodium (VOLTAREN) 1 % Gel 1 Active glyBURIDE-metF ORMIN (GLUCOVANCE) 2.5-500 mg per tablet glyburide 2.5 mg-metformin 500 mg tablet Active lisinopril (PRINIVIL,ZEST RIL) 20 MG tablet lisinopril 20 mg tablet TK 1 T PO QD Active meclizine (ANTIVERT) 25 mg tablet 1 Active metFORMIN (GLUCOPHAGE) 1000 MG tablet 1 Active naproxen (NAPROSYN) 500 MG tablet naproxen 500 mg tablet Active metroNIDAZOLE (FLAGYL) 500 MG tablet metronidazole 500 mg tablet Active Family History Medical History Relation Comments Hypertension Father Relation Status Comments Father Social History Tobacco Use Types Packs/Day Years Used Date Smoking Tobacco: Never Smokeless Tobacco: Never Education Answer Date Recorded Are you interested in more education? Not on meme e 01/29/2023 Are you concerned about learning? Not on file 01/29/2023 No 01/29/2023 No 01/29/2023 Digital Access Answer Date Recorded No 02/26/2023 No 02/26/2023 No 02/26/2023 Reliable internet access at home? Not on file 02/26/2023 Device with a working camera? Not on file Sex and Gender Information Value Date Recorded Sex Assigned at Not on file Legal Sex Male 7:17 PM EDT Gender Identity Not on file Sexual Orientation Not on file Plan of Treatment Health Maintenance Due Date Last Done Comments CREATININE LEVEL 1958 LIPID PANEL 1958 POTASSIUM LEVEL 1958 DEPRESSION SCREENING 1970 HEPATITIS C SCREENING 1976 SMOKING STATUS SCREENING (On ce After 26 Yrs) 1984 COLOGUARD 2003 COLONOSCOPY 2003 COLORECTAL CANCER SCREENING 2003 FIT TEST 2003 FOBT 2003 SIGMOIDOSCOPY 2003 VIRTUAL COLONOSCOPY 2003 PNEUMOCOCCAL VACCINES (50+ years) (1 of 1 - PCV) 2008 INFLUENZA VACCINE (#1) 2025 , 06/17/2020 COVID-19 VACCINE (3 - 2024-2 6 season) 2025 01/26/2021, 12/29/2020 Adult Td,Tdap Booster 05/25/2030 05/25/2020 RSV VACCINE (1 - 1-dose 75+ series) 2033 ZOSTER VACCINES Completed 06/17/2020, 04/16/2020 HEPATITIS A VACCINES Aged Out No long er eligible based on patient's age to complete this topic HIB VACCINES Aged Out No longer eligi ble based on patient's age to complete this topic MENINGOCOCCAL VACCINES (ACWY) Aged Out No longer eligible based on patient's age to complete this topic MENINGOCOCCAL VACCINES (B) Aged Out N o longer eligible based on patient's age to complete this topic Medical Devices Not on file Insurance [address] [place] [address] [facility] [employer] Care Teams Mrb Engineer Relationship Specialty Start Date End Date Angelique Kline MD [address] [place] [id number] PCP - General Internal Medicine 08/24/21 Additional Source Comments The information contained in this document represents components of the legal health record. It is not the complete legal health record.[facility]
== END 2025-07-09 10:20 | disposition home or self-care (01) ==
LOC: HO.HUSH 09:22
PROVIDERS: PCP Nurse Practitioner Family; Visit Provider Urology
DX: C61 Malignant neoplasm of prostate (principal)
CPT/HCPCS: 99213

== ENCOUNTER → 2025-07-09 09:21 | Outpatient (BNVA) | payer OTHER, SELFPAY | PROVIDERS: PCP Nurse Practitioner Family; Visit Provider Urology | DX: C61 Malignant neoplasm of prostate (principal) | CPT/HCPCS: 51798; 81003; 99212 ==

== ENCOUNTER 2025-07-17 07:02 | Outpatient (REF) | payer OTHER, SELFPAY ==
--- NOTE | ~2025-07-17 | CT_ITS ---
EXAMINATION: CT ABDOMEN PELVIS WITH IV CONTRAST HISTORY: C7A.8 - Other malignant neuroendocrine tumors COMPARISON: There are no prior studies for available comparison. TECHNIQUE: CT scan of the abdomen and pelvis was performed following administration of 85 mL Omnipaque 350 using standard departmental protocol. Coronal and sagittal reformatted images were generated and reviewed. This CT exam was performed with one or more of the following dose reduction techniques: automated exposure control, adjustment of the mA and/or kV according to patient size, use of iterative reconstruction technique. DLP: 618 mGy-cm FINDINGS: LOWER CHEST: The visualized lung bases are clear. There is no pleural effusion. CARDIOVASCULATURE: The heart is normal in size. There is no pericardial effusion. LIVER: The liver is normal in size and contour. Tiny 3 mm hypodensity high in the dome of the liver segment 8 axial image 7 and lateral segment left lobe segment 2 axial image 12 series 2. These are difficult to accurately characterize due to small size but may represent small cysts. The hepatic and portal veins are patent. GALLBLADDER / BILE DUCTS: The gallbladder is unremarkable. There is no intra or extrahepatic biliary ductal dilatation. SPLEEN: The spleen is normal in size. No focal splenic lesion is identified. PANCREAS: The pancreas is unremarkable in appearance. ADRENAL GLANDS: Within normal limits. KIDNEYS/RETROPERITONEUM: No renal calculi are identified. There is no hydronephrosis. No renal masses are identified. LYMPH NODES: No abdominal or pelvic lymphadenopathy. No inguinal lymphadenopathy. VASCULATURE: Mild atherosclerotic disease. No aneurysm. MESENTERY/PERITONEUM: No free fluid. No masses. There is no free intraperitoneal gas. STOMACH: 2 adjacent 1 x 2 cm rectangular shaped radiopaque densities in the distal stomach presumably representing something the patient has recently ingested. Stomach otherwise normal. SMALL BOWEL: The small bowel is normal in caliber. COLON: The distal colon is not optimally distended and difficult to evaluate. There may be mild increased mucosal enhancement of the rectum. No mass is appreciated. APPENDIX: Normal. URINARY BLADDER/PELVIC ORGANS: The urinary bladder is unremarkable. The prostate gland does not appear enlarged. BONES / SOFT TISSUES: Mild degenerative changes of the spine and scoliosis. Mild degenerative changes at the hip joints. CT/CT abdomen pelvis w IV con IMPRESSION: Distal colon is not optimally distended and not well evaluated. No mass appreciated. Question mild increased mucosal enhancement of the rectum. Two small hypodensities in the liver. These are difficult to accurately characterize due to small size but may represent small cysts. Electronically signed by: Sary Pickard MD 07/17/2025 10:14 AM EDT
--- OUTSIDE RECORDS SUMMARY | 2025-07-17 07:05 | XMS_ITS | Patient Health Record ---
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 tobacco- chews etoh- no bi manager tobacco- chews etoh- no Problems Problem Type SNOMED Code ICD Code Onset Dates Problem Status W/U Status Risk Notes Problem Chronic migraine without aura, non-intractab le ([id number] 100) Chronic migraine w/o aura w/o status migrainosus, not intractable (G43.709) Active confirmed Plan Of Treatment No Information Insurance Providers Payer Name Payer Address Payer Phone Subscriber Number Group Number Insured Name Patient Relationship to Insured Coverage Start Date Coverage End Date [facility] [address] [place] [address] [id number] FARHAD COREAS Self - patient is the insured [employer] [address] [place] [address] [id number] FARHAD COREAS Self - patient is the insured Medical (General) History Medical History History ICD Code migraines arthritis R knee DM type 2 osteoporosis HTN anemia Surgical History Surgery Date(Month/Year) knee
--- OUTSIDE RECORDS SUMMARY | 2025-07-17 07:05 | XMS_ITS | Clinical Summary ---
Author Organization [facility] Address [address] [address] Phone Care Team Providers Care Compressor Operator Adjuster Name Role Phone Angelique Kline MD Primary [...] Devices Not on file Insurance [address] [place] [address] [facility] [employer] Care Teams Compressor Operator Adjuster Relationship Specialty Start Date End Date Angelique Kline MD [address] [place] [id number] PCP - General Internal Medicine 08/24/21 Additional Source Comments The information contained in this document represents components of the legal health record. It is not the complete legal health record.[facility]
[2025-07-17] MEDS: iohexoL 350 MG/ML 100 ML INFUS..BTL IV (09:46)
[2025-07-17] MEDS: Barium Sulfate Oral (Berry) 450 ML ORAL.SUSP 900 ML PO (09:47)
[2025-07-17 15:47] LABS: Creatinine POC 0.6 mg/dL (0.5-1.4); GFR POC > 60
== END 2025-07-17 07:03 | disposition home or self-care (01) ==
LOC: HO.CT 07:02
PROVIDERS: PCP Nurse Practitioner Family; Visit Provider Internal Medicine Gastroenterology
DX: C7A.8 Other malignant neuroendocrine tumors (principal)
CPT/HCPCS: 74177; 82565; Q9967

== ENCOUNTER → 2025-07-17 07:04 | Outpatient (BNV) | payer OTHER, SELFPAY | PROVIDERS: PCP Nurse Practitioner Family; Visit Provider Radiology Diagnostic Radiology | DX: C7A.8 Other malignant neuroendocrine tumors (principal); K76.89 Other specified diseases of liver | CPT/HCPCS: 74177 ==

== ENCOUNTER 2025-07-19 09:03 | Outpatient (AMB) | payer OTHER, SELFPAY ==
--- NOTE | 2025-07-19 09:44 | A.OFFPC_ITS ---
Vital Signs 07/19/25 09:54 Height 5 ft 10 in Weight 160 lb 8 oz BMI 23.0 BP 123/60 Blood Pressure Location Lt brachial Position Sitting Respiration 16 Pulse 64 Pulse Source Pulse Oximeter Temp 97.9 F Temp Source Oral Pulse Oximetry (%) 97 Oxygen Delivery Method Room Air Intake Visit Reasons: 3 mos HTN, DM, TRAMAINE Intake Note: patient here for 3 months HTN, DM and TRAMAINE House Wirer Helper Required: No Allergies No Known Allergies Allergy (Verified 07/19/25 10:08) Medication List - Last Reconciled 07/19/25 by Jasmyn Chua CNP atorvastatin 10 mg PO DAILY blood sugar diagnostic (Accu-Chek Guide test strips) Patient to test blood sugar three times a day as directed blood-glucose meter (Accu-Chek Guide Me Glucose Meter) POC TID diclofenac sodium 1% 1 g topical BID dutasteride 0.5 mg PO DAILY 90 days ferrous sulfate 325 mg PO DAILY 90 days lancets (Accu-Chek Softclix Lancets) POC testing TID lisinopril 10 mg PO BID 90 days meclizine 12.5 mg orally one a day as needed for dizziness PRN; metformin ER 1,000 mg (2 x 500 mg) PO BID naproxen 500 mg PO BID PRN 30 days sumatriptan succinate 50 mg PO DAILY PRN Tobacco use date assessed: 07/19/25 Fall risk assessment: 1 Fall in past year Last assessed Fall Risk: 07/19/25 Dental Screening Dental Screen Date: 07/19/25 Did you have a dental visit in the last 12 months?: No Did you have a dental problem in the last 6 months where you did not have access to dental care?: No Was dental information given to patient?: Patient has dentist HPI HPI Comments History of Present Illness Details 65-year-old male, accompanied by his wif e, presents hypertension, diabetes, and iron-deficiency anemia follow-up. He admits to taking his medications as prescribed without adverse reactions. However, he stopped taking ferrous sulfate about a month ago. No acute symptoms at this time. [facility] Medical History (Updated 07/08/25 @ 16:07 by Amanda Ross MD) HTN (hypertension) Arthritis Anemia Diabetes Memory loss Generalized headaches Dizziness Frequency of urination Enlarged prostate Pain in lower back High cholesterol Surgical History (Updated 07/08/25 @ 16:07 by Amanda Ross MD) Hx of prostate biopsy Knee joint replacement status Family History Father Asthma High blood pressure Diabetes Social History (Updated 07/08/25 @ 15:41 by Fernando Stewart) Household Members: Spouse Housing: House Are you a primary primary care nurse practitioner to a significant other at home: No Do you presently have visiting nurse or other home services: No Comment: walker for occasional dizziness, no falls. Patient Tobacco Use Status: Never used Tobacco Tobacco use type: Cigarette and Smokeless Tobacco Years Smoked: 5 e-Cigarette/Vaping Use: Never Used Second Hand Smoke Exposure: No service: No Current occupational status: retired Current occupational exposures/hazards: No Cognitive needs: No Hearing needs: No Vision needs: Yes Questionnaire Thrive Questionnaire Date Thrive assessed: 12/24/24 I am a: Parent/Caregiver What is your living situation today?: I have a steady place to live Within the past 12 months, did the food you bought not last and you didn't have the money to get more?: Sometimes True Within the past 12 months, did you worry whether your food would run out before you got money to buy more?: Often true Do you have trouble paying for medicines?: No Do you have trouble getting transportation to medical appointments?: No Do you have trouble paying your heating and electricity bill?: No Do you have trouble taking care of your child, family member or friend?: No Do you have trouble with day-to-day activities such as bathing, preparing meals, shopping, managing finances, etc.?: Yes Are you currently unemployed and looking for a job?: No Are you interested in more education?: No Please select the resources that you would like help with: None Currently or been in a relationship where the following occur: I choose not to answer THRIVE Score: 2 JAIRO-7 AMB Questionnaire JAIRO-7 Date JAIRO - 7 assessed: 08/23/24 Source: Developed by Drs. Pedro Negrete, Kristen Ragland, Modesto Higgins and colleagues, with an educational angel from [employer] Review of Systems Const Details: Const Denies chills, Denies fatigue, Denies fever(s), Denies headache(s) and Denies weakness ENT Denies dizziness and Denies headache(s) Card Denies chest pain, Denies lightheadedness, Denies dyspnea and Denies other (Palpitations) Resp Denies cough, Denies dyspnea, Denies wheezing and Denies other ( shortness of breath) GI Denies abdominal pain, Denies melena, Denies hematochezia, Denies change in bowel habits, Denies dyspepsia and Denies nausea Denies hematuria and Denies dysuria Musc Denies abnormal gait, Denies myalgias, Denies arthralgias, Denies numbness and Denies tingling Skin/Breast Denies rash, Denies unusual bruising and Denies wounds Neuro Denies abnormal gait, Denies dizziness, Denies headache(s), Denies memory loss, Denies numbness, Denies Sensory deficit (Neuro), Denies tingling and Denies weakness Psych Denies anxiety, Denies depression, Denies memory loss Endo Denies cold intolerance, Denies fatigue, Denies heat intolerance, Denies polydipsia and Denies polyuria Aller/Immun Denies wheezing Physical exam (Primary Care) Vital Signs: Last Vital Signs Temp 97.9 F 07/19/25 09:54 Pulse 64 07/19/25 09:54 Resp 16 07/19/25 09:54 BP 123/60 07/19/25 09:54 Pulse Ox 97 07/19/25 09:54 Oxygen Delivery Method Room Air 07/19/25 09:54 BMI result Body Mass Index 23.0 Tobacco/Smoking Status: Tobacco use Status Tobacco use date assessed 07/19/25 07/19/25 09:59 Patient Tobacco Use Status Never used Tobacco 07/19/25 09:46 Tobacco use type Cigarette,Smokeless Tobacco 07/19/25 09:46 e-Cigarette/Vaping Use Never Used 07/19/25 09:46 Thrive Assessment: Date of Thrive Assessment Date Thrive assessed 12/24/24 07/19/25 09:46 Currently or been in a relationship where the following occur: I choose not to answer Const Other: General: no acute distress and well developed Nutritional Appearance: well nourished Orientation/consciousness: patient oriented x3 HENMT Head: Yes normocephalic and Yes atraumatic Eyes General: appearance normal, both eyes and all related structures Pupils: Equal, round and reactive pupils present EOM: EOMs intact bilaterally Resp Effort & Inspection: normal respiratory effort Auscultation: clear to auscultation bilaterally Cardio Rate: regular rate Rhythm: regular rhythm Heart sounds: S1 normal heart sound present, S2 normal heart sound present, no gallops, no murmurs and no rubs GI Palpation (GI): No Abdominal aortic bruit present, Soft to palpation, nontender, No hepatosplenomegaly present and No Rebound tenderness present Auscultation: normal bowel sounds General: Yes no CVA tenderness Back/Spine/Pelvis Back: no CVA tenderness Cervical Spine: cervical ROM normal and No Cervical spine tenderness Thoracic/Lumbar Spine: thoraco-lumbar ROM normal, No pain with thoraco-lumbar ROM, No thoracic spinal tenderness and No lumbar spinal tenderness Extrem General: Yes normal to inspection, No edema and No calf tenderness Skin General: warm and dry. Normal skin color. Normal skin turgor Neuro General: patient oriented x3, gait normal and no focal neuro deficit Cranial nerves: Yes Equal, round and reactive pupils present Cognition (Neuro): normal cognition Gait exam (Neuro): Normal gait present Sensory Exam: No Sensory deficit (Neuro) Psych Appearance: grossly normal Affect: normal affect Attitude: cooperative Thought process: Normal thought process present Coding Level of Care Code Est Pt Level 3 (88765) Diagnoses Essential hypertension I10 Type 2 diabetes mellitus E11.9 Iron deficiency anemia D50.9 Laboratory tests ordered as part of a complete physical exam (CPE) Z00.00 Assessment & Plan Assessment & Plan (1) Essential hypertension: Code(s): I10 - Essential (primary) hypertension Category: Medical Plan: Resting blood pressure is 123/60, within goal of less than 130/80. Continue current treatment regimen. Low-sodium diet encouraged. Perform fasting lab work and follow-up for an extended physical exam and labs review in a month. Return sooner with symptoms or concerns. Verbalized understanding and agreed with the plan. (2) Type 2 diabetes mellitus: Code(s): E11.9 - Type 2 diabetes mellitus without complications Category: Medical Plan: A1c today is 5.4%, within goal of less than 7.0%. Previous A1c was 6.2%. ADA diet and routine exercise encouraged. Will recheck A1c in 3 months. Verbalized understanding and agreed with the plan. (3) Iron deficiency anemia: Code(s): D50.9 - Iron deficiency anemia, unspecified Category: Medical Plan: Stable. He stopped taking ferrous sulfate about a month ago. Encouraged to restart ferrous sulfate 325 mg daily. (4) Laboratory tests ordered as part of a complete physical exam (CPE): Code(s): Z00.00 - Encounter for general adult medical examination without abnormal findings Category: Medical Plan: Fasting labs ordered as part of a complete physical exam. Advised to fast for at least 10 hours before getting labs drawn. May drink water Verbalized understanding and agreed with treatment plan. Orders: Orders AMB Hemoglobin A1c Today Z13.9 - Encounter for screening, unspecified Lipid Panel Today Z00.00 - Encounter for general adult medical examination without abnormal findings Microalbumin, Random (w Creat) Today Z00.00 - Encounter for general adult medical examination without abnormal findings TSH reflex Free T4 Today Z00.00 - Encounter for general adult medical examination without abnormal findings Comprehensive [place]. Panel Fast Today Z00.00 - Encounter for general adult medical examination without abnormal findings Vitamin D 25-OH Total Today Z00.00 - Encounter for general adult medical examination without abnormal findings Complete Blood Count Auto Diff Today Z00.00 - Encounter for general adult medical examination without abnormal findings
--- OUTSIDE RECORDS SUMMARY | 2025-07-19 09:49 | XMS_ITS | Clinical Summary ---
Author Organization [facility] Address [address] [address] Phone Care Team Providers Care Boiler Reliner Name Role Phone Angelique Kline MD Primary [...] Devices Not on file Insurance [address] [place] [address] [facility] [employer] Care Teams Boiler Reliner Relationship Specialty Start Date End Date Angelique Kline MD [address] [place] [id number] PCP - General Internal Medicine 08/24/21 Additional Source Comments The information contained in this document represents components of the legal health record. It is not the complete legal health record.[facility]
--- OUTSIDE RECORDS SUMMARY | 2025-07-19 09:49 | XMS_ITS | Patient Health Record ---
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- no checker cashier tobacco- chews etoh- no checker cashier tobacco- chews etoh- no Problems Problem Type SNOMED Code ICD Code Onset Dates Problem Status W/U Status Risk Notes Problem Chronic migraine without aura, non-intractab le (068040219015 100) Chronic migraine w/o aura w/o status migrainosus, not intractable (G43.709) Active confirmed Plan Of Treatment No Information Insurance Providers Payer Name Payer Address Payer Phone Subscriber Number Group Number Insured Name Patient Relationship to Insured Coverage Start Date Coverage End Date [facility] [address] [place] [address] [id number] FARHAD COREAS Self - patient is the insured [email or web address] [address] [place] [address] [id number] FARHAD COREAS Self - patient is the insured Medical (General) History Medical History History ICD Code migraines arthritis R knee DM type 2 osteoporosis HTN anemia Surgical History Surgery Date(Month/Year) knee
[2025-07-19 09:54] VITALS: BP 123/60; PULSE 64; RESP 16; TEMP 36.6; O2SAT 97; BMI 23.0
== END 2025-07-19 10:26 | disposition home or self-care (01) ==
LOC: HO.HMCFM 09:04
PROVIDERS: PCP Nurse Practitioner Family; Visit Provider Nurse Practitioner Family
DX: I10 Essential (primary) hypertension (principal); E11.9 Type 2 diabetes mellitus without complications; D50.9 Iron deficiency anemia, unspecified; Z00.00 Encounter for general adult medical examination without abnormal findings; Z13.9 Encounter for screening, unspecified

== ENCOUNTER → 2025-07-19 09:03 | Outpatient (BNVA) | payer OTHER, SELFPAY | PROVIDERS: PCP Nurse Practitioner Family; Visit Provider Nurse Practitioner Family | DX: Z00.00 Encounter for general adult medical examination without abnormal findings (principal); I10 Essential (primary) hypertension; E11.9 Type 2 diabetes mellitus without complications; D50.9 Iron deficiency anemia, unspecified | CPT/HCPCS: 83036; 99212 ==

== ENCOUNTER 2025-08-05 10:32 | Outpatient (AMB) | payer OTHER, SELFPAY ==
--- NOTE | 2025-08-05 10:37 | MHC.OFFVIS ---
Intake Visit Reasons: Dizziness Allergies No Known Allergies Allergy (Verified 07/19/25 10:08) HPI Comments Details: 65 yo LH man with type II DM and osteoarthritis was here for dizziness suggestive of benign positional vertigo and headaches of migraine type. He was still having headaches and said that sumatriptan was working out very well. He would typically take it on as needed basis but also reported that he was having a headache every morning. Otherwise no new symptoms. His vision was significantly affected and he was using a wide cane. [facility] Medical History (Updated 08/05/25 @ 10:39 by Maral Watkins MD) HTN (hypertension) Arthritis Anemia Diabetes Memory loss Generalized headaches Dizziness Frequency of urination Enlarged prostate Pain in lower back High cholesterol Surgical History (Updated 07/08/25 @ 16:07 by Amanda Ross MD) Hx of prostate biopsy Knee joint replacement status Family History Father Asthma High blood pressure Diabetes Social History (Updated 07/08/25 @ 15:41 by Fernando Stewart) Household Members: Spouse Housing: House Are you a primary intensive care anaesthetist to a significant other at home: No Do you presently have visiting nurse or other home services: No Comment: walker for occasional dizziness, no falls. Patient Tobacco Use Status: Never used Tobacco Tobacco use type: Cigarette and Smokeless Tobacco Years Smoked: 5 e-Cigarette/Vaping Use: Never Used Second Hand Smoke Exposure: No service: No Current occupational status: retired Current occupational exposures/hazards: No Cognitive needs: No Hearing needs: No Vision needs: Yes Review of Systems Narrative Ongoing headaches with difficulty with vision and unsteadiness Physical Exam Neuro Other: Mental Status: Alert and oriented to person, place, and time. Normal attention. Normal spontaneous speech, fluency, and comprehension. No obvious issues with mood and memory. Affect is appropriate. He is walking cautiously with a cane. Extrapyramidal: Full facial expressions and blinking. No rigidity. Movements are appropriate with no tremor or abnormality. Speech: Normal; no dysarthria or tremor. Assessment & Plan Assessment & Plan (1) Migraine: Comment: NCV/EMG LE (in office) No significant abnormality noted in this study. 10/23/24 Code(s): G43.909 - Migraine, unspecified, not intractable, without status migrainosus Category: Medical Qualifiers: Migraine type: without aura Status migrainosus presence: without status migrainosus Intractability: not intractable Qualified Code(s): G43.009 - Migraine without aura, not intractable, without status migrainosus (2) Vertigo: Code(s): R42 - Dizziness and giddiness Category: Medical Plan Impression: Migraine w/o aura Rec: Sumatriptan 50mg one a day as needed Medications: Changed From sumatriptan succinate 50 mg PO DAILY PRN 18 tabs 0RF Headache To sumatriptan succinate 50 mg PO DAILY PRN 18 tabs 1RF Headache 90 days Coding Level of Care Code Est Pt Level 3 (18438) Diagnoses Migraine without aura and without status migrainosus, not intractable G43.009 Migraine type: without aura Status migrainosus presence: without status migrainosus Intractability: not intractable Vertigo R42
--- OUTSIDE RECORDS SUMMARY | 2025-08-05 12:46 | XMS_ITS | Patient Health Record ---
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 [address] [place] [address] [id number] FARHAD COREAS Self - patient is the insured [employer] [address] [place] [address] [id number] FARHAD COREAS Self - patient is the insured Medical (General) History Medical History History ICD Code migraines arthritis R knee DM type 2 osteoporosis HTN anemia Surgical History Surgery Date(Month/Year) knee
--- OUTSIDE RECORDS SUMMARY | 2025-08-05 12:46 | XMS_ITS | Clinical Summary ---
Author Organization [facility] Address [address] [address] Phone Care Team Providers Care Pin Machine Tender Name Role Phone Angelique Kline MD Primary [...] Devices Not on file Insurance [address] [place] [address] [facility] [employer] A[employer] Care Teams Pin Machine Tender Relationship Specialty Start Date End Date Angelique Kline MD [address] [place] [id number] PCP - General Internal Medicine 08/24/21 Additional Source Comments The information contained in this document represents components of the legal health record. It is not the complete legal health record.[facility]
== END 2025-08-05 10:46 | disposition home or self-care (01) ==
LOC: HO.HSM 10:33
PROVIDERS: PCP Nurse Practitioner Family; Visit Provider Psychiatry & Neurology Neurology
DX: G43.009 Migraine without aura, not intractable, without status migrainosus (principal); R42 Dizziness and giddiness
CPT/HCPCS: 99213

== ENCOUNTER → 2025-08-05 10:32 | Outpatient (BNVA) | payer OTHER, SELFPAY | PROVIDERS: PCP Nurse Practitioner Family; Visit Provider Psychiatry & Neurology Neurology | DX: R42 Dizziness and giddiness (principal); G43.009 Migraine without aura, not intractable, without status migrainosus | CPT/HCPCS: 99212 ==

== ENCOUNTER 2025-08-12 08:07 | Outpatient (REF) | payer OTHER, SELFPAY ==
--- OUTSIDE RECORDS SUMMARY | 2025-08-12 08:25 | XMS_ITS | Patient Health Record ---
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- no gambling cashier tobacco- chews etoh- no gambling cashier tobacco- chews etoh- no Problems Problem Type SNOMED Code ICD Code Onset Dates Problem Status W/U Status Risk Notes Problem Chronic migraine without aura, non-intractab le ([id number] 100) Chronic migraine w/o aura w/o status migrainosus, not intractable (G43.709) Active confirmed Plan Of Treatment No Information Insurance Providers Payer Name Payer Address Payer Phone Subscriber Number Group Number Insured Name Patient Relationship to Insured Coverage Start Date Coverage End Date [facility] [address] [place] [address] [id number] FARHAD COREAS Self - patient is the insured [email or web address] [address] [place] [address] [id number] FARHAD COREAS Self - patient is the insured Medical (General) History Medical History History ICD Code migraines arthritis R knee DM type 2 osteoporosis HTN anemia Surgical History Surgery Date(Month/Year) knee
--- OUTSIDE RECORDS SUMMARY | 2025-08-12 08:25 | XMS_ITS | Clinical Summary ---
Author Organization [facility] Address [address] [address] Phone Care Team Providers Care Chair Caner Name Role Phone Angelique Kline MD Primary [...] on patient's age to complete this topic IPV VACCINES Aged Out No longer eligi ble based on patient's age to complete this topic MENINGOCOCCAL VACCINES (ACWY) Aged Out No longer eligible based on patient's age to complete this topic MENINGOCOCCAL VACCINES (B) Aged Out N o longer eligible based on patient's age to complete this topic Medical Devices Not on file Insurance [address] [place] [address] [facility] [place] [phone] Care Teams Chair Caner Relationship Specialty Start Date End Date Angelique Kline MD [address] [place] [id number] PCP - General Internal Medicine 08/24/21 Additional Source Comments The information contained in this document represents components of the legal health record. It is not the complete legal health record.[facility]
[2025-08-12 11:20] LABS: MANUAL DIFF FLAG NO
[2025-08-12 11:30] LABS: Hematocrit 37.7 % (42.0-52.0); Hemoglobin 12.2 g/dl (14.0-18.0); Imm Gran Abs Auto 0.02 X10*3/uL (0.00-0.03); Imm Gran Pct Auto 0.3 % (0.0-0.4); Lymphocytes Absolute Auto 1.8 X10*3/uL (1.2-4.9); Mean Corpuscular HGB Conc 32.4 g/dl (31.0-36.0); Mean Corpuscular Hemoglobin 28.8 pg (27.0-33.0); Mean Corpuscular Volume 88.9 fL (80.0-98.0); NRBC Abs Auto 0.000 X10*3/uL (0.0-0.012); NRBC Pct Auto 0.0 /100WBC (0.0-0.2); Platelet Count 329 X10*3/uL (160-400); Red Blood Count 4.24 X10*6/uL (4.60-5.80); White Blood Count 5.8 X10*3/uL (4.8-10.8)
[2025-08-12 12:36] LABS: Alanine Aminotransferase 10 U/L (0-40); Albumin Level 4.2 g/dL (3.5-5.0); Alkaline Phosphatase 53 U/L (39-117); Anion Gap 11 (12-20); Aspartate Amino Transferase 27 U/L (5-37); Blood Urea Nitrogen 12 mg/dL (9-16); Calcium 9.2 mg/dL (8.4-10.2); Carbon Dioxide 26 mmol/L (22-29); Chloride 105 mmol/L (96-108); Cholesterol 112 mg/dL (<200); Estimated Glomerular Filt Rate > 60; HDL Cholesterol 44 mg/dL (>40); Potassium 4.5 mmol/L (3.3-5.1); Sodium 137 mmol/L (135-145); Total Protein 7.1 g/dL (6.5-8.0); Triglycerides 51 mg/dL (<150)
== END 2025-08-12 08:08 | disposition home or self-care (01) ==
LOC: HO.WFDLDS 08:07
PROVIDERS: Internal Medicine Gastroenterology; Visit Provider Nurse Practitioner Family
DX: Z00.00 Encounter for general adult medical examination without abnormal findings (principal); Z13.6 Encounter for screening for cardiovascular disorders; Z13.29 Encounter for screening for other suspected endocrine disorder; C7A.8 Other malignant neuroendocrine tumors
CPT/HCPCS: 36415; 80053; 80061; 82043; 82306; 82570; 84443; 85025; 86316

== ENCOUNTER 2025-08-27 12:04 | Outpatient (AMB) | payer OTHER, SELFPAY ==
--- NOTE | 2025-08-27 12:11 | MHC.PC.OV ---
Vital Signs 08/27/25 12:29 08/27/25 12:53 Height 5 ft 10 in Weight 163 lb BMI 23.4 BP 132/64 126/60 Blood Pressure Location Lt brachial Lt brachial Position Sitting Sitting Respiration 16 Pulse 71 Pulse Source Pulse Oximeter Temp 97.7 F Temp Source Oral Pulse Oximetry (%) 100 Oxygen Delivery Method Room Air Intake Visit Reasons: 1 mos CPE, labs review-rescheduled do not cancel Intake Note: patient here for 1month CPE, and labs review Slumber Room Attendant Required: Yes Slumber Room Attendant Language: Gertrude Information Interpreted: non-clinical & clinical Allergies No Known Allergies Allergy (Verified 08/27/25 12:36) Medication List - Last Reconciled 08/27/25 by Jasmyn Chua CNP atorvastatin 10 mg PO DAILY blood sugar diagnostic (Accu-Chek Guide test strips) Patient to test blood sugar three times a day as directed blood-glucose meter (Accu-Chek Guide Me Glucose Meter) POC TID diclofenac sodium 1% 1 g topical BID dutasteride 0.5 mg PO DAILY 90 days ferrous sulfate 325 mg PO DAILY 90 days lancets (Accu-Chek Softclix Lancets) POC testing TID lisinopril 10 mg PO BID 90 days meclizine 12.5 mg orally one a day as needed for dizziness PRN; metformin ER 1,000 mg (2 x 500 mg) PO BID naproxen 500 mg PO BID PRN 30 days sumatriptan succinate 50 mg PO DAILY PRN 90 days Tobacco use date assessed: 08/27/25 Fall risk assessment: 2 + Falls in past year Last assessed Fall Risk: 08/27/25 Dental Screening Dental Screen Date: 08/27/25 Did you have a dental visit in the last 12 months?: No Did you have a dental problem in the last 6 months where you did not have access to dental care?: No Was dental information given to patient?: Yes HPI HPI Comments History of Present Illness Details 65-year-old male presents for an extended physical exam. His k[place] language is Gertrude but speaks and understand some Lao. He admits to taking his medications as prescribed without adverse reactions. Acute issue(s) - Reports intermittent nasal congestion on/off for the past one year. Responds well to nasal saline spray. - Reports anxiety and depressive symptoms 2-3 times weekly. He reports anxiousness, hopeless, lack of interest, and decreased appetite. He endorses intermittent suicide thoughts, once or twice monthly, for the past 2 months, and states there is nothing to live for. He denies plan of committing suicide. He endorses auditory hallucinations especially at night, and sometimes during the day when he is alone for the past 2-3 months; he does not understand what the voices are saying. The last time he heard voices was a week ago. He denies taking psychotropic medications for anxiety or depression. He denies h/o psychotherapy. He is willing to take medications for his symptoms. He denies visual hallucination. He denies history of self-injurious behavior or suicide attempts. Past Medical History - Type 2 diabetes, hypertension, hyperlipidemia, blurry vision, BPH, arthritis of both knees, pain to bilateral wrists, low back pain, migraine, iron-deficiency anemia, dizziness, constipation, prostate cancer, neuroendocrine tumor of the rectum, memory loss, sleep disturbance, anxiety, depression Social History - History of smoking, smoked x 2-3 cigarettes daily x 10 years, quit 10 years ago. Chews tobacco occasionally. Does not vape. Drinks 2-3 beers twice monthly. Denies recreational drug use - Has been making healthy dietary choices. Walks indoors. Generally sleep well, however, wakes up a few times to urinate Health maintenance - Last eye exam was in 09/2024 with [facility]. Referred to new spice miller as requested - Last dental visit was 2 years ago; encouraged to schedule an appointment with his dentist for routine dental care - Last Tdap vaccice 2-3 years ago, - Received the flu vaccine in 06/2025 - States he is up-to-date on shingles vaccine - He is not vaccinated for pneumonia. Encouraged to get vaccinated for pneumonia at the local pharmay - Last colonoscopy was in 06/17/2025: Neuroendocrine tumor of the rectum Specialists - Followed by [facility] Neurology, Urology, Gastroenterology, Hematology/Oncology Interpretation by an [facility] full time staff interpreter via voice call. [facility] Medical History HTN (hypertension) Arthritis Anemia Diabetes Memory loss Generalized headaches Dizziness Frequency of urination Enlarged prostate Pain in lower back High cholesterol Surgical History Hx of prostate biopsy Knee joint replacement status Family History Father Asthma High blood pressure Diabetes Social History Household Members: Spouse Housing: House Are you a primary career advisor to a significant other at home: No Do you presently have visiting nurse or other home services: No Comment: walker for occasional dizziness, no falls. Patient Tobacco Use Status: Never used Tobacco Tobacco use type: Cigarette and Smokeless Tobacco Years Smoked: 5 e-Cigarette/Vaping Use: Never Used Second Hand Smoke Exposure: No service: No Current occupational status: retired Current occupational exposures/hazards: No Cognitive needs: No Hearing needs: No Vision needs: Yes Questionnaire PHQ-9 Over the last 2 weeks, how often have you been bothered by any of the following problems? 1. Little interest or pleasure in doing things: several days 2. Feeling down, depressed, or hopeless: several days 3. Trouble falling or staying asleep, or sleeping too much: nearly every day 4. Feeling tired or having little energy: nearly every day 5. Poor appetite or overeating: several days 6. Feeling bad about yourself - or that you are a failure or have let yourself or your family down: more than half the days 7. Trouble concentrating on things, such as reading the newspaper or watching television: several days 8. Moving or speaking so slowly that other people could have noticed. Or the opposite - being so fidgety or restless that you have been moving around a lot more than usual: more than half the days 9. Thoughts that you would be better off or of hurting yourself in some way: nearly every day Total score: 17 Depression Screening Interpretation: Positive Depression Screening Follow-up: Existing condition, New Medication prescribed and Community Mental Health Worker F/U Depression Screening Done: Yes 76006 - PHQ-9 Billing: Yes Source: Developed by Drs. Pedro Negrete, Kristen Ragland, Modesto Higgins and colleagues, with an educational angel from [employer]. Thrive Questionnaire Date Thrive assessed: 08/27/25 I am a: Parent/Caregiver What is your living situation today?: I have a steady place to live Within the past 12 months, did the food you bought not last and you didn't have the money to get more?: Often true Within the past 12 months, did you worry whether your food would run out before you got money to buy more?: Often true Do you have trouble paying for medicines?: No Do you have trouble getting transportation to medical appointments?: Yes Do you have trouble paying your heating and electricity bill?: Yes Do you have trouble taking care of your child, family member or friend?: No Do you have trouble with day-to-day activities such as bathing, preparing meals, shopping, managing finances, etc.?: Yes Are you currently unemployed and looking for a job?: No Are you interested in more education?: No Please select the resources that you would like help with: Transportation and Utilities Currently or been in a relationship where the following occur: I choose not to answer THRIVE Score: 4 AUDIT C Alcohol Use Questionnaire (AUDIT-C) 1. How often do you have a drink containing alcohol?: Never 3. How often do you have six or more drinks on one occasion?: Never Total Score: 0 Score Reviewed/Action Taken: Yes JAIRO-7 AMB Questionnaire JAIRO-7 Date JAIRO - 7 assessed: 08/27/25 Feeling nervous, anxious, or on edge: 2 = More than half the days Not being able to stop or control worryin = More than half the days Worrying too much about different things: 3 = Nearly every day Trouble relaxin = Several days Being so restless that it is hard to sit still: 1 = Several days Becoming easily annoyed or irritable: 1 = Several days Feeling afraid as if something awful might happen: 1 = Several days Total JAIRO-7 score (0-4 normal; 5-9 mild; 10-14 moderate; 15-21 severe): 11 Source: Developed by Drs. Pedro Negrete, Kristen Ragland, Modesto Higgins and colleagues, with an educational angel from [employer]. JAIRO-7 Assessment Billing JAIRO-7 Assessment Tool: JAIRO-7 Assessment 95183 Review of Systems Const Details: Denies chills, Denies fatigue, Denies fever(s), Denies headache(s) and Denies weakness HEENT Denies change in vision, Denies dizziness, Denies headache(s), Denies hearing loss, Denies nasal congestion, Denies sinus pain, Denies sinus pressure and Denies sore throat Card Denies chest pain, Denies lightheadedness, Denies dyspnea and Denies other (palpitations) Resp Denies cough, Denies dyspnea and Denies wheezing GI Denies abdominal pain, Denies melena, Denies hematochezia, Denies change in bowel habits, Denies dyspepsia and Denies nausea Denies hematuria and Denies dysuria Musc Denies abnormal gait, Denies myalgias, Denies arthralgias, Denies numbness and Denies tingling Skin/Breast Denies rash, Denies unusual bruising and Denies wounds Neuro Denies abnormal gait, Denies dizziness, Denies headache(s), Denies memory loss, Denies numbness, Denies Sensory deficit (Neuro), Denies tingling and Denies weakness Psych Reports anxiety, Reports depression and Denies memory loss Endo Denies cold intolerance, Denies fatigue, Denies heat intolerance, Denies polydipsia and Denies polyuria Wayne/Lymph Denies easy bleeding and Denies easy bruising Aller/Immun Denies wheezing Physical exam (Primary Care) Vital Signs: Last Vital Signs Temp 97.7 F 08/27/25 12:29 Pulse 71 08/27/25 12:29 Resp 16 08/27/25 12:29 BP 126/60 08/27/25 12:53 Pulse Ox 100 08/27/25 12:29 Oxygen Delivery Method Room Air 08/27/25 12:29 BMI result Body Mass Index 23.4 Tobacco/Smoking Status: Tobacco use Status Tobacco use date assessed 08/27/25 08/27/25 12:35 Patient Tobacco Use Status Never used Tobacco 08/27/25 12:13 Tobacco use type Cigarette,Smokeless Tobacco 08/27/25 12:13 e-Cigarette/Vaping Use Never Used 08/27/25 12:13 PHQ-9: PHQ-9 Score PHQ-9: Total score 17 08/28/25 06:58 Depression Screening Interpretation: Positive Depression Screening Follow-up: Existing condition, New Medication prescribed and Community Mental Health Worker F/U Thrive Assessment: Date of Thrive Assessment Date Thrive assessed 08/27/25 08/27/25 12:35 Currently or been in a relationship where the following occur: I choose not to answer Const Other: General: no acute distress, well developed, alert and awake Nutritional Appearance: well nourished Orientation/consciousness: patient oriented x3 [facility] Head: Yes normocephalic and Yes atraumatic Ears: hearing grossly normal bilaterally and TM's normal bilaterally General nose exam: Normal external nose present and Normal nares present Mouth: Normal oral and palatal mucosa present and moist mucous membranes Teeth and gingiva: dentition normal Throat: Yes oropharynx normal Eyes Pupils: Equal, round and reactive pupils present and Pupil accommodation reflex normal EOM: EOMs intact bilaterally Neck Neck: Yes normal visual inspection, Yes no lymphadenopathy and Yes trachea midline Thyroid: Thyroid normal Carotids: no bruits Lymphatic: no lymphadenopathy noted Chest Chest palpation & inspection: normal inspection of the chest Resp Effort & Inspection: normal respiratory effort Auscultation: clear to auscultation bilaterally Cardio Rate: regular rate Rhythm: regular rhythm Heart sounds: S1 normal heart sound present, S2 normal heart sound present, no gallops, no murmurs and no rubs Bruits: no abdominal aortic bruits and no carotid bruits GI Palpation (GI): No Abdominal aortic bruit present, Soft to palpation, nontender, No hepatosplenomegaly present and No Rebound tenderness present Auscultation: normal bowel sounds General: Yes no CVA tenderness Back/Spine/Pelvis Back: no CVA tenderness Cervical Spine: cervical ROM normal and No Cervical spine tenderness Thoracic/Lumbar Spine: thoraco-lumbar ROM normal, No pain with thoraco-lumbar ROM, No thoracic spinal tenderness and No lumbar spinal tenderness Skin General: warm and dry. Normal skin color. Normal skin turgor Lesions: no lesions Rashes: no rashes Trauma: no lacerations or abrasions Wounds: no wounds Nails: normal Neuro General: patient oriented x3, gait normal and CN's II-XI intact bilaterally Cranial nerves: Yes Equal, round and reactive pupils present Cognition (Neuro): normal cognition Gait exam (Neuro): Normal gait present Motor exam (neuro): 5/5 motor strength present throughout Sensory Exam: No Sensory deficit (Neuro) Deep tendon reflexes (DTR's): Right patellar reflex intensity grade: 2+ and Left patellar reflex intensity grade: 2+ Extrem General: Yes normal to inspection, No edema and No calf tenderness Psych Appearance: grossly normal Mood: Depressed Affect: Blunted Attitude: cooperative Thought process: Normal thought process present Coding Level of Care Code Est Pt Level 4 (08801) Est Pt Prev Care >65y(89518) Diagnoses Normal physical examination, routine Z00.00 Iron deficiency anemia D50.9 Essential hypertension I10 Anxiety F41.9 Depression F32.A Auditory hallucinations R44.0 Nasal congestion R09.81 Eye exam, routine Z01.00 Additional Codes JAIRO-7 Assessment Billing - JAIRO-7 Assessment Tool: JAIRO-7 Assessment 42594 ([id number]) PHQ-9 - 76579 - PHQ-9 Billing: Yes ([id number]) Assessment & Plan Assessment & Plan (1) Normal physical examination, routine: Code(s): Z00.00 - Encounter for general adult medical examination without abnormal findings Category: Medical Plan: No significant functional limitation noted. Continue current treatment regimen. Healthy diet and routine exercise encouraged. Schedule an 2 months transfer of care visit with a new provider within the practice. Verbalized understanding and agreed with the plan. (2) Iron deficiency anemia: Code(s): D50.9 - Iron deficiency anemia, unspecified Category: Medical Plan: Recent RBC and H&H are slightly low, 4.24 and 12.2/37.7 respectively, MCV is normal. Continue current treatment regimen. Followed by [facility] hematology/oncology. Verbalized understanding and agreed with the plan. (3) Essential hypertension: Code(s): I10 - Essential (primary) hypertension Category: Medical Plan: Resting blood pressure is 126/60, within goal of less than the and 130/80. Continue current treatment regimen. Low-sodium diet encouraged. Follow-up as planned for transfer of care. Verbalized understanding and agreed with the plan. (4) Anxiety: Code(s): F41.9 - Anxiety disorder, unspecified Category: Medical Plan: Patient reports anxiety and depressive symptoms 2-3 times weekly. He reports anxiousness, hopeless, lack of interest, and decreased appetite. He endorses intermittent suicide thoughts, once or twice monthly, for the past 2 months, and states there is nothing to live for. He denies plan of committing suicide. He endorses auditory hallucinations especially at night, and sometimes during the day when he is alone for the past 2-3 months; he does not understand what the voices are saying. The last time he heard voices was a week ago. He denies taking psychotropic medications for anxiety or depression. He denies h/o psychotherapy. He is willing to take medications for his symptoms. He denies visual hallucination. He denies history of self-injurious behavior or suicide attempts. PHQ-9 and JAIRO-7 scores revealed moderately severe depression and moderate anxiety respectively. Sertraline 25 mg daily ordered to target depression. Hydroxyzine 25 mg 3 times daily as needed ordered target anxiety. Risperidone 0.5 mg daily at bedtime to target auditory hallucinations. Advised to take the medications as prescribed. Instructed on the risks, benefits, and potential adverse reactions of the medications. Our CHW will contact the patient regarding psychotherapy referral. Follow-up in 2 weeks or sooner with worsening or new symptoms. Verbalized understanding and agreed with the plan. (5) Depression: Code(s): F32.A - Depression, unspecified Category: Medical Plan: Plan as above. (6) Auditory hallucinations: Code(s): R44.0 - Auditory hallucinations Category: Medical Plan: Plan as above. (7) Nasal congestion: Code(s): R09.81 - Nasal congestion Category: Medical Plan: Reports intermittent nasal congestion on/off for the past one year. Responds well to nasal saline spray. Likely seasonal allergies. Cetirizine 10 mg daily ordered; advised to take as prescribed. Instructed on the risks, benefits, and potential adverse reactions of the medication. Continue to use nasal saline spray as needed. Follow-up with worsening or new symptoms. Verbalized understanding and agreed with the plan. (8) Eye exam, routine: Code(s): Z01.00 - Encounter for examination of eyes and vision without abnormal findings Category: Medical Plan: Last eye exam was in 09/2024 with [facility]. Referred to new spice miller as requested. Plan Total time for this visit was 75 minutes. This include 55 minutes with patient for complete physical exam and chronic disease management/treatment, and 20 minutes reviewing, coordinating plan of care, and documenting. Orders: Referrals Ophthalmology Referral Z01.00 - Encounter for examination of eyes and vision without abnormal findings Medications: New hydroxyzine HCl 25 mg PO TID PRN 90 tabs 1RF anxiety risperidone 0.5 mg PO BEDTIME 30 tabs 1RF 30 days sertraline 25 mg PO DAILY 30 tabs 1RF 30 days cetirizine 10 mg PO DAILY 30 tabs 1RF 30 days
[2025-08-27 12:29] VITALS: BP 132/64; PULSE 71; RESP 16; TEMP 36.5; O2SAT 100; BMI 23.4
[2025-08-27 12:53] VITALS: BP 126/60
--- OUTSIDE RECORDS SUMMARY | 2025-08-27 15:48 | XMS_ITS | Clinical Summary ---
Author Organization [facility] Address [address] [address] Phone Care Team Providers Care Program Director/Morning Show Host Name Role Phone Angelique Kline MD Primary [...] Devices Not on file Insurance [id number] [place] [address] [facility] [employer] Care Teams Program Director/Morning Show Host Relationship Specialty Start Date End Date Angelique Kline MD [address] [place] [id number] PCP - General Internal Medicine 08/24/21 Additional Source Comments The information contained in this document represents components of the legal health record. It is not the complete legal health record.[facility]
--- OUTSIDE RECORDS SUMMARY | 2025-08-27 15:49 | XMS_ITS | Patient Health Record ---
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 etoh- no Problems Problem Type SNOMED Code ICD Code Onset Dates Problem Status W/U Status Risk Notes Problem Chronic migraine without aura, non-intractab le ([id number]) Chronic migraine w/o aura w/o status migrainosus, not intractable (G43.709) Active confirmed Plan Of Treatment No Information Insurance Providers Payer Name Payer Address Payer Phone Subscriber Number Group Number Insured Name Patient Relationship to Insured Coverage Start Date Coverage End Date [facility] [address] [place] [phone] [id number] FARHAD COREAS Self - patient is the insured [id number] [address] [place] [address] [id number] FARHAD COREAS Self - patient is the insured Medical (General) History Medical History History ICD Code migraines arthritis R knee DM type 2 osteoporosis HTN anemia Surgical History Surgery Date(Month/Year) knee
== END 2025-08-27 15:07 | disposition home or self-care (01) ==
LOC: HO.HMCFM 12:05
PROVIDERS: PCP Nurse Practitioner Family; Visit Provider Nurse Practitioner Family
DX: Z00.00 Encounter for general adult medical examination without abnormal findings (principal); D50.9 Iron deficiency anemia, unspecified; I10 Essential (primary) hypertension; F41.9 Anxiety disorder, unspecified; F32.A Depression, unspecified; R44.0 Auditory hallucinations; R09.81 Nasal congestion

== ENCOUNTER → 2025-08-27 12:04 | Outpatient (BNVA) | payer OTHER, SELFPAY | PROVIDERS: PCP Nurse Practitioner Family; Visit Provider Nurse Practitioner Family | DX: Z00.00 Encounter for general adult medical examination without abnormal findings (principal); D50.9 Iron deficiency anemia, unspecified; I10 Essential (primary) hypertension; F41.9 Anxiety disorder, unspecified; F32.A Depression, unspecified; R44.0 Auditory hallucinations; R09.81 Nasal congestion; Z87.891 Personal history of nicotine dependence | CPT/HCPCS: 96127; 99397 ==

== ENCOUNTER 2025-09-13 08:36 | Outpatient (AMB) | payer OTHER, SELFPAY ==
--- NOTE | 2025-09-13 08:40 | MHC.PC.OV ---
Vital Signs 09/13/25 09:06 Height 5 ft 10 in Weight 162 lb 8 oz BMI 23.3 BP 117/60 Blood Pressure Location Rt brachial Position Sitting Respiration 16 Pulse 68 Pulse Source Pulse Oximeter Temp 97.3 F Temp Source Oral Pulse Oximetry (%) 99 Oxygen Delivery Method Room Air Intake Visit Reasons: 2 wks f/u anxiety, depression, AH Intake Note: patient here for 2 wks follow up on anxiety and depression, AH Irrigation Equipment Installer Required: Yes Irrigation Equipment Installer Language: Gertrude Irrigation Equipment Installer Name: inocencia Traore Information Interpreted: non-clinical & clinical Accompanied by: Friend Allergies No Known Allergies Allergy (Verified 09/13/25 09:39) Medication List - Last Reconciled 09/13/25 by Jasmyn Chua CNP atorvastatin 10 mg PO DAILY blood sugar diagnostic (Accu-Chek Guide test strips) Patient to test blood sugar three times a day as directed blood-glucose meter (Accu-Chek Guide Me Glucose Meter) POC TID cetirizine 10 mg PO DAILY 30 days diclofenac sodium 1% 1 g topical BID dutasteride 0.5 mg PO DAILY 90 days hydroxyzine HCl 25 mg PO TID PRN lancets (Accu-Chek Softclix Lancets) POC testing TID lisinopril 10 mg PO BID 90 days meclizine 12.5 mg orally one a day as needed for dizziness PRN; metformin ER 1,000 mg (2 x 500 mg) PO BID naproxen 500 mg PO BID PRN 30 days risperidone 0.5 mg PO BEDTIME 30 days sertraline 25 mg PO DAILY 30 days sumatriptan succinate 50 mg PO DAILY PRN 90 days Tobacco use date assessed: 09/13/25 Dental Screening Dental Screen Date: 08/27/25 HPI HPI Comments History of Present Illness Details 65-year-old Gertrude speaking male, accompanied by a family member, presents for anxiety, depression, and auditory hallucination follow-up. He admits to taking his medications as prescribed. He reports blurry vision for while watching TV or ready, after taking hydroxyzine. His symptoms subsides quickly. He notes that he has been feeling better since his last visit. He reports improved anxiety and depressive symptoms. He notes that he has not been experiencing suicide ideation and has been living peacefully. He states that he has been having experiencing good thoughts. He no longer hears voices, that problem has been solved. He currently uses a cane and requests a walker for ambulation. Interpretation by an Gertrude nutrition and dietetics instructor via voice call. [facility] Medical History HTN (hypertension) Arthritis Anemia Diabetes Memory loss Generalized headaches Dizziness Frequency of urination Enlarged prostate Pain in lower back High cholesterol Surgical History Hx of prostate biopsy Knee joint replacement status Family History Father Asthma High blood pressure Diabetes Social History Household Members: Spouse Housing: House Are you a primary career information specialist to a significant other at home: No Do you presently have visiting nurse or other home services: No Comment: walker for occasional dizziness, no falls. Patient Tobacco Use Status: Never used Tobacco Tobacco use type: Cigarette and Smokeless Tobacco Years Smoked: 5 e-Cigarette/Vaping Use: Never Used Second Hand Smoke Exposure: No service: No Current occupational status: retired Current occupational exposures/hazards: No Cognitive needs: No Hearing needs: No Vision needs: Yes Questionnaire PHQ-9 Over the last 2 weeks, how often have you been bothered by any of the following problems? 1. Little interest or pleasure in doing things: several days 2. Feeling down, depressed, or hopeless: several days 3. Trouble falling or staying asleep, or sleeping too much: nearly every day 4. Feeling tired or having little energy: not at all 5. Poor appetite or overeating: nearly every day 6. Feeling bad about yourself - or that you are a failure or have let yourself or your family down: several days 7. Trouble concentrating on things, such as reading the newspaper or watching television: nearly every day 8. Moving or speaking so slowly that other people could have noticed. Or the opposite - being so fidgety or restless that you have been moving around a lot more than usual: more than half the days 9. Thoughts that you would be better off or of hurting yourself in some way: not at all Total score: 14 Depression Screening Interpretation: Positive Depression Screening Follow-up: Existing condition and In treatment Depression Screening Done: Yes 07470 - PHQ-9 Billing: Yes Source: Developed by Drs. Pedro Negrete, Kristen Ragland, Modesto Higgins and colleagues, with an educational angel from [employer]. Thrive Questionnaire Date Thrive assessed: 12/24/24 I am a: Parent/Caregiver What is your living situation today?: I have a steady place to live Within the past 12 months, did the food you bought not last and you didn't have the money to get more?: Sometimes True Within the past 12 months, did you worry whether your food would run out before you got money to buy more?: Often true Do you have trouble paying for medicines?: No Do you have trouble getting transportation to medical appointments?: No Do you have trouble paying your heating and electricity bill?: No Do you have trouble taking care of your child, family member or friend?: No Do you have trouble with day-to-day activities such as bathing, preparing meals, shopping, managing finances, etc.?: Yes Are you currently unemployed and looking for a job?: No Are you interested in more education?: No Please select the resources that you would like help with: None Currently or been in a relationship where the following occur: I choose not to answer THRIVE Score: 2 JAIRO-7 AMB Questionnaire JAIRO-7 Date JAIRO - 7 assessed: 09/13/25 Feeling nervous, anxious, or on edge: 1 = Several days Not being able to stop or control worryin = Several days Worrying too much about different things: 1 = Several days Trouble relaxin = More than half the days Being so restless that it is hard to sit still: 2 = More than half the days Becoming easily annoyed or irritable: 2 = More than half the days Feeling afraid as if something awful might happen: 1 = Several days Total JAIRO-7 score (0-4 normal; 5-9 mild; 10-14 moderate; 15-21 severe): 10 Source: Developed by Drs. Pedro Negrete, Modesto Boateng and colleagues, with an educational angel from [employer]. JAIRO-7 Assessment Billing JAIRO-7 Assessment Tool: JAIRO-7 Assessment 15894 Review of Systems Const Details: Const Denies chills, Denies fatigue, Denies fever(s), Denies headache(s) and Denies weakness ENT Denies dizziness and Denies headache(s) Card Denies chest pain, Denies lightheadedness, Denies dyspnea and Denies other (Palpitations) Resp Denies cough, Denies dyspnea, Denies wheezing and Denies other ( shortness of breath) GI Denies abdominal pain, Denies melena, Denies hematochezia, Denies change in bowel habits, Denies dyspepsia and Denies nausea Denies hematuria and Denies dysuria Musc Denies abnormal gait, Denies myalgias, Denies arthralgias, Denies numbness and Denies tingling Skin/Breast Denies rash, Denies unusual bruising and Denies wounds Neuro Denies abnormal gait, Denies dizziness, Denies headache(s), Denies memory loss, Denies numbness, Denies Sensory deficit (Neuro), Denies tingling and Denies weakness Psych Denies anxiety, Denies depression, Denies memory loss Endo Denies cold intolerance, Denies fatigue, Denies heat intolerance, Denies polydipsia and Denies polyuria Aller/Immun Denies wheezing Physical exam (Primary Care) Vital Signs: Last Vital Signs Temp 97.3 F 09/13/25 09:06 Pulse 68 09/13/25 09:06 Resp 16 09/13/25 09:06 BP 117/60 09/13/25 09:06 Pulse Ox 99 09/13/25 09:06 Oxygen Delivery Method Room Air 09/13/25 09:06 BMI result Body Mass Index 23.3 Tobacco/Smoking Status: Tobacco use Status Tobacco use date assessed 09/13/25 09/13/25 09:10 Patient Tobacco Use Status Never used Tobacco 09/13/25 08:40 Tobacco use type Cigarette,Smokeless Tobacco 09/13/25 08:40 e-Cigarette/Vaping Use Never Used 09/13/25 08:40 PHQ-9: PHQ-9 Score PHQ-9: Total score 15 09/13/25 09:27 Depression Screening Interpretation: Positive Depression Screening Follow-up: Existing condition and In treatment Thrive Assessment: Date of Thrive Assessment Date Thrive assessed 12/24/24 09/13/25 08:40 Currently or been in a relationship where the following occur: I choose not to answer Const Other: General: no acute distress and well developed Nutritional Appearance: well nourished Orientation/consciousness: patient oriented x3 HENMT Head: Yes normocephalic and Yes atraumatic Eyes General: appearance normal, both eyes and all related structures Pupils: Equal, round and reactive pupils present EOM: EOMs intact bilaterally Resp Effort & Inspection: normal respiratory effort Auscultation: clear to auscultation bilaterally Cardio Rate: regular rate Rhythm: regular rhythm Heart sounds: S1 normal heart sound present, S2 normal heart sound present, no gallops, no murmurs and no rubs Extrem General: Yes normal to inspection, No edema and No calf tenderness Skin General: warm and dry. Normal skin color. Normal skin turgor Neuro General: patient oriented x3, gait normal and no focal neuro deficit Cranial nerves: Yes Equal, round and reactive pupils present Cognition (Neuro): normal cognition Gait exam (Neuro): Normal gait present Sensory Exam: No Sensory deficit (Neuro) Psych Appearance: grossly normal Mood: Calm Affect: Mood congruent Attitude: cooperative Thought process: Linear. No SI Coding Level of Care Code Est Pt Level 4 (64859) Diagnoses Anxiety F41.9 Depression F32.A Auditory hallucinations R44.0 Additional Codes JAIRO-7 Assessment Billing - JAIRO-7 Assessment Tool: JAIRO-7 Assessment 76087 ([id number]) PHQ-9 - 43105 - PHQ-9 Billing: Yes ([id number]) Assessment & Plan Assessment & Plan (1) Anxiety: Code(s): F41.9 - Anxiety disorder, unspecified Category: Medical Plan: He notes that he has been feeling better since his last visit. He reports improved anxiety and depressive symptoms. He notes that he has not been experiencing suicide ideation and has been living peacefully. He states that he has been having experiencing good thoughts. He no longer hears voices, that problem has been solved. Continue current treatment regimen. Routine exercise encouraged. Follow-up in 2 months for transfer of care with a new provider. Return sooner with symptoms or concerns. Verbalized understanding and agreed with the plan. Walker ordered as requested. (2) Depression: Code(s): F32.A - Depression, unspecified Category: Medical Plan: Plan as above. (3) Auditory hallucinations: Code(s): R44.0 - Auditory hallucinations Category: Medical Plan: Plan as above. Orders: Referrals Ophthalmology Referral Z01.00 - Encounter for examination of eyes and vision without abnormal findings Medications: New miscellaneous medical supply One Rollator walker 1 ea 0RF miscellaneous medical supply One Rollator walker 1 ea 0RF
[2025-09-13 09:06] VITALS: BP 117/60; PULSE 68; RESP 16; TEMP 36.3; O2SAT 99; BMI 23.3
== END 2025-09-13 09:56 | disposition home or self-care (01) ==
LOC: HO.HMCFM 08:37
PROVIDERS: PCP Nurse Practitioner Family; Visit Provider Nurse Practitioner Family
DX: F41.9 Anxiety disorder, unspecified (principal); F32.A Depression, unspecified; R44.0 Auditory hallucinations

== ENCOUNTER 2025-09-13 08:36 | Outpatient (REF) | payer OTHER, SELFPAY ==
--- OUTSIDE RECORDS SUMMARY | 2025-09-13 19:51 | XMS_ITS | Clinical Summary ---
Author Organization [facility] Address [address] [address] Phone Care Team Providers Care Physician Allergist Immunologist Name Role Phone Angelique Kline MD Primary [...] Devices Not on file Insurance [address] [place] [address] [facility] [employer] Care Teams Physician Allergist Immunologist Relationship Specialty Start Date End Date Angelique Kline MD [address] [place] [phone] PCP - General Internal Medicine 08/24/21 Additional Source Comments The information contained in this document represents components of the legal health record. It is not the complete legal health record.[facility]
--- OUTSIDE RECORDS SUMMARY | 2025-09-13 19:51 | XMS_ITS | Patient Health Record ---
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- no parking cashier tobacco- chews etoh- no parking cashier tobacco- chews etoh- no Problems Problem Type SNOMED Code ICD Code Onset Dates Problem Status W/U Status Risk Notes Problem Chronic migraine without aura, non-intractab le ([id number] 100) Chronic migraine w/o aura w/o status migrainosus, not intractable (G43.709) Active confirmed Plan Of Treatment No Information Insurance Providers Payer Name Payer Address Payer Phone Subscriber Number Group Number Insured Name Patient Relationship to Insured Coverage Start Date Coverage End Date [facility] [place] [facility] [address] [place] [address] [id number] FARHAD COREAS Self - patient is the insured [employer] [address] [place] [address] [id number] FARHAD COREAS Self - patient is the insured Medical (General) History Medical History History ICD Code migraines arthritis R knee DM type 2 osteoporosis HTN anemia Surgical History Surgery Date(Month/Year) knee
[2025-09-16 07:18] LABS: TS Negative Control Passed; TS Panel A 6; TS Panel B 18; TS Positive Control Passed; TSpotTB Positive (Negative)
== END 2025-09-13 08:37 | disposition home or self-care (01) ==
LOC: HO.WFDLDS 08:36
PROVIDERS: PCP Nurse Practitioner Family; Visit Provider Nurse Practitioner Family
DX: F41.9 Anxiety disorder, unspecified (principal); Z13.31 Encounter for screening for depression; Z13.39 Encounter for screening examination for other mental health and behavioral disorders; F32.A Depression, unspecified; R44.0 Auditory hallucinations
CPT/HCPCS: 36415; 86481; 96127; 99212

== ENCOUNTER 2025-09-23 14:39 | Outpatient (REF) | payer OTHER, SELFPAY ==
--- NOTE | ~2025-09-23 | XR_ITS ---
EXAMINATION: XR CHEST 2 VIEWS HISTORY: R76.11 - Nonspecific reaction to tuberculin skin test without active TB... COMPARISON: There are no prior studies available for comparison. FINDINGS: PA and lateral views of the chest are submitted. The lungs are expanded and clear. 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 There is no pleural effusion, pneumothorax, or pulmonary vascular congestion. The heart is normal in size. The bones are intact. XR/XR chest 2V IMPRESSION: No acute cardiopulmonary abnormality. Electronically signed by: Pedro Gonzalez MD 09/23/2025 03:10 PM [facility]
--- OUTSIDE RECORDS SUMMARY | 2025-09-23 17:58 | XMS_ITS | Patient Health Record ---
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- chews etoh- no cook cashier food prep tobacco- chews etoh- no cook cashier food prep tobacco- chews etoh- no Problems Problem Type SNOMED Code ICD Code Onset Dates Problem Status W/U Status Risk Notes Problem Chronic migraine without aura, non-intractab le ([id number] 100) Chronic migraine w/o aura w/o status migrainosus, not intractable (G43.709) Active confirmed Plan Of Treatment No Information Insurance Providers Payer Name Payer Address Payer Phone Subscriber Number Group Number Insured Name Patient Relationship to Insured Coverage Start Date Coverage End Date [facility] [address] [place] [address] [id number] FARHAD COREAS Self - patient is the insured [employer] [address] [place] [address] [id number] FARHAD COREAS Self - patient is the insured Medical (General) History Medical History History ICD Code migraines arthritis R knee DM type 2 osteoporosis HTN anemia Surgical History Surgery Date(Month/Year) knee
--- OUTSIDE RECORDS SUMMARY | 2025-09-23 17:58 | XMS_ITS | Clinical Summary ---
Author Organization [facility] Address [address] [address] Phone Care Team Providers Care Predatory Animal Exterminator Name Role Phone Angelique Kline MD Primary [...] Devices Not on file Insurance [address] [place] [address] [facility] [employer] Care Teams Predatory Animal Exterminator Relationship Specialty Start Date End Date Angelique Kline MD [address] [place] [phone] PCP - General Internal Medicine 08/24/21 Additional Source Comments The information contained in this document represents components of the legal health record. It is not the complete legal health record.[facility]
== END 2025-09-23 14:40 ==
LOC: HO.XRAY 14:39
PROVIDERS: PCP Nurse Practitioner Family; Visit Provider Nurse Practitioner Family
DX: R76.11 Nonspecific reaction to tuberculin skin test without active tuberculosis (principal)
CPT/HCPCS: 71046

== ENCOUNTER → 2025-09-23 14:45 | Outpatient (BNV) | payer OTHER, SELFPAY | PROVIDERS: PCP Nurse Practitioner Family; Visit Provider Radiology Diagnostic Radiology | DX: R76.11 Nonspecific reaction to tuberculin skin test without active tuberculosis (principal) | CPT/HCPCS: 71046 ==